=== PATIENT | male | born 1935 | race Caucasian/White ===

== ENCOUNTER 2017-06-25 13:26 | Inpatient (IN) | payer MEDICARE ==
[2017-06-25] MEDS ORDERED: SODIUM CHLORIDE 0.9% 1,000 ML IV STA (13:51)
--- NOTE | 2017-06-25 13:56 | ED ---
General Adult HPI - General Chief complaint: Fever Stated complaint: SOB/Blood sugar/589 Time Seen by Provider: 06/25/17 13:30 Source: patient, family, RN notes reviewed Mode of arrival: wheelchair Limitations: no limitations - History of Present Illness Initial comments: This is an 82-year-old male who presents to the emergency department stating he thinks he has diabetes. Patient states he measured his sugar was someone else' s machine and it measured 585. Patient states he's noticed lately that is been urinating quite a bit in his mouth is been extremely dry. Sensation states she' s never had diabetes before. Patient denies any palpitations. Patient denies any recent fever chills or cough. Patient states she does have full shortness of breath but he always is somewhat short of breath doesn't as COPD. Patient denies any chest pain. Patient denies abdominal pain patient denies any nausea vomiting or diarrhea recently. Patient denies any headache patient denies numbness weakness. Patient denies any back pain. Patient denies any recent injury or trauma - Related Data Home Medications Medication Instructions Recorded Confirmed No Known Home Medications [No 06/25/17 06/25/17 Known Home Medications] Allergies Allergy/AdvReac Type Severity Reaction Status Date / Time heparin AdvReac Itching Verified 06/25/17 14:52 Review of Systems ROS Statement: Those systems with pertinent positive or pertinent negative responses have been documented in the HPI. ROS Other: All systems not noted in ROS Statement are negative. Past Medical History Past Medical History: Diabetes Mellitus History of Any Multi-Drug Resistant Organisms: None Reported Past Surgical History: No Surgical Hx Reported Additional Past Surgical History / Comment(s): tooth extraction Past Psychological History: No Psychological Hx Reported Smoking Status: Former smoker Past Alcohol Use History: None Reported Past Drug Use History: None Reported General Exam - General Exam Comments Initial Comments: GENERAL: Patient is well-developed and well-nourished. Patient is nontoxic and well- hydrated and is in mild distress. ENT: Neck is soft and supple. No significant lymphadenopathy is noted. Oropharynx is clear. Dry mucous membranes. Neck has full range of motion without eliciting any pain. EYES: The sclera were anicteric and conjunctiva were pink and moist. Extraocular movements were intact and pupils were equal round and reactive to light. Eyelids were unremarkable. PULMONARY: Unlabored respirations. Good breath sounds bilaterally. No audible rales rhonchi or wheezing was noted. CARDIOVASCULAR: There is a regular rate and rhythm without any murmurs gallops or rubs. ABDOMEN: Soft and nontender with normal bowel sounds. No palpable organomegaly was noted. There is no palpable pulsatile mass. SKIN: Skin is clear with no lesions or rashes and otherwise unremarkable. NEUROLOGIC: Patient is alert and oriented x3. Cranial nerves II through XII are grossly intact. Motor and sensory are also intact. Normal speech, volume and content. Symmetrical smile. MUSCULOSKELETAL: Normal extremities with adequate strength and full range of motion. LYMPHATICS: No significant lymphadenopathy is noted PSYCHIATRIC: Normal psychiatric evaluation. Limitations: no limitations Course Vital Signs 06/25/17 13:32 Temperature 99.6 F Pulse Rate 104 H Respiratory 22 Rate Blood Pressure 138/91 O2 Sat by Pulse 95 Oximetry Medical Decision Making - Medical Decision Making EKG shows normal sinus rhythm at 91 bpm AR interval is on a 52 QRS is 92 QT interval 370 QTC is 455. Patient's EKG shows no ST segment elevation or depression or T wave abnormalities are noted. Patient's sugar was over 700 started the patient on insulin drip and I gave the patient 2 L of fluid. Patient's acetone was positive patient appeared to be in DKA swelling be admitting the patient. I spoke with Dr. Jimenez. The patient I wrote admitting orders I continue the insulin drip and the DKA protocol floor. - Lab Data Result diagrams: 06/25/17 14:06 06/25/17 14:06 Lab Results 06/25/17 06/25/17 06/25/17 Range/Units 14:04 14:06 14:06 WBC 12.1 H (3.8-10.6) k/uL RBC 5.60 (4.30-5.90) m/uL Hgb 18.4 H (13.0-17.5) gm/dL Hct 55.3 H (39.0-53.0) % MCV 98.8 (80.0-100.0) fL MCH 32.8 (25.0-35.0) pg MCHC 33.2 (31.0-37.0) g/dL RDW 15.7 H (11.5-15.5) % Plt Count 214 (150-450) k/uL Neutrophils % 87 % Lymphocytes % 7 % Monocytes % 4 % Eosinophils % 1 % Basophils % 0 % Neutrophils # 10.6 H (1.3-7.7) k/uL Lymphocytes # 0.8 L (1.0-4.8) k/uL Monocytes # 0.5 (0-1.0) k/uL Eosinophils # 0.1 (0-0.7) k/uL Basophils # 0.0 (0-0.2) k/uL Macrocytosis Slight Sodium (137-145) mmol/L Potassium (3.5-5.1) mmol/L Chloride (98-107) mmol/L Carbon Dioxide (22-30) mmol/L Anion Gap mmol/L BUN (9-20) mg/dL Creatinine (0.66-1.25) mg/dL Est GFR (MDRD) Af Amer (>60 ml/min/1.73 sqM) Est GFR (MDRD) Non-Af (>60 ml/min/1.73 sqM) Glucose (74-99) mg/dL POC Glucose (mg/dL) >600 H (75-99) mg/dL POC Glu Wallpaper [employer] VICTOR M Neal Dan Calcium (8.4-10.2) mg/dL Magnesium (1.6-2.3) mg/dL Total Bilirubin (0.2-1.3) mg/dL AST (17-59) U/L ALT (21-72) U/L Alkaline Phosphatase (38-126) U/L Total Creatine Kinase 41 L (55-170) U/L CK-MB (CK-2) 0.5 (0.0-2.4) ng/mL CK-MB (CK-2) Rel Index 1.2 Troponin I <0.012 (0.000-0.034) ng/mL Total Protein (6.3-8.2) g/dL Albumin (3.5-5.0) g/dL Acetone, Qual (Negative) 06/25/17 06/25/17 06/25/17 Range/Units 14:06 14:06 15:44 WBC (3.8-10.6) k/uL RBC (4.30-5.90) m/uL Hgb (13.0-17.5) gm/dL Hct (39.0-53.0) % MCV (80.0-100.0) fL MCH (25.0-35.0) pg MCHC (31.0-37.0) g/dL RDW (11.5-15.5) % Plt Count (150-450) k/uL Neutrophils % % Lymphocytes % % Monocytes % % Eosinophils % % Basophils % % Neutrophils # (1.3-7.7) k/uL Lymphocytes # (1.0-4.8) k/uL Monocytes # (0-1.0) k/uL Eosinophils # (0-0.7) k/uL Basophils # (0-0.2) k/uL Macrocytosis Sodium 129 L (137-145) mmol/L Potassium 4.9 (3.5-5.1) mmol/L Chloride 93 L (98-107) mmol/L Carbon Dioxide 18 L (22-30) mmol/L Anion Gap 18 mmol/L BUN 11 (9-20) mg/dL Creatinine 0.80 (0.66-1.25) mg/dL Est GFR (MDRD) Af Amer >60 (>60 ml/min/1.73 sqM) Est GFR (MDRD) Non-Af >60 (>60 ml/min/1.73 sqM) Glucose 784 H* (74-99) mg/dL POC Glucose (mg/dL) 522 H (75-99) mg/dL POC Glu Wallpaper [employer] ID Demetrius Zhong Calcium 9.4 (8.4-10.2) mg/dL Magnesium 1.9 (1.6-2.3) mg/dL Total Bilirubin 1.6 H (0.2-1.3) mg/dL AST 17 (17-59) U/L ALT 29 (21-72) U/L Alkaline Phosphatase 125 (38-126) U/L Total Creatine Kinase (55-170) U/L CK-MB (CK-2) (0.0-2.4) ng/mL CK-MB (CK-2) Rel Index Troponin I (0.000-0.034) ng/mL Total Protein 6.8 (6.3-8.2) g/dL Albumin 4.0 (3.5-5.0) g/dL Acetone, Qual Positive (Negative) Critical Care Time Critical Care Time: Yes Total Critical Care Time: 35 Disposition Clinical Impression: Diabetic ketoacidosis Disposition: ADMITTED IP TO THIS HOSP Referrals: Ray Perkins DO [Primary Care Provider] - 1-2 days Time of Disposition: 15:58
[2017-06-25 14:14] LABS: Glucose,Whole Blood >600 mg/dL (75-99)
[2017-06-25] MEDS ORDERED: INSULIN REGULAR 100 UNIT/ML VIAL IV ONE (14:17)
[2017-06-25 14:20] LABS: Basophils % (A) 0 %; CH 32.2; CHCM 32.8; Eosinophils # (A) 0.1 k/uL (0-0.7); Eosinophils % (A) 1 %; HCT 55.3 % (39.0-53.0); HDW 3.32; HGB 18.4 gm/dL (13.0-17.5); Luc # (Auto) 0.13; Luc % (Auto) 1; Lymphocytes # (A) 0.8 k/uL (1.0-4.8); Lymphocytes % (A) 7 %; MCH 32.8 pg (25.0-35.0); MCHC 33.2 g/dL (31.0-37.0); MCV 98.8 fL (80.0-100.0); Macrocytosis Slight; Mean Platelet Volume 9.3; Monocytes # (A) 0.5 k/uL (0-1.0); Monocytes % (A) 4 %; Neutrophils # (A) 10.6 k/uL (1.3-7.7); Neutrophils % (A) 87 %; RDW 15.7 % (11.5-15.5); WBC 12.1 k/uL (3.8-10.6); WBC (Perox) 12.39
[2017-06-25 14:34] LABS: ALT 29 U/L (21-72); AST 17 U/L (17-59); Alkaline Phosphatase 125 U/L (38-126); Anion Gap 18 mmol/L; Blood Urea Nitrogen 11 mg/dL (9-20); Calcium 9.4 mg/dL (8.4-10.2); Carbon Dioxide 18 mmol/L (22-30); Chloride 93 mmol/L (98-107); Magnesium 1.9 mg/dL (1.6-2.3); Non-African American GFR(MDRD) >60 (>60 ml/min/1.73 sqM); Potassium 4.9 mmol/L (3.5-5.1); Sodium 129 mmol/L (137-145); Total Bilirubin 1.6 mg/dL (0.2-1.3); Total Protein 6.8 g/dL (6.3-8.2)
[2017-06-25 14:42] LABS: Glucose 784 mg/dL (74-99)
[2017-06-25 14:46] LABS: Creatine Kinase 41 U/L (55-170)
[2017-06-25 14:57] LABS: Creatine Kinase MB 0.5 ng/mL (0.0-2.4); Troponin I <0.012 ng/mL (0.000-0.034)
--- NOTE | 2017-06-25 15:18 | XR ---
EXAMINATION TYPE: XR chest 2V DATE OF EXAM: 06/25/2017 COMPARISON: NONE INDICATION: Weakness hyperglycemia TECHNIQUE: Frontal and lateral views of the chest are obtained. FINDINGS: The heart size is normal. The pulmonary vasculature is normal. The lungs are clear. IMPRESSION: 1. No acute pulmonary process.
[2017-06-25 15:46] LABS: Glucose,Whole Blood 522 mg/dL (75-99)
[2017-06-25] MEDS ORDERED: SODIUM CHLORIDE 0.9% 1,000 ML IV ONE ×2 (16:06→20:50)
[2017-06-25] MEDS ORDERED: INSULIN REGULAR 100 UNIT in SODIUM CHLORIDE 0.9% 100 ML IV SCH (16:15)
[2017-06-25] MEDS ORDERED: SODIUM CHLORIDE 0.9% 1,000 ML IV SCH (16:15)
[2017-06-25 16:40] LABS: Glucose,Whole Blood 490 mg/dL (75-99)
[2017-06-25 17:51] LABS: Glucose,Whole Blood 383 mg/dL (75-99)
[2017-06-25 18:06] LABS: Glucose,Whole Blood 340 mg/dL (75-99)
[2017-06-25 19:14] LABS: Glucose,Whole Blood 269 mg/dL (75-99)
[2017-06-25 19:24] LABS: Anion Gap 15 mmol/L; Blood Urea Nitrogen 10 mg/dL (9-20); Carbon Dioxide 20 mmol/L (22-30); Chloride 100 mmol/L (98-107); Glucose 363 mg/dL (74-99); Non-African American GFR(MDRD) >60 (>60 ml/min/1.73 sqM); Phosphorous 2.4 mg/dL (2.5-4.5); Potassium 3.8 mmol/L (3.5-5.1); Sodium 135 mmol/L (137-145)
[2017-06-25] MEDS ORDERED: KCL IV SCH ×2 (19:30)
[2017-06-25] MEDS ORDERED: NACL IV SCH ×2 (19:30)
[2017-06-25] MEDS ORDERED: DEXTROSE IV SCH ×2 (19:30)
[2017-06-25 19:38] LABS: Appearance,Urine Clear (Clear); Bilirubin,Urine Negative (Negative); Glucose,Urine (UA) 4+ (Negative); Leukocyte Esterase,Urine Negative (Negative); Nitrite,Urine Negative (Negative); Protein,Urine Negative (Negative); Specific Gravity,Urine 1.029 (1.001-1.035); UA Billing (MACRO vs. MICRO) CHEM; Urobilinogen,Urine <2.0 mg/dL (<2.0)
[2017-06-25] MEDS ORDERED: D5-0.45% NACL WITH KCL 20MEQ/L 1,000 ML IV SCH (19:45)
[2017-06-25 19:59] LABS: Glucose,Whole Blood 225 mg/dL (75-99)
[2017-06-25 20:07] LABS: Ketones,Urine 2+ (Negative)
[2017-06-25 20:37] LABS: Glucose,Whole Blood 228 mg/dL (75-99)
[2017-06-25] MEDS ORDERED: POTASSIUM CHLORIDE ER 20 MEQ TAB.ER PO STA (20:58)
[2017-06-25] MEDS ORDERED: POTASSIUM PHOSPHATE 10 MMOL in SODIUM CHLORIDE 0.9% 250 ML IV ONE (20:59)
[2017-06-25] MEDS: INSULIN DETEMIR 100 UNIT/ML 10 ML VIAL SQ SCH (21:46)
[2017-06-25] MEDS: MELATONIN 3 MG TABLET PO SCH (21:47)
[2017-06-25] MEDS: INSULIN LISPRO (humaLOG) 300 UNIT/3 ML VIAL SQ SCH (21:54)
[2017-06-25] MEDS: SODIUM CHLORIDE 0.9% 1,000 ML IV SCH (21:58)
[2017-06-25 22:04] LABS: Glucose,Whole Blood 206 mg/dL (75-99)
[2017-06-26 00:13] LABS: Glucose,Whole Blood 148 mg/dL (75-99)
[2017-06-26 05:44] LABS: Glucose,Whole Blood 191 mg/dL (75-99)
[2017-06-26] MEDS: INSULIN LISPRO (humaLOG) 300 UNIT/3 ML VIAL SQ SCH ×7 (07:08→20:26)
[2017-06-26 07:50] LABS: Hemoglobin A1C 13.1 % (4.2-6.1)
[2017-06-26 11:40] LABS: Glucose,Whole Blood 213 mg/dL (75-99)
[2017-06-26] MEDS: SODIUM CHLORIDE 0.9% 1,000 ML IV SCH (12:13)
--- NOTE | 2017-06-26 13:58 | HP ---
HISTORY AND PHYSICAL CHIEF COMPLAINTS: Weakness, dryness of mouth and polydipsia. HISTORY OF PRESENT ILLNESS: This 82-year-old gentleman with a past medical history of orthopedic surgery and dental extraction about two weeks ago, in the right lower molar area; femoral-femoral bypass, being followed by Dr. Perkins in the outpatient setting, was not feeling well over the past several days. The patient had increasing weakness and polyuria and polydipsia. The patient was came to [facility] and was found to have blood sugar more than 674 with evidence of early diabetic ketoacidosis. Patient was started on insulin drip and DKA protocol. Admit for further evaluation and treatment. There is no history of fever, rigors or chills. No headache, loss of consciousness or seizures. PAST MEDICAL HISTORY: History of recent tooth extraction, femoral-femoral bypass. MEDICATIONS: None. ALLERGIES: HEPARIN. FAMILY HISTORY: History of diabetes in a sister. Hypertension. SOCIAL HISTORY: Previous smoker. No history of alcohol intake. REVIEW OF SYSTEMS: ENT: As mentioned earlier. CARDIOVASCULAR: No angina or palpitations. RESPIRATORY: No cough or hemoptysis. GI: No nausea or vomiting. : No dysuria. NERVOUS SYSTEM: No numbness or weakness. ALLERGY/IMMUNOLOGY: No asthma or hayfever. MUSCULOSKELETAL: As mentioned earlier. HEMATOLOGY/ONCOLOGY: No anemia. ENDOCRINE: Diabetes mellitus. CONSTITUTIONAL: As mentioned earlier. DERMATOLOGY: Negative. RHEUMATOLOGY: Negative. PSYCHIATRIC: Negative. PHYSICAL EXAMINATION: Alert and oriented x3. Pulse 78, blood pressure 163/70, respirations 18, temperature 96.0, pulse ox 90% on room air. HEENT: Conjunctivae normal. Oral mucosa moist. NECK: No jugular venous distention. No carotid bruit. No lymph node enlargement. CARDIOVASCULAR: S1, S2. No S3 or S4. RESPIRATORY: Diminished breath sounds especially in the bases. No rhonchi, no crackles. ABDOMEN: Soft, nontender. No mass palpable. LEG: No edema. No swelling. NERVOUS SYSTEM: High function as mentioned. Cranial nerves 2-12 grossly intact. Moves all four limbs. No focal motor or sensory deficits. LYMPHATICS: No lymph node palpable in the neck or axilla. SKIN: No rashes. LABS: WBC ntd, hemoglobin 18.4, sodium 139. Glucose noted. ASSESSMENT: 1. Acute diabetic ketoacidosis with uncontrolled diabetes mellitus type 2. 2. Pseudohyponatremia. 3. Increased WBC. 4. History of recent tooth extraction. 5. History of femoropopliteal bypass. 6. History of nicotine dependence. 7. NO CODE, NO CPR, NO VENT. RECOMMENDATIONS AND DISCUSSION: This 82-year-old gentleman who presented with multiple complex medical issues, we will monitor the patient closely, continue the current medication, continue symptomatic treatment. Otherwise, we will transition him to a combination of Levemir and Humalog and continue to monitor. Repeat labs in the morning. The prognosis is guarded because of multiple complex medical issues. Further recommendations to follow. The patient might be able to be transitioned to p.o. medications later. The molar area where the tooth extraction was appears to be noninfected at this time. No lymphadenopathy present. MMODL / IJN: [id number] / MTDD
[2017-06-26 14:39] VITALS: BMI 34.9
[2017-06-26 17:12] LABS: Glucose,Whole Blood 211 mg/dL (75-99)
[2017-06-26] MEDS: metFORMIN 500 MG TAB PO SCH (18:02)
[2017-06-26] MEDS: ALPRAZolam 0.25 MG TAB PO PRN (18:02)
[2017-06-26 20:23] LABS: Glucose,Whole Blood 186 mg/dL (75-99)
[2017-06-26] MEDS: INSULIN DETEMIR 100 UNIT/ML 10 ML VIAL SQ SCH (20:25)
[2017-06-26] MEDS: MELATONIN 3 MG TABLET PO SCH (20:25)
[2017-06-26 22:24] VITALS: RESP 18
[2017-06-27] MEDS: ALPRAZolam 0.25 MG TAB PO PRN (02:29)
[2017-06-27 06:55] LABS: Glucose,Whole Blood 205 mg/dL (75-99)
[2017-06-27] MEDS: metFORMIN 500 MG TAB PO SCH (07:25)
[2017-06-27] MEDS: INSULIN LISPRO (humaLOG) 300 UNIT/3 ML VIAL SQ SCH ×4 (07:26→12:20)
[2017-06-27 07:56] LABS: Basophils % (A) 1 %; CH 32.2; CHCM 33.4; Eosinophils # (A) 0.2 k/uL (0-0.7); Eosinophils % (A) 2 %; HCT 45.6 % (39.0-53.0); HDW 3.31; Luc # (Auto) 0.14; Luc % (Auto) 2; Lymphocytes # (A) 0.9 k/uL (1.0-4.8); Lymphocytes % (A) 14 %; MCH 32.9 pg (25.0-35.0); MCHC 33.9 g/dL (31.0-37.0); MCV 97.1 fL (80.0-100.0); Mean Platelet Volume 8.7; Monocytes # (A) 0.4 k/uL (0-1.0); Monocytes % (A) 6 %; Neutrophils # (A) 4.8 k/uL (1.3-7.7); Neutrophils % (A) 75 %; RBC 4.69 m/uL (4.30-5.90); RDW 15.5 % (11.5-15.5); WBC 6.4 k/uL (3.8-10.6); WBC (Perox) 6.54
[2017-06-27 08:08] LABS: HGB 15.4 gm/dL (13.0-17.5)
[2017-06-27 08:20] LABS: Anion Gap 7 mmol/L; Blood Urea Nitrogen 8 mg/dL (9-20); Calcium 7.9 mg/dL (8.4-10.2); Carbon Dioxide 24 mmol/L (22-30); Chloride 106 mmol/L (98-107); Glucose 214 mg/dL (74-99); Non-African American GFR(MDRD) >60 (>60 ml/min/1.73 sqM); Potassium 3.9 mmol/L (3.5-5.1); Sodium 137 mmol/L (137-145)
--- NOTE | 2017-06-27 09:32 | PN ---
PROGRESS NOTE DATE OF SERVICE: 06/26/2007 This 82-year-old gentleman who was admitted with acute diabetic ketoacidosis also had hemoglobin A1c of 13.1. Patient started on insulin, Levemir 3 dose regimen. No chest pain, no palpitations, no fever. EXAM: Alert, oriented x3. Pulse 82, blood pressure 135/66, respirations 16, temperature 97.4, pulse ox 92% on room air. HEENT: Conjunctivae normal. NECK: No jugular venous distention. CARDIOVASCULAR: S1, S2 muffled. RESPIRATORY: Breath sounds at the bases. A few scattered rhonchi. ABDOMEN: Soft, nontender. LEGS: No edema. NERVOUS SYSTEM: No focal deficits. LABS: Accu-Cheks 239 and 211. WBC 12.1. UA is unremarkable. ASSESSMENT: 1. Acute diabetic ketoacidosis and uncontrolled diabetes mellitus type 2. 2. Severe hyponatremia. 3. Increased WBC. 4. History of recent tooth extraction. 5. History of femoropopliteal bypass. 6. History of nicotine dependence. 7. NO CODE, NO CPR, NO VENT. RECOMMENDATIONS AND DISCUSSION: I recommend to continue current medications, continue symptomatic treatment. Otherwise at this time I recommend continue the current dose of insulin. Add metformin to the current regimen. Repeat labs in the morning. Further recommendations to follow. MMODL / IJN: [id number] /
[2017-06-27 11:22] LABS: Glucose,Whole Blood 243 mg/dL (75-99)
--- NOTE | 2017-06-27 12:50 | P.DS ---
Providers Date of admission: 06/25/17 16:05 Attending physician: Vidal Groves MD Consults: 06/25/17 17:34 Consult Physician Routine Consulting Provider: Ray Perkins Consult Reason/Comments: knew the pt Do you want consulting provider notified?: Yes Hospital Course: This 82-year-old woman who had a past medical history of multiple medical problems was admitted with a new onset diabetes mellitus and acute diabetic ketoacidosis and uncontrolled diabetes was type II to [facility]. Patient has been followed by Dr. Perkins in the preceding. He had symptoms of polyuria polydipsia and weakness prior to admission. Patient was treated with DKA protocol initially. Improved significantly. Blood sugars were controlled with long-acting insulin and as well as metformin.. Her sugars are being monitored. Patient be discharged home in a stable pressure the guarded prognosis further plans to follow up with the primary physician in the outpatient setting. On exam vitals stable. Cardio S1 and S2 normal. Abdomen soft nontender. No system no focal deficit. Final diagnosis 1. Acute diabetic ketoacidosis and uncontrolled diabetes mellitus type 2 New Onset. 2. Severe hyponatremia is please pseudohyponatremia. 3. Increased WBC possibly reactive. 4. History of recent tooth extraction 5. History of femoropopliteal bypass. 6. History and nicotine dependence. 7. No code no CPR no event. Plan - Discharge Summary New Discharge Prescriptions: New metFORMIN HCL [Glucophage] 500 mg PO BID-W/MEALS #60 tab Insulin Detemir [Levemir Flextouch] 40 units SQ HS #1 vial Discharge Medication List Insulin Detemir [Levemir Flextouch] 40 units SQ HS #1 vial 06/27/17 [Rx] metFORMIN HCL [Glucophage] 500 mg PO BID-W/MEALS #60 tab 06/27/17 [Rx] Follow up Appointment(s)/Referral(s): Ray Perkins DO [Doctor of Osteopathic Medicine] - 3 Days [facility], [NON-STAFF] - 1 Week Ambulatory/Diagnostic Orders: Basic Metabolic Panel [LAB.AMB] Time Frame: 3 Days, Location: Determined By Patient Activity/Diet/Wound Care/Special Instructions: DIet : COnsist. Carb case management to arrange DM supplies, glucometer & OP DM ED classes Activity: limited TIll F/U
[2017-06-27 15:06] VITALS: BP 129/64; PULSE 84; TEMP 98.7
== END 2017-06-27 17:00 | disposition home health service (06) | DRG 638 ==
LOC: EC 13:26 → 6SEL 16:05 → 5MS5E 06-26 16:59
PROVIDERS: ADMIT Internal Medicine; ATTEND Internal Medicine
DX: E13.10 Other specified diabetes mellitus with ketoacidosis without coma (principal); E87.1 Hypo-osmolality and hyponatremia; Z82.49 Family history of ischemic heart disease and other diseases of the circulatory system; Z83.3 Family history of diabetes mellitus; Z87.891 Personal history of nicotine dependence
CPT/HCPCS: 36415; 71020; 80048; 80051; 80053; 81003; 82009; 82550; 82553; 82565; 82947; 83036; 83735; 84100; 84484; 84520; 84681; 85025; 93005; 94760; 96360; 96361; 99285

== ENCOUNTER 2018-06-25 11:36 | Inpatient (IN) | payer MEDICARE ==
[2018-06-25] MEDS ORDERED: MORPHINE SULFATE 4 MG/ML SYRINGE IV STA (11:52)
[2018-06-25] MEDS ORDERED: SODIUM CHLORIDE 0.9% 1,000 ML IV STA (11:52)
[2018-06-25] MEDS ORDERED: ONDANSETRON 4 MG/2 ML VIAL IVP STA (11:52)
[2018-06-25] MEDS ORDERED: FAMOTIDINE 20 MG/2 ML VIAL IV STA (11:53)
--- NOTE | 2018-06-25 11:57 | ED ---
General Adult HPI - General Chief complaint: Chest Pain Stated complaint: chest pain Time Seen by Provider: 06/25/18 11:46 Source: patient, EMS, RN notes reviewed Mode of arrival: EMS Limitations: no limitations - History of Present Illness Initial comments: Patient is a pleasant 83-year-old male presenting to the emergency Department with abdominal and chest discomfort. Onset of symptoms was around 5:30 or so this morning when he awoke. Discomfort started more in the abdomen over has now extended up to the chest. Discomfort has been somewhat steady. Discomfort did improve with 2 nitroglycerin and aspirin by EMS and is currently 6/10. Patient has had some nausea and did spit up a little bit. No change in his chronic dyspnea. No diaphoresis. Abdominal discomfort did feel like patient's diverticulitis at onset however now he is concerned there may be something different going on. - Related Data Previous Rx's Medication Instructions Recorded metFORMIN HCL [Glucophage] 500 mg PO BID-W/MEALS #60 tab 06/27/17 Allergies Allergy/AdvReac Type Severity Reaction Status Date / Time heparin AdvReac Itching Verified 06/25/18 14:11 Review of Systems ROS Statement: Those systems with pertinent positive or pertinent negative responses have been documented in the HPI. ROS Other: All systems not noted in ROS Statement are negative. Constitutional: Denies: fever Eyes: Denies: eye pain ENT: Denies: ear pain Respiratory: Denies: cough Cardiovascular: Reports: chest pain Endocrine: Denies: fatigue Gastrointestinal: Reports: abdominal pain, nausea Genitourinary: Denies: dysuria Musculoskeletal: Denies: back pain Skin: Denies: rash Neurological: Denies: weakness Past Medical History Past Medical History: COPD, Dementia Additional Past Medical History / Comment(s): diverticulitis History of Any Multi-Drug Resistant Organisms: None Reported Past Surgical History: Orthopedic Surgery Additional Past Surgical History / Comment(s): tooth extraction, fem pop bypass , juan inserted in left leg Past Anesthesia/Blood Transfusion Reactions: No Reported Reaction Past Psychological History: No Psychological Hx Reported Smoking Status: Former smoker Past Alcohol Use History: None Reported Past Drug Use History: None Reported - Past Family History Father Family Medical History: Hypertension Mother Family Medical History: Congestive Heart Failure (CHF) General Exam Limitations: no limitations General appearance: alert, in no apparent distress Head exam: Present: atraumatic Eye exam: Present: normal appearance, PERRL ENT exam: Present: normal oropharynx Neck exam: Present: normal inspection Respiratory exam: Present: normal lung sounds bilaterally. Absent: chest wall tenderness Cardiovascular Exam: Present: regular rate, normal rhythm Expanded Peripheral pulses: 2+: Radial (R), Radial (L), Posterior Tibialis (R), Posterior Tibialis (L), Dorsalis Pedis (R), Dorsalis Pedis (L) GI/Abdominal exam: Present: soft. Absent: tenderness Extremities exam: Present: normal inspection. Absent: pedal edema, calf tenderness Neurological exam: Present: alert Psychiatric exam: Present: normal affect, normal mood Skin exam: Present: normal color Course Vital Signs 06/25/18 06/25/18 06/25/18 11:41 13:29 15:00 Temperature 97.8 F Pulse Rate 55 L 68 86 Respiratory 20 18 18 Rate Blood Pressure 170/72 226/99 203/94 O2 Sat by Pulse 96 96 97 Oximetry - Reevaluation(s) Reevaluation #1: 06/25/18 15:14 Patient does not meet sepsis criteria EKG Findings - EKG Comments: EKG Findings:: Normal sinus rhythm 61. TX 158. QRS 96. QT 440. QTc 442. Left axis. Normal QRS. No acute ST change. Medical Decision Making - Medical Decision Making Patient reevaluated and resting comfortably in bed. Patient and family updated on results and plan. Case was discussed in detail with Dr. Brown, whose group has previously admitted this patient and will admit for Dr. Frey. - Lab Data Result diagrams: 06/25/18 11:59 06/25/18 11:59 Lab Results 06/25/18 06/25/18 06/25/18 Range/Units 11:59 11:59 11:59 WBC 9.3 (3.8-10.6) k/uL RBC 5.36 (4.30-5.90) m/uL Hgb 17.1 (13.0-17.5) gm/dL Hct 50.5 (39.0-53.0) % MCV 94.2 (80.0-100.0) fL MCH 31.9 (25.0-35.0) pg MCHC 33.9 (31.0-37.0) g/dL RDW 14.6 (11.5-15.5) % Plt Count 194 (150-450) k/uL Neutrophils % 87 % Lymphocytes % 7 % Monocytes % 3 % Eosinophils % 2 % Basophils % 0 % Neutrophils # 8.1 H (1.3-7.7) k/uL Lymphocytes # 0.6 L (1.0-4.8) k/uL Monocytes # 0.3 (0-1.0) k/uL Eosinophils # 0.2 (0-0.7) k/uL Basophils # 0.0 (0-0.2) k/uL PT (9.0-12.0) sec INR (<1.2) APTT (22.0-30.0) sec Sodium 138 (137-145) mmol/L Potassium 4.1 (3.5-5.1) mmol/L Chloride 105 (98-107) mmol/L Carbon Dioxide 21 L (22-30) mmol/L Anion Gap 12 mmol/L BUN 16 (9-20) mg/dL Creatinine 0.84 (0.66-1.25) mg/dL Est GFR (CKD-EPI)AfAm >90 (>60 ml/min/1.73 sqM) Est GFR (CKD-EPI)NonAf 82 (>60 ml/min/1.73 sqM) Glucose 175 H (74-99) mg/dL Calcium 9.2 (8.4-10.2) mg/dL Total Bilirubin 1.0 (0.2-1.3) mg/dL AST 17 (17-59) U/L ALT 25 (21-72) U/L Alkaline Phosphatase 73 (38-126) U/L Total Creatine Kinase 33 L (55-170) U/L CK-MB (CK-2) 0.6 (0.0-2.4) ng/mL CK-MB (CK-2) Rel Index 1.8 Troponin I <0.012 (0.000-0.034) ng/mL Total Protein 6.7 (6.3-8.2) g/dL Albumin 3.8 (3.5-5.0) g/dL Amylase 134 H (30-110) U/L Lipase 333 H (23-300) U/L 06/25/18 Range/Units 11:59 WBC (3.8-10.6) k/uL RBC (4.30-5.90) m/uL Hgb (13.0-17.5) gm/dL Hct (39.0-53.0) % MCV (80.0-100.0) fL MCH (25.0-35.0) pg MCHC (31.0-37.0) g/dL RDW (11.5-15.5) % Plt Count (150-450) k/uL Neutrophils % % Lymphocytes % % Monocytes % % Eosinophils % % Basophils % % Neutrophils # (1.3-7.7) k/uL Lymphocytes # (1.0-4.8) k/uL Monocytes # (0-1.0) k/uL Eosinophils # (0-0.7) k/uL Basophils # (0-0.2) k/uL PT 11.4 (9.0-12.0) sec INR 1.2 H (<1.2) APTT 25.2 (22.0-30.0) sec Sodium (137-145) mmol/L Potassium (3.5-5.1) mmol/L Chloride (98-107) mmol/L Carbon Dioxide (22-30) mmol/L Anion Gap mmol/L BUN (9-20) mg/dL Creatinine (0.66-1.25) mg/dL Est GFR (CKD-EPI)AfAm (>60 ml/min/1.73 sqM) Est GFR (CKD-EPI)NonAf (>60 ml/min/1.73 sqM) Glucose (74-99) mg/dL Calcium (8.4-10.2) mg/dL Total Bilirubin (0.2-1.3) mg/dL AST (17-59) U/L ALT (21-72) U/L Alkaline Phosphatase (38-126) U/L Total Creatine Kinase (55-170) U/L CK-MB (CK-2) (0.0-2.4) ng/mL CK-MB (CK-2) Rel Index Troponin I (0.000-0.034) ng/mL Total Protein (6.3-8.2) g/dL Albumin (3.5-5.0) g/dL Amylase (30-110) U/L Lipase (23-300) U/L - Radiology Data Radiology results: report reviewed (CT angios of the thorax, abdomen and pelvis shows infiltrate left lung base. No aneurysm or dissection.), image reviewed ( Chest x-ray shows left lower infiltrate or atelectasis. KUB shows nonacute abdomen.) Disposition Clinical Impression: Chest pain, Pneumonia Disposition: ADMITTED IP TO THIS HOSP Is patient prescribed a controlled substance at d/c from ED?: No Referrals: Ray Perkins DO [Primary Care Provider] - 1-2 days Decision Time: 15:14
[2018-06-25 12:12] LABS: Basophils % (A) 0 %; Eosinophils # (A) 0.2 k/uL (0-0.7); Eosinophils % (A) 2 %; HCT 50.5 % (39.0-53.0); HGB 17.1 gm/dL (13.0-17.5); Lymphocytes # (A) 0.6 k/uL (1.0-4.8); Lymphocytes % (A) 7 %; MCH 31.9 pg (25.0-35.0); MCHC 33.9 g/dL (31.0-37.0); MCV 94.2 fL (80.0-100.0); Mean Platelet Volume 7.7; Monocytes # (A) 0.3 k/uL (0-1.0); Monocytes % (A) 3 %; Neutrophils # (A) 8.1 k/uL (1.3-7.7); Neutrophils % (A) 87 %; Platelet Count 194 k/uL (150-450); RBC 5.36 m/uL (4.30-5.90); RDW 14.6 % (11.5-15.5); WBC 9.3 k/uL (3.8-10.6)
--- NOTE | 2018-06-25 12:25 | XR ---
EXAMINATION TYPE: XR KUB DATE OF EXAM: 06/25/2018 COMPARISON: NONE HISTORY: Abdominal pain TECHNIQUE: 2 views FINDINGS: There is no sign of intestinal obstruction or pneumoperitoneum. There is some infiltrate at the lateral left lung base. There are multiple surgical clips. There is left hip nailing. There is n o evidence of a mass. IMPRESSION: Nonacute abdomen. Left lower lobe pneumonia.
[2018-06-25 12:27] LABS: ALT 25 U/L (21-72); AST 17 U/L (17-59); Albumin 3.8 g/dL (3.5-5.0); Alkaline Phosphatase 73 U/L (38-126); Amylase 134 U/L (30-110); Anion Gap 12 mmol/L; Blood Urea Nitrogen 16 mg/dL (9-20); Calcium 9.2 mg/dL (8.4-10.2); Carbon Dioxide 21 mmol/L (22-30); Chloride 105 mmol/L (98-107); Glucose 175 mg/dL (74-99); Lipase 333 U/L (23-300); Potassium 4.1 mmol/L (3.5-5.1); Sodium 138 mmol/L (137-145); Total Protein 6.7 g/dL (6.3-8.2)
--- NOTE | 2018-06-25 12:27 | XR ---
EXAMINATION TYPE: XR chest 1V portable DATE OF EXAM: 06/25/2018 COMPARISON: 06/25/2017 HISTORY: Abdominal pain TECHNIQUE: Single frontal view of the chest is obtained. FINDINGS: There is coarsening of interstitial markings. There is a mild infiltrate and atelectasis a t the lateral left lung base. There is no gross heart failure. Thoracic aorta is atheromatous. There are chest leads. IMPRESSION: Mild left lower lobe infiltrate or atelectasis. This appears increased compared to old e xam.
[2018-06-25 12:30] LABS: INR 1.2 (<1.2); Partial Thromboplastin Time 25.2 sec (22.0-30.0); Prothrombin Time 11.4 sec (9.0-12.0)
[2018-06-25 12:37] LABS: Creatine Kinase 33 U/L (55-170)
[2018-06-25 12:50] LABS: Creatine Kinase MB 0.6 ng/mL (0.0-2.4); Troponin I <0.012 ng/mL (0.000-0.034)
[2018-06-25] MEDS ORDERED: HYDROmorphone 1 MG/ML 1 ML SYRINGE IVP STA (13:32)
[2018-06-25] MEDS ORDERED: NITROGLYCERIN OINT 1 INCH/GM PACKET TOPICAL STA (13:33)
[2018-06-25] MEDS ORDERED: ENALAPRILAT 1.25 MG/ML 1 ML VIAL IVP STA (13:33)
--- NOTE | 2018-06-25 14:52 | CT ---
EXAMINATION TYPE: CT angio thor/abd pel aorta DATE OF EXAM: 06/25/2018 COMPARISON: None HISTORY: Midline pain with nausea. History of femoral bypass CT DLP: 2305.9 mGycm. Automated Exposure Control for Dose Reduction was Utilized. CONTRAST: CT scan of the thorax, abdomen and pelvis is performed with IV Contrast, patient injected with 100 mL of Isovue 370. FINDINGS: There is some pulmonary emphysema. There is coarsening of pulmonary interstitial markings. Thoracic a caitlyn is atheromatous. There is no evidence of thoracic aortic aneurysm or dissection. I see no fillin g defects in the pulmonary arteries. Abdominal aorta is atheromatous. There is bilateral aortal iliac bypass graft. Graft appears patent. There are infiltrates at the posterior lung bases. Abdominal aorta shows atheromatous change. There is occlusion of the [place] common iliac arteries. There are numerous diverticula in the sigmoid colon. There is no evidence of diverticulitis. There is arterial flow in the proximal femoral arteries. There is prostatic calcification. There is arterial flow in the celiac artery and superior mesenteric artery. There is arterial flow in both renal arteri es. Liver and spleen appear normal. Bile ducts are not dilated. There is no pancreatic mass. There are mu ltiple gallstones. The bony structures are intact. There is ventral hernia that contains loops of small bowel. This is broad-based hernia without eviden ce of incarceration. There is no evidence of a bowel obstruction. IMPRESSION: Infiltrate and atelectasis at the lung bases. COPD. Atherosclerotic vascular disease. There is patency of the aortoiliac bypass graft. No aortic aneurysm or dissection. Sigmoid diverticulosis without diverticulitis. Gallstones.
[2018-06-25] MEDS ORDERED: ASPIRIN 81 MG PO STA (15:15)
[2018-06-25] MEDS ORDERED: AZITHROMYCIN 500 MG in SODIUM CHLORIDE 0.9% 250 ML IVPB STA (15:15)
[2018-06-25] MEDS ORDERED: PNEUMONIA PROTOCOL UTILIZED 1 EACH MISC PO PRN (15:15)
[2018-06-25] MEDS ORDERED: cefTRIAXone IN SWFI 1,000 MG/10 ML SYRINGE IVP STA (15:15)
[2018-06-25 16:31] LABS: Appearance,Urine Clear (Clear); Bilirubin,Urine Negative (Negative); Blood,Urine Negative (Negative); Color,Urine Yellow; Glucose,Urine (UA) Negative (Negative); Ketones,Urine 1+ (Negative); Leukocyte Esterase,Urine Negative (Negative); Mucus,Urine Rare /hpf; Nitrite,Urine Negative (Negative); PH, Urine 5.5 (5.0-8.0); Protein,Urine 1+ (Negative); Specific Gravity,Urine 1.044 (1.001-1.035); Urobilinogen,Urine <2.0 mg/dL (<2.0); WBC,Urine 1 /hpf (0-5)
[2018-06-25] MEDS: INSULIN ASPART 100 UNIT/ML 1 ML 10 ML VIAL SQ SCH ×2 (16:50→20:38)
[2018-06-25 17:06] LABS: Glucose,Whole Blood 129 mg/dL (75-99)
[2018-06-25 18:07] LABS: Creatine Kinase 47 U/L (55-170)
[2018-06-25] MEDS ORDERED: TEMAZEPAM 15 MG CAP PO PRN (18:14)
[2018-06-25 18:20] LABS: Creatine Kinase MB 0.7 ng/mL (0.0-2.4); Troponin I <0.012 ng/mL (0.000-0.034)
[2018-06-25] MEDS ORDERED: IPRATROPIUM-ALBUTEROL 3 ML NEB INHALATION PRN (18:41)
[2018-06-25] MEDS ORDERED: MORPHINE SULFATE 2 MG/ML SYRINGE IVP PRN (18:41)
[2018-06-25] MEDS: IPRATROPIUM-ALBUTEROL 3 ML NEB INHALATION SCH (19:37)
[2018-06-25] MEDS: PANTOPRAZOLE 40 MG/10 ML VIAL IVP SCH (20:33)
[2018-06-25 20:39] LABS: Glucose,Whole Blood 175 mg/dL (75-99)
[2018-06-25] MEDS: NITROGLYCERIN OINT 1 INCH/GM PACKET TOPICAL SCH (23:54)
[2018-06-26 00:50] LABS: Creatine Kinase 52 U/L (55-170)
[2018-06-26 01:04] LABS: Creatine Kinase MB 0.9 ng/mL (0.0-2.4); Troponin I <0.012 ng/mL (0.000-0.034)
[2018-06-26 06:22] LABS: Glucose,Whole Blood 177 mg/dL (75-99)
[2018-06-26] MEDS: NITROGLYCERIN OINT 1 INCH/GM PACKET TOPICAL SCH (06:30)
[2018-06-26] MEDS: INSULIN ASPART 100 UNIT/ML 1 ML 10 ML VIAL SQ SCH ×2 (06:30→11:42)
[2018-06-26 07:01] LABS: Basophils % (A) 0 %; Eosinophils # (A) 0.1 k/uL (0-0.7); Eosinophils % (A) 0 %; HCT 48.1 % (39.0-53.0); HGB 15.4 gm/dL (13.0-17.5); Lymphocytes # (A) 0.6 k/uL (1.0-4.8); Lymphocytes % (A) 3 %; MCH 30.9 pg (25.0-35.0); MCHC 32.1 g/dL (31.0-37.0); MCV 96.1 fL (80.0-100.0); Mean Platelet Volume 7.4; Monocytes # (A) 1.3 k/uL (0-1.0); Monocytes % (A) 6 %; Neutrophils # (A) 18.6 k/uL (1.3-7.7); Neutrophils % (A) 90 %; Platelet Count 202 k/uL (150-450); RDW 14.9 % (11.5-15.5); WBC 20.6 k/uL (3.8-10.6)
[2018-06-26 07:20] LABS: Albumin 3.3 g/dL (3.5-5.0); Potassium 4.2 mmol/L (3.5-5.1); Total Bilirubin 1.1 mg/dL (0.2-1.3); Total Protein 5.9 g/dL (6.3-8.2)
--- NOTE | 2018-06-26 07:50 | XR ---
EXAMINATION TYPE: XR chest 2V DATE OF EXAM: 06/26/2018 COMPARISON: Prior chest 06/25/2018 HISTORY: Pneumonia TECHNIQUE: Frontal and lateral views of the chest are obtained. FINDINGS: There is no pleural effusion or pneumothorax seen. Minimal patchy basilar density is note d. The cardiac silhouette size is stable. Prominent lung volume are indicative of emphysema. There are overlying cardiac leads and the patient is rotated. Interstitium is increased. Pulmonary artery i s enlarged. The osseous structures are intact. IMPRESSION: Suspect some minimal basilar atelectasis. Emphysema. Correlate for pulmonary artery hype rtension.
--- NOTE | 2018-06-26 07:53 | HP ---
HISTORY AND PHYSICAL 06/25/2018 CHIEF COMPLAINT: Abdominal and chest pain. HISTORY OF PRESENT ILLNESS: This 83-year-old gentleman with a past medical history of multiple medical problems including COPD, diabetes, diverticulitis, being followed by Dr. Perkins in the outpatient setting, was complaining of abdominal pain which is felt in the right side initially but subsequently went up to the left chest and patient also had some chest discomfort and the patient is concerned about cardiac issues and the EMS gave two nitroglycerine and aspirin and the pain is improved a little, but currently it is 2/10 in intensity and the patient came to [facility] and admitted for further evaluation and treatment. On evaluation, cardiac enzymes were within normal limits. However, the patient had slightly elevated amylase and lipase and also the patient also had a thoracic aortic CT scan. The CT scan revealed some atelectasis in the left lung base, COPD, patency of the aortic iliac bypass graft and sigmoid diverticulosis and also gallstones also. There is no history of fever, rigors or chills. No history of headache, loss of consciousness, seizures. PAST MEDICAL HISTORY: History of diabetes and COPD, diverticulitis. MEDICATIONS PRIOR TO ADMISSION: Include metformin 500 mg b.i.d. with meals. ALLERGIES: HEPARIN. FAMILY HISTORY: History of hypertension in the family. SOCIAL HISTORY: Previous history of smoking. No history of current smoking. No alcohol intake. REVIEW OF SYSTEMS: ENT: No diminished hearing or diminished vision. CARDIOVASCULAR: As mentioned earlier. RESPIRATORY: As mentioned earlier. GI: As mentioned earlier. no dysuria. NERVOUS SYSTEM: No numbness or weakness. ALLERGY/IMMUNOLOGY: No asthma or hayfever. MUSCULOSKELETAL as mentioned earlier. HEMATOLOGY/ONCOLOGY: No history of anemia. ENDOCRINE: No history of diabetes or hypothyroidism. CONSTITUTIONAL: As mentioned earlier. Dermatology: Negative. Rheumatology: Negative. Psychiatry: As mentioned earlier. PHYSICAL EXAM: GENERAL: Patient is alert, oriented x3. VITAL SIGNS: The pulse is 90, blood pressure is 175/97, respiration 18, temperature 96.9, pulse ox 94% on room air. HEENT: Conjunctivae normal. Oral mucosa moist. NECK is no jugular venous distention. No carotid bruit. No lymph node enlargement. CARDIOVASCULAR: S1, S2 muffled. RESPIRATORY: Breath sounds diminished in the bases. No rhonchi. No crackles. ABDOMEN: Soft, nontender. No mass palpable. No guarding. No rigidity. LEGS: No edema, no swelling. NERVOUS SYSTEM: Higher functions as mentioned. Moves all 4 limbs. No focal motor or sensory deficits. Lymphatics: No lymph nodes palpable in the neck, axillae or groin. Skin: No ulcer, rash or bleeding. LABS: WBC 9.2, hemoglobin 17.1, CO2 is 21. Amylase 134, lipase is 333. ASSESSMENT: 1. Abdominal pain and chest pain for evaluation. 2. Possible acute mild pancreatitis possibly gallstone pancreatitis. 3. Cholelithiasis. 4. Rule out coronary artery disease. 5. Chronic obstructive pulmonary disease. 6. Diabetes mellitus. 7. Diverticulitis. 8. Possible infiltrate atelectasis in the lung bases. Rule out pneumonia. RECOMMENDATIONS AND DISCUSSION: In this 83-year-old gentleman who presented with multiple complex medical issues, we will monitor the patient closely, continue the current medications, management and symptomatic treatment. Otherwise, at this time, I recommend symptomatic treatment and Cardiology and pulmonology evaluations. I would also recommend ultrasound of the abdomen to rule out the possibility of any cholelithiasis and cholecystitis. Other than that, repeat labs. Amylase and lipase will be repeated. Guarded prognosis because of multiple complex medical issues. Copy of dictation forwarded to Dr. Perkins who is the primary physician. MMCATEL / IJN: [id number] /
--- NOTE | 2018-06-26 08:19 | US ---
EXAMINATION TYPE: US gallbladder DATE OF EXAM: 06/26/2018 COMPARISON: CT 06/25/18 CLINICAL HISTORY: abdominal pain. EXAM MEASUREMENTS: Liver Length: 14.9 cm Gallbladder Wall: 0.2 cm CBD: 0.4 cm Right Kidney: 12.8 x 5.7 x 5.4 cm Pancreas: Obscured by bowel gas Liver: Partially Obscured by overlying bowel gas Gallbladder: with multiple, mobile stones and 4cm sludge ball. Evidence for sonographic Dan's sign: No CBD: wnl Right Kidney: wnl IMPRESSION: 1. Cholelithiasis 2. Mild fatty infiltration the liver.
[2018-06-26] MEDS: IPRATROPIUM-ALBUTEROL 3 ML NEB INHALATION SCH ×2 (08:55→13:03)
[2018-06-26] MEDS ORDERED: ASPIRIN 325 MG TAB PO SCH (09:00)
[2018-06-26 10:32] VITALS: RESP 16
[2018-06-26] MEDS ORDERED: LISINOPRIL 5 MG TAB PO SCH (10:45)
[2018-06-26] MEDS ORDERED: METOPROLOL TARTRATE 25 MG TAB PO SCH (10:45)
[2018-06-26 11:27] LABS: Glucose,Whole Blood 145 mg/dL (75-99)
[2018-06-26] MEDS: PANTOPRAZOLE 40 MG/10 ML VIAL IVP SCH (11:30)
--- NOTE | 2018-06-26 11:30 | CONS ---
CONSULTATION Attending: Dr. Perkins. Mr. Haynes is an 83-year-old male with known history of chronic obstructive lung disease, history of diabetes mellitus, as well as a history of diverticulosis in the past who presented with abdominal discomfort going on for the last couple days. Yesterday, radiated from the lower abdomen to the lower chest and because of that he came into the emergency room and subsequently admitted. He has symptoms of nausea, but no vomiting. He has chronic dyspnea on exertion related to his chronic obstructive lung disease, but no history of chest discomfort or cardiac disease. He denies any PND, orthopnea, or peripheral edema. No dizziness, palpitation, or syncope. He is feeling comfortable at this time. He has underwent a gallbladder ultrasound that revealed cholelithiasis. He has a prior history of peripheral vascular disease and prior revascularization of his lower extremities. His coronary risk factors are remarkable for remote history of smoking. He is diabetic. His lipid profile is not available. No document history of hypertension. MEDICATIONS: His medications at home include metformin 500 mg twice a day. He used to be on insulin in the past. REVIEW OF SYSTEMS: RESPIRATORY SYSTEM: He has dyspnea on exertion, but no recent wheezing or fever her. He has chronic obstructive lung disease and quite limited in his physical activity. GI SYSTEM: He has the nausea, the abdominal pain, but no diarrhea. No GI bleeding. SYSTEM: No dysuria or hematuria. NERVOUS SYSTEM: No history of stroke or seizure. PHYSICAL EXAMINATION: He is an 83-year-old male, alert, oriented, in no apparent distress. Blood pressure 174/79 with the heart rate in 90s. HEAD: Normocephalic. EYES: Sclerae anicteric. NECK: Good upstroke. No bruit. LUNGS: With mild decrease in breath sounds, no wheezes. HEART: Regular rate and rhythm. S1, S2. No S3 with systolic murmur at the base, early peaking, no diastolic murmur. ABDOMEN: Soft, nontender. Positive bowel sounds. No organomegaly. Obese. EXTREMITIES: No edema, +1 distal pulses. LAB DATA: Lab data revealed an amylase of 134, lipase 333. Troponin less than 0.012. AST of 17, ALT of 25. BUN and creatinine of 16 and 0.84. Hemoglobin of 17.1. EKG reveals a sinus mechanism, left axis deviation, minor nonspecific ST-T wave changes. CT angiogram of the chest revealed patent aortoiliac bypass with evidence of sigmoid diverticulosis, no diverticulitis and cholelithiasis. IMPRESSION: 1. Abdominal and chest discomfort, atypical for ischemic heart disease. Patient had findings consistent with pancreatitis from the lab data, although on exam now is unremarkable. He has cholelithiasis. His LFTs are normal at this time. 2. Hypertension, not documented in the past. 3. Diabetes mellitus. 4. Significant obstructive lung disease. 5. History of peripheral vascular disease, status post revascularization. RECOMMENDATION: From the cardiac standpoint, I will review the results of his echocardiogram. I do not believe that we are dealing with cardiac ischemia. I will add a low-dose beta obey and ANKUR inhibitor for his blood pressure and depending on his progress, further recommendation will be made. Thank you for this consult. We will follow with you. WAGNER / TOBIN: [id number] /
--- NOTE | 2018-06-26 11:39 | P.CNPUL ---
History of Present Illness Consult date: 06/26/18 Reason for consult: other Chief complaint: Abdominal pain History of present illness: Pulmonary consult dated 06/26/2018 83-year-old male who presented to the emergency department with abdominal and chest discomfort. The patient was more so in the abdomen but extended up into the chest area. The patient has been seen by cardiology who thinks the pain is not related to the heart. The pain was initially a steady. It apparently didn' t didn't improve with nitroglycerin and aspirin by EMS and when the patient arrived in the ER the pain was a 6 out of 10. The patient did have some nausea. The patient is chronically mildly dyspneic but that was not changed at all. There is no sweating. The patient thought initially his abdominal discomfort was related to his well-known diverticular disease. His past medical history is positive for COPD which is mild mild dementia and diverticular disease. He's also had some peripheral last occlusive disease requiring from femoral-popliteal bypass and a sense of surgery and is likely where the juan was inserted. The patient was a former smoker. I service his primary. He comes in the office about once every 6 months. Doesn't really like to take any medication. I think his only medication includes metformin 500 mg twice a day. Review of Systems A 14 point review of system is positive for abdominal pain which seemed to extend up into his lower chest area. He also has some mild nausea. No fever or chills. Not coughing up any phlegm. No shortness of breath more than usual. No difficulty breathing phlegm production hemoptysis or anything like that. No fever or chills. Past Medical History Past Medical History: COPD, Diabetes Mellitus Additional Past Medical History / Comment(s): diverticulitis History of Any Multi-Drug Resistant Organisms: None Reported Past Surgical History: Orthopedic Surgery Additional Past Surgical History / Comment(s): tooth extraction, double fem pop bypass, juan inserted in left leg, shattered humerus one year ago Past Anesthesia/Blood Transfusion Reactions: No Reported Reaction Past Psychological History: No Psychological Hx Reported Smoking Status: Former smoker Past Alcohol Use History: None Reported Past Drug Use History: None Reported - Past Family History Father Family Medical History: Hypertension Mother Family Medical History: Congestive Heart Failure (CHF) Medications and Allergies Home Medications Medication Instructions Recorded Confirmed Type metFORMIN HCL [Glucophage] 500 mg PO BID-W/MEALS #60 tab 06/27/17 06/25/18 Rx Allergies Allergy/AdvReac Type Severity Reaction Status Date / Time heparin AdvReac Itching Verified 06/25/18 14:11 Physical Exam Osteopathic Statement: *. No significant issues noted on an osteopathic structural exam other than those noted in the History and Physical/Consult. Vitals: Vital Signs Temp Pulse Pulse Resp BP BP BP 06/26/18 11:10 98.3 F 96 16 128/69 06/26/18 08:00 98.2 F 99 16 133/63 06/26/18 04:00 98.1 F 121 H 20 174/79 06/26/18 00:00 97.0 F L 75 16 173/81 06/25/18 20:00 96.9 F L 86 19 161/69 06/25/18 18:14 147/93 06/25/18 16:48 96.9 F L 90 18 175/97 06/25/18 16:28 98.0 F 77 20 186/82 06/25/18 15:58 78 16 194/89 06/25/18 15:00 86 18 203/94 06/25/18 13:29 68 18 226/99 06/25/18 11:41 97.8 F 55 L 20 170/72 Pulse Ox 06/26/18 11:10 92 L 06/26/18 08:00 90 L 06/26/18 04:00 90 L 06/26/18 00:00 92 L 06/25/18 20:00 94 L 06/25/18 18:14 06/25/18 16:48 94 L 06/25/18 16:28 97 06/25/18 15:58 95 06/25/18 15:00 97 06/25/18 13:29 96 06/25/18 11:41 96 Intake and Output 06/25/18 06/26/18 06/26/18 22:59 06:59 14:59 Intake Total 240 Output Total 100 Balance 240 -100 Intake: Oral 240 Output: Urine 100 Other: Voiding Method Toilet Toilet Toilet Urinal Urinal Urinal # Voids 1 Weight 112.1 kg 111.6 kg No acute distress, oriented 3. No oxygen requirement. HEENT examination is grossly unremarkable. Mucous membranes are moist. No oral lesions. Neck supple. Full range of motion. No adenopathy thyromegaly or neck vein distention. Cardiovascular examination reveals regular rhythm rate. S1-S2 normal. No S3 or S4. No discernible murmur noted. Lungs reveal clear breath sounds. Her sounds are equal bilaterally. No adventitious lung sounds including wheezes rhonchi or crackles. Abdomen soft bowel sounds are heard. No masses or tenderness. Extremities are intact. No cyanosis clubbing or edema. Skin is without rash or lesion. Neurologic examination is brief but nonfocal. Results - Laboratory Findings CBC and BMP: 06/26/18 06:14 06/26/18 06:14 PT/INR, D-dimer PT 11.4 sec (9.0-12.0) 06/25/18 11:59 INR 1.2 (<1.2) H 06/25/18 11:59 Abnormal lab findings: Abnormal Labs 06/25/18 06/25/18 06/25/18 11:59 11:59 11:59 WBC Neutrophils # 8.1 H Lymphocytes # 0.6 L Monocytes # INR Sodium Carbon Dioxide 21 L Glucose 175 H POC Glucose (mg/dL) AST Total Creatine Kinase 33 L Total Protein Albumin Amylase 134 H Lipase 333 H Ur Specific [place] Urine Protein Urine Ketones Urine Mucus 06/25/18 06/25/18 06/25/18 11:59 16:00 16:45 WBC Neutrophils # Lymphocytes # Monocytes # INR 1.2 H Sodium Carbon Dioxide Glucose POC Glucose (mg/dL) 129 H AST Total Creatine Kinase Total Protein Albumin Amylase Lipase Ur Specific [place] 1.044 H Urine Protein 1+ H Urine Ketones 1+ H Urine Mucus Rare H 06/25/18 06/25/18 06/25/18 17:42 20:37 23:56 WBC Neutrophils # Lymphocytes # Monocytes # INR Sodium Carbon Dioxide Glucose POC Glucose (mg/dL) 175 H AST Total Creatine Kinase 47 L 52 L Total Protein Albumin Amylase Lipase Ur Specific [place] Urine Protein Urine Ketones Urine Mucus 06/26/18 06/26/18 06/26/18 06:14 06:14 06:20 WBC 20.6 H Neutrophils # 18.6 H Lymphocytes # 0.6 L Monocytes # 1.3 H INR Sodium 136 L Carbon Dioxide Glucose 172 H POC Glucose (mg/dL) 177 H AST 15 L Total Creatine Kinase Total Protein 5.9 L Albumin 3.3 L Amylase Lipase Ur Specific [place] Urine Protein Urine Ketones Urine Mucus 06/26/18 11:20 WBC Neutrophils # Lymphocytes # Monocytes # INR Sodium Carbon Dioxide Glucose POC Glucose (mg/dL) 145 H AST Total Creatine Kinase Total Protein Albumin Amylase Lipase Ur Specific [place] Urine Protein Urine Ketones Urine Mucus - Diagnostic Findings Chest x-ray: report reviewed, image reviewed CT scan - chest: report reviewed, image reviewed (Labs x-rays and medications are all reviewed.) Assessment and Plan Assessment: Assessment Abdominal pain, resolved, of unclear etiology. Diagnostic possibilities include gallbladder disease since there is evidence of stones and possible gallstone pancreatitis. The pain is resolved. It appears not be cardiac in origin. Mild COPD, not requiring any therapy Peripheral vascular disease requiring a previous femoral-popliteal bypass History of dementia. Previous leg surgery with juan insertion Diabetes mellitus, type II, currently on Glucophage. Plan: Plan dated 06/26/2018 The patient appears not to have pneumonia. Chest x-ray just shows some basal atelectasis. Not impressed with computed tomography scan. Also, patient really has not had any lung complaints including coughing wheezing shortness of breath more than usual phlegm production fever chills, etc. Nothing to really suggest pneumonia. The patient may have some very mild gallbladder disease and a gallstone pancreatitis. That might explain his abdominal pain and elevations of amylase and lipase. The patient is completely pain-free currently. From our perspective the patient could be discharged home. The patient should've follow-up with me, his primary doctor, in the near future. The patient does not really like taking much medications were does not really like being in the hospital or agreeing to diagnostic testing. Time with Patient: Greater than 30
[2018-06-26 12:41] LABS: Hemoglobin A1C 5.5 % (4.0-6.0)
[2018-06-26 15:59] VITALS: BP 126/58; PULSE 83; TEMP 98.2
[2018-06-26] MEDS ORDERED: cefTRIAXone IN SWFI 1,000 MG/10 ML SYRINGE IVP SCH (16:00)
[2018-06-26] MEDS ORDERED: AZITHROMYCIN 500 MG TAB PO SCH (16:00)
[2018-06-27] MEDS ORDERED: ASPIRIN 81 MG PO SCH (09:00)
== END 2018-06-26 16:00 | disposition home or self-care (01) | DRG 391 ==
LOC: EC 11:36 → 6SEL 15:15
PROVIDERS: ADMIT Hospitalist; ATTEND Hospitalist
DX: R10.9 Unspecified abdominal pain (principal); K85.10 Biliary acute pancreatitis without necrosis or infection; J98.11 Atelectasis; K80.20 Calculus of gallbladder without cholecystitis without obstruction; J44.9 Chronic obstructive pulmonary disease, unspecified; F03.90 Unspecified dementia, unspecified severity, without behavioral disturbance, psychotic disturbance, mood disturbance, and anxiety; E11.51 Type 2 diabetes mellitus with diabetic peripheral angiopathy without gangrene; I10 Essential (primary) hypertension; K57.90 Diverticulosis of intestine, part unspecified, without perforation or abscess without bleeding; Z79.84 Long term (current) use of oral hypoglycemic drugs; Z82.49 Family history of ischemic heart disease and other diseases of the circulatory system; Z87.891 Personal history of nicotine dependence; Z95.828 Presence of other vascular implants and grafts
CPT/HCPCS: 36415; 71045; 71046; 71275; 74018; 74174; 76705; 80053; 80061; 81001; 82150; 82550; 82553; 83036; 83690; 84484; 85025; 85610; 85730; 87040; 93005; 96361; 96365; 96375; 99285

== ENCOUNTER 2018-06-27 18:43 | Inpatient (IN) | payer MEDICARE ==
[2018-06-27 19:32] LABS: Basophils % (A) 0 %; Eosinophils # (A) 0.2 k/uL (0-0.7); Eosinophils % (A) 1 %; HCT 49.9 % (39.0-53.0); HGB 16.1 gm/dL (13.0-17.5); Lymphocytes # (A) 0.8 k/uL (1.0-4.8); Lymphocytes % (A) 4 %; MCHC 32.3 g/dL (31.0-37.0); Mean Platelet Volume 7.7; Monocytes # (A) 0.9 k/uL (0-1.0); Monocytes % (A) 4 %; Neutrophils # (A) 19.9 k/uL (1.3-7.7); Neutrophils % (A) 90 %; Platelet Count 219 k/uL (150-450); RDW 14.8 % (11.5-15.5); WBC 22.1 k/uL (3.8-10.6)
[2018-06-27 19:35] LABS: INR 1.4 (<1.2); Partial Thromboplastin Time 27.3 sec (22.0-30.0)
[2018-06-27 19:48] LABS: Albumin 3.4 g/dL (3.5-5.0); Calcium 9.3 mg/dL (8.4-10.2); Magnesium 1.8 mg/dL (1.6-2.3); Potassium 4.3 mmol/L (3.5-5.1); Total Bilirubin 1.6 mg/dL (0.2-1.3); Total Protein 6.2 g/dL (6.3-8.2)
[2018-06-27] MEDS ORDERED: ONDANSETRON 4 MG/2 ML VIAL IVP STA (19:53)
[2018-06-27] MEDS ORDERED: FAMOTIDINE 20 MG/2 ML VIAL IV STA (19:53)
--- NOTE | 2018-06-27 19:59 | ED ---
General Adult HPI - General Chief complaint: Abdominal Pain Stated complaint: Abdominal pain Time Seen by Provider: 06/27/18 19:29 Source: patient, family, RN notes reviewed Mode of arrival: ambulatory Limitations: no limitations - History of Present Illness Initial comments: Patient is a pleasant 83-year-old male presenting to the emergency department with complaints of upper abdominal discomfort. Onset was this morning. Symptoms have been steady since that time. Patient was in the hospital recently with somewhat similar symptoms. There was concern of possible gallbladder disease and patient was advised to follow-up with a surgeon. Patient has had decreased appetite today. Patient did have only one piece of toast with peanut butter however did not make his symptoms either better or worse. Patient denies any vomiting. No constipation or diarrhea. Patient denies dyspnea however states it does hurt to take a deep breath - Related Data Previous Rx's Medication Instructions Recorded metFORMIN HCL [Glucophage] 500 mg PO BID-W/MEALS #60 tab 06/27/17 Aspirin 81 mg PO DAILY chew 06/26/18 Lisinopril [Zestril] 5 mg PO BID #60 tab 06/26/18 Metoprolol Tartrate [Lopressor] 25 mg PO BID #60 tab 06/26/18 Allergies Allergy/AdvReac Type Severity Reaction Status Date / Time heparin AdvReac Itching Verified 06/27/18 19:33 Review of Systems ROS Statement: Those systems with pertinent positive or pertinent negative responses have been documented in the HPI. ROS Other: All systems not noted in ROS Statement are negative. Constitutional: Denies: fever Eyes: Denies: eye pain ENT: Denies: ear pain Respiratory: Denies: cough, dyspnea Cardiovascular: Denies: chest pain Endocrine: Denies: fatigue Gastrointestinal: Reports: abdominal pain. Denies: vomiting Genitourinary: Denies: dysuria Musculoskeletal: Denies: back pain Skin: Denies: rash Neurological: Denies: headache Past Medical History Past Medical History: COPD, Diabetes Mellitus Additional Past Medical History / Comment(s): diverticulitis History of Any Multi-Drug Resistant Organisms: None Reported Past Surgical History: Orthopedic Surgery Additional Past Surgical History / Comment(s): tooth extraction, double fem pop bypass, juan inserted in left leg, shattered humerus one year ago Past Anesthesia/Blood Transfusion Reactions: No Reported Reaction Past Psychological History: No Psychological Hx Reported Smoking Status: Former smoker Past Alcohol Use History: None Reported Past Drug Use History: None Reported - Past Family History Father Family Medical History: Hypertension Mother Family Medical History: Congestive Heart Failure (CHF) General Exam Limitations: no limitations General appearance: alert, in no apparent distress Head exam: Present: atraumatic Eye exam: Present: normal appearance, PERRL ENT exam: Present: normal oropharynx Neck exam: Present: normal inspection Respiratory exam: Present: normal lung sounds bilaterally. Absent: chest wall tenderness Cardiovascular Exam: Present: regular rate, normal rhythm Expanded Peripheral pulses: 2+: Dorsalis Pedis (R), Dorsalis Pedis (L) GI/Abdominal exam: Present: soft, tenderness (Moderate tenderness upper abdomen) , normal bowel sounds. Absent: distended, guarding, rebound, rigid, pulsatile mass Extremities exam: Present: normal inspection. Absent: pedal edema, calf tenderness Neurological exam: Present: alert Psychiatric exam: Present: normal affect, normal mood Skin exam: Present: normal color Course Vital Signs 06/27/18 06/27/18 06/27/18 18:51 20:18 21:37 Temperature 97.4 F L 99.4 F 100.2 F H Pulse Rate 99 101 H 125 H Respiratory 18 18 18 Rate Blood Pressure 116/76 124/58 124/68 O2 Sat by Pulse 94 L 95 95 Oximetry 06/27/18 06/27/18 22:00 23:00 Temperature Pulse Rate Respiratory Rate Blood Pressure 125/68 104/80 O2 Sat by Pulse Oximetry - Reevaluation(s) Reevaluation #1: 06/28/18 01:13 Patient has been reevaluated twice. Patient is updated on results and plan at this point. Case was discussed in detail with Dr. Alegria, who will admit. Patient did have planned appointment with Dr. Lebron and he will be placed on consult. 06/28/18 01:14 Patient does meet sepsis criteria diagnosed at 0114. Blood culture and lactic acid and IV antibiotics have all been ordered. EKG Findings - EKG Comments: EKG Findings:: Sinus tachycardia 101. TX 164. QRS 92. QT 344. QTC 446. Left axis. Left anterior fascicular block. No acute ST change. Medical Decision Making - Lab Data Result diagrams: 06/27/18 19:10 06/27/18 19:10 Lab Results 06/27/18 06/27/18 06/27/18 Range/Units 19:10 19:10 19:10 WBC 22.1 H (3.8-10.6) k/uL RBC 5.20 (4.30-5.90) m/uL Hgb 16.1 (13.0-17.5) gm/dL Hct 49.9 (39.0-53.0) % MCV 96.0 (80.0-100.0) fL MCH 31.0 (25.0-35.0) pg MCHC 32.3 (31.0-37.0) g/dL RDW 14.8 (11.5-15.5) % Plt Count 219 (150-450) k/uL Neutrophils % 90 % Lymphocytes % 4 % Monocytes % 4 % Eosinophils % 1 % Basophils % 0 % Neutrophils # 19.9 H (1.3-7.7) k/uL Lymphocytes # 0.8 L (1.0-4.8) k/uL Monocytes # 0.9 (0-1.0) k/uL Eosinophils # 0.2 (0-0.7) k/uL Basophils # 0.0 (0-0.2) k/uL PT (9.0-12.0) sec INR (<1.2) APTT (22.0-30.0) sec Sodium 135 L (137-145) mmol/L Potassium 4.3 (3.5-5.1) mmol/L Chloride 105 (98-107) mmol/L Carbon Dioxide 17 L (22-30) mmol/L Anion Gap 13 mmol/L BUN 24 H (9-20) mg/dL Creatinine 1.12 (0.66-1.25) mg/dL Est GFR (CKD-EPI)AfAm 71 (>60 ml/min/1.73 sqM) Est GFR (CKD-EPI)NonAf 61 (>60 ml/min/1.73 sqM) Glucose 161 H (74-99) mg/dL Plasma Lactic Acid Tone (0.7-2.0) mmol/L Calcium 9.3 (8.4-10.2) mg/dL Magnesium 1.8 (1.6-2.3) mg/dL Total Bilirubin 1.6 H (0.2-1.3) mg/dL AST 15 L (17-59) U/L ALT 21 (21-72) U/L Alkaline Phosphatase 69 (38-126) U/L Total Creatine Kinase 28 L (55-170) U/L CK-MB (CK-2) 0.4 (0.0-2.4) ng/mL CK-MB (CK-2) Rel Index 1.4 Troponin I 0.082 H* (0.000-0.034) ng/mL Total Protein 6.2 L (6.3-8.2) g/dL Albumin 3.4 L (3.5-5.0) g/dL Amylase (30-110) U/L Lipase (23-300) U/L 06/27/18 06/27/18 06/27/18 Range/Units 19:10 19:10 20:00 WBC (3.8-10.6) k/uL RBC (4.30-5.90) m/uL Hgb (13.0-17.5) gm/dL Hct (39.0-53.0) % MCV (80.0-100.0) fL MCH (25.0-35.0) pg MCHC (31.0-37.0) g/dL RDW (11.5-15.5) % Plt Count (150-450) k/uL Neutrophils % % Lymphocytes % % Monocytes % % Eosinophils % % Basophils % % Neutrophils # (1.3-7.7) k/uL Lymphocytes # (1.0-4.8) k/uL Monocytes # (0-1.0) k/uL Eosinophils # (0-0.7) k/uL Basophils # (0-0.2) k/uL PT 13.0 H (9.0-12.0) sec INR 1.4 H (<1.2) APTT 27.3 (22.0-30.0) sec Sodium (137-145) mmol/L Potassium (3.5-5.1) mmol/L Chloride (98-107) mmol/L Carbon Dioxide (22-30) mmol/L Anion Gap mmol/L BUN (9-20) mg/dL Creatinine (0.66-1.25) mg/dL Est GFR (CKD-EPI)AfAm (>60 ml/min/1.73 sqM) Est GFR (CKD-EPI)NonAf (>60 ml/min/1.73 sqM) Glucose (74-99) mg/dL Plasma Lactic Acid Tone 2.1 H* (0.7-2.0) mmol/L Calcium (8.4-10.2) mg/dL Magnesium (1.6-2.3) mg/dL Total Bilirubin (0.2-1.3) mg/dL AST (17-59) U/L ALT (21-72) U/L Alkaline Phosphatase (38-126) U/L Total Creatine Kinase (55-170) U/L CK-MB (CK-2) (0.0-2.4) ng/mL CK-MB (CK-2) Rel Index Troponin I (0.000-0.034) ng/mL Total Protein (6.3-8.2) g/dL Albumin (3.5-5.0) g/dL Amylase 46 (30-110) U/L Lipase 42 (23-300) U/L - Radiology Data Radiology results: report reviewed (Ultrasound the gallbladder showed no gallstones or dilated ducts. Computed tomography scan of the abdomen pelvis with contrast shows gallstones and fast stranding around the gallbladder that could represent cholecystitis. There is also possible gallstone impacted in the neck.), image reviewed (Abdominal x-ray shows small bowel distention that could be partial obstruction or ileus. Two-view chest x-ray shows no change from previous.) Critical Care Time Critical Care Time: Yes Total Critical Care Time: 35 Disposition Clinical Impression: Cholecystitis, Sepsis Disposition: ADMITTED IP TO THIS HOSP Is patient prescribed a controlled substance at d/c from ED?: No Referrals: Ray Perkins DO [Primary Care Provider] - 1-2 days Decision Time: 01:14
[2018-06-27 20:00] LABS: Creatine Kinase MB 0.4 ng/mL (0.0-2.4)
[2018-06-27 20:04] LABS: Troponin I 0.082 ng/mL (0.000-0.034)
[2018-06-27 20:21] LABS: Amylase 46 U/L (30-110); Lipase 42 U/L (23-300)
--- NOTE | 2018-06-27 21:04 | XR ---
EXAMINATION TYPE: XR chest 2V DATE OF EXAM: 06/27/2018 COMPARISON: Yesterday HISTORY: Chest pain TECHNIQUE: Frontal and lateral views of the chest are obtained. FINDINGS: Heart is enlarged. There is no gross heart failure. There is coarsening of the lung markin gs at the lung bases. There is no evidence of pleural effusion. There are chest leads. IMPRESSION: Fibrotic changes and mild infiltrate at the lung bases. No change compared to yesterday. No heart failure. Mild cardiomegaly.
--- NOTE | 2018-06-27 21:07 | XR ---
EXAMINATION TYPE: XR abdomen 1V DATE OF EXAM: 06/27/2018 COMPARISON: 06/25/2018 HISTORY: Abdominal pain. Technique 2 views supine and upright Findings There are some distended air in gas-filled loops of bowel in the mid abdomen. This is small bowel in the left upper quadrant. There is left hip nailing. There is no sign of pneumoperitoneum. There is re tained fecal material in the right colon. There are numerous surgical clips. IMPRESSION: Small bowel distention compared to last exam the could relate to a partial mechanical obstruction or ileus. No free air.
[2018-06-27] MEDS ORDERED: SODIUM CHLORIDE 0.9% 1,000 ML IV ONE (21:32)
--- NOTE | 2018-06-27 21:34 | US ---
EXAMINATION TYPE: US gallbladder DATE OF EXAM: 06/27/2018 COMPARISON: NONE CLINICAL HISTORY: Pain. Pain EXAM MEASUREMENTS: Liver Length: Limited due to gas and body habitus 16.9 cm Gallbladder Wall: 0.3 cm CBD: 0.6 cm Right Kidney: 10.5 x 4.6 x 4.3 cm Pancreas: Obscured by bowel gas Liver: Increased attenuation limited. Gallbladder: No stones seen Evidence for sonographic Dan's sign: No CBD: wnl Right Kidney: Cortical thinning IMPRESSION: No gallstones or dilated ducts. Mild right renal cortical atrophy.
[2018-06-27] MEDS ORDERED: MORPHINE SULFATE 2 MG/ML SYRINGE IVP STA (22:18)
[2018-06-27] MEDS ORDERED: IOPAMIDOL-300 CONTRAST 30 ML VIAL (ORAL USE) PO PRN (22:27)
[2018-06-27] MEDS ORDERED: PIPERACILLIN-TAZOBACTAM 3.375 GM in DEXTROSE/WATER 1 50ML.BAG IVPB STA (22:27)
--- NOTE | 2018-06-28 01:02 | CT ---
EXAMINATION TYPE: CT abdomen pelvis w con DATE OF EXAM: 06/28/2018 COMPARISON: CT scan 06/25/2018 HISTORY: chest and upper abd pain for a few days CT DLP: 2846.30 mGycm Automated exposure control for dose reduction was used. TECHNIQUE: Helical acquisition of images was performed from the lung bases through the pelvis. CONTRAST: Performed with Oral Contrast and with IV Contrast, patient injected with 100 mL of Isovue 300. FINDINGS: There is some patchy interstitial infiltrate and atelectasis at the lung bases. There are small hiata l hernia. Heart size is normal. There are probably some small multiple gallstones. Bile ducts are not dilated. There is a small amoun t of fluid at the nat hepatis that measures 4 cm. There is no evidence of pancreatic mass. Spleen a ppears normal. There is no adrenal mass. Kidneys show satisfactory contrast opacification. There is no hydronephrosi s. There is a small amount of fluid in the anterior pararenal space on the right side. There is no re troperitoneal adenopathy. There is aortoiliac bypass graft that appears patent. There are surgical cl ips from hernia repair on the left side of the lower abdomen. There are multiple diverticula the sigm oid colon. There is no sign of diverticulitis. Common bile duct is not dilated. Intrahepatic bile xiang ts are not dilated. Lumbar spine is intact. Appendix appears normal. I see no bony destructive proces s. IMPRESSION: GALLSTONES. THERE IS SOME FAT STRANDING AROUND THE GALLBLADDER AND A SMALL AMOUNT OF FLUID AT THE POR TA HEPATIS WELL THE ANTERIOR PARARENAL SPACE THAT IS NEW COMPARED TO RECENT CT SCAN AND COULD R ELATE TO INFLAMMATORY PROCESS AND CHOLECYSTITIS. THIS IS A CHANGE COMPARED TO LAST EXAM. THERE IS POS SIBLE GALLSTONE IMPACTED IN THE GALLBLADDER NECK UNCHANGED COMPARED TO LAST EXAM. SIGMOID DIVERTICULOSIS WITHOUT DIVERTICULITIS. BROAD-BASED VENTRAL HERNIA UNCHANGED. THERE IS FIBROTI C CHANGE AND ATELECTASIS AT THE LUNG BASES SIMILAR TO LAST EXAM.
[2018-06-28] MEDS ORDERED: ONDANSETRON 4 MG/2 ML VIAL IVP PRN (01:16)
[2018-06-28] MEDS ORDERED: NALOXONE 0.4 MG/ML 1 ML VIAL IV PRN (01:16)
[2018-06-28] MEDS: HYDROmorphone 1 MG/ML 1 ML SYRINGE IVP PRN ×2 (02:22→04:25)
[2018-06-28] MEDS ORDERED: METOPROLOL TARTRATE 25 MG TAB PO STA (03:26)
[2018-06-28] MEDS ORDERED: SODIUM CHLORIDE 0.9% 1,000 ML IV ONE ×8 (03:48→23:41)
[2018-06-28 04:07] LABS: Calcium 8.6 mg/dL (8.4-10.2)
[2018-06-28 04:42] LABS: Creatine Kinase MB 0.7 ng/mL (0.0-2.4)
[2018-06-28 04:50] LABS: Troponin I 0.059 ng/mL (0.000-0.034)
[2018-06-28] MEDS: PANTOPRAZOLE 40 MG/10 ML VIAL IV SCH (09:39)
[2018-06-28] MEDS: PIPERACILLIN-TAZOBACTAM 3.375 GM in DEXTROSE/WATER 1 50ML.BAG IVPB SCH ×2 (09:40→16:28)
[2018-06-28] MEDS: METOPROLOL TARTRATE 25 MG TAB PO SCH (11:58)
[2018-06-28] MEDS: SODIUM CHLORIDE 0.9% 1,000 ML IV SCH ×3 (12:12→23:46)
[2018-06-28] MEDS ORDERED: PHYTONADIONE ORAL 5 MG/5 ML ORAL.SYRG PO STA (12:52)
--- NOTE | 2018-06-28 13:09 | P.GSHP ---
History of Present Illness H&P Date: 06/28/18 Chief Complaint: Abdominal pain Patient comes in the hospital initially with lower abdominal pain. He states his pain gradually became more focused in the upper abdomen. Was also having some chest pain. He underwent a CAT scan of the chest and abdomen area no definite abnormality to explain his pain was identified on that initial study. Patient states his pain initially improved slightly but over the last 24-48 hours his continued increased to the point that he has difficulty getting out of bed. Patient has been tachycardic. White blood cell count yesterday was 22. Bilirubin slightly elevated. Lactic acid is trending upwards. Repeat CAT scan abdomen and pelvis now shows significant inflammatory changes around the gallbladder with what appeared to represent a possible stone in the neck of the gallbladder. There is a small amount of fluid in the nat hepatis. Nothing in the lower abdomen is identified that would explain lower abdominal tenderness however. No free air is seen. Patient did identify a single episode of black colored stools 2 weeks ago. No history of known ulcer disease. - Review of Systems Comment: The patient denies any acute changes in vision or hearing, no dysphagia or odynophagia, no dysuria or hematuria, no headache, no runny nose, no rectal bleeding, no unexplained weight loss Past Medical History Past Medical History: COPD, Diabetes Mellitus Additional Past Medical History / Comment(s): diverticulitis History of Any Multi-Drug Resistant Organisms: None Reported Past Surgical History: Orthopedic Surgery Additional Past Surgical History / Comment(s): tooth extraction, double fem pop bypass, juan inserted in left leg, shattered humerus one year ago Past Anesthesia/Blood Transfusion Reactions: No Reported Reaction Past Psychological History: No Psychological Hx Reported Smoking Status: Former smoker Past Alcohol Use History: None Reported Past Drug Use History: None Reported - Past Family History Father Family Medical History: Hypertension Mother Family Medical History: Congestive Heart Failure (CHF) Medications and Allergies Home Medications Medication Instructions Recorded Confirmed Type metFORMIN HCL [Glucophage] 500 mg PO BID-W/MEALS #60 tab 06/27/17 06/27/18 Rx Aspirin 81 mg PO DAILY chew 06/26/18 06/27/18 Rx Lisinopril [Zestril] 5 mg PO BID #60 tab 06/26/18 06/27/18 Rx Metoprolol Tartrate [Lopressor] 25 mg PO BID #60 tab 06/26/18 06/27/18 Rx Allergies Allergy/AdvReac Type Severity Reaction Status Date / Time heparin AdvReac Itching Verified 06/27/18 19:33 Surgical - Exam Vital Signs Temp Pulse Resp BP Pulse Ox 97.4 F L 99 18 116/76 94 L 06/27/18 18:51 06/27/18 18:51 06/27/18 18:51 06/27/18 18:51 06/27/18 18:51 Physical exam: General: Well-developed, well-nourished HEENT: Normocephalic, sclerae nonicteric Abdomen: Midline incision with small periumbilical hernia, tenderness present in the epigastric and right upper quadrant and also in the left lower quadrant, no palpable masses, no rebound or guarding Extremities: No edema Neuro: Alert and oriented Results - Labs 06/27/18 19:10 06/28/18 03:32 Abnormal Lab Results - Last 24 Hours (Table) 06/27/18 06/27/18 06/27/18 Range/Units 19:10 19:10 19:10 WBC 22.1 H (3.8-10.6) k/uL Neutrophils # 19.9 H (1.3-7.7) k/uL Lymphocytes # 0.8 L (1.0-4.8) k/uL PT (9.0-12.0) sec INR (<1.2) Sodium 135 L (137-145) mmol/L Carbon Dioxide 17 L (22-30) mmol/L BUN 24 H (9-20) mg/dL Glucose 161 H (74-99) mg/dL Plasma Lactic Acid Tone (0.7-2.0) mmol/L Total Bilirubin 1.6 H (0.2-1.3) mg/dL AST 15 L (17-59) U/L Total Creatine Kinase 28 L (55-170) U/L Troponin I 0.082 H* (0.000-0.034) ng/mL Total Protein 6.2 L (6.3-8.2) g/dL Albumin 3.4 L (3.5-5.0) g/dL 06/27/18 06/27/18 06/28/18 Range/Units 19:10 20:00 02:16 WBC (3.8-10.6) k/uL Neutrophils # (1.3-7.7) k/uL Lymphocytes # (1.0-4.8) k/uL PT 13.0 H (9.0-12.0) sec INR 1.4 H (<1.2) Sodium (137-145) mmol/L Carbon Dioxide (22-30) mmol/L BUN (9-20) mg/dL Glucose (74-99) mg/dL Plasma Lactic Acid Tone 2.1 H* 3.0 H* (0.7-2.0) mmol/L Total Bilirubin (0.2-1.3) mg/dL AST (17-59) U/L Total Creatine Kinase (55-170) U/L Troponin I (0.000-0.034) ng/mL Total Protein (6.3-8.2) g/dL Albumin (3.5-5.0) g/dL 06/28/18 06/28/18 06/28/18 Range/Units 03:32 03:32 06:54 WBC (3.8-10.6) k/uL Neutrophils # (1.3-7.7) k/uL Lymphocytes # (1.0-4.8) k/uL PT (9.0-12.0) sec INR (<1.2) Sodium 133 L (137-145) mmol/L Carbon Dioxide 20 L (22-30) mmol/L BUN 26 H (9-20) mg/dL Glucose 155 H (74-99) mg/dL Plasma Lactic Acid Tone (0.7-2.0) mmol/L Total Bilirubin (0.2-1.3) mg/dL AST (17-59) U/L Total Creatine Kinase 37 L (55-170) U/L Troponin I 0.059 H* 0.061 H* (0.000-0.034) ng/mL Total Protein (6.3-8.2) g/dL Albumin (3.5-5.0) g/dL Diabetes panel 06/27/18 06/28/18 Range/Units 19:10 03:32 Sodium 135 L 133 L (137-145) mmol/L Potassium 4.3 4.0 (3.5-5.1) mmol/L Chloride 105 103 (98-107) mmol/L Carbon Dioxide 17 L 20 L (22-30) mmol/L BUN 24 H 26 H (9-20) mg/dL Creatinine 1.12 1.09 (0.66-1.25) mg/dL Glucose 161 H 155 H (74-99) mg/dL Calcium 9.3 8.6 (8.4-10.2) mg/dL AST 15 L (17-59) U/L ALT 21 (21-72) U/L Alkaline Phosphatase 69 (38-126) U/L Total Protein 6.2 L (6.3-8.2) g/dL Albumin 3.4 L (3.5-5.0) g/dL Calcium panel 06/27/18 06/28/18 Range/Units 19:10 03:32 Calcium 9.3 8.6 (8.4-10.2) mg/dL Albumin 3.4 L (3.5-5.0) g/dL Pituitary panel 06/27/18 06/28/18 Range/Units 19:10 03:32 Sodium 135 L 133 L (137-145) mmol/L Potassium 4.3 4.0 (3.5-5.1) mmol/L Chloride 105 103 (98-107) mmol/L Carbon Dioxide 17 L 20 L (22-30) mmol/L BUN 24 H 26 H (9-20) mg/dL Creatinine 1.12 1.09 (0.66-1.25) mg/dL Glucose 161 H 155 H (74-99) mg/dL Calcium 9.3 8.6 (8.4-10.2) mg/dL Adrenal panel 06/27/18 06/28/18 Range/Units 19:10 03:32 Sodium 135 L 133 L (137-145) mmol/L Potassium 4.3 4.0 (3.5-5.1) mmol/L Chloride 105 103 (98-107) mmol/L Carbon Dioxide 17 L 20 L (22-30) mmol/L BUN 24 H 26 H (9-20) mg/dL Creatinine 1.12 1.09 (0.66-1.25) mg/dL Glucose 161 H 155 H (74-99) mg/dL Calcium 9.3 8.6 (8.4-10.2) mg/dL Total Bilirubin 1.6 H (0.2-1.3) mg/dL AST 15 L (17-59) U/L ALT 21 (21-72) U/L Alkaline Phosphatase 69 (38-126) U/L Total Protein 6.2 L (6.3-8.2) g/dL Albumin 3.4 L (3.5-5.0) g/dL Assessment and Plan (1) Acute cholecystitis due to biliary calculus Narrative/Plan: Patient with evidence of acute cholecystitis by CAT scan. This does not fully explain his exam findings however. We'll proceed with laparoscopic examination with anticipated cholecystectomy. The patient has had a previous aortobifem bypass and subsequent hernia repair with mesh and he was informed that there may be challenges related to intra-abdominal adhesions. Evaluating the lower abdomen fully laparoscopically may be not possible given the degree of adhesions present. The potential need for conversion because of the adhesions were reviewed. Risks of bleeding, infection, bile leak, bile duct injury, retained common bile duct stone, trocar injury, conversion to an open procedure , potential findings of other etiologies for her pain requiring additional procedures, hernia, anesthesia related complications were reviewed. The patient understands and wishes to proceed. Current Visit: Yes Status: Acute Code(s): K80.00 - CALCULUS OF GALLBLADDER W ACUTE CHOLECYST W/O OBSTRUCTION SNOMED Code(s): 66110433500968
--- NOTE | 2018-06-28 13:47 | ECHOF ---
Referral Reason:pre-op MEASUREMENTS -------- HEIGHT: 182.9 cm WEIGHT: 116.1 kg BP: 119/79 RVIDd: 3.5 cm (< 3.3) IVSd: 1.3 cm (0.6 - 1.1) LVIDd: 4.6 cm (3.9 - 5.3) LVPWd: 1.3 cm (0.6 - 1.1) IVSs: 1.8 cm LVIDs: 3.1 cm LVPWs: 1.6 cm LA Diam: 3.3 cm (2.7 - 3.8) LAESV Index (A-L): 24.11 ml/m Ao Diam: 3.1 cm (2.0 - 3.7) AV Cusp: 2.1 cm (1.5 - 2.6) MV EXCURSION: 20.824 mm (> 18.000) MV EF SLOPE: 52 mm/s (70 - 150) EPSS: 0.3 cm MV E Luciano: 0.85 m/s MV DecT: 157 ms MV A Luciano: 0.88 m/s MV E/A Ratio: 0.96 RAP: 15.00 mmHg RVSP: 64.93 mmHg FINDINGS -------- Sinus rhythm. This was a technically adequate study. The left ventricular size is normal. There is mild concentric left ventricular hypertrophy. Overa ll left ventricular systolic function is normal with, an EF between 60 - 65 %. The right ventricle is mildly enlarged. Normal LA size by volume 22+/-6 ml/m2. The right atrium is normal in size. There is mild aortic valve sclerosis. Mild mitral annular calcification present. Mild tricuspid regurgitation present. There is severe pulmonary hypertension. Moderate pulmonic regurgitation. The aortic root size is normal. The IVC is dilated with normal collapse. CONCLUSIONS -------- 1. Sinus rhythm. 2. This was a technically adequate study. 3. The left ventricular size is normal. 4. There is mild concentric left ventricular hypertrophy. 5. Overall left ventricular systolic function is normal with, an EF between 60 - 65 %. 6. The right ventricle is mildly enlarged. 7. Normal LA size by volume 22+/-6 ml/m2. 8. The right atrium is normal in size. 9. There is mild aortic valve sclerosis. 10. Mild mitral annular calcification present. 11. Mild tricuspid regurgitation present. 12. There is severe pulmonary hypertension. 13. Moderate pulmonic regurgitation. 14. The aortic root size is normal. 15. The IVC is dilated with normal collapse. HIGHWAY PATROL COMMANDER: Leida Madden RDCS
--- NOTE | 2018-06-28 15:13 | P.CRDCN ---
History of Present Illness History of present illness: Mr. Haynes is a pleasant 83-year-old male past medical history significant for COPD and diabetes mellitus. He denies history of coronary artery disease and does not follow with a hand assembler for any reason. We have been asked to see him in consultation for pre-operative evaluation. He presented to the hospital with symptoms of abdominal pain, nausea and vomiting. He initially presented to the hospital 06/26 with similar symptoms and was found to have cholelithiasis and was sent home to follow up with surgery as an outpatient. He went home and couldn't tolerate the pain so he came back. CT abdomen/pelvis this admission revealed gallstones with fat stranding around gallbladder. Surgery has seen him and plans to for surgery this afternoon. At the time of my exam he is seen and examined laying in bed in significant abdominal pain. He states the pain is moving from one side to the other with no specific aggravating factors. He denies chest pain, shortness of breath, dizziness or palpitations. Last night on telemetry he had an episode of atrial flutter with rate in the 140s. Currently he his back in sinus mechanism with rate in the 90-[address] or T wave abnormalities noted. Chest x- ray on admission reveals mild cardiomegaly with no heart failure and no cardiopulmonary process noted. Laboratory data reviewed, WBC 22.1, hemoglobin 16.1, platelets 219, sodium 133, potassium 4.0, lactic acid 3.0, magnesium 1.8, creatinine 1.09, total bilirubin 1.6, troponin 0.082, 0.059, 0.061. Current cardiac medications include aspirin 81 mg daily, lisinopril 5 mg twice a day and Lopressor 25 mg twice a day. These medications were added on last admission. Echocardiogram obtained reveals preserved left ventricular systolic function with ejection fraction 60-65%, mildly enlarged right ventricle, mild aortic valve sclerosis with no stenosis, mild TR and severe pulmonary hypertension with an RVSP 64.93 mmHg. Review of Systems At the time of my exam: CONSTITUTIONAL: Denies fever. Denies chills. EYES: Denies blurred vision. Denies vision changes. Denies eye pain. EARS, NOSE, MOUTH & THROAT: Denies headache. Denies sore throat. Denies ear pain. CARDIOVASCULAR: Denies chest pain. Denies shortness of breath. Denies orthopnea. Denies PND. Denies palpitations. RESPIRATORY: Denies cough. GASTROINTESTINAL: Complains of abdominal pain. Denies diarrhea. Denies constipation. Denies nausea. Denies vomiting. MUSCULOSKELETAL: Denies myalgias. INTEGUMENTARY: Denies pruitis. Denies rash. NEUROLOGIC: Denies numbness. Denies tingling. Denies weakness. PSYCHIATRIC: Denies anxiety. Denies depression. ENDOCRINE: Denies fatigue. Denies weight change. Denies polydipsia. Denies polyurina. GENITOURINARY: Denies burning, hematuria or urgency with micturation. HEMATOLOGIC: Denies history of anemia. Denies bleeding. Past Medical History Past Medical History: COPD, Diabetes Mellitus Additional Past Medical History / Comment(s): diverticulitis History of Any Multi-Drug Resistant Organisms: None Reported Past Surgical History: Orthopedic Surgery Additional Past Surgical History / Comment(s): tooth extraction, double fem pop bypass, juan inserted in left leg, shattered humerus one year ago Past Anesthesia/Blood Transfusion Reactions: No Reported Reaction Past Psychological History: No Psychological Hx Reported Smoking Status: Former smoker Past Alcohol Use History: None Reported Past Drug Use History: None Reported - Past Family History Father Family Medical History: Hypertension Mother Family Medical History: Congestive Heart Failure (CHF) Medications and Allergies Home Medications Medication Instructions Recorded Confirmed Type metFORMIN HCL [Glucophage] 500 mg PO BID-W/MEALS #60 tab 06/27/17 06/27/18 Rx Aspirin 81 mg PO DAILY chew 06/26/18 06/27/18 Rx Lisinopril [Zestril] 5 mg PO BID #60 tab 06/26/18 06/27/18 Rx Metoprolol Tartrate [Lopressor] 25 mg PO BID #60 tab 06/26/18 06/27/18 Rx Allergies Allergy/AdvReac Type Severity Reaction Status Date / Time heparin AdvReac Itching Verified 06/27/18 19:33 Physical Exam Vitals: Vital Signs Temp Pulse Pulse Resp BP BP Pulse Ox 06/28/18 07:15 97.9 F 104 H 16 119/79 06/28/18 04:30 147 H 06/28/18 02:15 116 H 18 06/28/18 02:04 97.8 F 116 H 18 121/60 95 06/28/18 01:47 97.1 F L 06/28/18 01:00 99 18 125/75 95 06/27/18 23:00 104/80 06/27/18 22:00 125/68 06/27/18 21:37 100.2 F H 125 H 18 124/68 95 06/27/18 20:18 99.4 F 101 H 18 124/58 95 06/27/18 18:51 97.4 F L 99 18 116/76 94 L Intake and Output 06/27/18 06/28/18 06/28/18 22:59 06:59 14:59 Intake Total 1400 Balance 1400 Intake: Intake, IV Titration 1400 Amount Sodium Chloride 0.9% 1, 400 000 ml @ 130 mls/hr IV . Q7H42M [facility] Rx#:[id number] Sodium Chloride 0.9% 1, 1000 000 ml @ 999 mls/hr IV . Q1H1M [facility] Rx#:[id number] Other: Voiding Method Toilet Toilet # Voids 2 Weight 116.12 kg 116.12 kg Blood pressure 119/79 heart rate 104 afebrile maintaining oxygen saturation on nasal cannula GENERAL: This is a 83-year-old male in no apparent distress at the time of my examination. Obese. HEENT: Head is atraumatic, normocephalic. Pupils are equal, round. Sclerae anicteric. Conjunctivae are clear. Mucous membranes of the mouth are moist. Neck is supple. There is no jugular venous distention. No carotid bruit is heard. LUNGS: Clear to auscultation no wheezes, rales or rhonchi. No chest wall tenderness is noted on palpation or with deep breathing. HEART: Regular rate and rhythm with systolic murmur at the left sternal border, no rubs or gallops. S1 and S2 heard. ABDOMEN: Soft, diffusely tender tender. Bowel sounds are heard. No organomegaly noted. EXTREMITIES: No evidence of peripheral edema and no calf tenderness noted. VASCULAR: Radial and dorsalis pedis pulses palpated, no evidence of clubbing. NEUROLOGIC: Patient is awake, alert and oriented x3. Results 06/27/18 19:10 06/28/18 03:32 Cardiac Enzymes 06/27/18 06/27/18 06/28/18 Range/Units 19:10 19:10 03:32 AST 15 L (17-59) U/L CK-MB (CK-2) 0.4 0.7 (0.0-2.4) ng/mL Troponin I 0.082 H* 0.059 H* (0.000-0.034) ng/mL 06/28/18 Range/Units 06:54 AST (17-59) U/L CK-MB (CK-2) (0.0-2.4) ng/mL Troponin I 0.061 H* (0.000-0.034) ng/mL Coagulation 06/27/18 Range/Units 19:10 PT 13.0 H (9.0-12.0) sec APTT 27.3 (22.0-30.0) sec CBC 06/27/18 Range/Units 19:10 WBC 22.1 H (3.8-10.6) k/uL RBC 5.20 (4.30-5.90) m/uL Hgb 16.1 (13.0-17.5) gm/dL Hct 49.9 (39.0-53.0) % Plt Count 219 (150-450) k/uL Comprehensive Metabolic Panel 06/27/18 06/28/18 Range/Units 19:10 03:32 Sodium 135 L 133 L (137-145) mmol/L Potassium 4.3 4.0 (3.5-5.1) mmol/L Chloride 105 103 (98-107) mmol/L Carbon Dioxide 17 L 20 L (22-30) mmol/L BUN 24 H 26 H (9-20) mg/dL Creatinine 1.12 1.09 (0.66-1.25) mg/dL Glucose 161 H 155 H (74-99) mg/dL Calcium 9.3 8.6 (8.4-10.2) mg/dL AST 15 L (17-59) U/L ALT 21 (21-72) U/L Alkaline Phosphatase 69 (38-126) U/L Total Protein 6.2 L (6.3-8.2) g/dL Albumin 3.4 L (3.5-5.0) g/dL Current Medications Generic Name Dose Route Start Last Admin Trade Name Freq PRN Reason Stop Dose Admin Hydromorphone HCl 1 mg 06/28/18 01:16 06/28/18 04:25 Dilaudid IVP 1 mg Q3HR PRN Administration Severe Pain Hydromorphone HCl 0.5 mg 06/28/18 01:16 06/28/18 02:22 Dilaudid IVP 0.5 mg Q3HR PRN Administration Moderate Pain Piperacillin/Tazobactam/ 50 mls @ 12.5 mls/hr 06/28/18 08:00 06/28/18 09:40 Dextrose 3.375 gm/ IV Solution IVPB 12.5 mls/hr Q8HR [facility] Administration Sodium Chloride 1,000 mls @ 130 mls/hr 06/28/18 01:30 06/28/18 12:12 Saline 0.9% IV Not Given .Q7H42M [facility] Iopamidol 30 ml 06/27/18 22:27 Isovue-300 30 Ml (For Oral Use) PO 06/28/18 22:[address] Scan Metoprolol Tartrate 25 mg 06/28/18 11:00 06/28/18 11:58 Lopressor PO 25 mg BID [facility] Administration Naloxone HCl 0.2 mg 06/28/18 01:16 Narcan IV Q2M PRN Opioid Reversal Ondansetron HCl 4 mg 06/28/18 01:16 06/28/18 04:25 Zofran IVP 4 mg Q8HR PRN Administration Nausea And Vomiting Pantoprazole Sodium 40 mg 06/28/18 09:00 06/28/18 09:39 Protonix IV 40 mg DAILY [facility] Administration Intake and Output 06/27/18 06/28/18 06/28/18 22:59 06:59 14:59 Intake Total 1400 Balance 1400 Intake: Intake, IV Titration 1400 Amount Sodium Chloride 0.9% 1, 400 000 ml @ 130 mls/hr IV . Q7H42M [facility] Rx#:[id number] Sodium Chloride 0.9% 1, 1000 000 ml @ 999 mls/hr IV . Q1H1M [facility] Rx#:[id number] Other: Voiding Method Toilet Toilet # Voids 2 Weight 116.12 kg 116.12 kg 06/27/18 19:10 06/28/18 03:32 Assessment and Plan Assessment: ASSESSMENT Abdominal pain with evidence of cholelithiasis possibility of gallstones. Plan for surgery this afternoon with Dr. Oconnor. Leukocytosis Episode of atrial flutter, currently maintaining sinus mechanism Lactic acidosis Hyponatremia Mild troponin leak, not indicative of an acute coronary event. Hypertension Diabetes mellitus Pulmonary hypertension PLAN Increase lopressor to 50 mg BID. Mild troponin leak not indicative of an acute coronary event, most likely secondary to elevated lactic acid and septic like picture. Recommend continuing with beta blockers and ongoing telemetry monitoring. If any further arrhythmia he should go to [facility] post-operatively. Acceptable risk for surgical intervention. We will continue to follow closely. Thank you kindly for this consultation. Nurse Practitioner note has been reviewed, I agree with a documented findings and plan of care. Patient was seen and examined.
--- NOTE | 2018-06-28 17:45 | P.CONS ---
History of Present Illness - Reason for Consult Consult date: 06/28/18 Medical management of hypertension, COPD and medical clearance - Chief Complaint Abdominal pain - History of Present Illness Patient is a 83-year-old male with a known history of COPD, diabetes type 2 non- insulin-dependent, peripheral vascular disease with bilateral femoropopliteal bypass surgery, previous history of smoking came to ER with complaints of abdominal pain along with nausea and vomiting. Patient was recently admitted to hospital on 06/26/2018 with similar complaints when he had CT of abdomen pelvis showed gallstones and mild pancreatitis. Patient also found have fat stranding around gallbladder and was recommended surgery at the time. Patient wants to proceed with the surgery as outpatient and patient was discharged eventually. Patient came back to the hospital with similar complaints. Patient is complaining of abdominal pain mainly left lower quadrant and right flank area as well. Denied any complaints of chest pain or shortness of breath. No fever no chills. He states the pain is moving from one side to the other with no specific aggravating factors. EKG sinus rhythm with no acute ST-T wave changes Chest x-ray showed mild cardiomegaly with no heart failure and no cardiomegaly pulmonary process. WBC 22.1 Lactic acid 3.0 Magnesium 1.8 Troponin 0.082, 0.059 and 0.061 Patient is tachycardic with heart rate 116 now. 2-D echocardiogram was done. Echocardiogram obtained reveals preserved left ventricular systolic function with ejection fraction 60-65%, mildly enlarged right ventricle, mild aortic valve sclerosis with no stenosis, mild TR and severe pulmonary hypertension with an RVSP 64.93 mmHg. Abdominal x-ray showed small bowel distention compared to last exam could be due to partial mechanical obstruction or ileus. No free air. Ultrasound abdomen showed no gallstones or dilated ducts. Mild right renal outcome atrophy. CT abdomen and pelvis showed gallstones. There is some fat stranding around the gallbladder. And a small amount of fluid at the nat hepatis as well as the anterior pararenal space this is new compared to recent computed tomography scan and related inflammatory process and cholecystitis. Sigmoid diverticulosis Review of Systems Constitutional: Patient denies any fever or chills . No generalized weakness or weight loss. Abdomen: Patient does have abdominal pain with nausea and vomiting. No diarrhea. Cardiovascular: Patient denies any chest pain or short of breath no palpitations. Respiratory: patient denied any cough is from production. No shortness of breath Neurologic: Patient denied any numbness or tingling headache. Musculoskeletal: Patient denies any complaints of joint swelling or deformity. Skin: Negative Psychiatric: Negative Endocrine: No heat or cold intolerance. No recent weight gain. Genitourinary: No dysuria or hematuria. All other 14 point ROS negative except the above Past Medical History Past Medical History: COPD, Diabetes Mellitus Additional Past Medical History / Comment(s): diverticulitis History of Any Multi-Drug Resistant Organisms: None Reported Past Surgical History: Orthopedic Surgery Additional Past Surgical History / Comment(s): tooth extraction, double fem pop bypass, juan inserted in left leg, shattered humerus one year ago Past Anesthesia/Blood Transfusion Reactions: No Reported Reaction Past Psychological History: No Psychological Hx Reported Smoking Status: Former smoker Past Alcohol Use History: None Reported Past Drug Use History: None Reported - Past Family History Father Family Medical History: Hypertension Mother Family Medical History: Congestive Heart Failure (CHF) Medications and Allergies Home Medications Medication Instructions Recorded Confirmed Type metFORMIN HCL [Glucophage] 500 mg PO BID-W/MEALS #60 tab 06/27/17 06/27/18 Rx Aspirin 81 mg PO DAILY chew 06/26/18 06/27/18 Rx Lisinopril [Zestril] 5 mg PO BID #60 tab 06/26/18 06/27/18 Rx Metoprolol Tartrate [Lopressor] 25 mg PO BID #60 tab 06/26/18 06/27/18 Rx Allergies Allergy/AdvReac Type Severity Reaction Status Date / Time heparin AdvReac Itching Verified 06/27/18 19:33 Physical Exam Vitals: Vital Signs Temp Pulse Pulse Resp BP BP Pulse Ox 06/28/18 15:00 98 F 92 12 109/91 96 06/28/18 07:15 97.9 F 104 H 16 119/79 06/28/18 04:30 147 H 06/28/18 02:15 116 H 18 06/28/18 02:04 97.8 F 116 H 18 121/60 95 06/28/18 01:47 97.1 F L 06/28/18 01:00 99 18 125/75 95 06/27/18 23:00 104/80 06/27/18 22:00 125/68 09/05/18 21:37 100.2 F H 125 H 18 124/68 95 06/27/18 20:18 99.4 F 101 H 18 124/58 95 06/27/18 18:51 97.4 F L 99 18 116/76 94 L Intake and Output 06/28/18 06/28/18 06/28/18 06:59 14:59 22:59 Intake Total 1400 Balance 1400 Intake: Intake, IV Titration 1400 Amount Sodium Chloride 0.9% 1, 400 000 ml @ 130 mls/hr IV . Q7H42M [facility] Rx#:[id number] Sodium Chloride 0.9% 1, 1000 000 ml @ 999 mls/hr IV . Q1H1M ONE Rx#:[id number] Other: Voiding Method Toilet Toilet # Voids 2 2 2 Weight 116.12 kg 116.12 kg PHYSICAL EXAMINATION: Patient is lying in the bed comfortably, mild distress, awake alert and oriented.. HEENT: Normocephalic. Neck is supple. Pupils reactive. Nostrils clear. Oral cavity is moist. Ears reveal no drainage. Neck reveals no JVD, carotid bruits, or thyromegaly. CHEST EXAMINATION: Trachea is central. Symmetrical expansion. Bibasilar diminished air entry Lung lauren clear to auscultation and percussion. CARDIAC: Normal S1, S2 with no gallops. No murmurs ABDOMEN: Soft. Mild left lower quadrant tenderness. Bowel sounds normal. No organomegaly. No abdominal bruits. Extremities: reveal no edema. No clubbing or cyanosis Neurologically awake, alert, oriented x3 with well-coordinated movements. No focal deficits noted Skin: No rash or skin lesions. Psychiatric: Cooperative. Nonsuicidal Musculoskeletal: No joint swelling or deformity. Normal range of motion. Results CBC & Chem 7: 06/27/18 19:10 06/28/18 03:32 Labs: Abnormal Lab Results - Last 24 Hours (Table) 06/27/18 06/27/18 06/27/18 Range/Units 19:10 19:10 19:10 WBC 22.1 H (3.8-10.6) k/uL Neutrophils # 19.9 H (1.3-7.7) k/uL Lymphocytes # 0.8 L (1.0-4.8) k/uL PT (9.0-12.0) sec INR (<1.2) Sodium 135 L (137-145) mmol/L Carbon Dioxide 17 L (22-30) mmol/L BUN 24 H (9-20) mg/dL Glucose 161 H (74-99) mg/dL Plasma Lactic Acid Tone (0.7-2.0) mmol/L Total Bilirubin 1.6 H (0.2-1.3) mg/dL AST 15 L (17-59) U/L Total Creatine Kinase 28 L (55-170) U/L Troponin I 0.082 H* (0.000-0.034) ng/mL Total Protein 6.2 L (6.3-8.2) g/dL Albumin 3.4 L (3.5-5.0) g/dL 06/27/18 06/27/18 06/28/18 Range/Units 19:10 20:00 02:16 WBC (3.8-10.6) k/uL Neutrophils # (1.3-7.7) k/uL Lymphocytes # (1.0-4.8) k/uL PT 13.0 H (9.0-12.0) sec INR 1.4 H (<1.2) Sodium (137-145) mmol/L Carbon Dioxide (22-30) mmol/L BUN (9-20) mg/dL Glucose (74-99) mg/dL Plasma Lactic Acid Tone 2.1 H* 3.0 H* (0.7-2.0) mmol/L Total Bilirubin (0.2-1.3) mg/dL AST (17-59) U/L Total Creatine Kinase (55-170) U/L Troponin I (0.000-0.034) ng/mL Total Protein (6.3-8.2) g/dL Albumin (3.5-5.0) g/dL 06/28/18 06/28/18 06/28/18 Range/Units 03:32 03:32 06:54 WBC (3.8-10.6) k/uL Neutrophils # (1.3-7.7) k/uL Lymphocytes # (1.0-4.8) k/uL PT (9.0-12.0) sec INR (<1.2) Sodium 133 L (137-145) mmol/L Carbon Dioxide 20 L (22-30) mmol/L BUN 26 H (9-20) mg/dL Glucose 155 H (74-99) mg/dL Plasma Lactic Acid Tone (0.7-2.0) mmol/L Total Bilirubin (0.2-1.3) mg/dL AST (17-59) U/L Total Creatine Kinase 37 L (55-170) U/L Troponin I 0.059 H* 0.061 H* (0.000-0.034) ng/mL Total Protein (6.3-8.2) g/dL Albumin (3.5-5.0) g/dL Assessment and Plan Assessment: Abdominal pain likely due to acute gallstone related cholecystitis. Small bowel ileus/partial obstruction Sepsis secondary to acute cholecystitis Lactic acidosis Mild elevated troponin level could be related to infection. Possible demand mismatch. COPD stable Diabetes type 2 [id number]. Peripheral vascular disease with history of bilateral femoropopliteal bypass surgery Pulmonary hypertension as per 2-D echocardiogram DVT prophylaxis Plan: Patient will be continued on antibiotics and IV fluids and repeat lactic acid level. Patient will be continued on intraoperative beta blockers. Cardiology is following. 2-D echocardiogram showed normal ejection fraction and pulmonary hypertension. Continue with telemetry monitoring. Patient is moderately risk for moderate risk abdominal surgery. We will continue to follow closely. Further recommendations based on the clinical course. Discussed with his at bedside in detail. Prognosis is guarded. Time with Patient: Greater than 30
--- NOTE | 2018-06-28 17:51 | P.CNPUL ---
History of Present Illness Consult date: 06/28/18 Requesting physician: Dean Oconnor Reason for consult: other Chief complaint: Pulmonary clearance for exploratory laparotomy History of present illness: This is a 83-year-old white male patient with past medical history of COPD, underlying FEV1 of 63% of predicted, diabetes mellitus, BPH, CHF, hypertension, presented to the emergency department on 06/27/2018 for evaluation of acute abdominal pain. Patient symptoms started in the morning on 06/27/2018, with lower abdominal pain that progressively increased, and spread to the upper quadrants. Patient was recently in the hospital similar symptoms, and there was a concern for gallstones. Gallbladder ultrasound from 06/27/2018 showed no gallstones or dilated ducts, and mild right renal cortical atrophy. Abdominal/ pelvis CT from 06/28/2018 showed gallstones, possible gallstone impacted in the gallbladder neck, small amount of fluid at the nat hepatis as well as the anterior perirenal space related to inflammatory process and cholecystitis. Lab work showed leukocytosis WBC of 22.1, hemoglobin of 16.1, INR was elevated to 1.4, patient had mild lactic acidosis of 2.1 which subsequently increased to 3.0, non-anion gap metabolic acidosis, patient was slightly prerenal. Patient had a low-grade fever, he has been tachycardic with a rate of 116 BPM. In sinus mechanism. Troponins were elevated at 0.082, 0.059, and 0.061. Patient was given a total of 4 L of 0.9 normal saline, has not required any vasopressor support. He is having significant amount of discomfort across his upper quadrant under his rib cage, he states it hurts for him to take deep breaths and cough. Is also having discomfort in his left lower quadrant, and tenderness over right upper quadrant. He has bowel sounds 4, he is receiving pain medications, however his pain continues to increase. Gen. surgery has been consulted, and exposure laparotomy was recommended. General surgery consult was placed and patient was recommended laparoscopic examination with anticipated cholecystectomy. Patient does have a history of previous aortobifem bypass, and subsequent hernia repair with mesh. In addition patient admits to passing dark tarry stools about a week ago. Work consult in regards to pulmonary clearance for the surgical procedure and this afternoon. As far as patient's history of COPD patient is not on any oxygen, his only inhaler is his rescue inhaler. Physical exam does not reveal any significant signs of wheezing, or shortness of breath, other than that related to his abdominal pain. Was also seen by cardiology, echocardiogram was completed, and over left ventricle systolic function is within normal limits with an EF between 60-65% There was severe pulmonary hypertension, right ventricular systolic pressure not provided. Moderate pulmonic regurgitation, with mild tricuspid regurgitation. Patient has a previous history of diverticulitis. Review of Systems All systems: negative Constitutional: Denies chills, Denies fever Eyes: denies blurred vision, denies pain Ears, nose, mouth and throat: Denies headache, Denies sore throat Cardiovascular: Denies chest pain, Denies shortness of breath Respiratory: Denies cough Gastrointestinal: Denies abdominal pain, Denies diarrhea, Denies nausea, Denies vomiting Musculoskeletal: Denies myalgias Integumentary: Denies pruritus, Denies rash Neurological: Denies numbness, Denies weakness Psychiatric: Denies anxiety, Denies depression Endocrine: Denies fatigue, Denies weight change Past Medical History Past Medical History: COPD, Diabetes Mellitus Additional Past Medical History / Comment(s): diverticulitis History of Any Multi-Drug Resistant Organisms: None Reported Past Surgical History: Orthopedic Surgery Additional Past Surgical History / Comment(s): tooth extraction, double fem pop bypass, juan inserted in left leg, shattered humerus one year ago Past Anesthesia/Blood Transfusion Reactions: No Reported Reaction Past Psychological History: No Psychological Hx Reported Smoking Status: Former smoker Past Alcohol Use History: None Reported Past Drug Use History: None Reported - Past Family History Father Family Medical History: Hypertension Mother Family Medical History: Congestive Heart Failure (CHF) Medications and Allergies Home Medications Medication Instructions Recorded Confirmed Type metFORMIN HCL [Glucophage] 500 mg PO BID-W/MEALS #60 tab 06/27/17 06/27/18 Rx Aspirin 81 mg PO DAILY chew 06/26/18 06/27/18 Rx Lisinopril [Zestril] 5 mg PO BID #60 tab 06/26/18 06/27/18 Rx Metoprolol Tartrate [Lopressor] 25 mg PO BID #60 tab 06/26/18 06/27/18 Rx Allergies Allergy/AdvReac Type Severity Reaction Status Date / Time heparin AdvReac Itching Verified 06/27/18 19:33 Physical Exam Vitals: Vital Signs Temp Pulse Pulse Resp BP BP Pulse Ox 06/28/18 15:00 98 F 92 12 109/91 96 06/28/18 07:15 97.9 F 104 H 16 119/79 06/28/18 04:30 147 H 06/28/18 02:15 116 H 18 06/28/18 02:04 97.8 F 116 H 18 121/60 95 06/28/18 01:47 97.1 F L 06/28/18 01:00 99 18 125/75 95 06/27/18 23:00 104/80 06/27/18 22:00 125/68 06/27/18 21:37 100.2 F H 125 H 18 124/68 95 06/27/18 20:18 99.4 F 101 H 18 124/58 95 06/27/18 18:51 97.4 F L 99 18 116/76 94 L Intake and Output 06/28/18 06/28/18 06/28/18 06:59 14:59 22:59 Intake Total 1400 Balance 1400 Intake: Intake, IV Titration 1400 Amount Sodium Chloride 0.9% 1, 400 000 ml @ 130 mls/hr IV . Q7H42M [facility] Rx#:[id number] Sodium Chloride 0.9% 1, 1000 000 ml @ 999 mls/hr IV . Q1H1M ONE Rx#:[id number] Other: Voiding Method Toilet Toilet # Voids 2 2 2 Weight 116.12 kg 116.12 kg GENERAL EXAM: Alert, comfortable in no apparent distress. HEAD: Normocephalic/atraumatic. EYES: Normal reaction of pupils, equal size. Conjunctiva pink, sclera white. NOSE: Clear with pink turbinates. THROAT: No erythema or exudates. NECK: No masses, no JVD, no thyroid enlargement, no adenopathy. CHEST: No chest wall deformity. Symmetrical expansion. LUNGS: Equal air entry with no crackles, wheeze, rhonchi or dullness. CVS: Regular rate and rhythm, normal S1 and S2, no gallops, no murmurs, no rubs ABDOMEN: Large, obese, tender to palpation, bowel sounds 4. Midline incision with small. Umbilical hernia, tenderness present in the epigastric and right upper quadrant, and also the left lower quadrant EXTREMITIES: No clubbing, no edema, no cyanosis, 2+ pulses and upper and lower extremities. MUSCULOSKELETAL: Muscle strength and tone normal. SPINE: No scoliosis or deformity SKIN: No rashes CENTRAL NERVOUS SYSTEM: Alert and oriented -3. No focal deficits, tone is normal in all 4 extremities. PSYCHIATRIC: Alert and oriented -3. Appropriate affect. Intact judgment and insight. Results - Laboratory Findings CBC and BMP: 06/27/18 19:10 06/28/18 03:32 PT/INR, D-dimer PT 13.0 sec (9.0-12.0) H 06/27/18 19:10 INR 1.4 (<1.2) H 06/27/18 19:10 Abnormal lab findings: Abnormal Labs 06/27/18 06/27/18 06/27/18 19:10 19:10 19:10 WBC 22.1 H Neutrophils # 19.9 H Lymphocytes # 0.8 L PT INR Sodium 135 L Carbon Dioxide 17 L BUN 24 H Glucose 161 H Plasma Lactic Acid Tone Total Bilirubin 1.6 H AST 15 L Total Creatine Kinase 28 L Troponin I 0.082 H* Total Protein 6.2 L Albumin 3.4 L 06/27/18 06/27/18 06/28/18 19:10 20:00 02:16 WBC Neutrophils # Lymphocytes # PT 13.0 H INR 1.4 H Sodium Carbon Dioxide BUN Glucose Plasma Lactic Acid Tone 2.1 H* 3.0 H* Total Bilirubin AST Total Creatine Kinase Troponin I Total Protein Albumin 06/28/18 06/28/18 06/28/18 03:32 03:32 06:54 WBC Neutrophils # Lymphocytes # PT INR Sodium 133 L Carbon Dioxide 20 L BUN 26 H Glucose 155 H Plasma Lactic Acid Tone Total Bilirubin AST Total Creatine Kinase 37 L Troponin I 0.059 H* 0.061 H* Total Protein Albumin - Diagnostic Findings Chest x-ray: report reviewed, image reviewed Additional studies: Abdomen/pelvis CT, gallbladder ultrasound, EKG, echocardiogram has been reviewed Assessment and Plan Plan: Assessment: #1. Acute abdominal pain related to acute cholecystitis due to biliary calculus #2. Sepsis related to the above #3. Mild lactic acidosis, leukocytosis, positive troponins related to the above #4. Diabetes melitus #5. Chronic congestive heart failure #6. History of diverticulitis #7. COPD, with the underlying FEV1 of 63%, not oxygen dependent, highly stable #8. History of nicotine dependence, currently in remission #9. History of aorto bifemoral bypass #10. History of hernia repair with mesh placement #11. Hypertension #12. Pulmonary hypertension likely related to patient history of COPD Plan: Patient is cleared from pulmonary standpoint for laparoscopic examination with possibility of cholecystectomy. Currently COPD seems to be stable, without any acute exacerbation, patient in the postoperative period, continue nebulized bronchodilators. Possibility of prolonged post-op ventilator support was discussed with the patient, but there is no absolute contraindication for surgery. I performed a history & physical examination of the patient and discussed their management with my nurse practitioner, Valerie Vaughn. I reviewed the nurse practitioner's note and agree with the documented findings and plan of care. Lung sounds are positive for diminished breath sounds, with bibasilar crackles. The findings and the impression was discussed with the patient. I attest to the documentation by the nurse practitioner. Time with Patient: Greater than 30
[2018-06-28 19:22] LABS: Glucose,Whole Blood 107 mg/dL (75-99)
[2018-06-28] MEDS ORDERED: ROCURONIUM BROMIDE 10 MG/ML 10 ML VIAL IV ONE (20:04)
[2018-06-28] MEDS ORDERED: fentaNYL (PF) 50 MCG/ML 2 ML AMP ONE (20:04)
[2018-06-28] MEDS ORDERED: LIDOCAINE 1% INJ 10MG/ML (20 ML MDV) ONE (20:04)
[2018-06-28] MEDS ORDERED: NEOSTIGMINE 1 MG/ML 10 ML VIAL ONE (20:04)
[2018-06-28] MEDS ORDERED: SUCCINYLCHOLINE CHLORIDE 100 MG/5 ML SYR IV ONE (20:04)
[2018-06-28] MEDS ORDERED: PHENYLEPHRINE-0.9% NACL SYG 1 MG/10 ML SYRINGE ONE (20:04)
[2018-06-28] MEDS ORDERED: IV FLUID CONTINUATION 1,000 ML IV ONE (20:04)
[2018-06-28] MEDS ORDERED: GLYCOPYRROLATE 0.2 MG/ML 2 ML VIAL ONE (20:04)
[2018-06-28] MEDS ORDERED: HYDROmorphone (PF) 1 MG/ML ONE (20:04)
[2018-06-28] MEDS ORDERED: PROPOFOL 10 MG/ML 20 ML VIAL IV ONE (20:04)
[2018-06-28] MEDS ORDERED: BUPIVACAIN-EPI 0.25%-1:200,000 30 ML VIAL SQ ONE ×2 (20:25)
[2018-06-28] MEDS ORDERED: LACTATED RINGERS 1,000 ML IV ONE (20:32)
[2018-06-28] MEDS ORDERED: METOPROLOL TARTRATE 25 MG TAB PO SCH (21:00)
--- NOTE | 2018-06-28 23:01 | P.OP ---
Date of Procedure: 06/28/18 Procedure(s) Performed: PREOPERATIVE DIAGNOSIS: Acute cholecystitis POSTOPERATIVE DIAGNOSIS: Perforated gangrenous cholecystitis with intra- abdominal adhesions PROCEDURE: Diagnostic laparoscopy, laparoscopic lysis of adhesions, open cholecystectomy SURGEON: Elvin EBL: Minimal see anesthesia record ANESTHESIA: Gen. COMPLICATIONS: None OPERATIVE PROCEDURE: The patient was brought and placed on the operating room table in the supine position. The patient was placed under general anesthesia at that time. The abdomen was prepped and draped in the usual sterile fashion. Given the patient's previous midline incision a 5 mm trocar incision was made in the right upper quadrant. The optical trocar was used to enter the peritoneal cavity. Full insufflation took place. The patient had dense adhesions along the entire midline even extending into the right upper quadrant. An additional 5 mm trocar was placed in the lateral right upper quadrant under direct dilatation as well as a 5 mm trocar in the epigastrium under direct visualization. Lysis of adhesions took place using both blunt dissection and sharp dissection. I was able to place a periumbilical 5 mm trocar at that time. The right upper quadrant was inspected. The patient had dense adhesions between the dome of the liver and the omentum. These were chronic in nature. We were able to see bile-stained purulent fluid throughout the abdominal cavity consistent with either a probable perforated ulcer or gallbladder. Given the challenges with the adherent omentum and the inability to even visualize the gallbladder conversion to an open procedure to place. A subcostal incision was created using the scalpel. Dissection through the subcutaneous fat and fascia took place using electrocautery. The adhesions between the capsule of the dome the liver and the omentum were lysed using both electrocautery and the LigaSure device. Small areas of bleeding on the liver capsule were controlled using electrocautery. I was able to finally visualize a perforation that was present in the region of the duodenal sweep/gallbladder infundibulum. Further blunt dissection revealed the perforation to be present at the infundibulum of the gallbladder. At that time the gallbladder was removed from the liver bed using electrocautery and blunt dissection from the top down. Small vessels were divided using the clip safety teacher. What initially appeared to be a small blood vessel and clipped using the 12 mm clipper was later identified as being the cystic duct. This was very short in right on the common bile duct. I did not have any additional room to place an additional clip or a stitch at this time. The 12 mm clip placed appeared quite secure however and with palpation of the nat hepatis there was no evidence of bile leak. The gallbladder was completely removed at that point. This was passed off the field. The right upper quadrant was irrigated with saline. Surgicel's snow was used along the gallbladder fossa with good control of bleeding. No bilious drainage was seen. The abdomen was copiously rigorous saline. No further purulence or bilious fluid was identified. A drain was placed in the gallbladder fossa exiting from the lateral right upper quadrant. The drain was sutured in place using a 3-0 silk stitch. The fascia was then reapproximated in 2 layers using a total of 3 separate double-stranded #1 PDS sutures. The skin was loosely reapproximated with sukhwinder. A sterile dressing was applied. At the end of this procedure the sponge and needle counts were correct. DISPOSITION: Guarded to the recovery room
[2018-06-28 23:32] LABS: Glucose,Whole Blood 135 mg/dL (75-99)
[2018-06-28 23:56] LABS: ABG Base Excess -11.2 mmol/L; ABG HCO3 16 mmol/L (21-25); ABG Oxygen Saturation 99.7 % (94-97); ABG PCO2 38 mmHg (35-45); ABG PH 7.24 (7.35-7.45); ABG PO2 215 mmHg (83-108); ABG TCO2 17 mmol/L (19-24)
[2018-06-29] MEDS ORDERED: NOREPINEPHRINE 4 MG in SODIUM CHLORIDE 0.9% 250 ML IV SCH ×2
--- NOTE | 2018-06-29 00:23 | XR ---
EXAMINATION TYPE: XR chest 1V portable DATE OF EXAM: 06/29/2018 COMPARISON: 06/27/2018 HISTORY: Check tube placement TECHNIQUE: Single frontal view of the chest is obtained. FINDINGS: There is endotracheal tube in fairly good position 3 cm from the arslan. There is pulmonar y vascular mild congestion. There is slight blunting of the costophrenic angles. There is nasogastric tube with the tip probably in the gastric fundus. There are chest leads. IMPRESSION: Mild congestive heart failure. Small pleural effusions. Heart failure appears new compar ed to old exam.
[2018-06-29] MEDS: METOPROLOL TARTRATE 25 MG TAB PO SCH ×3 (00:55→20:45)
[2018-06-29] MEDS: PIPERACILLIN-TAZOBACTAM 3.375 GM in DEXTROSE/WATER 1 50ML.BAG IVPB SCH ×3 (01:05→15:27)
[2018-06-29 04:21] LABS: INR 1.4 (<1.2); Partial Thromboplastin Time 29.6 sec (22.0-30.0); Prothrombin Time 12.8 sec (9.0-12.0)
[2018-06-29 04:31] LABS: Calcium 7.5 mg/dL (8.4-10.2); Magnesium 1.8 mg/dL (1.6-2.3); Phosphorus 3.4 mg/dL (2.5-4.5); Potassium 4.6 mmol/L (3.5-5.1)
[2018-06-29] MEDS ORDERED: Magnesium Replacement Protocol 1 EACH MISC MISCELLANE PRN (04:55)
[2018-06-29 05:02] LABS: ABG Base Excess -11.9 mmol/L; ABG HCO3 15 mmol/L (21-25); ABG Oxygen Saturation 99.3 % (94-97); ABG PCO2 31 mmHg (35-45); ABG PH 7.29 (7.35-7.45); ABG PO2 127 mmHg (83-108); ABG TCO2 16 mmol/L (19-24)
[2018-06-29 05:23] LABS: HCT 42.3 % (39.0-53.0); Hypochromasia Moderate; MCH 31.1 pg (25.0-35.0); MCHC 30.7 g/dL (31.0-37.0); Macrocytosis Slight; Mean Platelet Volume 8.9; Platelet Count 250 k/uL (150-450); RBC 4.18 m/uL (4.30-5.90); RDW 15.1 % (11.5-15.5); WBC 27.2 k/uL (3.8-10.6)
[2018-06-29] MEDS: MAGNESIUM SULFATE-D5W PMX 1 GM in DEXTROSE/WATER 1 100ML.BAG IVPB SCH ×2 (05:44→06:54)
[2018-06-29] MEDS: PROPOFOL 1,000 MG in EMPTY BAG 1 BAG IV SCH ×4 (05:46→18:02)
[2018-06-29 05:51] LABS: MCV 101.2 fL (80.0-100.0)
--- NOTE | 2018-06-29 06:30 | P.PN ---
Progress Note - Text Progress Note Date: 06/28/18 *Chet underwent a attempted laparoscopic cholecystectomy which was converted to an open cholecystectomy. Second secondary to multiple adhesions patient required open cholecystectomy. at the end of the case the patient had spontaneous respirations with following commands and was extubated in the operating room. In the recovery room patient was continues to take shallow respirations. His atrial fibrillation which she wasn't prior to the surgery continued to escalate in his heart rate was between 160-180. His blood pressure wasn't 1 2130s over 60s 70s in the postop recovery room. Given the patient's physical status and his preoperative pulmonary status, patient has pulmonary hypertension with right ventricular systolic pressure is 65. An attempt to avoid hypoxia and hypercarbia decision was made to reintubate the patient in the recovery room and take to the ICU where he readily had a bed. Patient was not given any long acting muscle relaxant in attempt to improve his lung mechanics. I assisted with the transfer to the ICU, we gave a complete sign out to the nurse who spoke to the validation manager while we are at the bedside. Prior to leaving the bedside patient's blood pressure was slightly low validation manager that ordered fluid bolus and IV pressor medication as needed. Plan is for the patient to be extubated this morning
[2018-06-29 06:42] LABS: Band Neutrophils % 15 %; Lymphocytes # (M) 1.09 k/uL (1.0-4.8); Monocytes # (M) 0.82 k/uL (0-1.0); Neutrophils % (M) 79 %; Nucleated Red Blood Cells 0 /100 WBC (0-0); Total Cells Counted 200
[2018-06-29 06:43] LABS: Polychromasia Present
[2018-06-29 06:44] LABS: Anisocytosis (M) Present
[2018-06-29 06:48] LABS: Poikilocytosis (M) Present
[2018-06-29 06:49] LABS: Large Platelets Present
[2018-06-29 07:32] LABS: Appearance,Urine Cloudy (Clear); Bilirubin,Urine Negative (Negative); Blood,Urine Trace (Negative); Color,Urine Yellow; Glucose,Urine (UA) Negative (Negative); Ketones,Urine 1+ (Negative); Leukocyte Esterase,Urine Negative (Negative); Nitrite,Urine Negative (Negative); PH, Urine 5.5 (5.0-8.0); Protein,Urine 1+ (Negative); RBC,Urine 2 /hpf (0-5); Specific Gravity,Urine 1.026 (1.001-1.035); Squamous Epithelial Cell,Urine 1 /hpf (0-4); Urobilinogen,Urine <2.0 mg/dL (<2.0); WBC,Urine 10 /hpf (0-5)
[2018-06-29] MEDS ORDERED: METOPROLOL TARTRATE 5 MG/5 ML VIAL IVP PRN (08:35)
[2018-06-29] MEDS: PANTOPRAZOLE 40 MG/10 ML VIAL IV SCH (08:49)
[2018-06-29] MEDS: CHLORHEXIDINE GLUCONATE 15 ML CUP MUCOUS MEM SCH ×2 (08:49→20:44)
[2018-06-29] MEDS: SODIUM CHLORIDE 0.9% 1,000 ML IV SCH ×2 (08:50→18:03)
[2018-06-29 08:58] LABS: Glucose,Whole Blood 157 mg/dL (75-99)
[2018-06-29] MEDS ORDERED: SODIUM BICARB 8.4% 50 ML SYR (1 MEQ/ML) IV ONE (09:30)
[2018-06-29] MEDS ORDERED: SODIUM BICARB 8.4% 50 ML SYR (1 MEQ/ML) ONE (09:31)
--- NOTE | 2018-06-29 09:45 | XR ---
EXAMINATION TYPE: XR chest 1V portable DATE OF EXAM: 06/29/2018 COMPARISON: Prior chest 06/29/2018 and earlier time HISTORY: Intubated TECHNIQUE: Single frontal view of the chest is obtained. FINDINGS: Patient is rotated. Endotracheal tube, NG tube are overlying appropriate positions. No osmany dent pneumothorax. Patchy basilar density persists, there is retrocardiac density. Heart size is like ly stable. There may be some improvement in the interstitium, perihilar vascular indistinctness. IMPRESSION: Improvement in aeration and possibly volume status. Basilar atelectasis, correlate to ex clude pneumonia, possible small effusion. Additional follow-up recommended.
[2018-06-29] MEDS ORDERED: DEXTROSE 5% IN WATER 1,000 ML with SODIUM BICARB (1 MEQ/ML) 150 ML IV ONE (10:00)
[2018-06-29] MEDS: INSULIN ASPART 100 UNIT/ML 1 ML 10 ML VIAL SQ SCH ×3 (10:13→20:45)
[2018-06-29] MEDS: HYDROmorphone 1 MG/ML 1 ML SYRINGE IVP PRN (10:14)
[2018-06-29] MEDS: ENOXAPARIN 40 MG/0.4 ML SYRINGE SQ SCH (10:14)
[2018-06-29] MEDS: IPRATROPIUM-ALBUTEROL 3 ML NEB INHALATION SCH ×4 (11:28→23:23)
[2018-06-29 12:03] LABS: ABG Base Excess -5.6 mmol/L; ABG HCO3 20 mmol/L (21-25); ABG Oxygen Saturation 98.2 % (94-97); ABG PCO2 36 mmHg (35-45); ABG PH 7.35 (7.35-7.45); ABG PO2 97 mmHg (83-108); ABG TCO2 21 mmol/L (19-24)
[2018-06-29 13:33] LABS: Hemoglobin A1C 5.6 % (4.0-6.0)
--- NOTE | 2018-06-29 15:07 | PN ---
PROGRESS NOTE Mr. Haynes underwent open cholecystectomy yesterday. Postoperatively he is doing well. He is in a sinus rhythm, but yesterday he demonstrated episodes of paroxysmal atrial fibrillation and underwent gallbladder surgery. He also has pulmonary hypertension. He is hemodynamically stable. He seems to be doing better today. I am recommending to use intravenous Lopressor on a p.r.n. basis if the heart rate is more than 120. Otherwise we will continue current medications and hold any anticoagulation for at least another 24 hours. He is clinically doing better. He is on multiple antibiotics. There is a question of some heparin allergy, but I do not think this is a significant issue. We can safely give him some Lovenox. The patient's tachycardia has also resolved. He is in sinus rhythm. Early this morning he had a run of atrial fibrillation. I am recommending that we give him metoprolol tartrate 25 mg p.o. b.i.d. and also use intravenous if necessary, but the patient seems to be doing better clinically. His physical exam revealed a blood pressure of about 96/80. His Levophed has been discontinued. Heart rate is about 70, sinus. S1-S2 heard normally but distantly short systolic murmur noted. Lungs reveal diminished air entry. Abdomen exam was deferred. Rest of physical examination is unchanged. From a cardiac standpoint, I would recommend that we continue current medications and when he can take orally, we will give him metoprolol orally when possible but until then use intravenous Lopressor if necessary. I discussed my thoughts in detail with the patient. Thank you very much for the consult. MMODL / IJN: [id number] /
[2018-06-29 15:25] LABS: Glucose,Whole Blood 175 mg/dL (75-99)
--- NOTE | 2018-06-29 16:20 | P.PN ---
Subjective Progress Note Date: 06/29/18 This is a 83-year-old white male patient with past medical history of COPD, underlying FEV1 of 63% of predicted, diabetes mellitus, BPH, CHF, hypertension, presented to the emergency department on 06/27/2018 for evaluation of acute abdominal pain. Patient symptoms started in the morning on 06/27/2018, with lower abdominal pain that progressively increased, and spread to the upper quadrants. Patient was recently in the hospital similar symptoms, and there was a concern for gallstones. Gallbladder ultrasound from 06/27/2018 showed no gallstones or dilated ducts, and mild right renal cortical atrophy. Abdominal/ pelvis CT from 06/28/2018 showed gallstones, possible gallstone impacted in the gallbladder neck, small amount of fluid at the nat hepatis as well as the anterior perirenal space related to inflammatory process and cholecystitis. Lab work showed leukocytosis WBC of 22.1, hemoglobin of 16.1, INR was elevated to 1.4, patient had mild lactic acidosis of 2.1 which subsequently increased to 3.0, non-anion gap metabolic acidosis, patient was slightly prerenal. Patient had a low-grade fever, he has been tachycardic with a rate of 116 BPM. In sinus mechanism. Troponins were elevated at 0.082, 0.059, and 0.061. Patient was given a total of 4 L of 0.9 normal saline, has not required any vasopressor support. He is having significant amount of discomfort across his upper quadrant under his rib cage, he states it hurts for him to take deep breaths and cough. Is also having discomfort in his left lower quadrant, and tenderness over right upper quadrant. He has bowel sounds 4, he is receiving pain medications, however his pain continues to increase. Gen. surgery has been consulted, and exposure laparotomy was recommended. General surgery consult was placed and patient was recommended laparoscopic examination with anticipated cholecystectomy. Patient does have a history of previous aortobifem bypass, and subsequent hernia repair with mesh. In addition patient admits to passing dark tarry stools about a week ago. Work consult in regards to pulmonary clearance for the surgical procedure and this afternoon. As far as patient's history of COPD patient is not on any oxygen, his only inhaler is his rescue inhaler. Physical exam does not reveal any significant signs of wheezing, or shortness of breath, other than that related to his abdominal pain. Was also seen by cardiology, echocardiogram was completed, and over left ventricle systolic function is within normal limits with an EF between 60-65% There was severe pulmonary hypertension, right ventricular systolic pressure not provided. Moderate pulmonic regurgitation, with mild tricuspid regurgitation. Patient has a previous history of diverticulitis. On 06/29/2018, patient is being seen in the intensive care unit. The patient underwent his surgery yesterday. The patient was found to have acute perforated gangrenous cholecystitis. Initially the procedure was started laparoscopic and ultimately the patient underwent a laparotomy and open cholecystectomy with lysis of adhesions. Postop the patient was extubated in the operating room and in recovery the patient was doing poorly and he was becoming progressively more short of breath and tachypneic and tachycardic and hypotensive. At that point it was decided to reintubate the patient. The patient was intubated and was moved to the intensive care unit. Upon arrival his systolic blood pressure was in the low 50s. He was in nature fibrillation with rapid ventricular response with a heart rate in the 120 to 130 range. He was intubated on a mechanical ventilator and and a chest x-ray showed mild CHF with small bilateral pleural effusions. ET tube was in a good location was around 3 cm from the arslan. The patient is an assist-control mode of ventilation. The initial blood gas showed a pH of 7.21 with a pCO2 of 36 and pO2 of 1 and 15. As such the FiO2 was gradually weaned off. The patient was also given immediately 3 L of IV fluids in the form of normal saline. The patient was started on pressors and he was brought up to 5 mics of norepinephrine infusion overnight and currently this morning he is off pressors. Most recent blood gases from this morning showed a pH of 7.29 with a pCO2 of 31 and pO2 127. This current vent settings for now is a Tidal volume is at 550 with an FiO2 of 40% and PEEP of 5. Based on all this, I give the patient to have some bicarb was started on bicarb infusion this morning. He was quite acidotic with a bicarb level of 15 and a anion gap of 11. Currently the patient is also on a bicarb drip at the rate of 100 mL an hour. Repeat blood gases this afternoon showed a pH of 7.35 with a pCO2 of 36 and pO2 of 97. The patient was given a sedation holiday this morning. He became immediately tachypneic and uncomfortable with any sweating with parameters without poor and based on that the trial was aborted. His creatinine today is 1.3. Urine output is low in the order of 10-20 mL an hour and is improving. He is on empiric antibiotic coverage with IV Zosyn. Most recent lactic acid level venous sample was at 3.0. He is nothing by mouth for now. The surgical wound site over the anterior abdominal wall is dry clean and intact. As mentioned, she is currently off pressors. Objective - Vital Signs Vital signs: Vital Signs Temp 97.7 F 06/29/18 12:00 Pulse 76 06/29/18 15:44 Resp 19 06/29/18 15:00 BP 100/49 06/29/18 15:00 Pulse Ox 99 06/29/18 15:00 Intake & Output 06/28/18 06/29/18 06/29/18 18:59 06:59 18:59 Intake Total 5995.220 1532.500 Output Total 1080 663 Balance 4915.220 869.500 Weight 116.12 kg 113.2 kg Intake: IV 5812.5 1432.5 Dextrose 5% in Water 1, 500 000 ml @ 100 mls/hr IV . [id number] ONE with Sodium Bicarb (1 Meq/ml) 150 ml Rx#:[id number] Magnesium Sulfate-D5w Pmx 100 100 1 gm In Dextrose/Water 1 100ml.bag @ 100 mls/hr IVPB Q1H [facility] Rx#: [id number] Piperacillin-Tazobactam 3 62.5 62.5 .375 gm In Dextrose/Water 1 50ml.bag @ 12.5 mls/hr IVPB Q8HR [facility] Rx#: [id number] Sodium Chloride 0.9% 1, 650 770 000 ml @ 130 mls/hr IV . Q7H42M [facility] Rx#:[id number] Sodium Chloride 0.9% 1, 1000 000 ml @ 999 mls/hr IV . Q1H1M [facility] Rx#:[id number] Sodium Chloride 0.9% 1, 2000 000 ml @ 999 mls/hr IV . Q1H1M [facility] Rx#:[id number] Intake, IV Titration 182.720 100.000 Amount Norepinephrine 4 mg In 101.812 Sodium Chloride 0.9% 250 ml @ Titrate IV .Q0M [facility] Rx#:[id number] Propofol 1,000 mg In 80.908 100.000 Empty Bag 1 bag @ Titrate IV .Q0M [facility] Rx#: [id number] Output: Drainage 135 295 Right Lower Abdomen 135 295 Urine 245 368 Estimated Blood Loss 700 Other: Voiding Method Toilet Indwelling Catheter Indwelling Catheter # Voids 2 - Exam Patient is sedated, comfortable on a mechanical ventilator. Orogastric and orotracheal tube are both in place. The patient is was sedated for now. Head exam was generally normal. There was no scleral icterus or corneal arcus. Mucous membranes were moist. Neck was supple and without jugular venous distension, thyromegaly, or carotid bruits. Carotids were easily palpable bilaterally. There was no adenopathy. Lungs sounds are diminished bilaterally along with some few scattered expiratory wheeze otherwise clear. Cardiac exam revealed the PMI to be normally situated and sized. The rhythm was regular and no extrasystoles were noted during several minutes of auscultation. The first and second heart sounds were normal and physiologic splitting of the second heart sound was noted. There were no murmurs, rubs, clicks, or gallops. Abdomen is soft and there is a mid abdominal incision which is dry clean and intact. There is no direct tenderness rebound tensile guarding. Extremities show trace edema and there is no cyanosis or clubbing at this point. Neurologically the patient is sedated, comfortable arouses easily once off sedation and moves all extremities without any limitation. - Labs CBC & Chem 7: 06/29/18 03:33 06/29/18 03:33 Labs: Abnormal Lab Results - Last 24 Hours (Table) 06/28/18 06/28/18 06/28/18 Range/Units 19:19 23:31 23:54 WBC (3.8-10.6) k/uL RBC (4.30-5.90) m/uL MCV (80.0-100.0) fL MCHC (31.0-37.0) g/dL Neutrophils # (Manual) (1.3-7.7) k/uL PT (9.0-12.0) sec INR (<1.2) ABG pH 7.24 L (7.35-7.45) ABG pCO2 (35-45) mmHg ABG pO2 215 H (83-108) mmHg ABG HCO3 16 L (21-25) mmol/L ABG Total CO2 17 L (19-24) mmol/L ABG O2 Saturation 99.7 H (94-97) % Chloride (98-107) mmol/L Carbon Dioxide (22-30) mmol/L BUN (9-20) mg/dL Creatinine (0.66-1.25) mg/dL Glucose (74-99) mg/dL POC Glucose (mg/dL) 107 H 135 H (75-99) mg/dL Calcium (8.4-10.2) mg/dL Urine Protein (Negative) Urine Ketones (Negative) Urine Blood (Negative) Urine WBC (0-5) /hpf Urine WBC Clumps (None) /hpf 06/29/18 06/29/18 06/29/18 Range/Units 03:33 03:33 03:33 WBC 27.2 H (3.8-10.6) k/uL RBC 4.18 L (4.30-5.90) m/uL MCV 101.2 H D (80.0-100.0) fL MCHC 30.7 L (31.0-37.0) g/dL Neutrophils # (Manual) 25.50 H (1.3-7.7) k/uL PT 12.8 H (9.0-12.0) sec INR 1.4 H (<1.2) ABG pH (7.35-7.45) ABG pCO2 (35-45) mmHg ABG pO2 (83-108) mmHg ABG HCO3 (21-25) mmol/L ABG Total CO2 (19-24) mmol/L ABG O2 Saturation (94-97) % Chloride 111 H (98-107) mmol/L Carbon Dioxide 15 L (22-30) mmol/L BUN 30 H (9-20) mg/dL Creatinine 1.31 H (0.66-1.25) mg/dL Glucose 144 H (74-99) mg/dL POC Glucose (mg/dL) (75-99) mg/dL Calcium 7.5 L (8.4-10.2) mg/dL Urine Protein (Negative) Urine Ketones (Negative) Urine Blood (Negative) Urine WBC (0-5) /hpf Urine WBC Clumps (None) /hpf 06/29/18 06/29/18 06/29/18 Range/Units 04:59 07:00 08:57 WBC (3.8-10.6) k/uL RBC (4.30-5.90) m/uL MCV (80.0-100.0) fL MCHC (31.0-37.0) g/dL Neutrophils # (Manual) (1.3-7.7) k/uL PT (9.0-12.0) sec INR (<1.2) ABG pH 7.29 L (7.35-7.45) ABG pCO2 31 L (35-45) mmHg ABG pO2 127 H (83-108) mmHg ABG HCO3 15 L (21-25) mmol/L ABG Total CO2 16 L (19-24) mmol/L ABG O2 Saturation 99.3 H (94-97) % Chloride (98-107) mmol/L Carbon Dioxide (22-30) mmol/L BUN (9-20) mg/dL Creatinine (0.66-1.25) mg/dL Glucose (74-99) mg/dL POC Glucose (mg/dL) 157 H (75-99) mg/dL Calcium (8.4-10.2) mg/dL Urine Protein 1+ H (Negative) Urine Ketones 1+ H (Negative) Urine Blood Trace H (Negative) Urine WBC 10 H (0-5) /hpf Urine WBC Clumps Occasional H (None) /hpf 06/29/18 06/29/18 Range/Units 11:51 15:17 WBC (3.8-10.6) k/uL RBC (4.30-5.90) m/uL MCV (80.0-100.0) fL MCHC (31.0-37.0) g/dL Neutrophils # (Manual) (1.3-7.7) k/uL PT (9.0-12.0) sec INR (<1.2) ABG pH (7.35-7.45) ABG pCO2 (35-45) mmHg ABG pO2 (83-108) mmHg ABG HCO3 20 L (21-25) mmol/L ABG Total CO2 (19-24) mmol/L ABG O2 Saturation 98.2 H (94-97) % Chloride (98-107) mmol/L Carbon Dioxide (22-30) mmol/L BUN (9-20) mg/dL Creatinine (0.66-1.25) mg/dL Glucose (74-99) mg/dL POC Glucose (mg/dL) 175 H (75-99) mg/dL Calcium (8.4-10.2) mg/dL Urine Protein (Negative) Urine Ketones (Negative) Urine Blood (Negative) Urine WBC (0-5) /hpf Urine WBC Clumps (None) /hpf Microbiology - Last 24 Hours (Table) 06/29/18 07:00 Urine Culture - Preliminary Urine,Catheterized 06/27/18 20:00 Blood Culture - Preliminary Blood No Growth after 24 hours Assessment and Plan Plan: Assessment 1 acute perforated cholecystitis with secondary sepsis. Patient is postcholecystectomy/extra laparotomy and open cholecystectomy and lysis of adhesions. The patient is postop day #1 2 septic shock secondary to above. The patient was resuscitated aggressively with IV fluids and currently off pressors 3 leukocytosis secondary to above 4 acute hypoxic failure post cholecystectomy. The patient was being intubated in the PACU and he failed to demonstrate adequate weaning parameters on today's evaluation is morning. This is probably related to underlying sepsis, COPD, and significant metabolic acidosis as noted in the patient's blood work and acid base status on the blood gas. Chest x-ray shows some mild cardiomegaly and mild vascular congestion. 5 mild lactic acidosis 6 congestion heart failure, essentially diastolic in nature 7 COPD with an FEV1 of 60% of predicted 8 peripheral vascular disease with a previous aortobifemoral bypass surgery 9 history of hypertension 10 history of secondary pulmonary hypertension 11 history of diverticulosis and previous history of diverticulitis 12 previous history of diabetes mellitus. 13 acute kidney injury, secondary to sepsis and postop hypotension. Patient is oliguric at this point in time. 14 troponin leak secondary to sepsis Plan Continue the bicarb drip as the patient's acid base status continued to improve. We'll reevaluate this patient in a.m. We'll given a sedation holiday and recheck his weaning parameters. For now, we'll continue monitoring his hemodynamics. We'll continue monitoring his renal function. Continue with IV fluids. Vent management. IV Zosyn. Lovenox for DVT prophylaxis. Put the patient on DuoNeb nebulized treatments around the clock. We'll continue to follow make further recommendations based on his overall progress. Critically care evaluation, done more than 30 minutes. Time with Patient: Greater than 30
--- NOTE | 2018-06-29 16:45 | P.PN ---
Subjective Progress Note Date: 06/29/18 Progress note being dictated for Dr. Serrano. Interval history:Patient is a 83-year-old male with a known history of COPD, diabetes type 2 [id number], peripheral vascular disease with bilateral femoropopliteal bypass surgery, previous history of smoking came to ER with complaints of abdominal pain along with nausea and vomiting. Patient was recently admitted to hospital on 06/26/2018 with similar complaints when he had CT of abdomen pelvis showed gallstones and mild pancreatitis. Patient also found have fat stranding around gallbladder and was recommended surgery at the time. Patient wants to proceed with the surgery as outpatient and patient was discharged eventually. Patient came back to the hospital with similar complaints. Patient is complaining of abdominal pain mainly left lower quadrant and right flank area as well. Denied any complaints of chest pain or shortness of breath. No fever no chills. He states the pain is moving from one side to the other with no specific aggravating factors. EKG sinus rhythm with no acute ST-T wave changes Chest x-ray showed mild cardiomegaly with no heart failure and no cardiomegaly pulmonary process. WBC 22.1 Lactic acid 3.0 Magnesium 1.8 Troponin 0.082, 0.059 and 0.061 Patient is tachycardic with heart rate 116 now. 2-D echocardiogram was done. Echocardiogram obtained reveals preserved left ventricular systolic function with ejection fraction 60-65%, mildly enlarged right ventricle, mild aortic valve sclerosis with no stenosis, mild TR and severe pulmonary hypertension with an RVSP 64.93 mmHg. Abdominal x-ray showed small bowel distention compared to last exam could be due to partial mechanical obstruction or ileus. No free air. Ultrasound abdomen showed no gallstones or dilated ducts. Mild right renal outcome atrophy. CT abdomen and pelvis showed gallstones. There is some fat stranding around the gallbladder. And a small amount of fluid at the nat hepatis as well as the anterior pararenal space this is new compared to recent computed tomography scan and related inflammatory process and cholecystitis. Sigmoid diverticulosis Review of Systems Constitutional: Patient denies any fever or chills . No generalized weakness or weight loss. Abdomen: Patient does have abdominal pain with nausea and vomiting. No diarrhea. Cardiovascular: Patient denies any chest pain or short of breath no palpitations. Respiratory: patient denied any cough is from production. No shortness of breath Neurologic: Patient denied any numbness or tingling headache. Musculoskeletal: Patient denies any complaints of joint swelling or deformity. Skin: Negative Psychiatric: Negative Endocrine: No heat or cold intolerance. No recent weight gain. Genitourinary: No dysuria or hematuria. All other 14 point ROS negative except the above 06/29/18 required reintubation yesterday in the recovery room , hypotensive, A. fib with RVR.chest x-ray reported mild CHF, small pleural effusions .received 3 L of IV fluids, pressors initiated.Converted to sinus rhythm. This morning , weaned off sedation, following commands appropriately, became tachypneic, failed weaning parameters. Acidotic ABGs, bicarb drip initiated. CO2 15. Maintained on mechanical ventilation, FiO2 of 40%/+5 of PEEP. Levophed weaned off early this morning. Creatinine 1.3, low urine output Anticoagulation remains on hold for another 24 hours as per cardiology. Maintained on IV antibiotics as per infectious disease. Objective - Vital Signs Vital signs: Vital Signs Temp 97.7 F 06/29/18 12:00 Pulse 76 06/29/18 15:44 Resp 19 06/29/18 15:00 BP 100/49 06/29/18 15:00 Pulse Ox 99 06/29/18 15:00 Intake & Output 06/28/18 06/29/18 06/29/18 18:59 06:59 18:59 Intake Total 5995.220 1532.500 Output Total 1080 663 Balance 4915.220 869.500 Weight 116.12 kg 113.2 kg Intake: IV 5812.5 1432.5 Dextrose 5% in Water 1, 500 000 ml @ 100 mls/hr IV . [id number] ONE with Sodium Bicarb (1 Meq/ml) 150 ml Rx#:[id number] Magnesium Sulfate-D5w Pmx 100 100 1 gm In Dextrose/Water 1 100ml.bag @ 100 mls/hr IVPB Q1H [facility] Rx#: [id number] Piperacillin-Tazobactam 3 62.5 62.5 .375 gm In Dextrose/Water 1 50ml.bag @ 12.5 mls/hr IVPB Q8HR [facility] Rx#: [id number] Sodium Chloride 0.9% 1, 650 770 000 ml @ 130 mls/hr IV . Q7H42M [facility] Rx#:[id number] Sodium Chloride 0.9% 1, 1000 000 ml @ 999 mls/hr IV . Q1H1M [facility] Rx#:[id number] Sodium Chloride 0.9% 1, 2000 000 ml @ 999 mls/hr IV . Q1H1M [facility] Rx#:[id number] Intake, IV Titration 182.720 100.000 Amount Norepinephrine 4 mg In 101.812 Sodium Chloride 0.9% 250 ml @ Titrate IV .Q0M [facility] Rx#:[id number] Propofol 1,000 mg In 80.908 100.000 Empty Bag 1 bag @ Titrate IV .Q0M [facility] Rx#: [id number] Output: Drainage 135 295 Right Lower Abdomen 135 295 Urine 245 368 Estimated Blood Loss 700 Other: Voiding Method Toilet Indwelling Catheter Indwelling Catheter # Voids 2 - Exam General:Patient is sitting up in bed, sedated and on mechanical ventilation HEENT: Normocephalic. Neck is supple. Pupils reactive. Orotracheal and orogastric tubes present. Neck reveals no JVD, carotid bruits, or thyromegaly. CHEST EXAMINATION: Bibasilar diminished air entry Lung lauren clear to auscultation . CARDIAC: Normal S1, S2 with no gallops. Positive systolic murmur ABDOMEN: Status post surgery, dressing clean dry and intact. Extremities: trace edema. No clubbing or cyanosis Neurologically unable to evaluate as patient sedated and on mechanical ventilation - Labs CBC & Chem 7: 06/29/18 03:33 06/29/18 03:33 Labs: Abnormal Lab Results - Last 24 Hours (Table) 06/28/18 06/28/18 06/28/18 Range/Units 19:19 23:31 23:54 WBC (3.8-10.6) k/uL RBC (4.30-5.90) m/uL MCV (80.0-100.0) fL MCHC (31.0-37.0) g/dL Neutrophils # (Manual) (1.3-7.7) k/uL PT (9.0-12.0) sec INR (<1.2) ABG pH 7.24 L (7.35-7.45) ABG pCO2 (35-45) mmHg ABG pO2 215 H (83-108) mmHg ABG HCO3 16 L (21-25) mmol/L ABG Total CO2 17 L (19-24) mmol/L ABG O2 Saturation 99.7 H (94-97) % Chloride (98-107) mmol/L Carbon Dioxide (22-30) mmol/L BUN (9-20) mg/dL Creatinine (0.66-1.25) mg/dL Glucose (74-99) mg/dL POC Glucose (mg/dL) 107 H 135 H (75-99) mg/dL Calcium (8.4-10.2) mg/dL Urine Protein (Negative) Urine Ketones (Negative) Urine Blood (Negative) Urine WBC (0-5) /hpf Urine WBC Clumps (None) /hpf 06/29/18 06/29/18 06/29/18 Range/Units 03:33 03:33 03:33 WBC 27.2 H (3.8-10.6) k/uL RBC 4.18 L (4.30-5.90) m/uL MCV 101.2 H D (80.0-100.0) fL MCHC 30.7 L (31.0-37.0) g/dL Neutrophils # (Manual) 25.50 H (1.3-7.7) k/uL PT 12.8 H (9.0-12.0) sec INR 1.4 H (<1.2) ABG pH (7.35-7.45) ABG pCO2 (35-45) mmHg ABG pO2 (83-108) mmHg ABG HCO3 (21-25) mmol/L ABG Total CO2 (19-24) mmol/L ABG O2 Saturation (94-97) % Chloride 111 H (98-107) mmol/L Carbon Dioxide 15 L (22-30) mmol/L BUN 30 H (9-20) mg/dL Creatinine 1.31 H (0.66-1.25) mg/dL Glucose 144 H (74-99) mg/dL POC Glucose (mg/dL) (75-99) mg/dL Calcium 7.5 L (8.4-10.2) mg/dL Urine Protein (Negative) Urine Ketones (Negative) Urine Blood (Negative) Urine WBC (0-5) /hpf Urine WBC Clumps (None) /hpf 06/29/18 06/29/18 06/29/18 Range/Units 04:59 07:00 08:57 WBC (3.8-10.6) k/uL RBC (4.30-5.90) m/uL MCV (80.0-100.0) fL MCHC (31.0-37.0) g/dL Neutrophils # (Manual) (1.3-7.7) k/uL PT (9.0-12.0) sec INR (<1.2) ABG pH 7.29 L (7.35-7.45) ABG pCO2 31 L (35-45) mmHg ABG pO2 127 H (83-108) mmHg ABG HCO3 15 L (21-25) mmol/L ABG Total CO2 16 L (19-24) mmol/L ABG O2 Saturation 99.3 H (94-97) % Chloride (98-107) mmol/L Carbon Dioxide (22-30) mmol/L BUN (9-20) mg/dL Creatinine (0.66-1.25) mg/dL Glucose (74-99) mg/dL POC Glucose (mg/dL) 157 H (75-99) mg/dL Calcium (8.4-10.2) mg/dL Urine Protein 1+ H (Negative) Urine Ketones 1+ H (Negative) Urine Blood Trace H (Negative) Urine WBC 10 H (0-5) /hpf Urine WBC Clumps Occasional H (None) /hpf 06/29/18 06/29/18 Range/Units 11:51 15:17 WBC (3.8-10.6) k/uL RBC (4.30-5.90) m/uL MCV (80.0-100.0) fL MCHC (31.0-37.0) g/dL Neutrophils # (Manual) (1.3-7.7) k/uL PT (9.0-12.0) sec INR (<1.2) ABG pH (7.35-7.45) ABG pCO2 (35-45) mmHg ABG pO2 (83-108) mmHg ABG HCO3 20 L (21-25) mmol/L ABG Total CO2 (19-24) mmol/L ABG O2 Saturation 98.2 H (94-97) % Chloride (98-107) mmol/L Carbon Dioxide (22-30) mmol/L BUN (9-20) mg/dL Creatinine (0.66-1.25) mg/dL Glucose (74-99) mg/dL POC Glucose (mg/dL) 175 H (75-99) mg/dL Calcium (8.4-10.2) mg/dL Urine Protein (Negative) Urine Ketones (Negative) Urine Blood (Negative) Urine WBC (0-5) /hpf Urine WBC Clumps (None) /hpf Microbiology - Last 24 Hours (Table) 06/29/18 07:00 Urine Culture - Preliminary Urine,Catheterized 06/27/18 20:00 Blood Culture - Preliminary Blood No Growth after 24 hours Assessment and Plan Assessment: Acute Perforated gangrenous cholecystitis with intra-abdominal adhesions status post open cholecystectomy, laparoscopic lysis of adhesions Septic shock secondary to acute cholecystitis Leukocytosis secondary to the above Metabolic acidosis, on bicarb drip Lactic acidosis Acute hypoxic respiratory failure post procedure, required reintubation in PACU , mechanical ventilator-dependent Mild elevated troponin level could be related to infection. Possible demand mismatch. COPD stable Diabetes type 2 [id number]. Peripheral vascular disease with history of bilateral femoropopliteal bypass surgery Pulmonary hypertension as per 2-D echocardiogram DVT prophylaxis History of diverticulosis and diverticulitis Acute renal failure secondary to hypotension, sepsis Plan: Continue current medication regime ,monitoring and symptomatic treatment. Maintain IV fluids, nebulized bronchodilators. IV antibiotics as per infectious disease. Follow cultures closely. GI and DVT prophylaxis in place. Prognosis guarded given multiple complex medical issues. The impression and plan of care has been dictated as directed. : I performed a history and examination of this patient, discussed the same with the dictator. I agree with the dictator's note ,documented as a scribe. Any additional findings or plans will be noted.
--- NOTE | 2018-06-29 17:51 | P.PN ---
Subjective Progress Note Date: 06/29/18 Principal diagnosis: Perforated cholecystitis Patient reintubated postoperatively. Did have some hypotensive episodes requiring pressor support. Currently doing better at this time. Improved urinary output. MARY drain is serosanguineous. No weaning trials thus far although they're considering weaning later today. Objective - Vital Signs Vital signs: Vital Signs Temp 97.7 F 06/29/18 16:00 Pulse 75 06/29/18 17:00 Resp 18 06/29/18 17:00 BP 108/56 06/29/18 17:00 Pulse Ox 98 06/29/18 17:00 Intake & Output 06/28/18 06/29/18 06/29/18 18:59 06:59 18:59 Intake Total 5995.220 1832.500 Output Total 1080 728 Balance 4915.220 1104.500 Weight 116.12 kg 113.2 kg Intake: IV 5812.5 1732.5 Dextrose 5% in Water 1, 700 000 ml @ 100 mls/hr IV . [id number] ONE with Sodium Bicarb (1 Meq/ml) 150 ml Rx#:[id number] Magnesium Sulfate-D5w Pmx 100 100 1 gm In Dextrose/Water 1 100ml.bag @ 100 mls/hr IVPB Q1H [facility] Rx#: [id number] Piperacillin-Tazobactam 3 62.5 62.5 .375 gm In Dextrose/Water 1 50ml.bag @ 12.5 mls/hr IVPB Q8HR [facility] Rx#: [id number] Sodium Chloride 0.9% 1, 650 870 000 ml @ 130 mls/hr IV . Q7H42M [facility] Rx#:[id number] Sodium Chloride 0.9% 1, 1000 000 ml @ 999 mls/hr IV . Q1H1M [facility] Rx#:[id number] Sodium Chloride 0.9% 1, 2000 000 ml @ 999 mls/hr IV . Q1H1M [facility] Rx#:[id number] Intake, IV Titration 182.720 100.000 Amount Norepinephrine 4 mg In 101.812 Sodium Chloride 0.9% 250 ml @ Titrate IV .Q0M [facility] Rx#:[id number] Propofol 1,000 mg In 80.908 100.000 Empty Bag 1 bag @ Titrate IV .Q0M [facility] Rx#: [id number] Output: Drainage 135 295 Right Lower Abdomen 135 295 Urine 245 433 Estimated Blood Loss 700 Other: Voiding Method Toilet Indwelling Catheter Indwelling Catheter # Voids 2 - Exam Abdomen: Soft, distended, dressing clean and dry, mild tenderness - Labs CBC & Chem 7: 06/29/18 03:33 06/29/18 03:33 Labs: Abnormal Lab Results - Last 24 Hours (Table) 06/28/18 06/28/18 06/28/18 Range/Units 19:19 23:31 23:54 WBC (3.8-10.6) k/uL RBC (4.30-5.90) m/uL MCV (80.0-100.0) fL MCHC (31.0-37.0) g/dL Neutrophils # (Manual) (1.3-7.7) k/uL PT (9.0-12.0) sec INR (<1.2) ABG pH 7.24 L (7.35-7.45) ABG pCO2 (35-45) mmHg ABG pO2 215 H (83-108) mmHg ABG HCO3 16 L (21-25) mmol/L ABG Total CO2 17 L (19-24) mmol/L ABG O2 Saturation 99.7 H (94-97) % Chloride (98-107) mmol/L Carbon Dioxide (22-30) mmol/L BUN (9-20) mg/dL Creatinine (0.66-1.25) mg/dL Glucose (74-99) mg/dL POC Glucose (mg/dL) 107 H 135 H (75-99) mg/dL Calcium (8.4-10.2) mg/dL Urine Protein (Negative) Urine Ketones (Negative) Urine Blood (Negative) Urine WBC (0-5) /hpf Urine WBC Clumps (None) /hpf 06/29/18 06/29/18 06/29/18 Range/Units 03:33 03:33 03:33 WBC 27.2 H (3.8-10.6) k/uL RBC 4.18 L (4.30-5.90) m/uL MCV 101.2 H D (80.0-100.0) fL MCHC 30.7 L (31.0-37.0) g/dL Neutrophils # (Manual) 25.50 H (1.3-7.7) k/uL PT 12.8 H (9.0-12.0) sec INR 1.4 H (<1.2) ABG pH (7.35-7.45) ABG pCO2 (35-45) mmHg ABG pO2 (83-108) mmHg ABG HCO3 (21-25) mmol/L ABG Total CO2 (19-24) mmol/L ABG O2 Saturation (94-97) % Chloride 111 H (98-107) mmol/L Carbon Dioxide 15 L (22-30) mmol/L BUN 30 H (9-20) mg/dL Creatinine 1.31 H (0.66-1.25) mg/dL Glucose 144 H (74-99) mg/dL POC Glucose (mg/dL) (75-99) mg/dL Calcium 7.5 L (8.4-10.2) mg/dL Urine Protein (Negative) Urine Ketones (Negative) Urine Blood (Negative) Urine WBC (0-5) /hpf Urine WBC Clumps (None) /hpf 06/29/18 06/29/18 06/29/18 Range/Units 04:59 07:00 08:57 WBC (3.8-10.6) k/uL RBC (4.30-5.90) m/uL MCV (80.0-100.0) fL MCHC (31.0-37.0) g/dL Neutrophils # (Manual) (1.3-7.7) k/uL PT (9.0-12.0) sec INR (<1.2) ABG pH 7.29 L (7.35-7.45) ABG pCO2 31 L (35-45) mmHg ABG pO2 127 H (83-108) mmHg ABG HCO3 15 L (21-25) mmol/L ABG Total CO2 16 L (19-24) mmol/L ABG O2 Saturation 99.3 H (94-97) % Chloride (98-107) mmol/L Carbon Dioxide (22-30) mmol/L BUN (9-20) mg/dL Creatinine (0.66-1.25) mg/dL Glucose (74-99) mg/dL POC Glucose (mg/dL) 157 H (75-99) mg/dL Calcium (8.4-10.2) mg/dL Urine Protein 1+ H (Negative) Urine Ketones 1+ H (Negative) Urine Blood Trace H (Negative) Urine WBC 10 H (0-5) /hpf Urine WBC Clumps Occasional H (None) /hpf 06/29/18 06/29/18 Range/Units 11:51 15:17 WBC (3.8-10.6) k/uL RBC (4.30-5.90) m/uL MCV (80.0-100.0) fL MCHC (31.0-37.0) g/dL Neutrophils # (Manual) (1.3-7.7) k/uL PT (9.0-12.0) sec INR (<1.2) ABG pH (7.35-7.45) ABG pCO2 (35-45) mmHg ABG pO2 (83-108) mmHg ABG HCO3 20 L (21-25) mmol/L ABG Total CO2 (19-24) mmol/L ABG O2 Saturation 98.2 H (94-97) % Chloride (98-107) mmol/L Carbon Dioxide (22-30) mmol/L BUN (9-20) mg/dL Creatinine (0.66-1.25) mg/dL Glucose (74-99) mg/dL POC Glucose (mg/dL) 175 H (75-99) mg/dL Calcium (8.4-10.2) mg/dL Urine Protein (Negative) Urine Ketones (Negative) Urine Blood (Negative) Urine WBC (0-5) /hpf Urine WBC Clumps (None) /hpf Microbiology - Last 24 Hours (Table) 06/29/18 07:00 Urine Culture - Preliminary Urine,Catheterized 06/27/18 20:00 Blood Culture - Preliminary Blood No Growth after 24 hours Assessment and Plan (1) Acute cholecystitis due to biliary calculus Narrative/Plan: Continue IV antibiotics. Wean from ventilator as able. Keep nothing by mouth for now. We'll follow. Current Visit: Yes Status: Acute Code(s): K80.00 - CALCULUS OF GALLBLADDER W ACUTE CHOLECYST W/O OBSTRUCTION SNOMED Code(s): 24817340260559
[2018-06-29 20:41] LABS: Glucose,Whole Blood 157 mg/dL (75-99)
--- NOTE | 2018-06-29 23:07 | P.CONS ---
History of Present Illness - Reason for Consult Consult date: 06/29/18 - Chief Complaint Abdominal pain - History of Present Illness 83-year-old male is currently in the intensive care unit intubated sedated and mechanically ventilated information does come from the chart. He does related that before this admission the patient had been seen in the emergency center and did have a short hospitalization. An ultrasound on June 26 reveal evidence of some gallstones but not grossly obstructed. The patient had further imaging studies without evidence of significant stones or obstruction within a short time after the prior ultrasound. The patient then became considerably more symptomatic with severe increasing abdominal pain and constantly presented back to the emergency center. Computed tomography scan was performed showing evidence of cholecystitis with a stone impacted into the neck of the gallbladder and fluid outside of the gallbladder with concerns to the acute infectious process. With this the patient was taken the operating room and there is evidence of bilious staining of the peritoneal fluid and an open cholecystectomy was performed due to his prior abdominal surgeries. The patient was still having some acidosis today and to require some vasopressor therapy overnight and remains mechanically ventilated at this time. He is no longer in vasopressor therapy has responded well to fluids and has adequate urine output throughout the day. There is evidence of significant leukocytosis and with at the infectious diseases consultation was requested. Review of Systems ROS unobtainable: due to endotracheal tube Past Medical History Past Medical History: COPD, Diabetes Mellitus Additional Past Medical History / Comment(s): diverticulitis History of Any Multi-Drug Resistant Organisms: None Reported Past Surgical History: Orthopedic Surgery Additional Past Surgical History / Comment(s): tooth extraction, double fem pop bypass, juan inserted in left leg, shattered humerus one year ago Past Anesthesia/Blood Transfusion Reactions: No Reported Reaction Past Psychological History: No Psychological Hx Reported Smoking Status: Former smoker Past Alcohol Use History: None Reported Past Drug Use History: None Reported - Past Family History Father Family Medical History: Hypertension Mother Family Medical History: Congestive Heart Failure (CHF) Medications and Allergies Home Medications and Allergies Comment(s): Current Medications Albuterol/Ipratropium (Duoneb 0.5 Mg-3 Mg/3 Ml Soln) 3 ml INHALATION RT-Q2H PRN PRN Reason: Shortness Of Breath Or Wheezing Albuterol/Ipratropium (Duoneb 0.5 Mg-3 Mg/3 Ml Soln) 3 ml INHALATION RT-Q4H RUDOLPH Last Admin: 06/29/18 19:38 Dose: 3 ml Chlorhexidine Gluconate (Peridex) 15 ml MUCOUS MEM BID [facility] Last Admin: 06/29/18 20:44 Dose: 15 ml Enoxaparin Sodium (Lovenox) 40 mg SQ DAILY [facility] Last Admin: 06/29/18 10:14 Dose: 40 mg Hydromorphone HCl (Dilaudid) 1 mg IVP Q3HR PRN PRN Reason: Severe Pain Last Admin: 06/29/18 10:14 Dose: 1 mg Hydromorphone HCl (Dilaudid) 0.5 mg IVP Q3HR PRN PRN Reason: Moderate Pain Last Admin: 06/28/18 02:22 Dose: 0.5 mg Piperacillin/Tazobactam/ (Dextrose 3.375 gm/ IV Solution) 50 mls @ 12.5 mls/hr IVPB Q8HR [facility] Last Admin: 06/29/18 15:27 Dose: 12.5 mls/hr Sodium Chloride (Saline 0.9%) 1,000 mls @ 130 mls/hr IV .Q7H42M [facility] Last Admin: 06/29/18 18:03 Dose: 130 mls/hr Norepinephrine Bitartrate 4 mg (/ Sodium Chloride) 250 mls @ 0 mls/hr IV .Q0M [facility]; Protocol Last Titration: 06/29/18 06:39 Dose: 0 mcg/min, 0 mls/hr Propofol 1,000 mg/ IV Solution 100 mls @ 0 mls/hr IV .Q0M [facility]; Protocol Last Admin: 06/29/18 18:02 Dose: 25 mcg/kg/min, 16.98 mls/hr Insulin Aspart (Novolog) 0 unit SQ Q6H [facility]; Protocol Last Admin: 06/29/18 20:45 Dose: 2 unit Metoprolol Tartrate (Lopressor) 25 mg PO BID [facility] Last Admin: 06/29/18 20:45 Dose: 25 mg Metoprolol Tartrate (Lopressor) 2.5 mg IVP Q6HR PRN PRN Reason: Heart Rate - HIGH Miscellaneous Information (Magnesium Per Protocol) 1 each MISCELLANE DAILY PRN ; Protocol PRN Reason: Per Protocol Naloxone HCl (Narcan) 0.2 mg IV Q2M PRN PRN Reason: Opioid Reversal Ondansetron HCl (Zofran) 4 mg IVP Q8HR PRN PRN Reason: Nausea And Vomiting Last Admin: 06/28/18 04:25 Dose: 4 mg Pantoprazole Sodium (Protonix) 40 mg IV DAILY [facility] Last Admin: 06/29/18 08:49 Dose: 40 mg Home Medications Medication Instructions Recorded Confirmed Type metFORMIN HCL [Glucophage] 500 mg PO BID-W/MEALS #60 tab 06/27/17 06/27/18 Rx Aspirin 81 mg PO DAILY chew 06/26/18 06/27/18 Rx Lisinopril [Zestril] 5 mg PO BID #60 tab 06/26/18 06/27/18 Rx Metoprolol Tartrate [Lopressor] 25 mg PO BID #60 tab 06/26/18 06/27/18 Rx Allergies Allergy/AdvReac Type Severity Reaction Status Date / Time heparin AdvReac Itching Verified 06/27/18 19:33 Physical Exam Vitals: Vital Signs Temp Pulse Resp BP Pulse Ox 06/29/18 22:00 72 20 107/55 99 06/29/18 21:00 75 18 113/53 98 06/29/18 20:00 97.8 F 75 17 106/55 99 06/29/18 19:48 70 06/29/18 19:39 75 06/29/18 19:00 75 20 113/53 99 06/29/18 18:00 71 19 110/55 99 06/29/18 17:00 75 18 108/56 98 06/29/18 16:00 97.7 F 80 18 108/52 98 06/29/18 15:44 76 06/29/18 15:35 71 06/29/18 15:00 73 19 100/49 99 06/29/18 14:00 73 18 109/49 99 06/29/18 13:00 72 18 101/48 98 06/29/18 12:00 97.7 F 73 18 94/48 98 06/29/18 11:38 79 06/29/18 11:28 78 06/29/18 11:00 85 21 92/54 97 06/29/18 10:00 87 21 114/51 98 06/29/18 09:30 86 18 127/63 98 06/29/18 09:00 69 30 H 108/59 98 09/07/18 08:30 77 19 102/58 99 09/07/18 08:15 80 20 101/57 98 09/07/18 08:00 97.9 F 79 22 107/54 98 09/07/18 07:45 80 19 106/60 98 09/07/18 07:30 79 22 98/53 98 09/07/18 07:15 79 21 99/59 97 09/07/18 07:00 80 22 100/57 98 09/07/18 06:45 79 19 106/54 98 09/07/18 06:30 81 24 116/65 99 09/07/18 06:15 79 22 102/57 98 09/07/18 06:00 80 24 101/56 98 09/07/18 05:45 80 21 103/58 98 09/07/18 05:30 79 20 105/59 98 09/07/18 05:15 82 25 H 110/56 98 09/07/18 05:00 80 22 113/58 98 09/07/18 04:45 80 25 H 116/54 98 09/07/18 04:30 82 22 109/59 98 09/07/18 04:15 81 23 99/58 98 09/07/18 04:00 97.6 F 82 23 107/50 98 09/07/18 03:45 85 23 116/64 95 09/07/18 03:30 82 23 111/60 98 09/07/18 03:15 81 21 116/60 98 09/07/18 03:00 81 20 112/54 98 09/07/18 02:45 79 22 111/61 98 09/07/18 02:30 78 20 115/59 98 09/07/18 02:15 82 21 105/59 98 09/07/18 02:00 83 21 109/54 98 09/07/18 01:45 83 23 112/62 98 09/07/18 01:40 82 19 111/64 98 09/07/18 01:30 81 22 111/64 99 09/07/18 01:20 84 22 108/58 99 09/07/18 01:10 83 21 101/57 98 09/07/18 01:00 86 22 110/59 98 09/07/18 00:50 87 20 116/58 99 09/07/18 00:40 90 19 109/51 98 09/07/18 00:30 94 23 127/76 98 06/29/18 00:20 87 18 118/61 98 06/29/18 00:10 90 19 104/68 99 06/29/18 00:00 98.2 F 133 H 18 87/63 98 06/28/18 23:50 154 H 18 109/68 99 06/28/18 23:40 98.2 F 140 H 18 63/48 96 06/28/18 23:31 96 Intake and Output 06/29/18 06/29/18 06/29/18 06:59 14:59 22:59 Intake Total 3995.220 4711.267 4281.241 Output Total 380 608 352 Balance 3615.220 774.500 962.241 Intake: IV 3812.5 1282.5 1250.0 Dextrose 5% in Water 1, 400 800 000 ml @ 100 mls/hr IV . [id number] ONE with Sodium Bicarb (1 Meq/ml) 150 ml Rx#:[id number] Magnesium Sulfate-D5w Pmx 100 100 1 gm In Dextrose/Water 1 100ml.bag @ 100 mls/hr IVPB Q1H [facility] Rx#: [id number] Piperacillin-Tazobactam 3 62.5 62.5 50.0 .375 gm In Dextrose/Water 1 50ml.bag @ 12.5 mls/hr IVPB Q8HR [facility] Rx#: [id number] Sodium Chloride 0.9% 1, 650 720 400 000 ml @ 130 mls/hr IV . Q7H42M [facility] Rx#:[id number] Sodium Chloride 0.9% 1, 1000 000 ml @ 999 mls/hr IV . Q1H1M ONE Rx#:[id number] Sodium Chloride 0.9% 1, 2000 000 ml @ 999 mls/hr IV . Q1H1M ONE Rx#:[id number] Intake, IV Titration 182.720 100.000 64.241 Amount Norepinephrine 4 mg In 101.812 Sodium Chloride 0.9% 250 ml @ Titrate IV .Q0M [facility] Rx#:[id number] Propofol 1,000 mg In 80.908 100.000 64.241 Empty Bag 1 bag @ Titrate IV .Q0M [facility] Rx#: [id number] Output: Drainage 135 270 95 Right Lower Abdomen 135 270 95 Urine 245 338 257 Other: Voiding Method Indwelling Catheter Indwelling Catheter Indwelling Catheter Weight 113.2 kg 83-year-old male who is intubated sedated and mechanically ventilated HEENT: Anicteric conjunctiva are pink and moist nasal mucosa grossly intact without significant lesions, there is no thrush around the endotracheal tube Neck: The neck is supple without significant lymphadenopathy or thyromegaly. Lungs: Symmetrical air entry is noted. Few expiratory wheezes no bronchial sounds Heart: Regular rate and rhythm with an audible S1-S2, no S3 no S4. There is no significant murmur click or rub, PMI was nondisplaced. Abdomen: Obese, hypoactive all sounds, surgical incision intact without significant drainage, MARY drain with serosanguineous drainage Extremities: The upper extremities have excellent pulses they are symmetric, no significant petechiae or telangiectasia. No splinter hemorrhages were noted. The lower extremities have chronic venous stasis and edema no open ulcers Neuro: Intubated sedated and mechanically ventilated Results CBC & Chem 7: 06/29/18 03:33 06/29/18 03:33 Labs: Abnormal Lab Results - Last 24 Hours (Table) 06/28/18 06/28/18 06/29/18 Range/Units 23:31 23:54 03:33 WBC (3.8-10.6) k/uL RBC (4.30-5.90) m/uL MCV (80.0-100.0) fL MCHC (31.0-37.0) g/dL Neutrophils # (Manual) (1.3-7.7) k/uL PT 12.8 H (9.0-12.0) sec INR 1.4 H (<1.2) ABG pH 7.24 L (7.35-7.45) ABG pCO2 (35-45) mmHg ABG pO2 215 H (83-108) mmHg ABG HCO3 16 L (21-25) mmol/L ABG Total CO2 17 L (19-24) mmol/L ABG O2 Saturation 99.7 H (94-97) % Chloride (98-107) mmol/L Carbon Dioxide (22-30) mmol/L BUN (9-20) mg/dL Creatinine (0.66-1.25) mg/dL Glucose (74-99) mg/dL POC Glucose (mg/dL) 135 H (75-99) mg/dL Calcium (8.4-10.2) mg/dL Urine Protein (Negative) Urine Ketones (Negative) Urine Blood (Negative) Urine WBC (0-5) /hpf Urine WBC Clumps (None) /hpf 06/29/18 06/29/18 06/29/18 Range/Units 03:33 03:33 04:59 WBC 27.2 H (3.8-10.6) k/uL RBC 4.18 L (4.30-5.90) m/uL MCV 101.2 H D (80.0-100.0) fL MCHC 30.7 L (31.0-37.0) g/dL Neutrophils # (Manual) 25.50 H (1.3-7.7) k/uL PT (9.0-12.0) sec INR (<1.2) ABG pH 7.29 L (7.35-7.45) ABG pCO2 31 L (35-45) mmHg ABG pO2 127 H (83-108) mmHg ABG HCO3 15 L (21-25) mmol/L ABG Total CO2 16 L (19-24) mmol/L ABG O2 Saturation 99.3 H (94-97) % Chloride 111 H (98-107) mmol/L Carbon Dioxide 15 L (22-30) mmol/L BUN 30 H (9-20) mg/dL Creatinine 1.31 H (0.66-1.25) mg/dL Glucose 144 H (74-99) mg/dL POC Glucose (mg/dL) (75-99) mg/dL Calcium 7.5 L (8.4-10.2) mg/dL Urine Protein (Negative) Urine Ketones (Negative) Urine Blood (Negative) Urine WBC (0-5) /hpf Urine WBC Clumps (None) /hpf 06/29/18 06/29/18 06/29/18 Range/Units 07:00 08:57 11:51 WBC (3.8-10.6) k/uL RBC (4.30-5.90) m/uL MCV (80.0-100.0) fL MCHC (31.0-37.0) g/dL Neutrophils # (Manual) (1.3-7.7) k/uL PT (9.0-12.0) sec INR (<1.2) ABG pH (7.35-7.45) ABG pCO2 (35-45) mmHg ABG pO2 (83-108) mmHg ABG HCO3 20 L (21-25) mmol/L ABG Total CO2 (19-24) mmol/L ABG O2 Saturation 98.2 H (94-97) % Chloride (98-107) mmol/L Carbon Dioxide (22-30) mmol/L BUN (9-20) mg/dL Creatinine (0.66-1.25) mg/dL Glucose (74-99) mg/dL POC Glucose (mg/dL) 157 H (75-99) mg/dL Calcium (8.4-10.2) mg/dL Urine Protein 1+ H (Negative) Urine Ketones 1+ H (Negative) Urine Blood Trace H (Negative) Urine WBC 10 H (0-5) /hpf Urine WBC Clumps Occasional H (None) /hpf 06/29/18 06/29/18 Range/Units 15:17 20:39 WBC (3.8-10.6) k/uL RBC (4.30-5.90) m/uL MCV (80.0-100.0) fL MCHC (31.0-37.0) g/dL Neutrophils # (Manual) (1.3-7.7) k/uL PT (9.0-12.0) sec INR (<1.2) ABG pH (7.35-7.45) ABG pCO2 (35-45) mmHg ABG pO2 (83-108) mmHg ABG HCO3 (21-25) mmol/L ABG Total CO2 (19-24) mmol/L ABG O2 Saturation (94-97) % Chloride (98-107) mmol/L Carbon Dioxide (22-30) mmol/L BUN (9-20) mg/dL Creatinine (0.66-1.25) mg/dL Glucose (74-99) mg/dL POC Glucose (mg/dL) 175 H 157 H (75-99) mg/dL Calcium (8.4-10.2) mg/dL Urine Protein (Negative) Urine Ketones (Negative) Urine Blood (Negative) Urine WBC (0-5) /hpf Urine WBC Clumps (None) /hpf Microbiology - Last 24 Hours (Table) 06/29/18 07:00 Urine Culture - Preliminary Urine,Catheterized 06/27/18 20:00 Blood Culture - Preliminary Blood No Growth after 24 hours Laboratory Results WBC 27.2 k/uL (3.8-10.6) H 06/29/18 03:33 RBC 4.18 m/uL (4.30-5.90) L 06/29/18 03:33 Hgb 13.0 gm/dL (13.0-17.5) D 06/29/18 03:33 Hct 42.3 % (39.0-53.0) 06/29/18 03:33 MCV 101.2 fL (80.0-100.0) H D 06/29/18 03:33 MCH 31.1 pg (25.0-35.0) 06/29/18 03:33 MCHC 30.7 g/dL (31.0-37.0) L 06/29/18 03:33 RDW 15.1 % (11.5-15.5) 06/29/18 03:33 Plt Count 250 k/uL (150-450) 06/29/18 03:33 Neutrophils % 90 % 06/27/18 19:10 Neutrophils % (Manual) 79 % 06/29/18 03:33 Band Neutrophils % 15 % 06/29/18 03:33 Lymphocytes % 4 % 06/27/18 19:10 Lymphocytes % (Manual) 4 % 06/29/18 03:33 Monocytes % 4 % 06/27/18 19:10 Monocytes % (Manual) 3 % 06/29/18 03:33 Eosinophils % 1 % 06/27/18 19:10 Basophils % 0 % 06/27/18 19:10 Neutrophils # 19.9 k/uL (1.3-7.7) H 06/27/18 19:10 Neutrophils # (Manual) 25.50 k/uL (1.3-7.7) H 06/29/18 03:33 Lymphocytes # 0.8 k/uL (1.0-4.8) L 06/27/18 19:10 Lymphocytes # (Manual) 1.09 k/uL (1.0-4.8) 06/29/18 03:33 Monocytes # 0.9 k/uL (0-1.0) 06/27/18 19:10 Monocytes # (Manual) 0.82 k/uL (0-1.0) 06/29/18 03:33 Eosinophils # 0.2 k/uL (0-0.7) 06/27/18 19:10 Basophils # 0.0 k/uL (0-0.2) 06/27/18 19:10 Nucleated RBCs 0 /100 WBC (0-0) 06/29/18 03:33 Manual Slide Review Performed 06/29/18 03:33 Large Platelets Present 06/29/18 03:33 Polychromasia Present 06/29/18 03:33 Hypochromasia Moderate 06/29/18 03:33 Poikilocytosis (manual Present 06/29/18 03:33 Anisocytosis (manual) Present 06/29/18 03:33 Macrocytosis Slight 06/29/18 03:33 PT 12.8 sec (9.0-12.0) H 06/29/18 03:33 INR 1.4 (<1.2) H 06/29/18 03:33 APTT 29.6 sec (22.0-30.0) 06/29/18 03:33 Sample Site rrad 06/29/18 11:51 ABG pH 7.35 (7.35-7.45) 06/29/18 11:51 ABG pCO2 36 mmHg (35-45) 06/29/18 11:51 ABG pO2 97 mmHg (83-108) 06/29/18 11:51 ABG HCO3 20 mmol/L (21-25) L 06/29/18 11:51 ABG Total CO2 21 mmol/L (19-24) 06/29/18 11:51 ABG O2 Saturation 98.2 % (94-97) H 06/29/18 11:51 ABG Base Excess -5.6 mmol/L 06/29/18 11:51 Pawan Test Yes 06/29/18 11:51 FiO2 40 % 06/29/18 11:51 Sodium 137 mmol/L (137-145) 06/29/18 03:33 Potassium 4.6 mmol/L (3.5-5.1) 06/29/18 03:33 Chloride 111 mmol/L (98-107) H 06/29/18 03:33 Carbon Dioxide 15 mmol/L (22-30) L 06/29/18 03:33 Anion Gap 11 mmol/L 06/29/18 03:33 BUN 30 mg/dL (9-20) H 06/29/18 03:33 Creatinine 1.31 mg/dL (0.66-1.25) H 06/29/18 03:33 Est GFR (CKD-EPI)AfAm 58 (>60 ml/min/1.73 sqM) 06/29/18 03:33 Est GFR (CKD-EPI)NonAf 51 (>60 ml/min/1.73 sqM) 06/29/18 03:33 Glucose 144 mg/dL (74-99) H 06/29/18 03:33 POC Glucose (mg/dL) 157 mg/dL (75-99) H 06/29/18 20:39 POC Glu [employer] ID Sonam Vaughn 06/29/18 20:[address] Glu mg/dL 114 06/29/18 03:33 Hemoglobin A1c 5.6 % (4.0-6.0) 06/29/18 03:33 Lactic Ac Sepsis Rflx Y 06/27/18 23:00 Plasma Lactic Acid Tone 3.0 mmol/L (0.7-2.0) H* 06/28/18 02:16 Calcium 7.5 mg/dL (8.4-10.2) L 06/29/18 03:33 Phosphorus 3.4 mg/dL (2.5-4.5) 06/29/18 03:33 Magnesium 1.8 mg/dL (1.6-2.3) 06/29/18 03:33 Total Bilirubin 1.6 mg/dL (0.2-1.3) H 06/27/18 19:10 AST 15 U/L (17-59) L 06/27/18 19:10 ALT 21 U/L (21-72) 06/27/18 19:10 Alkaline Phosphatase 69 U/L (38-126) 06/27/18 19:10 Total Creatine Kinase 37 U/L (55-170) L 06/28/18 03:32 CK-MB (CK-2) 0.7 ng/mL (0.0-2.4) 06/28/18 03:32 CK-MB (CK-2) Rel Index 1.9 06/28/18 03:32 Troponin I 0.061 ng/mL (0.000-0.034) H* 06/28/18 06:54 Total Protein 6.2 g/dL (6.3-8.2) L 06/27/18 19:10 Albumin 3.4 g/dL (3.5-5.0) L 06/27/18 19:10 Amylase 46 U/L (30-110) 06/27/18 19:10 Lipase 42 U/L (23-300) 06/27/18 19:10 Urine Color Yellow 06/29/18 07:00 Urine Appearance Cloudy (Clear) 06/29/18 07:00 Urine pH 5.5 (5.0-8.0) 06/29/18 07:00 Ur Specific [place] 1.026 (1.001-1.035) 06/29/18 07:00 Urine Protein 1+ (Negative) H 06/29/18 07:00 Urine Glucose (UA) Negative (Negative) 06/29/18 07:00 Urine Ketones 1+ (Negative) H 06/29/18 07:00 Urine Blood Trace (Negative) H 06/29/18 07:00 Urine Nitrite Negative (Negative) 06/29/18 07:00 Urine Bilirubin Negative (Negative) 06/29/18 07:00 Urine Urobilinogen <2.0 mg/dL (<2.0) 06/29/18 07:00 Ur Leukocyte Esterase Negative (Negative) 06/29/18 07:00 Urine RBC 2 /hpf (0-5) 06/29/18 07:00 Urine WBC 10 /hpf (0-5) H 06/29/18 07:00 Urine WBC Clumps Occasional /hpf (None) H 06/29/18 07:00 Ur Squamous Epith Cells 1 /hpf (0-4) 06/29/18 07:00 Microbiology 06/29/18 07:00 Urine,Catheterized Urine Culture - Preliminary 06/27/18 20:00 Blood Blood Culture - Preliminary No Growth after 24 hours Chest x-ray: report reviewed (Without acute pneumonic infiltration) Assessment and Plan (1) Acute cholecystitis due to biliary calculus Narrative/Plan: 83-year-old male presents to hospital with significant abdominal pain. He has noted had been hospitalized with abdominal pain and evaluations failed to reveal evidence of acute obstruction of the biliary tract. However repeat presentation the patient had markedly increased abdominal pain, computed tomography scan showed evidence of cholecystitis, stone obstructing the neck of the gallbladder and evidence of fluid outside of the gallbladder. Patient Was Taken to the Operating Room with Evidence of Leakage of Bile into the Peritoneal Cavity and Open Cholecystectomy Was Performed. The patient is hemodynamically stable no longer requiring vasopressor therapy. Cultures are in process. Antimicrobial therapy with Zosyn is adequate at this point in time given the current clinical situation. Cultures will further help direct therapy. If the patient is not extubated will need to have nutritional assessments in supplementation. The patient's leukocytosis is directly related to the cholecystitis and bile peritonitis. With the surgical intervention, lavage and antibiotic therapy. Expect this to rapidly improve. The patient's lactic acidosis and recent acidosis or due to his sepsis and is this is being corrected expect this to rapidly improved. His fever has resolved. The patient does have underlying diabetes which is routinely well controlled but with sepsis has had some elevated blood glucose that is being closely monitored and treated. Current Visit: Yes Status: Acute Code(s): K80.00 - CALCULUS OF GALLBLADDER W ACUTE CHOLECYST W/O OBSTRUCTION SNOMED Code(s): 98679597763680 (2) Bile peritonitis Current Visit: Yes Status: Acute Code(s): K65.3 - CHOLEPERITONITIS SNOMED Code(s): 32700061 (3) Leukocytosis Current Visit: Yes Status: Acute Code(s): D72.829 - ELEVATED WHITE BLOOD CELL COUNT, UNSPECIFIED SNOMED Code(s): 197923382 (4) Lactic acidosis Current Visit: Yes Status: Acute Code(s): E87.2 - ACIDOSIS SNOMED Code(s) : 24458207
[2018-06-30] MEDS ORDERED: DEXTROSE 5% IN WATER 1,000 ML IV SCH (00:30)
[2018-06-30] MEDS: PIPERACILLIN-TAZOBACTAM 3.375 GM in DEXTROSE/WATER 1 50ML.BAG IVPB SCH ×3 (02:26→16:03)
[2018-06-30] MEDS: SODIUM CHLORIDE 0.9% 1,000 ML IV SCH ×3 (02:26→15:13)
[2018-06-30 03:00] LABS: Glucose,Whole Blood 169 mg/dL (75-99)
[2018-06-30] MEDS: IPRATROPIUM-ALBUTEROL 3 ML NEB INHALATION SCH ×6 (03:18→23:12)
[2018-06-30] MEDS: INSULIN ASPART 100 UNIT/ML 1 ML 10 ML VIAL SQ SCH ×4 (03:29→18:16)
[2018-06-30 04:57] LABS: ABG Base Excess 1.6 mmol/L; ABG HCO3 26 mmol/L (21-25); ABG Oxygen Saturation 96.1 % (94-97); ABG PCO2 36 mmHg (35-45); ABG PH 7.46 (7.35-7.45); ABG PO2 79 mmHg (83-108); ABG TCO2 27 mmol/L (19-24)
[2018-06-30 05:26] LABS: Basophils % (A) 0 %; Eosinophils % (A) 0 %; HCT 37.3 % (39.0-53.0); HGB 11.8 gm/dL (13.0-17.5); Hypochromasia Slight; Lymphocytes # (A) 0.5 k/uL (1.0-4.8); Lymphocytes % (A) 5 %; MCH 31.4 pg (25.0-35.0); MCHC 31.5 g/dL (31.0-37.0); MCV 99.8 fL (80.0-100.0); Macrocytosis Slight; Mean Platelet Volume 8.2; Monocytes # (A) 0.6 k/uL (0-1.0); Monocytes % (A) 5 %; Neutrophils # (A) 10.6 k/uL (1.3-7.7); Neutrophils % (A) 89 %; Platelet Count 190 k/uL (150-450); RBC 3.74 m/uL (4.30-5.90); WBC 11.8 k/uL (3.8-10.6)
[2018-06-30 05:37] LABS: Albumin 2.1 g/dL (3.5-5.0); Calcium 7.4 mg/dL (8.4-10.2); Magnesium 2.5 mg/dL (1.6-2.3); Phosphorus 2.6 mg/dL (2.5-4.5); Potassium 3.5 mmol/L (3.5-5.1); Total Bilirubin 0.8 mg/dL (0.2-1.3); Total Protein 4.3 g/dL (6.3-8.2)
[2018-06-30] MEDS ORDERED: Potassium Replacement Protocol 1 EACH MISC MISCELLANE PRN (05:50)
[2018-06-30] MEDS: POTASSIUM BICARBONATE/CIT AC 20 MEQ TABLET.EFF NG-TUBE SCH ×2 (06:14→06:53)
[2018-06-30] MEDS: PROPOFOL 1,000 MG in EMPTY BAG 1 BAG IV SCH (06:16)
--- NOTE | 2018-06-30 06:53 | XR ---
EXAMINATION TYPE: XR chest 1V portable DATE OF EXAM: 06/30/2018 HISTORY: Tube placement. REFERENCE: Previous study dated 06/29/2018. FINDINGS: The patient is ET tube and NG tube remain in place, unchanged in appearance. There is left basilar airspace disease. There are small, bilateral effusions. Heart size is upper escobar its of normal. IMPRESSION: 1. LEFT BASILAR AIRSPACE DISEASE. 2. SMALL, BILATERAL EFFUSIONS. 3. BORDERLINE CARDIOMEGALY.
[2018-06-30] MEDS: CHLORHEXIDINE GLUCONATE 15 ML CUP MUCOUS MEM SCH (07:54)
[2018-06-30 08:02] LABS: Glucose,Whole Blood 139 mg/dL (75-99)
[2018-06-30] MEDS: METOPROLOL TARTRATE 25 MG TAB PO SCH ×2 (08:04→20:29)
[2018-06-30] MEDS: PANTOPRAZOLE 40 MG/10 ML VIAL IV SCH (08:04)
--- NOTE | 2018-06-30 08:36 | P.PN ---
Subjective Progress Note Date: 06/30/18 This is a 83-year-old white male patient with past medical history of COPD, underlying FEV1 of 63% of predicted, diabetes mellitus, BPH, CHF, hypertension, presented to the emergency department on 06/27/2018 for evaluation of acute abdominal pain. Patient symptoms started in the morning on 06/27/2018, with lower abdominal pain that progressively increased, and spread to the upper quadrants. Patient was recently in the hospital similar symptoms, and there was a concern for gallstones. Gallbladder ultrasound from 06/27/2018 showed no gallstones or dilated ducts, and mild right renal cortical atrophy. Abdominal/ pelvis CT from 06/28/2018 showed gallstones, possible gallstone impacted in the gallbladder neck, small amount of fluid at the nat hepatis as well as the anterior perirenal space related to inflammatory process and cholecystitis. Lab work showed leukocytosis WBC of 22.1, hemoglobin of 16.1, INR was elevated to 1.4, patient had mild lactic acidosis of 2.1 which subsequently increased to 3.0, non-anion gap metabolic acidosis, patient was slightly prerenal. Patient had a low-grade fever, he has been tachycardic with a rate of 116 BPM. In sinus mechanism. Troponins were elevated at 0.082, 0.059, and 0.061. Patient was given a total of 4 L of 0.9 normal saline, has not required any vasopressor support. He is having significant amount of discomfort across his upper quadrant under his rib cage, he states it hurts for him to take deep breaths and cough. Is also having discomfort in his left lower quadrant, and tenderness over right upper quadrant. He has bowel sounds 4, he is receiving pain medications, however his pain continues to increase. Gen. surgery has been consulted, and exposure laparotomy was recommended. General surgery consult was placed and patient was recommended laparoscopic examination with anticipated cholecystectomy. Patient does have a history of previous aortobifem bypass, and subsequent hernia repair with mesh. In addition patient admits to passing dark tarry stools about a week ago. Work consult in regards to pulmonary clearance for the surgical procedure and this afternoon. As far as patient's history of COPD patient is not on any oxygen, his only inhaler is his rescue inhaler. Physical exam does not reveal any significant signs of wheezing, or shortness of breath, other than that related to his abdominal pain. Was also seen by cardiology, echocardiogram was completed, and over left ventricle systolic function is within normal limits with an EF between 60-65% There was severe pulmonary hypertension, right ventricular systolic pressure not provided. Moderate pulmonic regurgitation, with mild tricuspid regurgitation. Patient has a previous history of diverticulitis. On 06/29/2018, patient is being seen in the intensive care unit. The patient underwent his surgery yesterday. The patient was found to have acute perforated gangrenous cholecystitis. Initially the procedure was started laparoscopic and ultimately the patient underwent a laparotomy and open cholecystectomy with lysis of adhesions. Postop the patient was extubated in the operating room and in recovery the patient was doing poorly and he was becoming progressively more short of breath and tachypneic and tachycardic and hypotensive. At that point it was decided to reintubate the patient. The patient was intubated and was moved to the intensive care unit. Upon arrival his systolic blood pressure was in the low 50s. He was in nature fibrillation with rapid ventricular response with a heart rate in the 120 to 130 range. He was intubated on a mechanical ventilator and and a chest x-ray showed mild CHF with small bilateral pleural effusions. ET tube was in a good location was around 3 cm from the arslan. The patient is an assist-control mode of ventilation. The initial blood gas showed a pH of 7.21 with a pCO2 of 36 and pO2 of 1 and 15. As such the FiO2 was gradually weaned off. The patient was also given immediately 3 L of IV fluids in the form of normal saline. The patient was started on pressors and he was brought up to 5 mics of norepinephrine infusion overnight and currently this morning he is off pressors. Most recent blood gases from this morning showed a pH of 7.29 with a pCO2 of 31 and pO2 127. This current vent settings for now is a Tidal volume is at 550 with an FiO2 of 40% and PEEP of 5. Based on all this, I give the patient to have some bicarb was started on bicarb infusion this morning. He was quite acidotic with a bicarb level of 15 and a anion gap of 11. Currently the patient is also on a bicarb drip at the rate of 100 mL an hour. Repeat blood gases this afternoon showed a pH of 7.35 with a pCO2 of 36 and pO2 of 97. The patient was given a sedation holiday this morning. He became immediately tachypneic and uncomfortable with any sweating with parameters without poor and based on that the trial was aborted. His creatinine today is 1.3. Urine output is low in the order of 10-20 mL an hour and is improving. He is on empiric antibiotic coverage with IV Zosyn. Most recent lactic acid level venous sample was at 3.0. He is nothing by mouth for now. The surgical wound site over the anterior abdominal wall is dry clean and intact. As mentioned, she is currently off pressors. On 06/30/2018 I'm seeing this patient for a follow-up. This morning the patient is off sedation, comfortable awake and following commands and answering questions appropriately. The patient had adequate weaning parameters and the patient is in the process of getting a spontaneous breathing trial a pressure support of 5 and a PEEP of 5 and a blood gases to follow. Chest x-ray showed adequate expansion of both lungs with small bilateral pleural effusions. ET tube is in a good location. The patient is hemodynamically stable. This morning, the blood gases show a pH of 7.46 with a pCO2 of 36 and pO2 of 79 and this was on FiO2 of 40% with a PEEP of 5 and a tidal volume of 550. White cell count is down to 11.8. The patient is afebrile. Urine output is order of 30 mL an hour. Serum bicarb is up to 26 while the patient receiving a bicarb drip infusion. Abdomen is soft. MARY drain output is minimal at this point. The patient remains on IV Zosyn. Objective - Vital Signs Vital signs: Vital Signs Temp 97.8 F 06/30/18 08:00 Pulse 70 06/30/18 08:00 Resp 18 06/30/18 08:00 BP 120/56 06/30/18 08:00 Pulse Ox 98 06/30/18 08:00 Intake & Output 06/29/18 06/30/18 06/30/18 18:59 06:59 18:59 Intake Total 2084.241 1992.5 411.547 Output Total 836 369 530 Balance 2203.768 0314.5 -118.453 Weight 120 kg Intake: IV 1920.0 1862.5 350 Dextrose 5% in Water 1, 800 1200 200 000 ml @ 100 mls/hr IV . [id number] ONE with Sodium Bicarb (1 Meq/ml) 150 ml Rx#:[id number] Magnesium Sulfate-D5w Pmx 100 1 gm In Dextrose/Water 1 100ml.bag @ 100 mls/hr IVPB Q1H [facility] Rx#: [id number] Piperacillin-Tazobactam 3 100.0 62.5 50 .375 gm In Dextrose/Water 1 50ml.bag @ 12.5 mls/hr IVPB Q8HR [facility] Rx#: [id number] Sodium Chloride 0.9% 1, 920 600 100 000 ml @ 130 mls/hr IV . [id number] [facility] Rx#:[id number] Intake, IV Titration 164.241 100 31.547 Amount Propofol 1,000 mg In 164.241 100 31.547 Empty Bag 1 bag @ Titrate IV .Q0M [facility] Rx#: [id number] Oral 30 30 Output: Gastric Drainage 450 Drainage 365 30 Right Lower Abdomen 365 30 Urine 471 339 80 Other: Voiding Method Indwelling Catheter Indwelling Catheter - Exam Patient is sedated, comfortable on a mechanical ventilator. Orogastric and orotracheal tube are both in place. The patient is awake and following simple commands. He is moving all 4 extremities upon command. Head exam was generally normal. There was no scleral icterus or corneal arcus. Mucous membranes were moist. Neck was supple and without jugular venous distension, thyromegaly, or carotid bruits. Carotids were easily palpable bilaterally. There was no adenopathy. Lungs sounds are diminished bilaterally along with some few scattered expiratory wheeze otherwise clear. Cardiac exam revealed the PMI to be normally situated and sized. The rhythm was regular and no extrasystoles were noted during several minutes of auscultation. The first and second heart sounds were normal and physiologic splitting of the second heart sound was noted. There were no murmurs, rubs, clicks, or gallops. Abdomen is soft and there is a mid abdominal incision which is dry clean and intact. There is no direct tenderness rebound tensile guarding. The patient has a right upper quadrant MARY drain outputs of which is minimal at this point Extremities show trace edema and there is no cyanosis or clubbing at this point. Neurologically the patient is off sedation. Awake. Pupils equal and reactive to light. No facial asymmetry. Good cough reflex. Moving all 4 extremities without any limitation. - Labs CBC & Chem 7: 0908/18 04:35 06/30/18 04:35 Labs: Abnormal Lab Results - Last 24 Hours (Table) 06/29/18 06/29/18 06/29/18 Range/Units 08:57 11:51 15:17 WBC (3.8-10.6) k/uL RBC (4.30-5.90) m/uL Hgb (13.0-17.5) gm/dL Hct (39.0-53.0) % Neutrophils # (1.3-7.7) k/uL Lymphocytes # (1.0-4.8) k/uL ABG pH (7.35-7.45) ABG pO2 (83-108) mmHg ABG HCO3 20 L (21-25) mmol/L ABG Total CO2 (19-24) mmol/L ABG O2 Saturation 98.2 H (94-97) % BUN (9-20) mg/dL Creatinine (0.66-1.25) mg/dL Glucose (74-99) mg/dL POC Glucose (mg/dL) 157 H 175 H (75-99) mg/dL Calcium (8.4-10.2) mg/dL Magnesium (1.6-2.3) mg/dL Total Protein (6.3-8.2) g/dL Albumin (3.5-5.0) g/dL 06/29/18 06/30/18 06/30/18 Range/Units 20:39 02:58 04:35 WBC 11.8 H (3.8-10.6) k/uL RBC 3.74 L (4.30-5.90) m/uL Hgb 11.8 L (13.0-17.5) gm/dL Hct 37.3 L (39.0-53.0) % Neutrophils # 10.6 H (1.3-7.7) k/uL Lymphocytes # 0.5 L (1.0-4.8) k/uL ABG pH (7.35-7.45) ABG pO2 (83-108) mmHg ABG HCO3 (21-25) mmol/L ABG Total CO2 (19-24) mmol/L ABG O2 Saturation (94-97) % BUN (9-20) mg/dL Creatinine (0.66-1.25) mg/dL Glucose (74-99) mg/dL POC Glucose (mg/dL) 157 H 169 H (75-99) mg/dL Calcium (8.4-10.2) mg/dL Magnesium (1.6-2.3) mg/dL Total Protein (6.3-8.2) g/dL Albumin (3.5-5.0) g/dL 06/30/18 06/30/18 06/30/18 Range/Units 04:35 04:55 08:00 WBC (3.8-10.6) k/uL RBC (4.30-5.90) m/uL Hgb (13.0-17.5) gm/dL Hct (39.0-53.0) % Neutrophils # (1.3-7.7) k/uL Lymphocytes # (1.0-4.8) k/uL ABG pH 7.46 H (7.35-7.45) ABG pO2 79 L (83-108) mmHg ABG HCO3 26 H (21-25) mmol/L ABG Total CO2 27 H (19-24) mmol/L ABG O2 Saturation (94-97) % BUN 34 H (9-20) mg/dL Creatinine 1.29 H (0.66-1.25) mg/dL Glucose 154 H (74-99) mg/dL POC Glucose (mg/dL) 139 H (75-99) mg/dL Calcium 7.4 L (8.4-10.2) mg/dL Magnesium 2.5 H (1.6-2.3) mg/dL Total Protein 4.3 L (6.3-8.2) g/dL Albumin 2.1 L (3.5-5.0) g/dL Microbiology - Last 24 Hours (Table) 06/29/18 19:45 Gram Stain - Preliminary Sputum Sputum Culture - Preliminary 06/27/18 20:00 Blood Culture - Preliminary Blood No Growth after 48 hours 06/29/18 07:00 Urine Culture - Preliminary Urine,Catheterized Assessment and Plan Plan: Assessment 1 acute perforated cholecystitis with secondary sepsis. Patient is postcholecystectomy/extra laparotomy and open cholecystectomy and lysis of adhesions. The patient is postop day #2. The patient remains intubated on a mechanical ventilator. He was not ready for extubation yesterday as the patient was quite acidotic and he failed weaning trial. On today's evaluation, patient is stable, off pressors, acid base status is improved and the patient is in the process of obtaining a spontaneous breathing trial in consultation for extubation. 2 septic shock secondary to above. The patient was resuscitated aggressively with IV fluids and currently off pressors, and the patient remains on IV Zosyn. ID is on the case 3 leukocytosis secondary to above, improving 4 acute hypoxic failure post cholecystectomy. Please see discussion above 5 mild lactic acidosis, improving 6 congestion heart failure, essentially diastolic in nature 7 COPD with an FEV1 of 60% of predicted 8 peripheral vascular disease with a previous aortobifemoral bypass surgery 9 history of hypertension 10 history of secondary pulmonary hypertension 11 history of diverticulosis and previous history of diverticulitis 12 previous history of diabetes mellitus. 13 acute kidney injury, secondary to sepsis and postop hypotension. The urine output has improved and the patient's creatinine is at 1.29. 14 troponin leak secondary to sepsis Plan Stop the bicarb infusion and switch this patient to a normal saline today to 75 mL an hour. Hold sedation. Continue with this point is breathing trial in anticipation for extubation today. Weaning parameters are very good. I'll obtain a blood gas in 20-30 minutes and if appropriate we'll proceed with extubation. Current vital Is 1.6 L, the rapid shallow breathing index is 31. As such anticipate a successful extubation. Continue monitoring the wound. Surgeries on the case. We'll continue to follow. Critically care evaluation, more than 30 minutes. Time with Patient: Greater than 30
[2018-06-30 08:54] LABS: ABG Base Excess 3.1 mmol/L; ABG HCO3 26 mmol/L (21-25); ABG Oxygen Saturation 96.7 % (94-97); ABG PCO2 34 mmHg (35-45); ABG PO2 88 mmHg (83-108); ABG TCO2 27 mmol/L (19-24)
[2018-06-30] MEDS: ENOXAPARIN 40 MG/0.4 ML SYRINGE SQ SCH (09:40)
[2018-06-30] MEDS: POTASSIUM CHLORIDE 20 MEQ in WATER FOR INJECTION 1 100ML.BAG IVPB SCH ×2 (09:58→12:26)
--- NOTE | 2018-06-30 09:59 | P.PN ---
Progress Note - Text Progress Note Date: 06/30/18 The patient is resting comfortably in his bed. He has some mild incisional pain. On exam his vital signs are stable. His abdomen is soft. His incision is clean dry intact. There is some serosanguineous drainage in the MARY drain. Status post open cholecystectomy for gangrenous cholecystitis. Patient will remain in the ICU today. He'll most likely go the surgical floor tomorrow.
--- NOTE | 2018-06-30 10:22 | PN ---
PROGRESS NOTE Mr. Haynes is status post cholecystectomy, which was an open cholecystectomy. He has history of paroxysmal atrial fibrillation and pulmonary hypertension. He is hemodynamically stable, doing much better. Decent urine output. He is in sinus rhythm. We will check with Dr. Oconnor to see if we can give him Eliquis at 2.5 mg b.i.d. and continue Lovenox for the time being. He is already on a beta obey, maintaining sinus rhythm. Vital signs are stable. S1, S2 heard normally. Lungs reveal fairly decent air entry. Abdomen exam deferred. Lower extremities reveal normal pulses. No edema. Plan is to initiate Eliquis if okay with Dr. Oconnor and continue beta obey. Patient can be moved out of the unit whenever it is okay with Dr. Oconnor. MMKYLIE / YOLYN: [id number] /
[2018-06-30 12:21] LABS: Glucose,Whole Blood 106 mg/dL (75-99)
[2018-06-30] MEDS ORDERED: POTASSIUM CHLORIDE ER 20 MEQ TAB.ER PO STA (12:22)
[2018-06-30] MEDS ORDERED: POTASSIUM CHLORIDE ER 10 MEQ TAB.ER.PRT PO STA (12:38)
[2018-06-30] MEDS: POTASSIUM BICARBONATE/CIT AC 20 MEQ TABLET.EFF PO ONE ×2 (13:02→13:34)
[2018-06-30] MEDS: HYDROmorphone 1 MG/ML 1 ML SYRINGE IVP PRN ×2 (15:07→20:28)
--- NOTE | 2018-06-30 18:04 | P.PN ---
Subjective Progress Note Date: 06/30/18 83-year-old male is currently in the intensive care unit intubated sedated and mechanically ventilated information does come from the chart. He does related that before this admission the patient had been seen in the emergency center and did have a short hospitalization. An ultrasound on June 26 reveal evidence of some gallstones but not grossly obstructed. The patient had further imaging studies without evidence of significant stones or obstruction within a short time after the prior ultrasound. The patient then became considerably more symptomatic with severe increasing abdominal pain and constantly presented back to the emergency center. Computed tomography scan was performed showing evidence of cholecystitis with a stone impacted into the neck of the gallbladder and fluid outside of the gallbladder with concerns to the acute infectious process. With this the patient was taken the operating room and there is evidence of bilious staining of the peritoneal fluid and an open cholecystectomy was performed due to his prior abdominal surgeries. The patient was still having some acidosis today and to require some vasopressor therapy overnight and remains mechanically ventilated at this time. He is no longer in vasopressor therapy has responded well to fluids and has adequate urine output throughout the day. There is evidence of significant leukocytosis 06/30/2018 finds the patient to be extubated sitting upright doing relatively well having only abdominal pain as complaints. Relates that his breathing well and is not having the beginning shortness of breath or coughing. Denies fevers or chills. Patient looks forward to be able to eat something. Objective - Vital Signs Vital signs: Vital Signs Temp 98 F 06/30/18 16:00 Pulse 82 06/30/18 16:35 Resp 21 06/30/18 16:00 BP 125/57 06/30/18 16:00 Pulse Ox 96 06/30/18 16:00 Intake & Output 06/29/18 06/30/18 06/30/18 18:59 06:59 18:59 Intake Total 2084.241 1992.5 1211.727 Output Total 836 369 935 Balance 8236.806 1968.5 276.727 Weight 120 kg Intake: IV 1920.0 1862.5 1150 Dextrose 5% in Water 1, 800 1200 200 000 ml @ 100 mls/hr IV . [id number] ONE with Sodium Bicarb (1 Meq/ml) 150 ml Rx#:[id number] Magnesium Sulfate-D5w Pmx 100 1 gm In Dextrose/Water 1 100ml.bag @ 100 mls/hr IVPB Q1H [facility] Rx#: [id number] Piperacillin-Tazobactam 3 100.0 62.5 100 .375 gm In Dextrose/Water 1 50ml.bag @ 12.5 mls/hr IVPB Q8HR [facility] Rx#: [id number] Potassium Chloride 20 meq 75 In Water For Injection 1 100ml.bag @ 50 mls/hr IVPB Q2HR [facility] Rx#: [id number] Sodium Chloride 0.9% 1, 920 600 775 000 ml @ 50 mls/hr IV . Q20H [facility] Rx#:[id number] Intake, IV Titration 164.241 100 31.727 Amount Propofol 1,000 mg In 164.241 100 31.727 Empty Bag 1 bag @ Titrate IV .Q0M R[facility]OLPH Rx#: [id number] Oral 30 30 Output: Gastric Drainage 450 Drainage 365 30 Right Lower Abdomen 365 30 Urine 471 339 485 Other: Voiding Method Indwelling Catheter Indwelling Catheter Indwelling Catheter - Exam 83-year-old male who is now extubated sitting upright interacting HEENT: Anicteric conjunctiva are pink and moist nasal mucosa grossly intact without significant lesions, there is no thrush around the endotracheal tube Neck: The neck is supple without significant lymphadenopathy or thyromegaly. Lungs: Symmetrical air entry is noted. Few expiratory wheezes no bronchial sounds Heart: Regular rate and rhythm with an audible S1-S2, no S3 no S4. There is no significant murmur click or rub, PMI was nondisplaced. Abdomen: Obese, hypoactive all sounds, surgical incision intact without significant drainage, MARY drain with serosanguineous drainage Extremities: The upper extremities have excellent pulses they are symmetric, no significant petechiae or telangiectasia. No splinter hemorrhages were noted. The lower extremities have chronic venous stasis and edema no open ulcers Neuro: Patient is awake and alert oriented to person place and time exhibits no acute gross focal sensory motor deficits - Labs CBC & Chem 7: 06/30/18 04:35 06/30/18 08:55 Labs: Abnormal Lab Results - Last 24 Hours (Table) 06/29/18 06/30/18 06/30/18 Range/Units 20:39 02:58 04:35 WBC 11.8 H (3.8-10.6) k/uL RBC 3.74 L (4.30-5.90) m/uL Hgb 11.8 L (13.0-17.5) gm/dL Hct 37.3 L (39.0-53.0) % Neutrophils # 10.6 H (1.3-7.7) k/uL Lymphocytes # 0.5 L (1.0-4.8) k/uL ABG pH (7.35-7.45) ABG pCO2 (35-45) mmHg ABG pO2 (83-108) mmHg ABG HCO3 (21-25) mmol/L ABG Total CO2 (19-24) mmol/L Potassium (3.5-5.1) mmol/L BUN (9-20) mg/dL Creatinine (0.66-1.25) mg/dL Glucose (74-99) mg/dL POC Glucose (mg/dL) 157 H 169 H (75-99) mg/dL Calcium (8.4-10.2) mg/dL Magnesium (1.6-2.3) mg/dL Total Protein (6.3-8.2) g/dL Albumin (3.5-5.0) g/dL 06/30/18 06/30/18 06/30/18 Range/Units 04:35 04:55 08:00 WBC (3.8-10.6) k/uL RBC (4.30-5.90) m/uL Hgb (13.0-17.5) gm/dL Hct (39.0-53.0) % Neutrophils # (1.3-7.7) k/uL Lymphocytes # (1.0-4.8) k/uL ABG pH 7.46 H (7.35-7.45) ABG pCO2 (35-45) mmHg ABG pO2 79 L (83-108) mmHg ABG HCO3 26 H (21-25) mmol/L ABG Total CO2 27 H (19-24) mmol/L Potassium (3.5-5.1) mmol/L BUN 34 H (9-20) mg/dL Creatinine 1.29 H (0.66-1.25) mg/dL Glucose 154 H (74-99) mg/dL POC Glucose (mg/dL) 139 H (75-99) mg/dL Calcium 7.4 L (8.4-10.2) mg/dL Magnesium 2.5 H (1.6-2.3) mg/dL Total Protein 4.3 L (6.3-8.2) g/dL Albumin 2.1 L (3.5-5.0) g/dL 06/30/18 06/30/18 06/30/18 Range/Units 08:52 08:55 12:20 WBC (3.8-10.6) k/uL RBC (4.30-5.90) m/uL Hgb (13.0-17.5) gm/dL Hct (39.0-53.0) % Neutrophils # (1.3-7.7) k/uL Lymphocytes # (1.0-4.8) k/uL ABG pH 7.50 H (7.35-7.45) ABG pCO2 34 L (35-45) mmHg ABG pO2 (83-108) mmHg ABG HCO3 26 H (21-25) mmol/L ABG Total CO2 27 H (19-24) mmol/L Potassium 3.4 L (3.5-5.1) mmol/L BUN (9-20) mg/dL Creatinine (0.66-1.25) mg/dL Glucose (74-99) mg/dL POC Glucose (mg/dL) 106 H (75-99) mg/dL Calcium (8.4-10.2) mg/dL Magnesium (1.6-2.3) mg/dL Total Protein (6.3-8.2) g/dL Albumin (3.5-5.0) g/dL Microbiology - Last 24 Hours (Table) 06/29/18 07:00 Urine Culture - Final Urine,Catheterized 06/29/18 19:45 Gram Stain - Preliminary Sputum Sputum Culture - Preliminary 06/27/18 20:00 Blood Culture - Preliminary Blood No Growth after 48 hours Laboratory Results WBC 11.8 k/uL (3.8-10.6) H 06/30/18 04:35 RBC 3.74 m/uL (4.30-5.90) L 06/30/18 04:35 Hgb 11.8 gm/dL (13.0-17.5) L 06/30/18 04:35 Hct 37.3 % (39.0-53.0) L 06/30/18 04:35 MCV 99.8 fL (80.0-100.0) 06/30/18 04:35 MCH 31.4 pg (25.0-35.0) 06/30/18 04:35 MCHC 31.5 g/dL (31.0-37.0) 06/30/18 04:35 RDW 15.0 % (11.5-15.5) 06/30/18 04:35 Plt Count 190 k/uL (150-450) 06/30/18 04:35 Neutrophils % 89 % 06/30/18 04:35 Neutrophils % (Manual) 79 % 06/29/18 03:33 Band Neutrophils % 15 % 06/29/18 03:33 Lymphocytes % 5 % 06/30/18 04:35 Lymphocytes % (Manual) 4 % 06/29/18 03:33 Monocytes % 5 % 06/30/18 04:35 Monocytes % (Manual) 3 % 06/29/18 03:33 Eosinophils % 0 % 06/30/18 04:35 Basophils % 0 % 06/30/18 04:35 Neutrophils # 10.6 k/uL (1.3-7.7) H 06/30/18 04:35 Neutrophils # (Manual) 25.50 k/uL (1.3-7.7) H 06/29/18 03:33 Lymphocytes # 0.5 k/uL (1.0-4.8) L 06/30/18 04:35 Lymphocytes # (Manual) 1.09 k/uL (1.0-4.8) 06/29/18 03:33 Monocytes # 0.6 k/uL (0-1.0) 06/30/18 04:35 Monocytes # (Manual) 0.82 k/uL (0-1.0) 06/29/18 03:33 Eosinophils # 0.0 k/uL (0-0.7) 06/30/18 04:35 Basophils # 0.0 k/uL (0-0.2) 06/30/18 04:35 Nucleated RBCs 0 /100 WBC (0-0) 06/29/18 03:33 Manual Slide Review Performed 06/29/18 03:33 Large Platelets Present 06/29/18 03:33 Polychromasia Present 06/29/18 03:33 Hypochromasia Slight 06/30/18 04:35 Poikilocytosis (manual Present 06/29/18 03:33 Anisocytosis (manual) Present 06/29/18 03:33 Macrocytosis Slight 06/30/18 04:35 PT 12.8 sec (9.0-12.0) H 06/29/18 03:33 INR 1.4 (<1.2) H 06/29/18 03:33 APTT 29.6 sec (22.0-30.0) 06/29/18 03:33 Sample Site RRAD 06/30/18 08:52 ABG pH 7.50 (7.35-7.45) H 06/30/18 08:52 ABG pCO2 34 mmHg (35-45) L 06/30/18 08:52 ABG pO2 88 mmHg (83-108) 06/30/18 08:52 ABG HCO3 26 mmol/L (21-25) H 06/30/18 08:52 ABG Total CO2 27 mmol/L (19-24) H 06/30/18 08:52 ABG O2 Saturation 96.7 % (94-97) 06/30/18 08:52 ABG Base Excess 3.1 mmol/L 06/30/18 08:52 Pawan Test Yes 06/30/18 08:52 FiO2 40 % 06/30/18 08:52 Sodium 138 mmol/L (137-145) 06/30/18 04:35 Potassium 3.4 mmol/L (3.5-5.1) L 06/30/18 08:55 Chloride 106 mmol/L (98-107) 06/30/18 04:35 Carbon Dioxide 26 mmol/L (22-30) 06/30/18 04:35 Anion Gap 6 mmol/L 06/30/18 04:35 BUN 34 mg/dL (9-20) H 06/30/18 04:35 Creatinine 1.29 mg/dL (0.66-1.25) H 06/30/18 04:35 Est GFR (CKD-EPI)AfAm 59 (>60 ml/min/1.73 sqM) 06/30/18 04:35 Est GFR (CKD-EPI)NonAf 51 (>60 ml/min/1.73 sqM) 06/30/18 04:35 Glucose 154 mg/dL (74-99) H 06/30/18 04:35 POC Glucose (mg/dL) 106 mg/dL (75-99) H 06/30/18 12:20 POC Glu Payroll Administrative Assistant ID Toya Zhong 06/30/18 12:[address] Glu mg/dL 114 06/29/18 03:33 Hemoglobin A1c 5.6 % (4.0-6.0) 06/29/18 03:33 Lactic Ac Sepsis Rflx Y 06/27/18 23:00 Plasma Lactic Acid Tone 3.0 mmol/L (0.7-2.0) H* 06/28/18 02:16 Calcium 7.4 mg/dL (8.4-10.2) L 06/30/18 04:35 Phosphorus 2.6 mg/dL (2.5-4.5) 06/30/18 04:35 Magnesium 2.5 mg/dL (1.6-2.3) H 06/30/18 04:35 Total Bilirubin 0.8 mg/dL (0.2-1.3) 06/30/18 04:35 AST 26 U/L (17-59) 06/30/18 04:35 ALT 32 U/L (21-72) 06/30/18 04:35 Alkaline Phosphatase 50 U/L (38-126) 06/30/18 04:35 Total Creatine Kinase 37 U/L (55-170) L 06/28/18 03:32 CK-MB (CK-2) 0.7 ng/mL (0.0-2.4) 06/28/18 03:32 CK-MB (CK-2) Rel Index 1.9 06/28/18 03:32 Troponin I 0.061 ng/mL (0.000-0.034) H* 06/28/18 06:54 Total Protein 4.3 g/dL (6.3-8.2) L 06/30/18 04:35 Albumin 2.1 g/dL (3.5-5.0) L 06/30/18 04:35 Amylase 46 U/L (30-110) 06/27/18 19:10 Lipase 42 U/L (23-300) 06/27/18 19:10 Urine Color Yellow 06/29/18 07:00 Urine Appearance Cloudy (Clear) 06/29/18 07:00 Urine pH 5.5 (5.0-8.0) 06/29/18 07:00 Ur Specific [place] 1.026 (1.001-1.035) 06/29/18 07:00 Urine Protein 1+ (Negative) H 06/29/18 07:00 Urine Glucose (UA) Negative (Negative) 06/29/18 07:00 Urine Ketones 1+ (Negative) H 06/29/18 07:00 Urine Blood Trace (Negative) H 06/29/18 07:00 Urine Nitrite Negative (Negative) 06/29/18 07:00 Urine Bilirubin Negative (Negative) 06/29/18 07:00 Urine Urobilinogen <2.0 mg/dL (<2.0) 06/29/18 07:00 Ur Leukocyte Esterase Negative (Negative) 06/29/18 07:00 Urine RBC 2 /hpf (0-5) 06/29/18 07:00 Urine WBC 10 /hpf (0-5) H 06/29/18 07:00 Urine WBC Clumps Occasional /hpf (None) H 06/29/18 07:00 Ur Squamous Epith Cells 1 /hpf (0-4) 06/29/18 07:00 Microbiology 06/29/18 07:00 Urine,Catheterized Urine Culture - Final 06/29/18 19:45 Sputum Gram Stain - Preliminary 06/29/18 19:45 Sputum Sputum Culture - Preliminary 06/27/18 20:00 Blood Blood Culture - Preliminary No Growth after 48 hours Assessment and Plan (1) Acute cholecystitis due to biliary calculus Narrative/Plan: 83-year-old male presents to hospital with significant abdominal pain. He has noted had been hospitalized with abdominal pain and evaluations failed to reveal evidence of acute obstruction of the biliary tract. However repeat presentation the patient had markedly increased abdominal pain, computed tomography scan showed evidence of cholecystitis, stone obstructing the neck of the gallbladder and evidence of fluid outside of the gallbladder. Patient Was Taken to the Operating Room with Evidence of Leakage of Bile into the Peritoneal Cavity and Open Cholecystectomy Was Performed. The patient is hemodynamically stable no longer requiring vasopressor therapy. Cultures are in process. Antimicrobial therapy with Zosyn is adequate at this point in time given the current clinical situation. Cultures will further help direct therapy. If the patient is not extubated will need to have nutritional assessments in supplementation. The patient's leukocytosis is directly related to the cholecystitis and bile peritonitis. With the surgical intervention, lavage and antibiotic therapy. Expect this to rapidly improve. The patient's lactic acidosis and recent acidosis or due to his sepsis and is this is being corrected expect this to rapidly improved. His fever has resolved. The patient does have underlying diabetes which is routinely well controlled but with sepsis has had some elevated blood glucose that is being closely monitored and treated. 06/30/2018 finds a patient the considerably improved today. He has been extubated and is comfortable. Denies any respiratory distress. Only complaint is of some abdominal pain which he relates is doing better today than when he presented to Hospital. Is denying nausea or emesis. As noted he does have leukocytosis. Cultures are in process we'll continue current antibiotics and monitor. We'll have plans for antibiotic therapy Current Visit: Yes Status: Acute Code(s): K80.00 - CALCULUS OF GALLBLADDER W ACUTE CHOLECYST W/O OBSTRUCTION SNOMED Code(s): 64164355206716 (2) Bile peritonitis Current Visit: Yes Status: Acute Code(s): K65.3 - CHOLEPERITONITIS SNOMED Code(s): 03885272 (3) Leukocytosis Current Visit: Yes Status: Acute Code(s): D72.829 - ELEVATED WHITE BLOOD CELL COUNT, UNSPECIFIED SNOMED Code(s): 493666570 (4) Lactic acidosis Current Visit: Yes Status: Acute Code(s): E87.2 - ACIDOSIS SNOMED Code(s) : 41367540
[2018-06-30 18:17] LABS: Glucose,Whole Blood 103 mg/dL (75-99)
[2018-06-30] MEDS: APIXABAN 2.5 MG TABLET PO SCH (20:29)
--- NOTE | 2018-06-30 20:53 | PN ---
PROGRESS NOTE DATE OF SERVICE: 06/30/2018 This 83-year-old gentleman who was admitted after acute perforated gangrenous cholecystitis, had open cholecystectomy, laparoscopic lysis of adhesions. Patient also septic shock secondary to acute cholecystitis. The patient being closely monitored in ICU at this time. following the patient also on broad-spectrum IV antibiotics. Most recent chest x-ray done showed left bibasilar atelectasis. The patient is being closely monitored. As mentioned earlier, patient on broad spectrum IV antibiotics. The cultures are negative so far. REVIEW OF SYSTEMS: CARDIOVASCULAR: No angina or palpitations. GI: As mentioned earlier. : No dysuria. NERVOUS SYSTEM: No numbness or weakness. CURRENT MEDICATIONS: 1. DuoNeb q.i.d. and p.r.n. 2. Eliquis 2.5 mg b.i.d. 3. Peridex 15 mL daily. 4. Dilaudid 1 mg q.3h p.r.n. 5. NovoLog scale. 6. Lopressor 25 mg p.o. b.i.d. 8. Magnesium potassium protocol. 9. Narcan p.r.n. 10.Levophed drip. 11.Protonix. 12.Zosyn 3.37 IV q.8h. 13.Propofol. 14.P.r.n. medications. PHYSICAL EXAM: Patient is alert, oriented x3. Pulse 82, blood pressure ntd, respirations 18, temperature normal, pulse ox 96% on 3 L HEENT: Conjunctivae normal. Oral mucosa moist. NECK: No jugular venous distention. No lymph nodes CARDIOVASCULAR: S1, S2 muffled. RESPIRATORY: Breath sounds diminished at the bases. A few scattered rhonchi and crackles. ABDOMEN: Soft, status post surgery. LEGS: No edema no swelling. NERVOUS SYSTEM: Higher functions as mentioned earlier. Moves all four limbs. No focal deficits. LYMPHATICS: No lymph nodes in the neck or axilla. SKIN: No rash. LABS: WBC 11.2, hemoglobin 11.8, and ABGs noted. Creatinine is 1.29, albumin is 2.1. ASSESSMENT: 1. Acute perforated gangrenous cholecystitis with intraabdominal adhesions, status post open cholecystectomy, laparoscopic lysis of adhesions. 2. Severe sepsis, septic shock secondary to acute cholecystitis. 3. Bibasilar atelectasis. 4. Leukocytosis secondary to above. 5. Metabolic acidosis, acute secondary to sepsis. 6. Lactic acidosis. 7. Acute hypoxic respiratory failure status post procedure. 8. Ventilator dependent. 9. Mild elevated troponin, could be related to infection, indeterminate. 10.Chronic obstructive pulmonary disease. 11.Diabetes mellitus type 2. 12.Peripheral vascular disease with bilateral femoropopliteal bypass surgery. 13.Pulmonary hypertension. 14.DVT prophylaxis. 15.History of diverticulosis, diverticulitis. 16.Acute renal failure secondary to hypotension and sepsis. RECOMMENDATIONS: Continue current medication, continue symptomatic treatment. Otherwise, at this time I would recommend a please also. #3 bibasilar atelectasis, possibly. I would recommend to continue the antibiotics and bronchodilators, incentive spirometry and DVT prophylaxis. Otherwise the patient is on Eliquis and will monitor fluid balance closely. Prognosis guarded because of multiple complex medical issues. Further recommendations to follow. We will cut down the IV fluids to 50 cc/hour and continue to monitor. Prognosis guarded. Further recommendations to follow. MMODL / IJN: [id number] / MTDD
[2018-06-30 20:56] LABS: Glucose,Whole Blood 125 mg/dL (75-99)
[2018-06-30] MEDS: POTASSIUM CHLORIDE ER 20 MEQ TAB.ER PO SCH ×2 (21:32→21:36)
[2018-06-30] MEDS ORDERED: POTASSIUM BICARBONATE/CIT AC 20 MEQ TABLET.EFF NG-TUBE SCH (22:00)
[2018-07-01] MEDS: PIPERACILLIN-TAZOBACTAM 3.375 GM in DEXTROSE/WATER 1 50ML.BAG IVPB SCH ×3 (00:31→20:36)
[2018-07-01 00:35] LABS: Glucose,Whole Blood 154 mg/dL (75-99)
[2018-07-01] MEDS: INSULIN ASPART 100 UNIT/ML 1 ML 10 ML VIAL SQ SCH ×5 (00:37→21:04)
[2018-07-01] MEDS: IPRATROPIUM-ALBUTEROL 3 ML NEB INHALATION SCH ×6 (03:04→22:38)
[2018-07-01] MEDS: HYDROmorphone 1 MG/ML 1 ML SYRINGE IVP PRN ×4 (03:52→18:55)
[2018-07-01 04:44] LABS: Basophils % (A) 0 %; Eosinophils % (A) 1 %; HCT 36.2 % (39.0-53.0); HGB 11.2 gm/dL (13.0-17.5); Hypochromasia Moderate; Lymphocytes # (A) 0.5 k/uL (1.0-4.8); Lymphocytes % (A) 6 %; MCH 30.9 pg (25.0-35.0); MCHC 31.1 g/dL (31.0-37.0); MCV 99.5 fL (80.0-100.0); Macrocytosis Slight; Mean Platelet Volume 8.4; Monocytes # (A) 0.4 k/uL (0-1.0); Monocytes % (A) 5 %; Neutrophils % (A) 85 %; Platelet Count 208 k/uL (150-450); RBC 3.63 m/uL (4.30-5.90); RDW 14.7 % (11.5-15.5); WBC 8.2 k/uL (3.8-10.6)
[2018-07-01 05:04] LABS: Albumin 2.1 g/dL (3.5-5.0); Calcium 7.8 mg/dL (8.4-10.2); Magnesium 2.5 mg/dL (1.6-2.3); Potassium 4.3 mmol/L (3.5-5.1); Total Bilirubin 1.1 mg/dL (0.2-1.3); Total Protein 4.4 g/dL (6.3-8.2)
[2018-07-01 06:39] LABS: Glucose,Whole Blood 134 mg/dL (75-99)
--- NOTE | 2018-07-01 06:49 | XR ---
EXAMINATION TYPE: XR chest 1V portable DATE OF EXAM: 07/01/2018 HISTORY: Tube placement. REFERENCE: Previous study dated 06/30/2018. FINDINGS: The patient has been extubated. The patient is NG tube has been removed. The heart is mildly enlarged. There may be slight improvement in aeration at the left lung base. Ther e are small, bilateral effusions. IMPRESSION: SLIGHT IMPROVEMENT IN THE LEFT BASILAR AERATION.
[2018-07-01] MEDS: PANTOPRAZOLE 40 MG/10 ML VIAL IV SCH (08:44)
[2018-07-01] MEDS: APIXABAN 2.5 MG TABLET PO SCH (08:44)
[2018-07-01] MEDS: METOPROLOL TARTRATE 25 MG TAB PO SCH ×2 (08:45→21:14)
[2018-07-01] MEDS: DILTIAZEM 50 MG in SODIUM CHLORIDE 0.9% 40 ML IV SCH ×2 (08:45→15:36)
--- NOTE | 2018-07-01 11:01 | P.PN ---
Subjective Progress Note Date: 07/01/18 This is a 83-year-old white male patient with past medical history of COPD, underlying FEV1 of 63% of predicted, diabetes mellitus, BPH, CHF, hypertension, presented to the emergency department on 06/27/2018 for evaluation of acute abdominal pain. Patient symptoms started in the morning on 06/27/2018, with lower abdominal pain that progressively increased, and spread to the upper quadrants. Patient was recently in the hospital similar symptoms, and there was a concern for gallstones. Gallbladder ultrasound from 06/27/2018 showed no gallstones or dilated ducts, and mild right renal cortical atrophy. Abdominal/ pelvis CT from 06/28/2018 showed gallstones, possible gallstone impacted in the gallbladder neck, small amount of fluid at the nat hepatis as well as the anterior perirenal space related to inflammatory process and cholecystitis. Lab work showed leukocytosis WBC of 22.1, hemoglobin of 16.1, INR was elevated to 1.4, patient had mild lactic acidosis of 2.1 which subsequently increased to 3.0, non-anion gap metabolic acidosis, patient was slightly prerenal. Patient had a low-grade fever, he has been tachycardic with a rate of 116 BPM. In sinus mechanism. Troponins were elevated at 0.082, 0.059, and 0.061. Patient was given a total of 4 L of 0.9 normal saline, has not required any vasopressor support. He is having significant amount of discomfort across his upper quadrant under his rib cage, he states it hurts for him to take deep breaths and cough. Is also having discomfort in his left lower quadrant, and tenderness over right upper quadrant. He has bowel sounds 4, he is receiving pain medications, however his pain continues to increase. Gen. surgery has been consulted, and exposure laparotomy was recommended. General surgery consult was placed and patient was recommended laparoscopic examination with anticipated cholecystectomy. Patient does have a history of previous aortobifem bypass, and subsequent hernia repair with mesh. In addition patient admits to passing dark tarry stools about a week ago. Work consult in regards to pulmonary clearance for the surgical procedure and this afternoon. As far as patient's history of COPD patient is not on any oxygen, his only inhaler is his rescue inhaler. Physical exam does not reveal any significant signs of wheezing, or shortness of breath, other than that related to his abdominal pain. Was also seen by cardiology, echocardiogram was completed, and over left ventricle systolic function is within normal limits with an EF between 60-65% There was severe pulmonary hypertension, right ventricular systolic pressure not provided. Moderate pulmonic regurgitation, with mild tricuspid regurgitation. Patient has a previous history of diverticulitis. On 06/29/2018, patient is being seen in the intensive care unit. The patient underwent his surgery yesterday. The patient was found to have acute perforated gangrenous cholecystitis. Initially the procedure was started laparoscopic and ultimately the patient underwent a laparotomy and open cholecystectomy with lysis of adhesions. Postop the patient was extubated in the operating room and in recovery the patient was doing poorly and he was becoming progressively more short of breath and tachypneic and tachycardic and hypotensive. At that point it was decided to reintubate the patient. The patient was intubated and was moved to the intensive care unit. Upon arrival his systolic blood pressure was in the low 50s. He was in nature fibrillation with rapid ventricular response with a heart rate in the 120 to 130 range. He was intubated on a mechanical ventilator and and a chest x-ray showed mild CHF with small bilateral pleural effusions. ET tube was in a good location was around 3 cm from the arslan. The patient is an assist-control mode of ventilation. The initial blood gas showed a pH of 7.21 with a pCO2 of 36 and pO2 of 1 and 15. As such the FiO2 was gradually weaned off. The patient was also given immediately 3 L of IV fluids in the form of normal saline. The patient was started on pressors and he was brought up to 5 mics of norepinephrine infusion overnight and currently this morning he is off pressors. Most recent blood gases from this morning showed a pH of 7.29 with a pCO2 of 31 and pO2 127. This current vent settings for now is a Tidal volume is at 550 with an FiO2 of 40% and PEEP of 5. Based on all this, I give the patient to have some bicarb was started on bicarb infusion this morning. He was quite acidotic with a bicarb level of 15 and a anion gap of 11. Currently the patient is also on a bicarb drip at the rate of 100 mL an hour. Repeat blood gases this afternoon showed a pH of 7.35 with a pCO2 of 36 and pO2 of 97. The patient was given a sedation holiday this morning. He became immediately tachypneic and uncomfortable with any sweating with parameters without poor and based on that the trial was aborted. His creatinine today is 1.3. Urine output is low in the order of 10-20 mL an hour and is improving. He is on empiric antibiotic coverage with IV Zosyn. Most recent lactic acid level venous sample was at 3.0. He is nothing by mouth for now. The surgical wound site over the anterior abdominal wall is dry clean and intact. As mentioned, she is currently off pressors. On 06/30/2018 I'm seeing this patient for a follow-up. This morning the patient is off sedation, comfortable awake and following commands and answering questions appropriately. The patient had adequate weaning parameters and the patient is in the process of getting a spontaneous breathing trial a pressure support of 5 and a PEEP of 5 and a blood gases to follow. Chest x-ray showed adequate expansion of both lungs with small bilateral pleural effusions. ET tube is in a good location. The patient is hemodynamically stable. This morning, the blood gases show a pH of 7.46 with a pCO2 of 36 and pO2 of 79 and this was on FiO2 of 40% with a PEEP of 5 and a tidal volume of 550. White cell count is down to 11.8. The patient is afebrile. Urine output is order of 30 mL an hour. Serum bicarb is up to 26 while the patient receiving a bicarb drip infusion. Abdomen is soft. MARY drain output is minimal at this point. The patient remains on IV Zosyn. 07/01/2008 Seeing this patient for a follow-up. The patient is calm and comfortable. Earlier this morning at around 7:00 he went into atrial fibrillation with rapid ventricular response. Heart rate was in the 130s. He was started on Cardizem drip. Currently is on 7.5 mg of Cardizem and his heart rate slowed done and ultimately converted to sinus rhythm at around 11:00 this morning. The patient remained hemodynamically stable. The patient is still not having any flatus or bowel movement although has decent amount of bowel sounds. Surgical wound site is clean. MARY drain has drained approximately 60 mL over the past 24 hours. No chest pain. No shortness of breath. White cell count is at 8.2. The rest of the blood work is all within normal limits. Producing approximately 30-50 mL of urine output on an hourly basis. Objective - Vital Signs Vital signs: Vital Signs Temp 98.3 F 07/01/18 08:30 Pulse 121 H 07/01/18 09:00 Resp 20 07/01/18 09:00 BP 114/69 07/01/18 09:00 Pulse Ox 95 07/01/18 09:00 Intake & Output 06/30/18 07/01/18 07/01/18 18:59 06:59 18:59 Intake Total 3954.058 2974 225 Output Total 985 535 115 Balance 301.727 655 110 Weight 124 kg Intake: IV 1225 950 225 Dextrose 5% in Water 1, 200 000 ml @ 100 mls/hr IV . [id number] ONE with Sodium Bicarb (1 Meq/ml) 150 ml Rx#:[id number] Piperacillin-Tazobactam 3 100 50 .375 gm In Dextrose/Water 1 50ml.bag @ 12.5 mls/hr IVPB Q8HR [facility] Rx#: [id number] Potassium Chloride 20 meq 75 In Water For Injection 1 100ml.bag @ 50 mls/hr IVPB Q2HR [facility] Rx#: [id number] Sodium Chloride 0.9% 1, 850 900 225 000 ml @ 50 mls/hr IV . Q20H [facility] Rx#:[id number] Intake, IV Titration 31.727 Amount Propofol 1,000 mg In 31.727 Empty Bag 1 bag @ Titrate IV .Q0M [facility] Rx#: [id number] Oral 30 240 Output: Gastric Drainage 450 Drainage 20 Right Lower Abdomen 20 Urine 535 515 115 Other: Voiding Method Indwelling Catheter Indwelling Catheter - Exam Patient is sedated, comfortable on a mechanical ventilator. Orogastric and orotracheal tube are both in place. The patient is awake and following simple commands. He is moving all 4 extremities upon command. Head exam was generally normal. There was no scleral icterus or corneal arcus. Mucous membranes were moist. Neck was supple and without jugular venous distension, thyromegaly, or carotid bruits. Carotids were easily palpable bilaterally. There was no adenopathy. Lungs sounds are diminished bilaterally along with some few scattered expiratory wheeze otherwise clear. Cardiac exam revealed the PMI to be normally situated and sized. The rhythm was regular and no extrasystoles were noted during several minutes of auscultation. The first and second heart sounds were normal and physiologic splitting of the second heart sound was noted. There were no murmurs, rubs, clicks, or gallops. Abdomen is soft and there is a mid abdominal incision which is dry clean and intact. There is no direct tenderness rebound tensile guarding. The patient has a right upper quadrant MARY drain outputs of which is minimal at this point Extremities show trace edema and there is no cyanosis or clubbing at this point. Neurologically the patient is off sedation. Awake. Pupils equal and reactive to light. No facial asymmetry. Good cough reflex. Moving all 4 extremities without any limitation. - Labs CBC & Chem 7: 07/01/18 03:43 07/01/18 03:43 Labs: Abnormal Lab Results - Last 24 Hours (Table) 06/30/18 06/30/18 06/30/18 Range/Units 12:20 18:15 20:55 RBC (4.30-5.90) m/uL Hgb (13.0-17.5) gm/dL Hct (39.0-53.0) % Lymphocytes # (1.0-4.8) k/uL BUN (9-20) mg/dL Glucose (74-99) mg/dL POC Glucose (mg/dL) 106 H 103 H 125 H (75-99) mg/dL Calcium (8.4-10.2) mg/dL Phosphorus (2.5-4.5) mg/dL Magnesium (1.6-2.3) mg/dL Total Protein (6.3-8.2) g/dL Albumin (3.5-5.0) g/dL 07/01/18 07/01/18 07/01/18 Range/Units 00:34 03:43 03:43 RBC 3.63 L (4.30-5.90) m/uL Hgb 11.2 L (13.0-17.5) gm/dL Hct 36.2 L (39.0-53.0) % Lymphocytes # 0.5 L (1.0-4.8) k/uL BUN 24 H (9-20) mg/dL Glucose 106 H (74-99) mg/dL POC Glucose (mg/dL) 154 H (75-99) mg/dL Calcium 7.8 L (8.4-10.2) mg/dL Phosphorus 2.0 L (2.5-4.5) mg/dL Magnesium 2.5 H (1.6-2.3) mg/dL Total Protein 4.4 L (6.3-8.2) g/dL Albumin 2.1 L (3.5-5.0) g/dL 07/01/18 Range/Units 06:38 RBC (4.30-5.90) m/uL Hgb (13.0-17.5) gm/dL Hct (39.0-53.0) % Lymphocytes # (1.0-4.8) k/uL BUN (9-20) mg/dL Glucose (74-99) mg/dL POC Glucose (mg/dL) 134 H (75-99) mg/dL Calcium (8.4-10.2) mg/dL Phosphorus (2.5-4.5) mg/dL Magnesium (1.6-2.3) mg/dL Total Protein (6.3-8.2) g/dL Albumin (3.5-5.0) g/dL Microbiology - Last 24 Hours (Table) 06/27/18 20:00 Blood Culture - Preliminary Blood No Growth after 72 hours 06/29/18 07:00 Urine Culture - Final Urine,Catheterized 06/29/18 19:45 Gram Stain - Preliminary Sputum Sputum Culture - Preliminary Assessment and Plan Plan: Assessment 1 acute perforated cholecystitis with secondary sepsis. Patient is postcholecystectomy/extra laparotomy and open cholecystectomy and lysis of adhesions. The patient is postop day #3. 2 septic shock secondary to above. The patient was resuscitated aggressively with IV fluids and currently off pressors, and the patient remains on IV Zosyn. ID is on the case patient is hemodynamically stable 3 leukocytosis secondary to above improved and recovered and normalized 4 acute hypoxic failure post cholecystectomy. Please see discussion above 5 new-onset atrial fibrillation with rapid ventricular response, currently on a Cardizem drip and the patient converted back to normal sinus rhythm spontaneously. We will advance his Eliquis to regular dose. 6 congestion heart failure, essentially diastolic in nature 7 COPD with an FEV1 of 60% of predicted 8 peripheral vascular disease with a previous aortobifemoral bypass surgery 9 history of hypertension 10 history of secondary pulmonary hypertension 11 history of diverticulosis and previous history of diverticulitis 12 previous history of diabetes mellitus. 13 acute kidney injury, recovered 14 troponin leak secondary to sepsis Plan Advance diet as tolerated. Advance Eliquis 25 mg by mouth twice a day. Cut down the Cardizem dose of 5 mg an hour and discontinue the heart rate remains sinus and normal. Monitor the output from the MARY drain. Dilaudid for pain control. IV Zosyn. ID is on the case. Surgeries on the case. We'll continue to follow and keep the patient ICU for 24 hours.
--- NOTE | 2018-07-01 11:28 | PN ---
PROGRESS NOTE Mr. Haynes is status post cholecystectomy. This morning he went into atrial fib with moderate rate. I started him on Cardizem drip. His rate is better. Vital signs are stable. S1, S2 heard normally. Irregular rhythm noted. Short systolic murmur noted. Lungs reveal improved air entry. Abdomen exam deferred. Lower extremity revealed palpable pulses. I am going to request Dr. Oconnor if he can increase the Eliquis to 5 mg b.i.d., continue Cardizem for rate control including oral Cardizem and see how he does. MMODL / IJN: [id number] /
[2018-07-01 12:05] LABS: Glucose,Whole Blood 123 mg/dL (75-99)
--- NOTE | 2018-07-01 12:31 | P.PN ---
Progress Note - Text Progress Note Date: 07/01/18 The patient is resting comfortably in his bed. He appears to be stable. He has minimal complaints of pain. On exam his vital signs are stable. Abdomen soft. Incision is clean dry and intact. MARY drain has some serosanguineous drainage. Status post open cholecystectomy for gangrenous cholecystitis. Patient is doing well. He'll be transferred to the surgical floor per the shoe clerk.
--- NOTE | 2018-07-01 15:19 | PN ---
PROGRESS NOTE DATE OF SERVICE: 07/01/2018. INTERVAL HISTORY: This 83-year-old gentleman who was admitted with acute perforated gangrenous cholecystitis had surgery. The patient also had severe sepsis present on admission, on broad-spectrum IV and patient closely monitored in ICU at this time. The patient this morning had atrial fibrillation with rapid ventricular rate and left basilar atelectasis also noted. The patient was started on Cardizem with improvement in the rate and Cardiology following the patient closely. PAST MEDICAL HISTORY: Reviewed. REVIEW OF SYSTEMS: CARDIOVASCULAR SYSTEM: As mentioned earlier. RESPIRATORY: As mentioned earlier. GI: As mentioned earlier. : No dysuria. NERVOUS SYSTEM: Mild diffuse weakness. CURRENT MEDICATIONS: Reviewed and include: 1. DuoNeb q.i.d. and p.r.n. 2. Eliquis 5 mg p.o. b.i.d. 3. Cardizem drip. 4. Dilaudid 1 mg q.3h p.r.n. 5. NovoLog scale. 6. Lopressor 25 mg p.o. b.i.d. 7. Magnesium potassium protocol. 8. Zofran 40 daily. 9. Zosyn 3.375 IV q.8h. 10.IV fluids. PHYSICAL EXAMINATION: Alert and oriented x2. Pulse is 121, irregular. Blood pressure 140/69, respiration 20, temp 98.2, pulse ox 94% on 3 L. HEENT: Conjunctivae normal. Oral mucosa moist. NECK: No jugular venous distention. No carotid bruit. No lymph node enlargement. CARDIOVASCULAR: S1, S2. RESPIRATORY: Breath sounds diminished in the bases. A few scattered rhonchi and crackles. ABDOMEN: Soft, nontender, obese. LEGS: No edema. NERVOUS SYSTEM: No focal deficits. LABS: Hemoglobin 11.2, other labs are noted. Glucose 106 and magnesium is 2.4, phosphorus 2, calcium is 7.8, and albumin is 2.1. ASSESSMENT: 1. Acute perforated gangrenous cholecystitis with intraabdominal adhesions status post open cholecystectomy, laparoscopic lysis of adhesions. 2. Severe sepsis and shock secondary to acute cholecystitis. 3. Bibasilar atelectasis. 4. Leukocytosis secondary. 5. Metabolic acidosis, acute secondary to sepsis. 6. Lactic acidosis. 7. Acute hypoxic respiratory failure status post ventilatory dependent respiratory failure. 8. Mildly elevated troponin could be related to infection. 9. Chronic obstructive pulmonary disease. 10.Diabetes mellitus type 2. 11.Peripheral vascular disease with bilateral femoropopliteal bypass surgery. 12.Pulmonary hypertension. 13.History of DVT prophylaxis. 14.History of diverticulosis and diverticulitis. 15.Acute renal failure secondary to hypotension, sepsis. RECOMMENDATIONS AND DISCUSSION: I recommend to continue current management, continue monitoring, symptomatic treatment. Continue with IV fluids. Continue with antibiotics. Continue the Cardizem. Cardiology evaluation, 2D echo has been noted. Prognosis guarded because of multiple complex medical issues. Further recommendations to follow. MMODL / IJN: [id number] /
[2018-07-01] MEDS: SODIUM CHLORIDE 0.9% 1,000 ML IV SCH (15:26)
--- NOTE | 2018-07-01 16:42 | P.PN ---
Subjective Progress Note Date: 07/01/18 83-year-old male is currently in the intensive care unit intubated sedated and mechanically ventilated information does come from the chart. He does related that before this admission the patient had been seen in the emergency center and did have a short hospitalization. An ultrasound on June 26 reveal evidence of some gallstones but not grossly obstructed. The patient had further imaging studies without evidence of significant stones or obstruction within a short time after the prior ultrasound. The patient then became considerably more symptomatic with severe increasing abdominal pain and constantly presented back to the emergency center. Computed tomography scan was performed showing evidence of cholecystitis with a stone impacted into the neck of the gallbladder and fluid outside of the gallbladder with concerns to the acute infectious process. With this the patient was taken the operating room and there is evidence of bilious staining of the peritoneal fluid and an open cholecystectomy was performed due to his prior abdominal surgeries. The patient was still having some acidosis today and to require some vasopressor therapy overnight and remains mechanically ventilated at this time. He is no longer in vasopressor therapy has responded well to fluids and has adequate urine output throughout the day. There is evidence of significant leukocytosis 06/30/2018 finds the patient to be extubated sitting upright doing relatively well having only abdominal pain as complaints. Relates that his breathing well and is not having the beginning shortness of breath or coughing. Denies fevers or chills. Patient looks forward to be able to eat something. 07/01/2018 patient is sitting up having his lunch having no specific complaints. He is less short of breath and is not having much pain. Objective - Vital Signs Vital signs: Vital Signs Temp 97.8 F 07/01/18 15:30 Pulse 74 07/01/18 15:52 Resp 20 07/01/18 15:30 BP 128/57 07/01/18 15:30 Pulse Ox 94 L 07/01/18 15:30 Intake & Output 06/30/18 07/01/18 07/01/18 18:59 06:59 18:59 Intake Total 6364.206 7629 275 Output Total 985 535 115 Balance 301.727 655 160 Weight 124 kg Intake: IV 1225 950 225 Dextrose 5% in Water 1, 200 000 ml @ 100 mls/hr IV . [id number] ONE with Sodium Bicarb (1 Meq/ml) 150 ml Rx#:[id number] Piperacillin-Tazobactam 3 100 50 .375 gm In Dextrose/Water 1 50ml.bag @ 12.5 mls/hr IVPB Q8HR [facility] Rx#: [id number] Potassium Chloride 20 meq 75 In Water For Injection 1 100ml.bag @ 50 mls/hr IVPB Q2HR [facility] Rx#: [id number] Sodium Chloride 0.9% 1, 850 900 225 000 ml @ 50 mls/hr IV . Q20H [facility] Rx#:[id number] Intake, IV Titration 31.727 50 Amount Diltiazem 50 mg In Sodium 50 Chloride 0.9% 40 ml @ 5 MG/HR 5 mls/hr IV .Q10H [facility] Rx#:[id number] Propofol 1,000 mg In 31.727 Empty Bag 1 bag @ Titrate IV .Q0M [facility] Rx#: [id number] Oral 30 240 Output: Gastric Drainage 450 Drainage 20 Right Lower Abdomen 20 Urine 535 515 115 Other: Voiding Method Indwelling Catheter Indwelling Catheter - Exam 83-year-old male who is now extubated sitting upright interacting HEENT: Anicteric conjunctiva are pink and moist nasal mucosa grossly intact without significant lesions, there is no thrush around the endotracheal tube Neck: The neck is supple without significant lymphadenopathy or thyromegaly. Lungs: Symmetrical air entry is noted. Few expiratory wheezes no bronchial sounds Heart: Regular rate and rhythm with an audible S1-S2, no S3 no S4. There is no significant murmur click or rub, PMI was nondisplaced. Abdomen: Obese, hypoactive all sounds, surgical incision intact without significant drainage, MARY drain with serosanguineous drainage Extremities: The upper extremities have excellent pulses they are symmetric, no significant petechiae or telangiectasia. No splinter hemorrhages were noted. The lower extremities have chronic venous stasis and edema no open ulcers Neuro: Patient is awake and alert oriented to person place and time exhibits no acute gross focal sensory motor deficits - Labs CBC & Chem 7: 07/01/18 03:43 07/01/18 03:43 Labs: Abnormal Lab Results - Last 24 Hours (Table) 06/30/18 06/30/18 07/01/18 Range/Units 18:15 20:55 00:34 RBC (4.30-5.90) m/uL Hgb (13.0-17.5) gm/dL Hct (39.0-53.0) % Lymphocytes # (1.0-4.8) k/uL BUN (9-20) mg/dL Glucose (74-99) mg/dL POC Glucose (mg/dL) 103 H 125 H 154 H (75-99) mg/dL Calcium (8.4-10.2) mg/dL Phosphorus (2.5-4.5) mg/dL Magnesium (1.6-2.3) mg/dL Total Protein (6.3-8.2) g/dL Albumin (3.5-5.0) g/dL 07/01/18 07/01/18 07/01/18 Range/Units 03:43 03:43 06:38 RBC 3.63 L (4.30-5.90) m/uL Hgb 11.2 L (13.0-17.5) gm/dL Hct 36.2 L (39.0-53.0) % Lymphocytes # 0.5 L (1.0-4.8) k/uL BUN 24 H (9-20) mg/dL Glucose 106 H (74-99) mg/dL POC Glucose (mg/dL) 134 H (75-99) mg/dL Calcium 7.8 L (8.4-10.2) mg/dL Phosphorus 2.0 L (2.5-4.5) mg/dL Magnesium 2.5 H (1.6-2.3) mg/dL Total Protein 4.4 L (6.3-8.2) g/dL Albumin 2.1 L (3.5-5.0) g/dL 07/01/18 Range/Units 12:03 RBC (4.30-5.90) m/uL Hgb (13.0-17.5) gm/dL Hct (39.0-53.0) % Lymphocytes # (1.0-4.8) k/uL BUN (9-20) mg/dL Glucose (74-99) mg/dL POC Glucose (mg/dL) 123 H (75-99) mg/dL Calcium (8.4-10.2) mg/dL Phosphorus (2.5-4.5) mg/dL Magnesium (1.6-2.3) mg/dL Total Protein (6.3-8.2) g/dL Albumin (3.5-5.0) g/dL Microbiology - Last 24 Hours (Table) 06/27/18 20:00 Blood Culture - Preliminary Blood No Growth after 72 hours 06/29/18 07:00 Urine Culture - Final Urine,Catheterized Laboratory Results WBC 8.2 k/uL (3.8-10.6) 07/01/18 03:43 RBC 3.63 m/uL (4.30-5.90) L 07/01/18 03:43 Hgb 11.2 gm/dL (13.0-17.5) L 07/01/18 03:43 Hct 36.2 % (39.0-53.0) L 07/01/18 03:43 MCV 99.5 fL (80.0-100.0) 07/01/18 03:43 MCH 30.9 pg (25.0-35.0) 07/01/18 03:43 MCHC 31.1 g/dL (31.0-37.0) 07/01/18 03:43 RDW 14.7 % (11.5-15.5) 07/01/18 03:43 Plt Count 208 k/uL (150-450) 07/01/18 03:43 Neutrophils % 85 % 07/01/18 03:43 Neutrophils % (Manual) 79 % 06/29/18 03:33 Band Neutrophils % 15 % 06/29/18 03:33 Lymphocytes % 6 % 07/01/18 03:43 Lymphocytes % (Manual) 4 % 06/29/18 03:33 Monocytes % 5 % 07/01/18 03:43 Monocytes % (Manual) 3 % 06/29/18 03:33 Eosinophils % 1 % 07/01/18 03:43 Basophils % 0 % 07/01/18 03:43 Neutrophils # 7.0 k/uL (1.3-7.7) 07/01/18 03:43 Neutrophils # (Manual) 25.50 k/uL (1.3-7.7) H 06/29/18 03:33 Lymphocytes # 0.5 k/uL (1.0-4.8) L 07/01/18 03:43 Lymphocytes # (Manual) 1.09 k/uL (1.0-4.8) 06/29/18 03:33 Monocytes # 0.4 k/uL (0-1.0) 07/01/18 03:43 Monocytes # (Manual) 0.82 k/uL (0-1.0) 06/29/18 03:33 Eosinophils # 0.0 k/uL (0-0.7) 07/01/18 03:43 Basophils # 0.0 k/uL (0-0.2) 07/01/18 03:43 Nucleated RBCs 0 /100 WBC (0-0) 06/29/18 03:33 Manual Slide Review Performed 06/29/18 03:33 Large Platelets Present 06/29/18 03:33 Polychromasia Present 06/29/18 03:33 Hypochromasia Moderate 07/01/18 03:43 Poikilocytosis (manual Present 06/29/18 03:33 Anisocytosis (manual) Present 06/29/18 03:33 Macrocytosis Slight 07/01/18 03:43 PT 12.8 sec (9.0-12.0) H 06/29/18 03:33 INR 1.4 (<1.2) H 06/29/18 03:33 APTT 28.4 sec (22.0-30.0) 07/01/18 03:43 Sample Site RRAD 06/30/18 08:52 ABG pH 7.50 (7.35-7.45) H 06/30/18 08:52 ABG pCO2 34 mmHg (35-45) L 06/30/18 08:52 ABG pO2 88 mmHg (83-108) 06/30/18 08:52 ABG HCO3 26 mmol/L (21-25) H 06/30/18 08:52 ABG Total CO2 27 mmol/L (19-24) H 06/30/18 08:52 ABG O2 Saturation 96.7 % (94-97) 06/30/18 08:52 ABG Base Excess 3.1 mmol/L 06/30/18 08:52 Pawan Test Yes 06/30/18 08:52 FiO2 40 % 06/30/18 08:52 Sodium 139 mmol/L (137-145) 07/01/18 03:43 Potassium 4.3 mmol/L (3.5-5.1) 07/01/18 03:43 Chloride 106 mmol/L (98-107) 07/01/18 03:43 Carbon Dioxide 29 mmol/L (22-30) 07/01/18 03:43 Anion Gap 4 mmol/L 07/01/18 03:43 BUN 24 mg/dL (9-20) H 07/01/18 03:43 Creatinine 1.01 mg/dL (0.66-1.25) 07/01/18 03:43 Est GFR (CKD-EPI)AfAm 80 (>60 ml/min/1.73 sqM) 07/01/18 03:43 Est GFR (CKD-EPI)NonAf 69 (>60 ml/min/1.73 sqM) 07/01/18 03:43 Glucose 106 mg/dL (74-99) H 07/01/18 03:43 POC Glucose (mg/dL) 123 mg/dL (75-99) H 07/01/18 12:03 POC Glu Slitting Machine Feeder ID Margaret William 07/01/18 12:[address] Glu mg/dL 114 06/29/18 03:33 Hemoglobin A1c 5.6 % (4.0-6.0) 06/29/18 03:33 Lactic Ac Sepsis Rflx Y 06/27/18 23:00 Plasma Lactic Acid Tone 3.0 mmol/L (0.7-2.0) H* 06/28/18 02:16 Calcium 7.8 mg/dL (8.4-10.2) L 07/01/18 03:43 Phosphorus 2.0 mg/dL (2.5-4.5) L 07/01/18 03:43 Magnesium 2.5 mg/dL (1.6-2.3) H 07/01/18 03:43 Total Bilirubin 1.1 mg/dL (0.2-1.3) 07/01/18 03:43 AST 23 U/L (17-59) 07/01/18 03:43 ALT 31 U/L (21-72) 07/01/18 03:43 Alkaline Phosphatase 45 U/L (38-126) 07/01/18 03:43 Total Creatine Kinase 37 U/L (55-170) L 06/28/18 03:32 CK-MB (CK-2) 0.7 ng/mL (0.0-2.4) 06/28/18 03:32 CK-MB (CK-2) Rel Index 1.9 06/28/18 03:32 Troponin I 0.061 ng/mL (0.000-0.034) H* 06/28/18 06:54 Total Protein 4.4 g/dL (6.3-8.2) L 07/01/18 03:43 Albumin 2.1 g/dL (3.5-5.0) L 07/01/18 03:43 Amylase 46 U/L (30-110) 06/27/18 19:10 Lipase 42 U/L (23-300) 06/27/18 19:10 Urine Color Yellow 06/29/18 07:00 Urine Appearance Cloudy (Clear) 06/29/18 07:00 Urine pH 5.5 (5.0-8.0) 06/29/18 07:00 Ur Specific B[place]am 1.026 (1.001-1.035) 06/29/18 07:00 Urine Protein 1+ (Negative) H 06/29/18 07:00 Urine Glucose (UA) Negative (Negative) 06/29/18 07:00 Urine Ketones 1+ (Negative) H 06/29/18 07:00 Urine Blood Trace (Negative) H 06/29/18 07:00 Urine Nitrite Negative (Negative) 06/29/18 07:00 Urine Bilirubin Negative (Negative) 06/29/18 07:00 Urine Urobilinogen <2.0 mg/dL (<2.0) 06/29/18 07:00 Ur Leukocyte Esterase Negative (Negative) 06/29/18 07:00 Urine RBC 2 /hpf (0-5) 06/29/18 07:00 Urine WBC 10 /hpf (0-5) H 06/29/18 07:00 Urine WBC Clumps Occasional /hpf (None) H 06/29/18 07:00 Ur Squamous Epith Cells 1 /hpf (0-4) 06/29/18 07:00 Microbiology 06/27/18 20:00 Blood Blood Culture - Preliminary No Growth after 72 hours 06/29/18 07:00 Urine,Catheterized Urine Culture - Final 06/29/18 19:45 Sputum Gram Stain - Preliminary 06/29/18 19:45 Sputum Sputum Culture - Preliminary Assessment and Plan (1) Acute cholecystitis due to biliary calculus Narrative/Plan: 83-year-old male presents to hospital with significant abdominal pain. He has noted had been hospitalized with abdominal pain and evaluations failed to reveal evidence of acute obstruction of the biliary tract. However repeat presentation the patient had markedly increased abdominal pain, computed tomography scan showed evidence of cholecystitis, stone obstructing the neck of the gallbladder and evidence of fluid outside of the gallbladder. Patient Was Taken to the Operating Room with Evidence of Leakage of Bile into the Peritoneal Cavity and Open Cholecystectomy Was Performed. The patient is hemodynamically stable no longer requiring vasopressor therapy. Cultures are in process. Antimicrobial therapy with Zosyn is adequate at this point in time given the current clinical situation. Cultures will further help direct therapy. If the patient is not extubated will need to have nutritional assessments in supplementation. The patient's leukocytosis is directly related to the cholecystitis and bile peritonitis. With the surgical intervention, lavage and antibiotic therapy. Expect this to rapidly improve. The patient's lactic acidosis and recent acidosis or due to his sepsis and is this is being corrected expect this to rapidly improved. His fever has resolved. The patient does have underlying diabetes which is routinely well controlled but with sepsis has had some elevated blood glucose that is being closely monitored and treated. 06/30/2018 finds a patient the considerably improved today. He has been extubated and is comfortable. Denies any respiratory distress. Only complaint is of some abdominal pain which he relates is doing better today than when he presented to Hospital. Is denying nausea or emesis. As noted he does have leukocytosis. Cultures are in process we'll continue current antibiotics and monitor. We'll have plans for antibiotic therapy 07/01/2018 83-year-old male who is improving status post his surgery has remained extubated and is having no acute pulmonary symptoms today. Abdominal pain is improving and he is able to take some clear liquids at this time. He is still waiting for flatus and a bowel movement. Deny other acute difficulties at this time we'll continue intravenous antibiotic therapy with Zosyn for coverage of the intra-abdominal infection related to the cholecystitis. The significant leukocytosis from his intra-abdominal sepsis is improved and is being further monitored. Current Visit: Yes Status: Acute Code(s): K80.00 - CALCULUS OF GALLBLADDER W ACUTE CHOLECYST W/O OBSTRUCTION SNOMED Code(s): 03557998128791 (2) Bile peritonitis Current Visit: Yes Status: Acute Code(s): K65.3 - CHOLEPERITONITIS SNOMED Code(s): 92049882 (3) Leukocytosis Current Visit: Yes Status: Acute Code(s): D72.829 - ELEVATED WHITE BLOOD CELL COUNT, UNSPECIFIED SNOMED Code(s): 784477435 (4) Lactic acidosis Current Visit: Yes Status: Acute Code(s): E87.2 - ACIDOSIS SNOMED Code(s) : 82927230
[2018-07-01 19:27] LABS: Glucose,Whole Blood 157 mg/dL (75-99)
[2018-07-01 21:04] LABS: Glucose,Whole Blood 127 mg/dL (75-99)
[2018-07-01] MEDS: APIXABAN 5 MG TAB PO SCH (21:13)
[2018-07-02] MEDS: PIPERACILLIN-TAZOBACTAM 3.375 GM in DEXTROSE/WATER 1 50ML.BAG IVPB SCH ×3 (00:35→15:37)
[2018-07-02] MEDS: DILTIAZEM 50 MG in SODIUM CHLORIDE 0.9% 40 ML IV SCH (00:37)
[2018-07-02 05:14] LABS: Basophils % (A) 0 %; Eosinophils # (A) 0.2 k/uL (0-0.7); Eosinophils % (A) 2 %; HCT 37.5 % (39.0-53.0); HGB 11.4 gm/dL (13.0-17.5); Hypochromasia Slight; Lymphocytes # (A) 0.6 k/uL (1.0-4.8); Lymphocytes % (A) 6 %; MCH 29.8 pg (25.0-35.0); MCHC 30.4 g/dL (31.0-37.0); Mean Platelet Volume 8.4; Monocytes # (A) 0.4 k/uL (0-1.0); Monocytes % (A) 4 %; Neutrophils % (A) 85 %; Platelet Count 260 k/uL (150-450); RBC 3.83 m/uL (4.30-5.90); RDW 14.6 % (11.5-15.5); WBC 9.4 k/uL (3.8-10.6)
[2018-07-02 05:25] LABS: Anion Gap 4 mmol/L; Blood Urea Nitrogen 17 mg/dL (9-20); Calcium 7.9 mg/dL (8.4-10.2); Carbon Dioxide 27 mmol/L (22-30); Chloride 108 mmol/L (98-107); Glucose 122 mg/dL (74-99); Magnesium 2.1 mg/dL (1.6-2.3); Phosphorus 2.1 mg/dL (2.5-4.5); Potassium 3.9 mmol/L (3.5-5.1); Sodium 139 mmol/L (137-145)
[2018-07-02 06:23] LABS: Glucose,Whole Blood 118 mg/dL (75-99)
[2018-07-02] MEDS: INSULIN ASPART 100 UNIT/ML 1 ML 10 ML VIAL SQ SCH ×4 (06:37→21:00)
[2018-07-02] MEDS ORDERED: POTASSIUM BICARBONATE/CIT AC 20 MEQ TABLET.EFF NG-TUBE SCH (07:00)
[2018-07-02] MEDS: SODIUM CHLORIDE 0.9% 1,000 ML IV SCH (07:32)
[2018-07-02] MEDS: HYDROmorphone 1 MG/ML 1 ML SYRINGE IVP PRN ×3 (07:33→22:21)
[2018-07-02] MEDS: IPRATROPIUM-ALBUTEROL 3 ML NEB INHALATION SCH ×4 (07:46→20:43)
[2018-07-02] MEDS: APIXABAN 5 MG TAB PO SCH ×2 (08:59→20:54)
[2018-07-02] MEDS: METOPROLOL TARTRATE 25 MG TAB PO SCH ×2 (09:00→20:55)
[2018-07-02] MEDS: PANTOPRAZOLE 40 MG/10 ML VIAL IV SCH (09:00)
[2018-07-02] MEDS: DILTIAZEM ORAL 60 MG TAB PO SCH ×3 (09:02→21:31)
--- NOTE | 2018-07-02 09:17 | PN ---
PROGRESS NOTE Mr. Haynes is a gentleman with paroxysmal A. fib, underwent gallbladder surgery. He is doing better this morning. He is in sinus rhythm. I am going to switch him to oral Cardizem and discontinue IV Cardizem. He is in a sinus rhythm at a rate of about 70 beats per minute. I will also reduce the dose of metoprolol. S1, S2 heard normally, regular. Lungs reveal improved air entry. Abdomen exam was deferred. Lower extremities reveal palpable pulses. No edema. Central nervous system is normal. He is back on Eliquis 5 mg b.i.d., which we will continue. MMODL / IJN: [id number] /
[2018-07-02 11:48] LABS: Glucose,Whole Blood 181 mg/dL (75-99)
--- NOTE | 2018-07-02 13:17 | P.PN ---
Subjective Progress Note Date: 07/02/18 This is a 83-year-old white male patient with past medical history of COPD, underlying FEV1 of 63% of predicted, diabetes mellitus, BPH, CHF, hypertension, presented to the emergency department on 06/27/2018 for evaluation of acute abdominal pain. Patient symptoms started in the morning on 06/27/2018, with lower abdominal pain that progressively increased, and spread to the upper quadrants. Patient was recently in the hospital similar symptoms, and there was a concern for gallstones. Gallbladder ultrasound from 06/27/2018 showed no gallstones or dilated ducts, and mild right renal cortical atrophy. Abdominal/ pelvis CT from 06/28/2018 showed gallstones, possible gallstone impacted in the gallbladder neck, small amount of fluid at the nat hepatis as well as the anterior perirenal space related to inflammatory process and cholecystitis. Lab work showed leukocytosis WBC of 22.1, hemoglobin of 16.1, INR was elevated to 1.4, patient had mild lactic acidosis of 2.1 which subsequently increased to 3.0, non-anion gap metabolic acidosis, patient was slightly prerenal. Patient had a low-grade fever, he has been tachycardic with a rate of 116 BPM. In sinus mechanism. Troponins were elevated at 0.082, 0.059, and 0.061. Patient was given a total of 4 L of 0.9 normal saline, has not required any vasopressor support. He is having significant amount of discomfort across his upper quadrant under his rib cage, he states it hurts for him to take deep breaths and cough. Is also having discomfort in his left lower quadrant, and tenderness over right upper quadrant. He has bowel sounds 4, he is receiving pain medications, however his pain continues to increase. Gen. surgery has been consulted, and exposure laparotomy was recommended. General surgery consult was placed and patient was recommended laparoscopic examination with anticipated cholecystectomy. Patient does have a history of previous aortobifem bypass, and subsequent hernia repair with mesh. In addition patient admits to passing dark tarry stools about a week ago. Work consult in regards to pulmonary clearance for the surgical procedure and this afternoon. As far as patient's history of COPD patient is not on any oxygen, his only inhaler is his rescue inhaler. Physical exam does not reveal any significant signs of wheezing, or shortness of breath, other than that related to his abdominal pain. Was also seen by cardiology, echocardiogram was completed, and over left ventricle systolic function is within normal limits with an EF between 60-65% There was severe pulmonary hypertension, right ventricular systolic pressure not provided. Moderate pulmonic regurgitation, with mild tricuspid regurgitation. Patient has a previous history of diverticulitis. On 06/29/2018, patient is being seen in the intensive care unit. The patient underwent his surgery yesterday. The patient was found to have acute perforated gangrenous cholecystitis. Initially the procedure was started laparoscopic and ultimately the patient underwent a laparotomy and open cholecystectomy with lysis of adhesions. Postop the patient was extubated in the operating room and in recovery the patient was doing poorly and he was becoming progressively more short of breath and tachypneic and tachycardic and hypotensive. At that point it was decided to reintubate the patient. The patient was intubated and was moved to the intensive care unit. Upon arrival his systolic blood pressure was in the low 50s. He was in nature fibrillation with rapid ventricular response with a heart rate in the 120 to 130 range. He was intubated on a mechanical ventilator and and a chest x-ray showed mild CHF with small bilateral pleural effusions. ET tube was in a good location was around 3 cm from the arslan. The patient is an assist-control mode of ventilation. The initial blood gas showed a pH of 7.21 with a pCO2 of 36 and pO2 of 1 and 15. As such the FiO2 was gradually weaned off. The patient was also given immediately 3 L of IV fluids in the form of normal saline. The patient was started on pressors and he was brought up to 5 mics of norepinephrine infusion overnight and currently this morning he is off pressors. Most recent blood gases from this morning showed a pH of 7.29 with a pCO2 of 31 and pO2 127. This current vent settings for now is a Tidal volume is at 550 with an FiO2 of 40% and PEEP of 5. Based on all this, I give the patient to have some bicarb was started on bicarb infusion this morning. He was quite acidotic with a bicarb level of 15 and a anion gap of 11. Currently the patient is also on a bicarb drip at the rate of 100 mL an hour. Repeat blood gases this afternoon showed a pH of 7.35 with a pCO2 of 36 and pO2 of 97. The patient was given a sedation holiday this morning. He became immediately tachypneic and uncomfortable with any sweating with parameters without poor and based on that the trial was aborted. His creatinine today is 1.3. Urine output is low in the order of 10-20 mL an hour and is improving. He is on empiric antibiotic coverage with IV Zosyn. Most recent lactic acid level venous sample was at 3.0. He is nothing by mouth for now. The surgical wound site over the anterior abdominal wall is dry clean and intact. As mentioned, she is currently off pressors. On 06/30/2018 I'm seeing this patient for a follow-up. This morning the patient is off sedation, comfortable awake and following commands and answering questions appropriately. The patient had adequate weaning parameters and the patient is in the process of getting a spontaneous breathing trial a pressure support of 5 and a PEEP of 5 and a blood gases to follow. Chest x-ray showed adequate expansion of both lungs with small bilateral pleural effusions. ET tube is in a good location. The patient is hemodynamically stable. This morning, the blood gases show a pH of 7.46 with a pCO2 of 36 and pO2 of 79 and this was on FiO2 of 40% with a PEEP of 5 and a tidal volume of 550. White cell count is down to 11.8. The patient is afebrile. Urine output is order of 30 mL an hour. Serum bicarb is up to 26 while the patient receiving a bicarb drip infusion. Abdomen is soft. MARY drain output is minimal at this point. The patient remains on IV Zosyn. 07/01/2008 Seeing this patient for a follow-up. The patient is calm and comfortable. Earlier this morning at around 7:00 he went into atrial fibrillation with rapid ventricular response. Heart rate was in the 130s. He was started on Cardizem drip. Currently is on 7.5 mg of Cardizem and his heart rate slowed done and ultimately converted to sinus rhythm at around 11:00 this morning. The patient remained hemodynamically stable. The patient is still not having any flatus or bowel movement although has decent amount of bowel sounds. Surgical wound site is clean. MARY drain has drained approximately 60 mL over the past 24 hours. No chest pain. No shortness of breath. White cell count is at 8.2. The rest of the blood work is all within normal limits. Producing approximately 30-50 mL of urine output on an hourly basis. 07/02/2018, the patient is awake and alert and following commands and answering questions. His rhythm is back to normal sinus. He is off the Cardizem drip. He has not required any further cardiac interventions knowing that his cardiac rhythm remained sinus throughout the day for yesterday and throughout the night. He is producing adequate amount of urine output. MARY drain is in place. Abdomen is nondistended. The patient had some flatness. Tolerating liquid diet. No shortness of breath. No cough or sputum production. He is a bit weak and he is laying in bed most of the time. Would like to get him out on a bedside chair. No fever. No chills. No sweats. White cell count is stable at 9.4. Objective - Vital Signs Vital signs: Vital Signs Temp 98.1 F 07/02/18 08:00 Pulse 72 07/02/18 10:30 Resp 22 07/02/18 10:30 BP 159/76 07/02/18 10:30 Pulse Ox 97 07/02/18 10:30 Intake & Output 07/01/18 07/02/18 07/02/18 18:59 06:59 18:59 Intake Total 950 950 375 Output Total 500 645 295 Balance 450 305 80 Weight 124 kg 125 kg Intake: IV 900 900 375 Sodium Chloride 0.9% 1, 900 900 375 000 ml @ 50 mls/hr IV . Q20H RUDOLPH Rx#:[id number] Intake, IV Titration 50 50 Amount Diltiazem 50 mg In Sodium 50 50 Chloride 0.9% 40 ml @ 5 MG/HR 5 mls/hr IV .Q10H RUDOLPH Rx#:[id number] Output: Drainage 90 Right Lower Abdomen 90 Urine 500 555 295 Other: Voiding Method Indwelling Catheter Indwelling Catheter Indwelling Catheter - Exam Awake and alert and not in acute distress. Head exam was generally normal. There was no scleral icterus or corneal arcus. Mucous membranes were moist. Neck was supple and without jugular venous distension, thyromegaly, or carotid bruits. Carotids were easily palpable bilaterally. There was no adenopathy. Lungs sounds are diminished bilaterally along with some few scattered expiratory wheeze otherwise clear. Cardiac exam revealed the PMI to be normally situated and sized. The rhythm was regular and no extrasystoles were noted during several minutes of auscultation. The first and second heart sounds were normal and physiologic splitting of the second heart sound was noted. There were no murmurs, rubs, clicks, or gallops. Abdomen is soft and there is a mid abdominal incision which is dry clean and intact. There is no direct tenderness rebound tensile guarding. The patient has a right upper quadrant MARY drain outputs of which is minimal at this point Extremities show trace edema and there is no cyanosis or clubbing at this point. Neurologically the patient is off sedation. Awake. Pupils equal and reactive to light. No facial asymmetry. Good cough reflex. Moving all 4 extremities without any limitation. - Labs CBC & Chem 7: 07/02/18 04:44 07/02/18 04:44 Labs: Abnormal Lab Results - Last 24 Hours (Table) 07/01/18 07/01/18 07/02/18 Range/Units 19:08 21:01 04:44 RBC 3.83 L (4.30-5.90) m/uL Hgb 11.4 L (13.0-17.5) gm/dL Hct 37.5 L (39.0-53.0) % MCHC 30.4 L (31.0-37.0) g/dL Neutrophils # 8.0 H (1.3-7.7) k/uL Lymphocytes # 0.6 L (1.0-4.8) k/uL Chloride (98-107) mmol/L Glucose (74-99) mg/dL POC Glucose (mg/dL) 157 H 127 H (75-99) mg/dL Calcium (8.4-10.2) mg/dL Phosphorus (2.5-4.5) mg/dL 07/02/18 07/02/18 07/02/18 Range/Units 04:44 06:22 11:47 RBC (4.30-5.90) m/uL Hgb (13.0-17.5) gm/dL Hct (39.0-53.0) % MCHC (31.0-37.0) g/dL Neutrophils # (1.3-7.7) k/uL Lymphocytes # (1.0-4.8) k/uL Chloride 108 H (98-107) mmol/L Glucose 122 H (74-99) mg/dL POC Glucose (mg/dL) 118 H 181 H (75-99) mg/dL Calcium 7.9 L (8.4-10.2) mg/dL Phosphorus 2.1 L (2.5-4.5) mg/dL Microbiology - Last 24 Hours (Table) 06/29/18 19:45 Gram Stain - Final Sputum Sputum Culture - Final 06/27/18 20:00 Blood Culture - Preliminary Blood No Growth after 96 hours Assessment and Plan Plan: Assessment 1 acute perforated cholecystitis with secondary sepsis. Patient is postcholecystectomy/extra laparotomy and open cholecystectomy and lysis of adhesions. The patient is postop day #4 2 septic shock secondary to above. The patient is recovered. Hemodynamic is stable. Currently on IV Zosyn. 3 leukocytosis secondary to above improved and recovered and normalized 4 acute hypoxic failure post cholecystectomy. Please see discussion above 5 single episode of atrial fibrillation in patient's rhythm is back to sinus. He is on long-term and to coagulation with Eliquis, therapeutic dose. 6 congestion heart failure, essentially diastolic in nature 7 COPD with an FEV1 of 60% of predicted 8 peripheral vascular disease with a previous aortobifemoral bypass surgery 9 history of hypertension 10 history of secondary pulmonary hypertension 11 history of diverticulosis and previous history of diverticulitis 12 previous history of diabetes mellitus. 13 acute kidney injury, recovered 14 troponin leak secondary to sepsis Plan Advance diet as tolerated. Incentive spirometer. Physical therapy. Sit him up on a chair. Cardiac rhythm is sinus. Monitor bowel activity. Monitor MARY drain. Monitor wounds. Can go to a surgical floor. Will need remote telemetry.
--- NOTE | 2018-07-02 14:11 | P.PN ---
Subjective Progress Note Date: 07/02/18 Principal diagnosis: Perforated cholecystitis Patient extubated in the ICU. Mild incisional pain he states. Tolerating full liquids. He is having flatus and bowel movements. MARY drain serosanguineous. He is afebrile. Last bilirubin normal. Objective - Vital Signs Vital signs: Vital Signs Temp 98.4 F 07/02/18 12:00 Pulse 64 07/02/18 13:00 Resp 19 07/02/18 13:00 BP 127/57 07/02/18 13:00 Pulse Ox 97 07/02/18 13:00 Intake & Output 07/01/18 07/02/18 07/02/18 18:59 06:59 18:59 Intake Total 950 950 375 Output Total 500 645 295 Balance 450 305 80 Weight 124 kg 125 kg Intake: IV 900 900 375 Sodium Chloride 0.9% 1, 900 900 375 000 ml @ 50 mls/hr IV . Q20H [facility] Rx#:[id number] Intake, IV Titration 50 50 Amount Diltiazem 50 mg In Sodium 50 50 Chloride 0.9% 40 ml @ 5 MG/HR 5 mls/hr IV .Q10H [facility] Rx#:[id number] Output: Drainage 90 Right Lower Abdomen 90 Urine 500 555 295 Other: Voiding Method Indwelling Catheter Indwelling Catheter Indwelling Catheter - Exam Abdomen: Soft, mild right upper quadrant tenderness, incision clean without erythema, MARY serosanguineous - Labs CBC & Chem 7: 07/02/18 04:44 07/02/18 04:44 Labs: Abnormal Lab Results - Last 24 Hours (Table) 07/01/18 07/01/18 07/02/18 Range/Units 19:08 21:01 04:44 RBC 3.83 L (4.30-5.90) m/uL Hgb 11.4 L (13.0-17.5) gm/dL Hct 37.5 L (39.0-53.0) % MCHC 30.4 L (31.0-37.0) g/dL Neutrophils # 8.0 H (1.3-7.7) k/uL Lymphocytes # 0.6 L (1.0-4.8) k/uL Chloride (98-107) mmol/L Glucose (74-99) mg/dL POC Glucose (mg/dL) 157 H 127 H (75-99) mg/dL Calcium (8.4-10.2) mg/dL Phosphorus (2.5-4.5) mg/dL 07/02/18 07/02/18 07/02/18 Range/Units 04:44 06:22 11:47 RBC (4.30-5.90) m/uL Hgb (13.0-17.5) gm/dL Hct (39.0-53.0) % MCHC (31.0-37.0) g/dL Neutrophils # (1.3-7.7) k/uL Lymphocytes # (1.0-4.8) k/uL Chloride 108 H (98-107) mmol/L Glucose 122 H (74-99) mg/dL POC Glucose (mg/dL) 118 H 181 H (75-99) mg/dL Calcium 7.9 L (8.4-10.2) mg/dL Phosphorus 2.1 L (2.5-4.5) mg/dL Microbiology - Last 24 Hours (Table) 06/29/18 19:45 Gram Stain - Final Sputum Sputum Culture - Final 06/27/18 20:00 Blood Culture - Preliminary Blood No Growth after 96 hours Assessment and Plan (1) Acute cholecystitis due to biliary calculus Narrative/Plan: Will increase diet. Continue antibiotics. Keep drain for now. Minor incision site. PTOT Current Visit: Yes Status: Acute Code(s): K80.00 - CALCULUS OF GALLBLADDER W ACUTE CHOLECYST W/O OBSTRUCTION SNOMED Code(s): 99978660284691
--- NOTE | 2018-07-02 16:18 | P.PN ---
Addendum entered and electronically signed by Danita Sainz NP-C 07/02/18 16: 18: Review of systems: CONSTITUTIONAL: fatigue, generalized weakness CARDIOVASCULAR: No chest pain,no palpitations, no syncope. PULMONARY: No shortness of breath, no cough, no hemoptysis. GASTROINTESTINAL: No diarrhea, no nausea, no vomiting, improving abdominal/ surgical pain. NEUROLOGICAL: No headaches, no weakness, no numbness. HEMATOLOGICAL: Denies any bleeding or petechiae. GENITOURINARY: Denies any burning micturition, frequency, or urgency. MUSCULOSKELETAL/RHEUMATOLOGICAL: Denies any joint pain, swelling, or any muscle pain. ENDOCRINE: Denies any polyuria or polydipsia. PSYCHIATRIC: No anxiety, no depression The rest of the 14 point review of systems is negative Active Medications Albuterol/Ipratropium (Duoneb 0.5 Mg-3 Mg/3 Ml Soln) 3 ml INHALATION RT-Q2H PRN PRN Reason: Shortness Of Breath Or Wheezing Albuterol/Ipratropium (Duoneb 0.5 Mg-3 Mg/3 Ml Soln) 3 ml INHALATION RT-QID [facility] Last Admin: 07/02/18 15:21 Dose: Not Given Apixaban (Eliquis) 5 mg PO BID [facility] Last Admin: 07/02/18 08:59 Dose: 5 mg Diltiazem HCl (Cardizem Oral) 60 mg PO TID [facility] Last Admin: 07/02/18 15:37 Dose: 60 mg Hydromorphone HCl (Dilaudid) 1 mg IVP Q3HR PRN PRN Reason: Severe Pain Last Admin: 07/02/18 13:56 Dose: 1 mg Hydromorphone HCl (Dilaudid) 0.5 mg IVP Q3HR PRN PRN Reason: Moderate Pain Last Admin: 06/30/18 20:28 Dose: 0.5 mg Piperacillin/Tazobactam/ (Dextrose 3.375 gm/ IV Solution) 50 mls @ 12.5 mls/hr IVPB Q8HR [facility] Last Admin: 07/02/18 15:37 Dose: 12.5 mls/hr Sodium Chloride (Saline 0.9%) 1,000 mls @ 50 mls/hr IV .Q20H [facility] Last Admin: 09/10/18 07:32 Dose: 50 mls/hr Insulin Aspart (Novolog) 0 unit SQ ACHS [facility]; Protocol Last Admin: 07/02/18 11:55 Dose: 3 unit Metoprolol Tartrate (Lopressor) 25 mg PO BID [facility] Last Admin: 07/02/18 09:00 Dose: 25 mg Metoprolol Tartrate (Lopressor) 2.5 mg IVP Q6HR PRN PRN Reason: Heart Rate - HIGH Last Admin: 07/01/18 07:43 Dose: 2.5 mg Naloxone HCl (Narcan) 0.2 mg IV Q2M PRN PRN Reason: Opioid Reversal Ondansetron HCl (Zofran) 4 mg IVP Q8HR PRN PRN Reason: Nausea And Vomiting Last Admin: 06/28/18 04:25 Dose: 4 mg Pantoprazole Sodium (Protonix) 40 mg IV DAILY [facility] Last Admin: 07/02/18 09:00 Dose: 40 mg Original Note: <Danita Sainz - Last Filed: 07/02/18 16:07> Subjective Progress Note Date: 07/02/18 Progress note being dictated for Dr. Serrano. Interval history:Patient is a 83-year-old male with a known history of COPD, diabetes type 2 [id number], peripheral vascular disease with bilateral femoropopliteal bypass surgery, previous history of smoking came to ER with complaints of abdominal pain along with nausea and vomiting. Patient was recently admitted to hospital on 06/26/2018 with similar complaints when he had CT of abdomen pelvis showed gallstones and mild pancreatitis. Patient also found have fat stranding around gallbladder and was recommended surgery at the time. Patient wants to proceed with the surgery as outpatient and patient was discharged eventually. Patient came back to the hospital with similar complaints. Patient is complaining of abdominal pain mainly left lower quadrant and right flank area as well. Denied any complaints of chest pain or shortness of breath. No fever no chills. He states the pain is moving from one side to the other with no specific aggravating factors. EKG sinus rhythm with no acute ST-T wave changes Chest x-ray showed mild cardiomegaly with no heart failure and no cardiomegaly pulmonary process. WBC 22.1 Lactic acid 3.0 Magnesium 1.8 Troponin 0.082, 0.059 and 0.061 Patient is tachycardic with heart rate 116 now. 2-D echocardiogram was done. Echocardiogram obtained reveals preserved left ventricular systolic function with ejection fraction 60-65%, mildly enlarged right ventricle, mild aortic valve sclerosis with no stenosis, mild TR and severe pulmonary hypertension with an RVSP 64.93 mmHg. Abdominal x-ray showed small bowel distention compared to last exam could be due to partial mechanical obstruction or ileus. No free air. Ultrasound abdomen showed no gallstones or dilated ducts. Mild right renal outcome atrophy. CT abdomen and pelvis showed gallstones. There is some fat stranding around the gallbladder. And a small amount of fluid at the nat hepatis as well as the anterior pararenal space this is new compared to recent computed tomography scan and related inflammatory process and cholecystitis. Sigmoid diverticulosis Review of Systems Constitutional: Patient denies any fever or chills . No generalized weakness or weight loss. Abdomen: Patient does have abdominal pain with nausea and vomiting. No diarrhea. Cardiovascular: Patient denies any chest pain or short of breath no palpitations. Respiratory: patient denied any cough is from production. No shortness of breath Neurologic: Patient denied any numbness or tingling headache. Musculoskeletal: Patient denies any complaints of joint swelling or deformity. Skin: Negative Psychiatric: Negative Endocrine: No heat or cold intolerance. No recent weight gain. Genitourinary: No dysuria or hematuria. All other 14 point ROS negative except the above 06/29/18 required reintubation yesterday in the recovery room , hypotensive, A. fib with RVR.chest x-ray reported mild CHF, small pleural effusions .received 3 L of IV fluids, pressors initiated.Converted to sinus rhythm. This morning , weaned off sedation, following commands appropriately, became tachypneic, failed weaning parameters. Acidotic ABGs, bicarb drip initiated. CO2 15. Maintained on mechanical ventilation, FiO2 of 40%/+5 of PEEP. Levophed weaned off early this morning. Creatinine 1.3, low urine output Anticoagulation remains on hold for another 24 hours as per cardiology. Maintained on IV antibiotics as per infectious disease. 07/02/18 extubated over the weekend, maintaining O2 sats in high 90s on 4 L nasal cannula O2. Pain better controlled. Tolerating full liquids, passing flatus and bowel movement. Converted back to sinus rhythm, Cardizem drip discontinued, converted to oral. Objective - Vital Signs Vital signs: Vital Signs Temp 98.4 F 07/02/18 12:00 Pulse 64 07/02/18 13:00 Resp 19 07/02/18 13:00 BP 127/57 07/02/18 13:00 Pulse Ox 97 07/02/18 13:00 Intake & Output 07/01/18 07/02/18 07/02/18 18:59 06:59 18:59 Intake Total 950 950 375 Output Total 500 645 295 Balance 450 305 80 Weight 124 kg 125 kg Intake: IV 900 900 375 Sodium Chloride 0.9% 1, 900 900 375 000 ml @ 50 mls/hr IV . Q20H [facility] Rx#:[id number] Intake, IV Titration 50 50 Amount Diltiazem 50 mg In Sodium 50 50 Chloride 0.9% 40 ml @ 5 MG/HR 5 mls/hr IV .Q10H [facility] Rx#:[id number] Output: Drainage 90 Right Lower Abdomen 90 Urine 500 555 295 Other: Voiding Method Indwelling Catheter Indwelling Catheter Indwelling Catheter - Exam General:Patient is sitting up in bed, no acute distress HEENT: Normocephalic. Neck is supple. Pupils reactive. Oral mucosa moist Neck reveals no JVD, carotid bruits, or thyromegaly. CHEST EXAMINATION: Bibasilar diminished air entry Lung lauren clear to auscultation . Occasional fine expiratory wheeze. CARDIAC: Normal S1, S2 with no gallops. Regular, Positive systolic murmur ABDOMEN: Soft, nondistended, Status post surgery, MARY with serosanguineous drainage. Extremities: trace edema. No clubbing or cyanosis Neurologically no focal deficits - Labs CBC & Chem 7: 07/02/18 04:44 07/02/18 04:44 Labs: Abnormal Lab Results - Last 24 Hours (Table) 07/01/18 07/01/18 07/02/18 Range/Units 19:08 21:01 04:44 RBC 3.83 L (4.30-5.90) m/uL Hgb 11.4 L (13.0-17.5) gm/dL Hct 37.5 L (39.0-53.0) % MCHC 30.4 L (31.0-37.0) g/dL Neutrophils # 8.0 H (1.3-7.7) k/uL Lymphocytes # 0.6 L (1.0-4.8) k/uL Chloride (98-107) mmol/L Glucose (74-99) mg/dL POC Glucose (mg/dL) 157 H 127 H (75-99) mg/dL Calcium (8.4-10.2) mg/dL Phosphorus (2.5-4.5) mg/dL 07/02/18 07/02/18 07/02/18 Range/Units 04:44 06:22 11:47 RBC (4.30-5.90) m/uL Hgb (13.0-17.5) gm/dL Hct (39.0-53.0) % MCHC (31.0-37.0) g/dL Neutrophils # (1.3-7.7) k/uL Lymphocytes # (1.0-4.8) k/uL Chloride 108 H (98-107) mmol/L Glucose 122 H (74-99) mg/dL POC Glucose (mg/dL) 118 H 181 H (75-99) mg/dL Calcium 7.9 L (8.4-10.2) mg/dL Phosphorus 2.1 L (2.5-4.5) mg/dL Microbiology - Last 24 Hours (Table) 06/29/18 19:45 Gram Stain - Final Sputum Sputum Culture - Final 06/27/18 20:00 Blood Culture - Preliminary Blood No Growth after 96 hours Assessment and Plan Assessment: Acute Perforated gangrenous cholecystitis with intra-abdominal adhesions status post open cholecystectomy, laparoscopic lysis of adhesions Septic shock secondary to acute cholecystitis Leukocytosis secondary to the above, normalized Metabolic acidosis, status post bicarb drip, resolved Lactic acidosis Acute hypoxic respiratory failure post procedure, required reintubation in PACU , mechanical ventilator-dependent Mild elevated troponin level could be related to infection. Possible demand mismatch. COPD stable Diabetes type 2 [id number]. Peripheral vascular disease with history of bilateral femoropopliteal bypass surgery Pulmonary hypertension as per 2-D echocardiogram DVT prophylaxis History of diverticulosis and diverticulitis Acute renal failure secondary to hypotension, sepsis Plan: Continue current medication regime ,monitoring and symptomatic treatment. Diet advancement/pain management as per surgery. Maintain IV fluids, nebulized bronchodilators. PT/OT. Aggressive pulmonary toileting with inspirometer enforced. IV antibiotics as per infectious disease. The impression and plan of care has been dictated as directed. : I performed a history and examination of this patient, discussed the same with the dictator. I agree with the dictator's note ,documented as a scribe. Any additional findings or plans will be noted. <Nicolas Brown - Last Filed: 07/02/18 17:00> Objective - Vital Signs Vital signs: Dictated for Dr Brown] Vital Signs Temp 97.9 F 07/02/18 16:00 Pulse 84 07/02/18 16:30 Resp 22 07/02/18 16:30 BP 132/54 07/02/18 16:30 Pulse Ox 96 07/02/18 16:30 Intake & Output 07/01/18 07/02/18 07/02/18 18:59 06:59 18:59 Intake Total 950 950 875 Output Total 500 645 820 Balance 450 305 55 Weight 124 kg 125 kg Intake: IV 900 900 875 Piperacillin-Tazobactam 3 50 .375 gm In Dextrose/Water 1 50ml.bag @ 12.5 mls/hr IVPB Q8HR [facility] Rx#: [id number] Sodium Chloride 0.9% 1, 900 900 825 000 ml @ 50 mls/hr IV . Q20H [facility] Rx#:[id number] Intake, IV Titration 50 50 Amount Diltiazem 50 mg In Sodium 50 50 Chloride 0.9% 40 ml @ 5 MG/HR 5 mls/hr IV .Q10H [facility] Rx#:[id number] Output: Drainage 90 160 Right Lower Abdomen 90 160 Urine 500 555 660 Other: Voiding Method Indwelling Catheter Indwelling Catheter Indwelling Catheter - Labs CBC & Chem 7: 07/02/18 04:44 07/02/18 04:44 Labs: Abnormal Lab Results - Last 24 Hours (Table) 07/01/18 07/01/18 07/02/18 Range/Units 19:08 21:01 04:44 RBC 3.83 L (4.30-5.90) m/uL Hgb 11.4 L (13.0-17.5) gm/dL Hct 37.5 L (39.0-53.0) % MCHC 30.4 L (31.0-37.0) g/dL Neutrophils # 8.0 H (1.3-7.7) k/uL Lymphocytes # 0.6 L (1.0-4.8) k/uL Chloride (98-107) mmol/L Glucose (74-99) mg/dL POC Glucose (mg/dL) 157 H 127 H (75-99) mg/dL Calcium (8.4-10.2) mg/dL Phosphorus (2.5-4.5) mg/dL 07/02/18 07/02/18 07/02/18 Range/Units 04:44 06:22 11:47 RBC (4.30-5.90) m/uL Hgb (13.0-17.5) gm/dL Hct (39.0-53.0) % MCHC (31.0-37.0) g/dL Neutrophils # (1.3-7.7) k/uL Lymphocytes # (1.0-4.8) k/uL Chloride 108 H (98-107) mmol/L Glucose 122 H (74-99) mg/dL POC Glucose (mg/dL) 118 H 181 H (75-99) mg/dL Calcium 7.9 L (8.4-10.2) mg/dL Phosphorus 2.1 L (2.5-4.5) mg/dL Microbiology - Last 24 Hours (Table) 06/29/18 19:45 Gram Stain - Final Sputum Sputum Culture - Final 06/27/18 20:00 Blood Culture - Preliminary Blood No Growth after 96 hours
[2018-07-02 17:24] LABS: Glucose,Whole Blood 142 mg/dL (75-99)
[2018-07-02 20:55] LABS: Glucose,Whole Blood 118 mg/dL (75-99)
[2018-07-02] MEDS: IPRATROPIUM-ALBUTEROL 3 ML NEB INHALATION PRN (23:03)
--- NOTE | 2018-07-02 23:22 | P.PN ---
Subjective Progress Note Date: 07/02/18 83-year-old male is currently in the intensive care unit intubated sedated and mechanically ventilated information does come from the chart. He does related that before this admission the patient had been seen in the emergency center and did have a short hospitalization. An ultrasound on June 26 reveal evidence of some gallstones but not grossly obstructed. The patient had further imaging studies without evidence of significant stones or obstruction within a short time after the prior ultrasound. The patient then became considerably more symptomatic with severe increasing abdominal pain and constantly presented back to the emergency center. Computed tomography scan was performed showing evidence of cholecystitis with a stone impacted into the neck of the gallbladder and fluid outside of the gallbladder with concerns to the acute infectious process. With this the patient was taken the operating room and there is evidence of bilious staining of the peritoneal fluid and an open cholecystectomy was performed due to his prior abdominal surgeries. The patient was still having some acidosis today and to require some vasopressor therapy overnight and remains mechanically ventilated at this time. He is no longer in vasopressor therapy has responded well to fluids and has adequate urine output throughout the day. There is evidence of significant leukocytosis 06/30/2018 finds the patient to be extubated sitting upright doing relatively well having only abdominal pain as complaints. Relates that his breathing well and is not having the beginning shortness of breath or coughing. Denies fevers or chills. Patient looks forward to be able to eat something. 07/01/2018 patient is sitting up having his lunch having no specific complaints. He is less short of breath and is not having much pain. 07/02/2018 the patient is feeling better. Will be moving out of the ICU today. Shortness of breath and pain improved. He is eating without difficulties. His had a bowel movement. Objective - Vital Signs Vital signs: Vital Signs Temp 98.6 F 07/02/18 22:45 Pulse 68 07/02/18 23:13 Resp 22 07/02/18 22:45 BP 148/74 07/02/18 22:45 Pulse Ox 96 07/02/18 22:45 Intake & Output 07/02/18 07/02/18 07/03/18 06:59 18:59 06:59 Intake Total 950 1025 475 Output Total 645 945 160 Balance 305 80 315 Weight 125 kg Intake: IV 900 1025 475 Piperacillin-Tazobactam 3 50 .375 gm In Dextrose/Water 1 50ml.bag @ 12.5 mls/hr IVPB Q8HR [facility] Rx#: [id number] Sodium Chloride 0.9% 1, 900 975 475 000 ml @ 50 mls/hr IV . Q20H [facility] Rx#:[id number] Intake, IV Titration 50 Amount Diltiazem 50 mg In Sodium 50 Chloride 0.9% 40 ml @ 5 MG/HR 5 mls/hr IV .Q10H [facility] Rx#:[id number] Output: Drainage 90 180 50 Right Lower Abdomen 90 180 50 Urine 555 765 110 Other: Voiding Method Indwelling Catheter Indwelling Catheter Bedpan # Bowel Movements 2 - Exam 83-year-old male who is now extubated sitting upright interacting HEENT: Anicteric conjunctiva are pink and moist nasal mucosa grossly intact without significant lesions, there is no thrush around the endotracheal tube Neck: The neck is supple without significant lymphadenopathy or thyromegaly. Lungs: Symmetrical air entry is noted. Few expiratory wheezes no bronchial sounds Heart: Regular rate and rhythm with an audible S1-S2, no S3 no S4. There is no significant murmur click or rub, PMI was nondisplaced. Abdomen: Obese, hypoactive all sounds, surgical incision intact without significant drainage, MARY drain with serosanguineous drainage Extremities: The upper extremities have excellent pulses they are symmetric, no significant petechiae or telangiectasia. No splinter hemorrhages were noted. The lower extremities have chronic venous stasis and edema no open ulcers Neuro: Patient is awake and alert oriented to person place and time exhibits no acute gross focal sensory motor deficits - Labs CBC & Chem 7: 07/02/18 04:44 07/02/18 04:44 Labs: Abnormal Lab Results - Last 24 Hours (Table) 07/02/18 07/02/18 07/02/18 Range/Units 04:44 04:44 06:22 RBC 3.83 L (4.30-5.90) m/uL Hgb 11.4 L (13.0-17.5) gm/dL Hct 37.5 L (39.0-53.0) % MCHC 30.4 L (31.0-37.0) g/dL Neutrophils # 8.0 H (1.3-7.7) k/uL Lymphocytes # 0.6 L (1.0-4.8) k/uL Chloride 108 H (98-107) mmol/L Glucose 122 H (74-99) mg/dL POC Glucose (mg/dL) 118 H (75-99) mg/dL Calcium 7.9 L (8.4-10.2) mg/dL Phosphorus 2.1 L (2.5-4.5) mg/dL 07/02/18 07/02/18 07/02/18 Range/Units 11:47 17:22 20:53 RBC (4.30-5.90) m/uL Hgb (13.0-17.5) gm/dL Hct (39.0-53.0) % MCHC (31.0-37.0) g/dL Neutrophils # (1.3-7.7) k/uL Lymphocytes # (1.0-4.8) k/uL Chloride (98-107) mmol/L Glucose (74-99) mg/dL POC Glucose (mg/dL) 181 H 142 H 118 H (75-99) mg/dL Calcium (8.4-10.2) mg/dL Phosphorus (2.5-4.5) mg/dL Microbiology - Last 24 Hours (Table) 06/29/18 19:45 Gram Stain - Final Sputum Sputum Culture - Final 06/27/18 20:00 Blood Culture - Preliminary Blood No Growth after 96 hours Laboratory Results WBC 9.4 k/uL (3.8-10.6) 07/02/18 04:44 RBC 3.83 m/uL (4.30-5.90) L 07/02/18 04:44 Hgb 11.4 gm/dL (13.0-17.5) L 07/02/18 04:44 Hct 37.5 % (39.0-53.0) L 07/02/18 04:44 MCV 98.0 fL (80.0-100.0) 07/02/18 04:44 MCH 29.8 pg (25.0-35.0) 07/02/18 04:44 MCHC 30.4 g/dL (31.0-37.0) L 07/02/18 04:44 RDW 14.6 % (11.5-15.5) 07/02/18 04:44 Plt Count 260 k/uL (150-450) 07/02/18 04:44 Neutrophils % 85 % 07/02/18 04:44 Neutrophils % (Manual) 79 % 06/29/18 03:33 Band Neutrophils % 15 % 06/29/18 03:33 Lymphocytes % 6 % 07/02/18 04:44 Lymphocytes % (Manual) 4 % 06/29/18 03:33 Monocytes % 4 % 07/02/18 04:44 Monocytes % (Manual) 3 % 06/29/18 03:33 Eosinophils % 2 % 07/02/18 04:44 Basophils % 0 % 07/02/18 04:44 Neutrophils # 8.0 k/uL (1.3-7.7) H 07/02/18 04:44 Neutrophils # (Manual) 25.50 k/uL (1.3-7.7) H 06/29/18 03:33 Lymphocytes # 0.6 k/uL (1.0-4.8) L 07/02/18 04:44 Lymphocytes # (Manual) 1.09 k/uL (1.0-4.8) 06/29/18 03:33 Monocytes # 0.4 k/uL (0-1.0) 07/02/18 04:44 Monocytes # (Manual) 0.82 k/uL (0-1.0) 06/29/18 03:33 Eosinophils # 0.2 k/uL (0-0.7) 07/02/18 04:44 Basophils # 0.0 k/uL (0-0.2) 07/02/18 04:44 Nucleated RBCs 0 /100 WBC (0-0) 06/29/18 03:33 Manual Slide Review Performed 06/29/18 03:33 Large Platelets Present 06/29/18 03:33 Polychromasia Present 06/29/18 03:33 Hypochromasia Slight 07/02/18 04:44 Poikilocytosis (manual Present 06/29/18 03:33 Anisocytosis (manual) Present 06/29/18 03:33 Macrocytosis Slight 07/01/18 03:43 PT 12.8 sec (9.0-12.0) H 06/29/18 03:33 INR 1.4 (<1.2) H 06/29/18 03:33 APTT 27.2 sec (22.0-30.0) 07/02/18 04:44 Sample Site RRAD 06/30/18 08:52 ABG pH 7.50 (7.35-7.45) H 06/30/18 08:52 ABG pCO2 34 mmHg (35-45) L 06/30/18 08:52 ABG pO2 88 mmHg (83-108) 06/30/18 08:52 ABG HCO3 26 mmol/L (21-25) H 06/30/18 08:52 ABG Total CO2 27 mmol/L (19-24) H 06/30/18 08:52 ABG O2 Saturation 96.7 % (94-97) 06/30/18 08:52 ABG Base Excess 3.1 mmol/L 06/30/18 08:52 Pawan Test Yes 06/30/18 08:52 FiO2 40 % 06/30/18 08:52 Sodium 139 mmol/L (137-145) 07/02/18 04:44 Potassium 3.9 mmol/L (3.5-5.1) 07/02/18 04:44 Chloride 108 mmol/L (98-107) H 07/02/18 04:44 Carbon Dioxide 27 mmol/L (22-30) 07/02/18 04:44 Anion Gap 4 mmol/L 07/02/18 04:44 BUN 17 mg/dL (9-20) 07/02/18 04:44 Creatinine 0.91 mg/dL (0.66-1.25) 07/02/18 04:44 Est GFR (CKD-EPI)AfAm >90 (>60 ml/min/1.73 sqM) 07/02/18 04:44 Est GFR (CKD-EPI)NonAf 78 (>60 ml/min/1.73 sqM) 07/02/18 04:44 Glucose 122 mg/dL (74-99) H 07/02/18 04:44 POC Glucose (mg/dL) 118 mg/dL (75-99) H 07/02/18 20:53 POC Glu [employer] ID Yao Xiong 07/02/18 20:[address] Glu mg/dL 114 06/29/18 03:33 Hemoglobin A1c 5.6 % (4.0-6.0) 06/29/18 03:33 Lactic Ac Sepsis Rflx Y 06/27/18 23:00 Plasma Lactic Acid Tone 3.0 mmol/L (0.7-2.0) H* 06/28/18 02:16 Calcium 7.9 mg/dL (8.4-10.2) L 07/02/18 04:44 Phosphorus 2.1 mg/dL (2.5-4.5) L 07/02/18 04:44 Magnesium 2.1 mg/dL (1.6-2.3) 07/02/18 04:44 Total Bilirubin 1.1 mg/dL (0.2-1.3) 07/01/18 03:43 AST 23 U/L (17-59) 07/01/18 03:43 ALT 31 U/L (21-72) 07/01/18 03:43 Alkaline Phosphatase 45 U/L (38-126) 07/01/18 03:43 Total Creatine Kinase 37 U/L (55-170) L 06/28/18 03:32 CK-MB (CK-2) 0.7 ng/mL (0.0-2.4) 06/28/18 03:32 CK-MB (CK-2) Rel Index 1.9 06/28/18 03:32 Troponin I 0.061 ng/mL (0.000-0.034) H* 06/28/18 06:54 NT-Pro-B Natriuret Pep 3570 pg/mL 07/02/18 04:44 Total Protein 4.4 g/dL (6.3-8.2) L 07/01/18 03:43 Albumin 2.1 g/dL (3.5-5.0) L 07/01/18 03:43 Amylase 46 U/L (30-110) 06/27/18 19:10 Lipase 42 U/L (23-300) 06/27/18 19:10 Urine Color Yellow 06/29/18 07:00 Urine Appearance Cloudy (Clear) 06/29/18 07:00 Urine pH 5.5 (5.0-8.0) 06/29/18 07:00 Ur Specific [place] 1.026 (1.001-1.035) 06/29/18 07:00 Urine Protein 1+ (Negative) H 06/29/18 07:00 Urine Glucose (UA) Negative (Negative) 06/29/18 07:00 Urine Ketones 1+ (Negative) H 06/29/18 07:00 Urine Blood Trace (Negative) H 06/29/18 07:00 Urine Nitrite Negative (Negative) 06/29/18 07:00 Urine Bilirubin Negative (Negative) 06/29/18 07:00 Urine Urobilinogen <2.0 mg/dL (<2.0) 06/29/18 07:00 Ur Leukocyte Esterase Negative (Negative) 06/29/18 07:00 Urine RBC 2 /hpf (0-5) 06/29/18 07:00 Urine WBC 10 /hpf (0-5) H 06/29/18 07:00 Urine WBC Clumps Occasional /hpf (None) H 06/29/18 07:00 Ur Squamous Epith Cells 1 /hpf (0-4) 06/29/18 07:00 Microbiology 06/29/18 19:45 Sputum Gram Stain - Final 06/29/18 19:45 Sputum Sputum Culture - Final 06/27/18 20:00 Blood Blood Culture - Preliminary No Growth after 96 hours 06/29/18 07:00 Urine,Catheterized Urine Culture - Final Assessment and Plan (1) Acute cholecystitis due to biliary calculus Narrative/Plan: 83-year-old male presents to hospital with significant abdominal pain. He has noted had been hospitalized with abdominal pain and evaluations failed to reveal evidence of acute obstruction of the biliary tract. However repeat presentation the patient had markedly increased abdominal pain, computed tomography scan showed evidence of cholecystitis, stone obstructing the neck of the gallbladder and evidence of fluid outside of the gallbladder. Patient Was Taken to the Operating Room with Evidence of Leakage of Bile into the Peritoneal Cavity and Open Cholecystectomy Was Performed. The patient is hemodynamically stable no longer requiring vasopressor therapy. Cultures are in process. Antimicrobial therapy with Zosyn is adequate at this point in time given the current clinical situation. Cultures will further help direct therapy. If the patient is not extubated will need to have nutritional assessments in supplementation. The patient's leukocytosis is directly related to the cholecystitis and bile peritonitis. With the surgical intervention, lavage and antibiotic therapy. Expect this to rapidly improve. The patient's lactic acidosis and recent acidosis or due to his sepsis and is this is being corrected expect this to rapidly improved. His fever has resolved. The patient does have underlying diabetes which is routinely well controlled but with sepsis has had some elevated blood glucose that is being closely monitored and treated. 06/30/2018 finds a patient the considerably improved today. He has been extubated and is comfortable. Denies any respiratory distress. Only complaint is of some abdominal pain which he relates is doing better today than when he presented to Hospital. Is denying nausea or emesis. As noted he does have leukocytosis. Cultures are in process we'll continue current antibiotics and monitor. We'll have plans for antibiotic therapy 07/01/2018 83-year-old male who is improving status post his surgery has remained extubated and is having no acute pulmonary symptoms today. Abdominal pain is improving and he is able to take some clear liquids at this time. He is still waiting for flatus and a bowel movement. Deny other acute difficulties at this time we'll continue intravenous antibiotic therapy with Zosyn for coverage of the intra-abdominal infection related to the cholecystitis. The significant leukocytosis from his intra-abdominal sepsis is improved and is being further monitored. 07/02/2018 patient has had further improvement and will move out of the ICU today. Abdominal pain is improved he's had a bowel movement and is eating solids without great difficulties. No nausea or emesis. Await cultures to further direct antimicrobial therapy. Fortunately he's had a significant improvement till now his abdominal pain is definitely improved. Current Visit: Yes Status: Acute Code(s): K80.00 - CALCULUS OF GALLBLADDER W ACUTE CHOLECYST W/O OBSTRUCTION SNOMED Code(s): 66244395064356 (2) Bile peritonitis Current Visit: Yes Status: Acute Code(s): K65.3 - CHOLEPERITONITIS SNOMED Code(s): 04627584 (3) Leukocytosis Current Visit: Yes Status: Acute Code(s): D72.829 - ELEVATED WHITE BLOOD CELL COUNT, UNSPECIFIED SNOMED Code(s): 342260606 (4) Lactic acidosis Current Visit: Yes Status: Acute Code(s): E87.2 - ACIDOSIS SNOMED Code(s) : 11621453
[2018-07-03] MEDS: PIPERACILLIN-TAZOBACTAM 3.375 GM in DEXTROSE/WATER 1 50ML.BAG IVPB SCH ×4 (00:04→23:14)
[2018-07-03] MEDS: SODIUM CHLORIDE 0.9% 1,000 ML IV SCH ×2 (05:50→20:54)
[2018-07-03 07:15] LABS: Glucose,Whole Blood 103 mg/dL (75-99)
[2018-07-03] MEDS: INSULIN ASPART 100 UNIT/ML 1 ML 10 ML VIAL SQ SCH ×4 (07:46→20:54)
[2018-07-03] MEDS: APIXABAN 5 MG TAB PO SCH ×2 (07:51→20:54)
[2018-07-03] MEDS: METOPROLOL TARTRATE 25 MG TAB PO SCH ×2 (07:51→20:54)
[2018-07-03] MEDS: PANTOPRAZOLE 40 MG/10 ML VIAL IV SCH (07:51)
[2018-07-03 08:31] LABS: Basophils # (A) 0.1 k/uL (0-0.2); Basophils % (A) 1 %; Eosinophils # (A) 0.2 k/uL (0-0.7); Eosinophils % (A) 2 %; HCT 41.2 % (39.0-53.0); HGB 12.7 gm/dL (13.0-17.5); Hypochromasia Slight; Lymphocytes # (A) 0.7 k/uL (1.0-4.8); Lymphocytes % (A) 6 %; MCH 30.6 pg (25.0-35.0); MCHC 30.8 g/dL (31.0-37.0); MCV 99.5 fL (80.0-100.0); Mean Platelet Volume 7.9; Monocytes # (A) 0.5 k/uL (0-1.0); Monocytes % (A) 5 %; Neutrophils # (A) 8.8 k/uL (1.3-7.7); Neutrophils % (A) 84 %; Platelet Count 298 k/uL (150-450); RBC 4.14 m/uL (4.30-5.90); RDW 14.4 % (11.5-15.5); WBC 10.5 k/uL (3.8-10.6)
[2018-07-03] MEDS: IPRATROPIUM-ALBUTEROL 3 ML NEB INHALATION SCH ×4 (08:38→20:35)
[2018-07-03 08:39] LABS: Calcium 8.2 mg/dL (8.4-10.2); Phosphorus 2.3 mg/dL (2.5-4.5); Potassium 3.8 mmol/L (3.5-5.1)
[2018-07-03] MEDS: HYDROmorphone 1 MG/ML 1 ML SYRINGE IVP PRN ×2 (10:05→18:51)
[2018-07-03] MEDS: DILTIAZEM ORAL 60 MG TAB PO SCH ×2 (10:05→14:23)
[2018-07-03] MEDS ORDERED: FUROSEMIDE 10 MG/ML 4 ML VIAL IV STA (11:14)
--- NOTE | 2018-07-03 11:14 | P.PN ---
<Daisy Christianson - Last Filed: 07/03/18 11:05> Subjective Progress Note Date: 07/03/18 83-year-old male resting in bed. On a bedpan. States had a bowel movement. Passing gas was extubated over the weekend transferred out of the ICU yesterday. Patient's chief complaint of feeling tired. Reportedly tolerating a diet passing gas MARY drain serosanguineous drainage. Abdominal binder in place White count 10.5 status post open cholecystectomy, laparoscopic lysis of adhesions Objective - Vital Signs Vital signs: Vital Signs Temp 98.0 F 07/03/18 07:20 Pulse 76 07/03/18 07:20 Resp 20 07/03/18 07:21 BP 154/82 07/03/18 07:20 Pulse Ox 97 07/03/18 07:20 Intake & Output 07/02/18 07/03/18 07/03/18 18:59 06:59 18:59 Intake Total 1025 875 Output Total 945 160 Balance 80 715 Intake: IV 1025 875 Piperacillin-Tazobactam 3 50 .375 gm In Dextrose/Water 1 50ml.bag @ 12.5 mls/hr IVPB Q8HR [facility] Rx#: [id number] Sodium Chloride 0.9% 1, 975 875 000 ml @ 50 mls/hr IV . Q20H [facility] Rx#:[id number] Output: Drainage 180 50 Right Lower Abdomen 180 50 Urine 765 110 Other: Voiding Method Indwelling Catheter Bedpan Indwelling Catheter # Bowel Movements 2 - Exam Physical exam 83-year-old male sitting up in bed on a bedpan states passing gas small bowel movement Lungs nasal cannula 4 L decreased at the bases no shortness of breath Heart S1-S2 audible regular Abdomen abdominal binder in place with the MARY drain serosanguineous drainage surgical tenderness appropriate Q hypoactive bowel tones indwelling Mae catheter in place Extremities Venodyne's on bilateral lower extremities - Labs CBC & Chem 7: 07/03/18 08:12 07/03/18 08:12 Labs: Abnormal Lab Results - Last 24 Hours (Table) 07/02/18 07/02/18 07/02/18 Range/Units 11:47 17:22 20:53 RBC (4.30-5.90) m/uL Hgb (13.0-17.5) gm/dL MCHC (31.0-37.0) g/dL Neutrophils # (1.3-7.7) k/uL Lymphocytes # (1.0-4.8) k/uL Glucose (74-99) mg/dL POC Glucose (mg/dL) 181 H 142 H 118 H (75-99) mg/dL Calcium (8.4-10.2) mg/dL Phosphorus (2.5-4.5) mg/dL 07/03/18 07/03/18 07/03/18 Range/Units 07:14 08:12 08:12 RBC 4.14 L (4.30-5.90) m/uL Hgb 12.7 L (13.0-17.5) gm/dL MCHC 30.8 L (31.0-37.0) g/dL Neutrophils # 8.8 H (1.3-7.7) k/uL Lymphocytes # 0.7 L (1.0-4.8) k/uL Glucose 119 H (74-99) mg/dL POC Glucose (mg/dL) 103 H (75-99) mg/dL Calcium 8.2 L (8.4-10.2) mg/dL Phosphorus 2.3 L (2.5-4.5) mg/dL Microbiology - Last 24 Hours (Table) 06/27/18 20:00 Blood Culture - Preliminary Blood No Growth after 120 hours 06/29/18 19:45 Gram Stain - Final Sputum Sputum Culture - Final Assessment and Plan Assessment: Impression Acute Perforated gangrenous cholecystitis with intra-abdominal adhesions status post open cholecystectomy, laparoscopic lysis of adhesions Septic shock secondary to acute cholecystitis Acute cholecystitis due to biliary calculus Plan Continue postop surgical care Pain control PT OT Keep drain for now IV Zosyn as ordered DVT and GI prophylaxis The above impression and plan of care have been discussed and directed by signing physician. Daisy Christianson nurse practitioner acting as scribe for signing physician. <Dean Oconnor - Last Filed: 07/03/18 20:01> Objective - Vital Signs Vital signs: Vital Signs Temp 96.7 F L 07/03/18 17:00 Pulse 108 H 07/03/18 19:02 Resp 18 07/03/18 17:00 BP 120/69 07/03/18 17:00 Pulse Ox 93 L 07/03/18 17:00 Intake & Output 07/03/18 07/03/18 07/04/18 06:59 18:59 06:59 Intake Total 875 290 Output Total 160 3560 Balance 715 -3270 Intake: IV 875 50 Piperacillin-Tazobactam 3 50 .375 gm In Dextrose/Water 1 50ml.bag @ 12.5 mls/hr IVPB Q8HR [facility] Rx#: [id number] Sodium Chloride 0.9% 1, 875 000 ml @ 50 mls/hr IV . Q20H [facility] Rx#:[id number] Oral 240 Output: Drainage 50 360 Right Lower Abdomen 50 360 Urine 110 3200 Uretheral (Mae) 2500 Other: Voiding Method Bedpan Indwelling Catheter - Labs CBC & Chem 7: 07/03/18 08:12 07/03/18 08:12 Labs: Abnormal Lab Results - Last 24 Hours (Table) 07/02/18 07/03/18 07/03/18 Range/Units 20:53 07:14 08:12 RBC 4.14 L (4.30-5.90) m/uL Hgb 12.7 L (13.0-17.5) gm/dL MCHC 30.8 L (31.0-37.0) g/dL Neutrophils # 8.8 H (1.3-7.7) k/uL Lymphocytes # 0.7 L (1.0-4.8) k/uL Glucose (74-99) mg/dL POC Glucose (mg/dL) 118 H 103 H (75-99) mg/dL Calcium (8.4-10.2) mg/dL Phosphorus (2.5-4.5) mg/dL 07/03/18 07/03/18 07/03/18 Range/Units 08:12 11:37 16:54 RBC (4.30-5.90) m/uL Hgb (13.0-17.5) gm/dL MCHC (31.0-37.0) g/dL Neutrophils # (1.3-7.7) k/uL Lymphocytes # (1.0-4.8) k/uL Glucose 119 H (74-99) mg/dL POC Glucose (mg/dL) 185 H 152 H (75-99) mg/dL Calcium 8.2 L (8.4-10.2) mg/dL Phosphorus 2.3 L (2.5-4.5) mg/dL Microbiology - Last 24 Hours (Table) 06/27/18 20:00 Blood Culture - Preliminary Blood No Growth after 120 hours Assessment and Plan Assessment: As above. Patient doing well. Minimal pain. MARY drain serosanguineous. Incision is clean and dry. Tolerating regular diet. Having bowel movement. Continue antibiotics. Monitor A. fib. (1) Acute cholecystitis due to biliary calculus Current Visit: Yes Status: Acute Code(s): K80.00 - CALCULUS OF GALLBLADDER W ACUTE CHOLECYST W/O OBSTRUCTION SNOMED Code(s): 44108960485720
[2018-07-03 11:39] LABS: Glucose,Whole Blood 185 mg/dL (75-99)
--- NOTE | 2018-07-03 13:17 | P.PN ---
Subjective Progress Note Date: 07/03/18 This is a 83-year-old white male patient with past medical history of COPD, underlying FEV1 of 63% of predicted, diabetes mellitus, BPH, CHF, hypertension, presented to the emergency department on 06/27/2018 for evaluation of acute abdominal pain. Patient symptoms started in the morning on 06/27/2018, with lower abdominal pain that progressively increased, and spread to the upper quadrants. Patient was recently in the hospital similar symptoms, and there was a concern for gallstones. Gallbladder ultrasound from 06/27/2018 showed no gallstones or dilated ducts, and mild right renal cortical atrophy. Abdominal/ pelvis CT from 06/28/2018 showed gallstones, possible gallstone impacted in the gallbladder neck, small amount of fluid at the nat hepatis as well as the anterior perirenal space related to inflammatory process and cholecystitis. Lab work showed leukocytosis WBC of 22.1, hemoglobin of 16.1, INR was elevated to 1.4, patient had mild lactic acidosis of 2.1 which subsequently increased to 3.0, non-anion gap metabolic acidosis, patient was slightly prerenal. Patient had a low-grade fever, he has been tachycardic with a rate of 116 BPM. In sinus mechanism. Troponins were elevated at 0.082, 0.059, and 0.061. Patient was given a total of 4 L of 0.9 normal saline, has not required any vasopressor support. He is having significant amount of discomfort across his upper quadrant under his rib cage, he states it hurts for him to take deep breaths and cough. Is also having discomfort in his left lower quadrant, and tenderness over right upper quadrant. He has bowel sounds 4, he is receiving pain medications, however his pain continues to increase. Gen. surgery has been consulted, and exposure laparotomy was recommended. General surgery consult was placed and patient was recommended laparoscopic examination with anticipated cholecystectomy. Patient does have a history of previous aortobifem bypass, and subsequent hernia repair with mesh. In addition patient admits to passing dark tarry stools about a week ago. Work consult in regards to pulmonary clearance for the surgical procedure and this afternoon. As far as patient's history of COPD patient is not on any oxygen, his only inhaler is his rescue inhaler. Physical exam does not reveal any significant signs of wheezing, or shortness of breath, other than that related to his abdominal pain. Was also seen by cardiology, echocardiogram was completed, and over left ventricle systolic function is within normal limits with an EF between 60-65% There was severe pulmonary hypertension, right ventricular systolic pressure not provided. Moderate pulmonic regurgitation, with mild tricuspid regurgitation. Patient has a previous history of diverticulitis. On 06/29/2018, patient is being seen in the intensive care unit. The patient underwent his surgery yesterday. The patient was found to have acute perforated gangrenous cholecystitis. Initially the procedure was started laparoscopic and ultimately the patient underwent a laparotomy and open cholecystectomy with lysis of adhesions. Postop the patient was extubated in the operating room and in recovery the patient was doing poorly and he was becoming progressively more short of breath and tachypneic and tachycardic and hypotensive. At that point it was decided to reintubate the patient. The patient was intubated and was moved to the intensive care unit. Upon arrival his systolic blood pressure was in the low 50s. He was in nature fibrillation with rapid ventricular response with a heart rate in the 120 to 130 range. He was intubated on a mechanical ventilator and and a chest x-ray showed mild CHF with small bilateral pleural effusions. ET tube was in a good location was around 3 cm from the arslan. The patient is an assist-control mode of ventilation. The initial blood gas showed a pH of 7.21 with a pCO2 of 36 and pO2 of 1 and 15. As such the FiO2 was gradually weaned off. The patient was also given immediately 3 L of IV fluids in the form of normal saline. The patient was started on pressors and he was brought up to 5 mics of norepinephrine infusion overnight and currently this morning he is off pressors. Most recent blood gases from this morning showed a pH of 7.29 with a pCO2 of 31 and pO2 127. This current vent settings for now is a Tidal volume is at 550 with an FiO2 of 40% and PEEP of 5. Based on all this, I give the patient to have some bicarb was started on bicarb infusion this morning. He was quite acidotic with a bicarb level of 15 and a anion gap of 11. Currently the patient is also on a bicarb drip at the rate of 100 mL an hour. Repeat blood gases this afternoon showed a pH of 7.35 with a pCO2 of 36 and pO2 of 97. The patient was given a sedation holiday this morning. He became immediately tachypneic and uncomfortable with any sweating with parameters without poor and based on that the trial was aborted. His creatinine today is 1.3. Urine output is low in the order of 10-20 mL an hour and is improving. He is on empiric antibiotic coverage with IV Zosyn. Most recent lactic acid level venous sample was at 3.0. He is nothing by mouth for now. The surgical wound site over the anterior abdominal wall is dry clean and intact. As mentioned, she is currently off pressors. On 06/30/2018 I'm seeing this patient for a follow-up. This morning the patient is off sedation, comfortable awake and following commands and answering questions appropriately. The patient had adequate weaning parameters and the patient is in the process of getting a spontaneous breathing trial a pressure support of 5 and a PEEP of 5 and a blood gases to follow. Chest x-ray showed adequate expansion of both lungs with small bilateral pleural effusions. ET tube is in a good location. The patient is hemodynamically stable. This morning, the blood gases show a pH of 7.46 with a pCO2 of 36 and pO2 of 79 and this was on FiO2 of 40% with a PEEP of 5 and a tidal volume of 550. White cell count is down to 11.8. The patient is afebrile. Urine output is order of 30 mL an hour. Serum bicarb is up to 26 while the patient receiving a bicarb drip infusion. Abdomen is soft. MARY drain output is minimal at this point. The patient remains on IV Zosyn. 07/01/2008 Seeing this patient for a follow-up. The patient is calm and comfortable. Earlier this morning at around 7:00 he went into atrial fibrillation with rapid ventricular response. Heart rate was in the 130s. He was started on Cardizem drip. Currently is on 7.5 mg of Cardizem and his heart rate slowed done and ultimately converted to sinus rhythm at around 11:00 this morning. The patient remained hemodynamically stable. The patient is still not having any flatus or bowel movement although has decent amount of bowel sounds. Surgical wound site is clean. MARY drain has drained approximately 60 mL over the past 24 hours. No chest pain. No shortness of breath. White cell count is at 8.2. The rest of the blood work is all within normal limits. Producing approximately 30-50 mL of urine output on an hourly basis. 07/02/2018, the patient is awake and alert and following commands and answering questions. His rhythm is back to normal sinus. He is off the Cardizem drip. He has not required any further cardiac interventions knowing that his cardiac rhythm remained sinus throughout the day for yesterday and throughout the night. He is producing adequate amount of urine output. MARY drain is in place. Abdomen is nondistended. The patient had some flatness. Tolerating liquid diet. No shortness of breath. No cough or sputum production. He is a bit weak and he is laying in bed most of the time. Would like to get him out on a bedside chair. No fever. No chills. No sweats. White cell count is stable at 9.4. 07/03/2018 the patient got transferred to a medical surgical floor. He is recovering well. He is sinus rhythm. His MARY drain is in place. His abdomen is nondistended. His surgical wound site is clean. No nausea. No vomiting. No abdominal pain. No abdominal distention. He is passing flatus. He is noted to have some increased edema specially in the scrotum and the patient will be given a dose of Lasix. No respiratory distress. No altered mentation. He is on IV Zosyn still. Pain is under good control. He is using Eliquis 5 mg by mouth twice a day. He is on DuoNeb nebulized treatments around the clock. He got transferred out of the intensive care unit yesterday. He was able to stand up and sit up on a chair. He malignant is stable at 10.5. Rest of the electrodes are all within normal limits. Objective - Vital Signs Vital signs: Vital Signs Temp 98.0 F 07/03/18 07:20 Pulse 76 07/03/18 07:20 Resp 20 07/03/18 07:21 BP 154/82 07/03/18 07:20 Pulse Ox 97 07/03/18 07:20 Intake & Output 07/02/18 07/03/18 07/03/18 18:59 06:59 18:59 Intake Total 1025 875 50 Output Total 945 160 80 Balance 80 715 -30 Intake: IV 1025 875 50 Piperacillin-Tazobactam 3 50 50 .375 gm In Dextrose/Water 1 50ml.bag @ 12.5 mls/hr IVPB Q8HR [facility] Rx#: [id number] Sodium Chloride 0.9% 1, 975 875 000 ml @ 50 mls/hr IV . Q20H [facility] Rx#:[id number] Output: Drainage 180 50 80 Right Lower Abdomen 180 50 80 Urine 765 110 Other: Voiding Method Indwelling Catheter Bedpan Indwelling Catheter # Bowel Movements 2 - Exam Awake and alert and not in acute distress. Head exam was generally normal. There was no scleral icterus or corneal arcus. Mucous membranes were moist. Neck was supple and without jugular venous distension, thyromegaly, or carotid bruits. Carotids were easily palpable bilaterally. There was no adenopathy. Lungs sounds are diminished bilaterally along with some few scattered expiratory wheeze otherwise clear. Cardiac exam revealed the PMI to be normally situated and sized. The rhythm was regular and no extrasystoles were noted during several minutes of auscultation. The first and second heart sounds were normal and physiologic splitting of the second heart sound was noted. There were no murmurs, rubs, clicks, or gallops. Abdomen is soft and there is a mid abdominal incision which is dry clean and intact. There is no direct tenderness rebound tensile guarding. The patient has a right upper quadrant MARY drain outputs of which is minimal at this point Extremities show trace edema and there is no cyanosis or clubbing at this point. Neurologically the patient is awake and alert and there is no focal neurological deficit. - Labs CBC & Chem 7: 07/03/18 08:12 07/03/18 08:12 Labs: Abnormal Lab Results - Last 24 Hours (Table) 07/02/18 07/02/18 07/03/18 Range/Units 17:22 20:53 07:14 RBC (4.30-5.90) m/uL Hgb (13.0-17.5) gm/dL MCHC (31.0-37.0) g/dL Neutrophils # (1.3-7.7) k/uL Lymphocytes # (1.0-4.8) k/uL Glucose (74-99) mg/dL POC Glucose (mg/dL) 142 H 118 H 103 H (75-99) mg/dL Calcium (8.4-10.2) mg/dL Phosphorus (2.5-4.5) mg/dL 07/03/18 07/03/18 07/03/18 Range/Units 08:12 08:12 11:37 RBC 4.14 L (4.30-5.90) m/uL Hgb 12.7 L (13.0-17.5) gm/dL MCHC 30.8 L (31.0-37.0) g/dL Neutrophils # 8.8 H (1.3-7.7) k/uL Lymphocytes # 0.7 L (1.0-4.8) k/uL Glucose 119 H (74-99) mg/dL POC Glucose (mg/dL) 185 H (75-99) mg/dL Calcium 8.2 L (8.4-10.2) mg/dL Phosphorus 2.3 L (2.5-4.5) mg/dL Microbiology - Last 24 Hours (Table) 06/27/18 20:00 Blood Culture - Preliminary Blood No Growth after 120 hours 06/29/18 19:45 Gram Stain - Final Sputum Sputum Culture - Final Assessment and Plan Plan: Assessment 1 acute perforated cholecystitis with secondary sepsis. Patient is postcholecystectomy/extra laparotomy and open cholecystectomy and lysis of adhesions. The patient is postop day #5 2 septic shock secondary to above. The patient is recovered. Hemodynamic is stable. Currently on IV Zosyn. The patient is hemodynamic is stable and the sepsis has recovered and the he remains on IV Zosyn. 3 leukocytosis secondary to above improved and recovered and normalized 4 acute hypoxic failure post cholecystectomy. Please see discussion above 5 single episode of atrial fibrillation in patient's rhythm is back to sinus. He is on long-term and to coagulation with Eliquis, therapeutic dose. 6 congestion heart failure, essentially diastolic in nature 7 COPD with an FEV1 of 60% of predicted 8 peripheral vascular disease with a previous aortobifemoral bypass surgery 9 history of hypertension 10 history of secondary pulmonary hypertension 11 history of diverticulosis and previous history of diverticulitis 12 previous history of diabetes mellitus. 13 acute kidney injury, recovered 14 troponin leak secondary to sepsis Plan Lasix 40 mg IV push 1. Continue IV Zosyn. Continue Eliquis. Monitor MARY drain. Increased level of activity as tolerated. Increased mobility. Surgeries on the case. The patient is out of the intensive care unit on the surgical floor. We'll continue to see him on a on as needed basis. He is stable for now.
[2018-07-03] MEDS ORDERED: METOPROLOL TARTRATE 50 MG TAB PO STA (14:19)
--- NOTE | 2018-07-03 14:43 | P.PN ---
Subjective Mr. Haynes is seen and examined earlier today resting in bed. He is complaining of significant abdominal pain 05/01. He denies chest pain, shortness of breath, palpitations or dizziness. Blood pressure 154/82 heart rate 76 documented in the computer, called just now from nursing that he is in atrial fibrillation with rapid ventricular response heart rate in the 140's. Last dose of cardizem and lopressor was this morning. Laboratory data reviewed, hemoglobin 12.7, platelets 298, sodium 142, potassium 3.8, magnesium 2.0, creatinine 0.94. He was transferred from ICU today in sinus mechanism. Objective - Vital Signs Vital signs: Vital Signs Temp 98.0 F 07/03/18 07:20 Pulse 76 07/03/18 07:20 Resp 20 07/03/18 07:21 BP 154/82 07/03/18 07:20 Pulse Ox 97 07/03/18 07:20 Intake & Output 07/02/18 07/03/18 07/03/18 18:59 06:59 18:59 Intake Total 1025 875 50 Output Total 882 640 8904 Balance 80 715 -1660 Intake: IV 1025 875 50 Piperacillin-Tazobactam 3 50 50 .375 gm In Dextrose/Water 1 50ml.bag @ 12.5 mls/hr IVPB Q8HR [facility] Rx#: [id number] Sodium Chloride 0.9% 1, 975 875 000 ml @ 50 mls/hr IV . Q20H [facility] Rx#:[id number] Output: Drainage 180 50 210 Right Lower Abdomen 180 50 210 Urine 809 064 5664 Uretheral (Mae) 1500 Other: Voiding Method Indwelling Catheter Bedpan Indwelling Catheter # Bowel Movements 2 - Exam GENERAL: Well-appearing, well-nourished and in no acute distress. NECK: Supple without JVD or thyromegaly. LUNGS: Breath sounds clear to auscultation bilaterally. Respiration equal and unlabored. No wheezes, rales or rhonchi. HEART: Regular rate and rhythm with systolic ejection murmur, no rubs or gallops. S1 and S2 heard. EXTREMITIES: Normal range of motion, no edema. No clubbing or cyanosis. Peripheral pulses intact. - Labs CBC & Chem 7: 07/03/18 08:12 07/03/18 08:12 Labs: Abnormal Lab Results - Last 24 Hours (Table) 07/02/18 07/02/18 07/03/18 Range/Units 17:22 20:53 07:14 RBC (4.30-5.90) m/uL Hgb (13.0-17.5) gm/dL MCHC (31.0-37.0) g/dL Neutrophils # (1.3-7.7) k/uL Lymphocytes # (1.0-4.8) k/uL Glucose (74-99) mg/dL POC Glucose (mg/dL) 142 H 118 H 103 H (75-99) mg/dL Calcium (8.4-10.2) mg/dL Phosphorus (2.5-4.5) mg/dL 07/03/18 07/03/18 07/03/18 Range/Units 08:12 08:12 11:37 RBC 4.14 L (4.30-5.90) m/uL Hgb 12.7 L (13.0-17.5) gm/dL MCHC 30.8 L (31.0-37.0) g/dL Neutrophils # 8.8 H (1.3-7.7) k/uL Lymphocytes # 0.7 L (1.0-4.8) k/uL Glucose 119 H (74-99) mg/dL POC Glucose (mg/dL) 185 H (75-99) mg/dL Calcium 8.2 L (8.4-10.2) mg/dL Phosphorus 2.3 L (2.5-4.5) mg/dL Microbiology - Last 24 Hours (Table) 06/27/18 20:00 Blood Culture - Preliminary Blood No Growth after 120 hours Assessment and Plan Assessment: ASSESSMENT Abdominal pain s/p open cholecystectomy and lysis of adhesions with perforated gangrenous cholecystitis Paroxysmal atrial fibrillation with rapid ventricular response Leukocytosis Lactic acidosis Hyponatremia Mild troponin leak, not indicative of an acute coronary event. Hypertension Diabetes mellitus Pulmonary hypertension PLAN Give dose of lopressor 50 mg x1 now. Give scheduled dose of cardizem now. Ongoing telemetry monitoring. If heart rate does not come down in 1 hour may need cardizem infusion. We will continue to follow closely. Nurse Practitioner note has been reviewed, I agree with a documented findings and plan of care. Patient was seen and examined.
--- NOTE | 2018-07-03 15:29 | P.PN ---
Subjective Progress Note Date: 07/03/18 Progress note being dictated for Dr. Brown. Interval history:Patient is a 83-year-old male with a known history of COPD, diabetes type 2 [id number], peripheral vascular disease with bilateral femoropopliteal bypass surgery, previous history of smoking came to ER with complaints of abdominal pain along with nausea and vomiting. Patient was recently admitted to hospital on 06/26/2018 with similar complaints when he had CT of abdomen pelvis showed gallstones and mild pancreatitis. Patient also found have fat stranding around gallbladder and was recommended surgery at the time. Patient wants to proceed with the surgery as outpatient and patient was discharged eventually. Patient came back to the hospital with similar complaints. Patient is complaining of abdominal pain mainly left lower quadrant and right flank area as well. Denied any complaints of chest pain or shortness of breath. No fever no chills. He states the pain is moving from one side to the other with no specific aggravating factors. EKG sinus rhythm with no acute ST-T wave changes Chest x-ray showed mild cardiomegaly with no heart failure and no cardiomegaly pulmonary process. WBC 22.1 Lactic acid 3.0 Magnesium 1.8 Troponin 0.082, 0.059 and 0.061 Patient is tachycardic with heart rate 116 now. 2-D echocardiogram was done. Echocardiogram obtained reveals preserved left ventricular systolic function with ejection fraction 60-65%, mildly enlarged right ventricle, mild aortic valve sclerosis with no stenosis, mild TR and severe pulmonary hypertension with an RVSP 64.93 mmHg. Abdominal x-ray showed small bowel distention compared to last exam could be due to partial mechanical obstruction or ileus. No free air. Ultrasound abdomen showed no gallstones or dilated ducts. Mild right renal outcome atrophy. CT abdomen and pelvis showed gallstones. There is some fat stranding around the gallbladder. And a small amount of fluid at the nat hepatis as well as the anterior pararenal space this is new compared to recent computed tomography scan and related inflammatory process and cholecystitis. Sigmoid diverticulosis Review of Systems Constitutional: Patient denies any fever or chills . No generalized weakness or weight loss. Abdomen: Patient does have abdominal pain with nausea and vomiting. No diarrhea. Cardiovascular: Patient denies any chest pain or short of breath no palpitations. Respiratory: patient denied any cough is from production. No shortness of breath Neurologic: Patient denied any numbness or tingling headache. Musculoskeletal: Patient denies any complaints of joint swelling or deformity. Skin: Negative Psychiatric: Negative Endocrine: No heat or cold intolerance. No recent weight gain. Genitourinary: No dysuria or hematuria. All other 14 point ROS negative except the above 06/29/18 required reintubation yesterday in the recovery room , hypotensive, A. fib with RVR.chest x-ray reported mild CHF, small pleural effusions .received 3 L of IV fluids, pressors initiated.Converted to sinus rhythm. This morning , weaned off sedation, following commands appropriately, became tachypneic, failed weaning parameters. Acidotic ABGs, bicarb drip initiated. CO2 15. Maintained on mechanical ventilation, FiO2 of 40%/+5 of PEEP. Levophed weaned off early this morning. Creatinine 1.3, low urine output Anticoagulation remains on hold for another 24 hours as per cardiology. Maintained on IV antibiotics as per infectious disease. 07/02/18 extubated over the weekend, maintaining O2 sats in high 90s on 4 L nasal cannula O2. Pain better controlled. Tolerating full liquids, passing flatus and bowel movement. Converted back to sinus rhythm, Cardizem drip discontinued, converted to oral. 07/03/18 transferred out of ICU yesterday afternoon , currently on MedSurg unit. reports passing flatus, positive bowel movement. Tolerating diet with no nausea or vomiting. Yesterday stood at bedside with physical therapy. Pain control improved. Maintained on Zosyn, nebulized bronchodilators. Maintaining O2 sats of high 90s on 4 L nasal cannula. Received a dose of Lasix for increased scrotal edema. Afebrile, normal WBC. Developed atrial fibrillation with RVR this afternoon. Evaluated by cardiology received additional dose of beta obey, Cardizem administered early. Review of systems: CONSTITUTIONAL: Positive fatigue. HEENT: No recent visual problems or hearing problems. Denied any sore throat. CARDIOVASCULAR: No chest pain, positive palpitations. Reports no prior history of arrhythmias, A. fib. PULMONARY: No shortness of breath, no cough, no hemoptysis. GASTROINTESTINAL: Passing flatus, positive bowel movement. No nausea or vomiting. NEUROLOGICAL: No headaches, generalized weakness, no numbness. HEMATOLOGICAL: Denies any bleeding or petechiae. GENITOURINARY: Denies any burning micturition, frequency, or urgency. ENDOCRINE: Denies any polyuria or polydipsia. PSYCHIATRIC: No anxiety, no depression The rest of the 14 point review of systems is negative Active Medications Albuterol/Ipratropium (Duoneb 0.5 Mg-3 Mg/3 Ml Soln) 3 ml INHALATION RT-Q2H PRN PRN Reason: Shortness Of Breath Or Wheezing Last Admin: 07/02/18 23:03 Dose: 3 ml Albuterol/Ipratropium (Duoneb 0.5 Mg-3 Mg/3 Ml Soln) 3 ml INHALATION RT-QID [facility] Last Admin: 07/03/18 12:14 Dose: Not Given Apixaban (Eliquis) 5 mg PO BID [facility] Last Admin: 07/03/18 07:51 Dose: 5 mg Diltiazem HCl (Cardizem Oral) 60 mg PO TID [facility] Last Admin: 07/03/18 10:05 Dose: 60 mg Hydromorphone HCl (Dilaudid) 1 mg IVP Q3HR PRN PRN Reason: Severe Pain Last Admin: 07/03/18 10:05 Dose: 1 mg Hydromorphone HCl (Dilaudid) 0.5 mg IVP Q3HR PRN PRN Reason: Moderate Pain Last Admin: 06/30/18 20:28 Dose: 0.5 mg Piperacillin/Tazobactam/ (Dextrose 3.375 gm/ IV Solution) 50 mls @ 12.5 mls/hr IVPB Q8HR [facility] Last Admin: 07/03/18 08:00 Dose: 12.5 mls/hr Sodium Chloride (Saline 0.9%) 1,000 mls @ 50 mls/hr IV .Q20H [facility] Last Admin: 07/03/18 05:50 Dose: Not Given Insulin Aspart (Novolog) 0 unit SQ ACHS [facility]; Protocol Last Admin: 07/03/18 12:42 Dose: 3 unit Metoprolol Tartrate (Lopressor) 25 mg PO BID [facility] Last Admin: 07/03/18 07:51 Dose: 25 mg Metoprolol Tartrate (Lopressor) 2.5 mg IVP Q6HR PRN PRN Reason: Heart Rate - HIGH Last Admin: 07/01/18 07:43 Dose: 2.5 mg Metoprolol Tartrate (Lopressor) 50 mg PO ONCE STA Stop: 07/03/18 14:20 Naloxone HCl (Narcan) 0.2 mg IV Q2M PRN PRN Reason: Opioid Reversal Ondansetron HCl (Zofran) 4 mg IVP Q8HR PRN PRN Reason: Nausea And Vomiting Last Admin: 06/28/18 04:25 Dose: 4 mg Pantoprazole Sodium (Protonix) 40 mg IV DAILY [facility] Last Admin: 07/03/18 07:51 Dose: 40 mg Objective - Vital Signs Vital signs: Vital Signs Temp 98.0 F 07/03/18 07:20 Pulse 76 07/03/18 07:20 Resp 20 07/03/18 07:21 BP 154/82 07/03/18 07:20 Pulse Ox 97 07/03/18 07:20 Intake & Output 07/02/18 07/03/18 07/03/18 18:59 06:59 18:59 Intake Total 1025 875 50 Output Total 083 906 5960 Balance 80 715 -1660 Intake: IV 1025 875 50 Piperacillin-Tazobactam 3 50 50 .375 gm In Dextrose/Water 1 50ml.bag @ 12.5 mls/hr IVPB Q8HR [facility] Rx#: [id number] Sodium Chloride 0.9% 1, 975 875 000 ml @ 50 mls/hr IV . Q20H [facility] Rx#:[id number] Output: Drainage 180 50 210 Right Lower Abdomen 180 50 210 Urine 170 972 4093 Uretheral (Mae) 1500 Other: Voiding Method Indwelling Catheter Bedpan Indwelling Catheter # Bowel Movements 2 - Exam General:Patient is sitting up in bed, no acute distress HEENT: Normocephalic. Neck is supple. Pupils reactive. Oral mucosa moist Neck reveals no JVD, carotid bruits, or thyromegaly. CHEST EXAMINATION: Bilateral bases diminished, occasional scattered fine expiratory wheezes CARDIAC: Normal S1, S2 with no gallops. Regular, Positive systolic murmur ABDOMEN: Soft, nondistended, Status post surgery, MARY with serosanguineous drainage. Scrotal edema. Extremities: trace edema. No clubbing or cyanosis. Bilateral Venodyne's present Neurologically no focal deficits. - Labs CBC & Chem 7: 07/03/18 08:12 07/03/18 08:12 Labs: Abnormal Lab Results - Last 24 Hours (Table) 07/02/18 07/02/18 07/03/18 Range/Units 17:22 20:53 07:14 RBC (4.30-5.90) m/uL Hgb (13.0-17.5) gm/dL MCHC (31.0-37.0) g/dL Neutrophils # (1.3-7.7) k/uL Lymphocytes # (1.0-4.8) k/uL Glucose (74-99) mg/dL POC Glucose (mg/dL) 142 H 118 H 103 H (75-99) mg/dL Calcium (8.4-10.2) mg/dL Phosphorus (2.5-4.5) mg/dL 07/03/18 07/03/18 07/03/18 Range/Units 08:12 08:12 11:37 RBC 4.14 L (4.30-5.90) m/uL Hgb 12.7 L (13.0-17.5) gm/dL MCHC 30.8 L (31.0-37.0) g/dL Neutrophils # 8.8 H (1.3-7.7) k/uL Lymphocytes # 0.7 L (1.0-4.8) k/uL Glucose 119 H (74-99) mg/dL POC Glucose (mg/dL) 185 H (75-99) mg/dL Calcium 8.2 L (8.4-10.2) mg/dL Phosphorus 2.3 L (2.5-4.5) mg/dL Microbiology - Last 24 Hours (Table) 06/27/18 20:00 Blood Culture - Preliminary Blood No Growth after 120 hours Assessment and Plan Assessment: Acute Perforated gangrenous cholecystitis with intra-abdominal adhesions status post open cholecystectomy, laparoscopic lysis of adhesions Septic shock secondary to acute cholecystitis Leukocytosis secondary to the above, normalized Metabolic acidosis, status post bicarb drip, resolved Lactic acidosis Acute hypoxic respiratory failure post procedure, required reintubation in PACU , status post mechanical ventilator-dependent. Mild elevated troponin level could be related to infection. Possible demand ischemia without ME COPD stable Diabetes type 2 [id number]. Peripheral vascular disease with history of bilateral femoropopliteal bypass surgery Pulmonary hypertension as per 2-D echocardiogram DVT prophylaxis History of diverticulosis and diverticulitis Acute renal failure secondary to hypotension, sepsis New onset proximal atrial fibrillation with RVR. Patient reports no prior history of arrhythmias, A. fib. Chronic diastolic CHF. Plan: Continue current medication regime ,monitoring and symptomatic treatment. Antiarrhythmics as per cardiology; recently received additional beta obey dose, Cardizem administered early. Depending on patient's response, may need Cardizem drip. PT/OT. Aggressive pulmonary toileting with inspirometer enforced. IV antibiotics as per infectious disease. The impression and plan of care has been dictated as directed. : I performed a history and examination of this patient, discussed the same with the dictator. I agree with the dictator's note ,documented as a scribe. Any additional findings or plans will be noted.
[2018-07-03] MEDS ORDERED: DILTIAZEM DRIP BOLUS FROM BAG 1 MG SOLN IV ONE (16:41)
[2018-07-03 17:15] LABS: Glucose,Whole Blood 152 mg/dL (75-99)
[2018-07-03] MEDS: DILTIAZEM 50 MG in SODIUM CHLORIDE 0.9% 40 ML IV SCH ×2 (17:27→20:19)
[2018-07-03 20:50] LABS: Glucose,Whole Blood 147 mg/dL (75-99)
[2018-07-04] MEDS: HYDROmorphone 1 MG/ML 1 ML SYRINGE IVP PRN ×6 (02:19→21:33)
[2018-07-04 06:20] LABS: Glucose,Whole Blood 115 mg/dL (75-99)
[2018-07-04] MEDS: INSULIN ASPART 100 UNIT/ML 1 ML 10 ML VIAL SQ SCH ×4 (06:21→21:49)
[2018-07-04] MEDS: DILTIAZEM 50 MG in SODIUM CHLORIDE 0.9% 40 ML IV SCH ×2 (06:27→08:24)
[2018-07-04 07:01] LABS: Basophils # (A) 0.1 k/uL (0-0.2); Basophils % (A) 1 %; Eosinophils # (A) 0.3 k/uL (0-0.7); Eosinophils % (A) 3 %; HCT 36.8 % (39.0-53.0); HGB 11.6 gm/dL (13.0-17.5); Hypochromasia Slight; Lymphocytes # (A) 0.9 k/uL (1.0-4.8); Lymphocytes % (A) 9 %; MCH 31.4 pg (25.0-35.0); MCHC 31.6 g/dL (31.0-37.0); MCV 99.5 fL (80.0-100.0); Macrocytosis Slight; Mean Platelet Volume 8.1; Monocytes # (A) 0.5 k/uL (0-1.0); Monocytes % (A) 6 %; Neutrophils # (A) 7.4 k/uL (1.3-7.7); Neutrophils % (A) 80 %; Platelet Count 304 k/uL (150-450); RDW 14.7 % (11.5-15.5); WBC 9.3 k/uL (3.8-10.6)
[2018-07-04 07:08] LABS: Calcium 8.2 mg/dL (8.4-10.2); Magnesium 1.7 mg/dL (1.6-2.3); Phosphorus 2.9 mg/dL (2.5-4.5); Potassium 3.5 mmol/L (3.5-5.1)
[2018-07-04] MEDS: APIXABAN 5 MG TAB PO SCH ×2 (08:09→19:54)
[2018-07-04] MEDS: PANTOPRAZOLE 40 MG/10 ML VIAL IV SCH (08:09)
[2018-07-04] MEDS: PIPERACILLIN-TAZOBACTAM 3.375 GM in DEXTROSE/WATER 1 50ML.BAG IVPB SCH ×3 (08:20→23:00)
[2018-07-04] MEDS: METOPROLOL TARTRATE 25 MG TAB PO SCH ×3 (08:24→19:54)
[2018-07-04] MEDS: IPRATROPIUM-ALBUTEROL 3 ML NEB INHALATION SCH ×4 (09:11→19:09)
[2018-07-04] MEDS ORDERED: DEXTROSE 5% IN WATER 100 ML with AMIODARONE 150 MG IV ONE (09:20)
--- NOTE | 2018-07-04 09:40 | P.PN ---
Subjective Progress Note Date: 07/04/18 Principal diagnosis: Perforated cholecystitis Patient doing well today. Denies abdominal pain. Tolerating diet. Heart rate well controlled. MARY drain serosanguineous. Objective - Vital Signs Vital signs: Vital Signs Temp 97.5 F L 07/04/18 08:24 Pulse 74 07/04/18 09:25 Resp 20 07/04/18 08:25 BP 152/70 07/04/18 08:24 Pulse Ox 95 07/04/18 08:24 Intake & Output 07/03/18 07/04/18 07/04/18 18:59 06:59 18:59 Intake Total 290 338.667 60 Output Total 3560 575 Balance -3270 -236.333 60 Weight 128 kg Intake: IV 50 310 10 Invasive Line 5 10 10 Piperacillin-Tazobactam 3 50 50 .375 gm In Dextrose/Water 1 50ml.bag @ 12.5 mls/hr IVPB Q8HR [facility] Rx#: [id number] Sodium Chloride 0.9% 1, 250 000 ml @ 50 mls/hr IV . Q20H [facility] Rx#:[id number] Intake, IV Titration 28.667 50 Amount Diltiazem 50 mg In Sodium 28.667 50 Chloride 0.9% 40 ml @ 10 MG/HR 10 mls/hr IV .Q5H [facility] Rx#:[id number] Oral 240 Output: Drainage 360 75 Right Lower Abdomen 360 75 Urine 3200 500 Uretheral (Mae) 2500 500 Other: Voiding Method Indwelling Catheter Indwelling Catheter - Exam Abdomen: Soft, nondistended, incision clean and dry, MARY serosanguineous - Labs CBC & Chem 7: 07/04/18 06:30 07/04/18 06:30 Labs: Abnormal Lab Results - Last 24 Hours (Table) 07/03/18 07/03/18 07/03/18 Range/Units 11:37 16:54 20:48 RBC (4.30-5.90) m/uL Hgb (13.0-17.5) gm/dL Hct (39.0-53.0) % Lymphocytes # (1.0-4.8) k/uL Carbon Dioxide (22-30) mmol/L Glucose (74-99) mg/dL POC Glucose (mg/dL) 185 H 152 H 147 H (75-99) mg/dL Calcium (8.4-10.2) mg/dL 07/04/18 07/04/18 07/04/18 Range/Units 06:14 06:30 06:30 RBC 3.70 L (4.30-5.90) m/uL Hgb 11.6 L (13.0-17.5) gm/dL Hct 36.8 L (39.0-53.0) % Lymphocytes # 0.9 L (1.0-4.8) k/uL Carbon Dioxide 31 H (22-30) mmol/L Glucose 121 H (74-99) mg/dL POC Glucose (mg/dL) 115 H (75-99) mg/dL Calcium 8.2 L (8.4-10.2) mg/dL Microbiology - Last 24 Hours (Table) 06/27/18 20:00 Blood Culture - Final Blood No Growth after 144 hours Assessment and Plan (1) Acute cholecystitis due to biliary calculus Narrative/Plan: Continue diet as tolerated. Ambulate. Continue IV antibiotics. Current Visit: Yes Status: Acute Code(s): K80.00 - CALCULUS OF GALLBLADDER W ACUTE CHOLECYST W/O OBSTRUCTION SNOMED Code(s): 53699581542277
[2018-07-04] MEDS: AMIODARONE 450 MG in DEXTROSE 5% IN WATER 250 ML IV SCH ×4 (09:59→17:52)
[2018-07-04 10:45] VITALS: BMI 38.2
--- NOTE | 2018-07-04 10:51 | P.PN ---
Subjective Progress Note Date: 07/04/18 This is a 83-year-old white male patient with past medical history of COPD, underlying FEV1 of 63% of predicted, diabetes mellitus, BPH, CHF, hypertension, presented to the emergency department on 06/27/2018 for evaluation of acute abdominal pain. Patient symptoms started in the morning on 06/27/2018, with lower abdominal pain that progressively increased, and spread to the upper quadrants. Patient was recently in the hospital similar symptoms, and there was a concern for gallstones. Gallbladder ultrasound from 06/27/2018 showed no gallstones or dilated ducts, and mild right renal cortical atrophy. Abdominal/ pelvis CT from 06/28/2018 showed gallstones, possible gallstone impacted in the gallbladder neck, small amount of fluid at the nat hepatis as well as the anterior perirenal space related to inflammatory process and cholecystitis. Lab work showed leukocytosis WBC of 22.1, hemoglobin of 16.1, INR was elevated to 1.4, patient had mild lactic acidosis of 2.1 which subsequently increased to 3.0, non-anion gap metabolic acidosis, patient was slightly prerenal. Patient had a low-grade fever, he has been tachycardic with a rate of 116 BPM. In sinus mechanism. Troponins were elevated at 0.082, 0.059, and 0.061. Patient was given a total of 4 L of 0.9 normal saline, has not required any vasopressor support. He is having significant amount of discomfort across his upper quadrant under his rib cage, he states it hurts for him to take deep breaths and cough. Is also having discomfort in his left lower quadrant, and tenderness over right upper quadrant. He has bowel sounds 4, he is receiving pain medications, however his pain continues to increase. Gen. surgery has been consulted, and exposure laparotomy was recommended. General surgery consult was placed and patient was recommended laparoscopic examination with anticipated cholecystectomy. Patient does have a history of previous aortobifem bypass, and subsequent hernia repair with mesh. In addition patient admits to passing dark tarry stools about a week ago. Work consult in regards to pulmonary clearance for the surgical procedure and this afternoon. As far as patient's history of COPD patient is not on any oxygen, his only inhaler is his rescue inhaler. Physical exam does not reveal any significant signs of wheezing, or shortness of breath, other than that related to his abdominal pain. Was also seen by cardiology, echocardiogram was completed, and over left ventricle systolic function is within normal limits with an EF between 60-65% There was severe pulmonary hypertension, right ventricular systolic pressure not provided. Moderate pulmonic regurgitation, with mild tricuspid regurgitation. Patient has a previous history of diverticulitis. On 06/29/2018, patient is being seen in the intensive care unit. The patient underwent his surgery yesterday. The patient was found to have acute perforated gangrenous cholecystitis. Initially the procedure was started laparoscopic and ultimately the patient underwent a laparotomy and open cholecystectomy with lysis of adhesions. Postop the patient was extubated in the operating room and in recovery the patient was doing poorly and he was becoming progressively more short of breath and tachypneic and tachycardic and hypotensive. At that point it was decided to reintubate the patient. The patient was intubated and was moved to the intensive care unit. Upon arrival his systolic blood pressure was in the low 50s. He was in nature fibrillation with rapid ventricular response with a heart rate in the 120 to 130 range. He was intubated on a mechanical ventilator and and a chest x-ray showed mild CHF with small bilateral pleural effusions. ET tube was in a good location was around 3 cm from the arslan. The patient is an assist-control mode of ventilation. The initial blood gas showed a pH of 7.21 with a pCO2 of 36 and pO2 of 1 and 15. As such the FiO2 was gradually weaned off. The patient was also given immediately 3 L of IV fluids in the form of normal saline. The patient was started on pressors and he was brought up to 5 mics of norepinephrine infusion overnight and currently this morning he is off pressors. Most recent blood gases from this morning showed a pH of 7.29 with a pCO2 of 31 and pO2 127. This current vent settings for now is a Tidal volume is at 550 with an FiO2 of 40% and PEEP of 5. Based on all this, I give the patient to have some bicarb was started on bicarb infusion this morning. He was quite acidotic with a bicarb level of 15 and a anion gap of 11. Currently the patient is also on a bicarb drip at the rate of 100 mL an hour. Repeat blood gases this afternoon showed a pH of 7.35 with a pCO2 of 36 and pO2 of 97. The patient was given a sedation holiday this morning. He became immediately tachypneic and uncomfortable with any sweating with parameters without poor and based on that the trial was aborted. His creatinine today is 1.3. Urine output is low in the order of 10-20 mL an hour and is improving. He is on empiric antibiotic coverage with IV Zosyn. Most recent lactic acid level venous sample was at 3.0. He is nothing by mouth for now. The surgical wound site over the anterior abdominal wall is dry clean and intact. As mentioned, she is currently off pressors. On 06/30/2018 I'm seeing this patient for a follow-up. This morning the patient is off sedation, comfortable awake and following commands and answering questions appropriately. The patient had adequate weaning parameters and the patient is in the process of getting a spontaneous breathing trial a pressure support of 5 and a PEEP of 5 and a blood gases to follow. Chest x-ray showed adequate expansion of both lungs with small bilateral pleural effusions. ET tube is in a good location. The patient is hemodynamically stable. This morning, the blood gases show a pH of 7.46 with a pCO2 of 36 and pO2 of 79 and this was on FiO2 of 40% with a PEEP of 5 and a tidal volume of 550. White cell count is down to 11.8. The patient is afebrile. Urine output is order of 30 mL an hour. Serum bicarb is up to 26 while the patient receiving a bicarb drip infusion. Abdomen is soft. MARY drain output is minimal at this point. The patient remains on IV Zosyn. 07/01/2008 Seeing this patient for a follow-up. The patient is calm and comfortable. Earlier this morning at around 7:00 he went into atrial fibrillation with rapid ventricular response. Heart rate was in the 130s. He was started on Cardizem drip. Currently is on 7.5 mg of Cardizem and his heart rate slowed done and ultimately converted to sinus rhythm at around 11:00 this morning. The patient remained hemodynamically stable. The patient is still not having any flatus or bowel movement although has decent amount of bowel sounds. Surgical wound site is clean. MARY drain has drained approximately 60 mL over the past 24 hours. No chest pain. No shortness of breath. White cell count is at 8.2. The rest of the blood work is all within normal limits. Producing approximately 30-50 mL of urine output on an hourly basis. 07/02/2018, the patient is awake and alert and following commands and answering questions. His rhythm is back to normal sinus. He is off the Cardizem drip. He has not required any further cardiac interventions knowing that his cardiac rhythm remained sinus throughout the day for yesterday and throughout the night. He is producing adequate amount of urine output. MARY drain is in place. Abdomen is nondistended. The patient had some flatness. Tolerating liquid diet. No shortness of breath. No cough or sputum production. He is a bit weak and he is laying in bed most of the time. Would like to get him out on a bedside chair. No fever. No chills. No sweats. White cell count is stable at 9.4. 07/03/2018 the patient got transferred to a medical surgical floor. He is recovering well. He is sinus rhythm. His MARY drain is in place. His abdomen is nondistended. His surgical wound site is clean. No nausea. No vomiting. No abdominal pain. No abdominal distention. He is passing flatus. He is noted to have some increased edema specially in the scrotum and the patient will be given a dose of Lasix. No respiratory distress. No altered mentation. He is on IV Zosyn still. Pain is under good control. He is using Eliquis 5 mg by mouth twice a day. He is on DuoNeb nebulized treatments around the clock. He got transferred out of the intensive care unit yesterday. He was able to stand up and sit up on a chair. He malignant is stable at 10.5. Rest of the electrodes are all within normal limits. 07/04/2018, the patient got transferred out of the intensive care unit. He was seen yesterday on the surgical floor. He was doing well. Overnight the patient went into atrial fibrillation with rapid ventricular response. Based on that, he got transferred back to [facility] (formerly [facility] He is doing well. He was started on amiodarone protocol with mom milligram per minute infusion. His cardiac rhythm converted back to sinus. Is on long-term medical condition with Eliquis 5 mg by mouth twice a day. Abdomen is nondistended. Wound is clear. MARY drain is minimal. The patient on Dilaudid for pain control. He is also on IV Zosyn. No fever. No chills. No respiratory distress. Lower extremity edema is improved as the patient received a dose of Lasix yesterday.the white cell count of 9.3. S of the electrodes are within normal limits. Objective - Vital Signs Vital signs: Vital Signs Temp 97.8 F 07/04/18 10:05 Pulse 84 07/04/18 10:15 Resp 18 07/04/18 10:15 BP 128/62 07/04/18 10:15 Pulse Ox 95 07/04/18 10:15 Intake & Output 07/03/18 07/04/18 07/04/18 18:59 06:59 18:59 Intake Total 290 198.898 6852 Output Total 3560 575 25 Balance -3270 -597.651 4534 Weight 128 kg 128 kg Intake: IV 50 310 660 Invasive Line 5 10 10 Piperacillin-Tazobactam 3 50 50 50 .375 gm In Dextrose/Water 1 50ml.bag @ 12.5 mls/hr IVPB Q8HR [facility] Rx#: [id number] Sodium Chloride 0.9% 1, 250 600 000 ml @ 50 mls/hr IV . Q20H [facility] Rx#:[id number] Intake, IV Titration 28.667 400 Amount Amiodarone 450 mg In 250 Dextrose 5% in Water 250 ml @ 1 MG/MIN 34.53 mls/ hr IV .Q7H31M [facility] Rx#: [id number] Dextrose 5% in Water 100 100 ml @ 618 mls/hr IV .Q10M ONE with Amiodarone 150 mg Rx#:[id number] Diltiazem 50 mg In Sodium 28.667 50 Chloride 0.9% 40 ml @ 10 MG/HR 10 mls/hr IV .Q5H [facility] Rx#:[id number] Oral 240 240 Output: Drainage 360 75 25 Right Lower Abdomen 360 75 25 Urine 3200 500 Uretheral (Mae) 2500 500 Other: Voiding Method Indwelling Catheter Indwelling Catheter - Exam Awake and alert and not in acute distress. Head exam was generally normal. There was no scleral icterus or corneal arcus. Mucous membranes were moist. Neck was supple and without jugular venous distension, thyromegaly, or carotid bruits. Carotids were easily palpable bilaterally. There was no adenopathy. Lungs sounds are diminished bilaterally along with some few scattered expiratory wheeze otherwise clear. Cardiac exam revealed the PMI to be normally situated and sized. The rhythm was regular and no extrasystoles were noted during several minutes of auscultation. The first and second heart sounds were normal and physiologic splitting of the second heart sound was noted. There were no murmurs, rubs, clicks, or gallops. Abdomen is soft and there is a mid abdominal incision which is dry clean and intact. There is no direct tenderness rebound tensile guarding. The patient has a right upper quadrant MARY drain outputs of which is minimal at this point Extremities show trace edema and there is no cyanosis or clubbing at this point. Neurologically the patient is awake and alert and there is no focal neurological deficit. - Labs CBC & Chem 7: 07/04/18 06:30 07/04/18 06:30 Labs: Abnormal Lab Results - Last 24 Hours (Table) 07/03/18 07/03/18 07/03/18 Range/Units 11:37 16:54 20:48 RBC (4.30-5.90) m/uL Hgb (13.0-17.5) gm/dL Hct (39.0-53.0) % Lymphocytes # (1.0-4.8) k/uL Carbon Dioxide (22-30) mmol/L Glucose (74-99) mg/dL POC Glucose (mg/dL) 185 H 152 H 147 H (75-99) mg/dL Calcium (8.4-10.2) mg/dL 07/04/18 07/04/18 07/04/18 Range/Units 06:14 06:30 06:30 RBC 3.70 L (4.30-5.90) m/uL Hgb 11.6 L (13.0-17.5) gm/dL Hct 36.8 L (39.0-53.0) % Lymphocytes # 0.9 L (1.0-4.8) k/uL Carbon Dioxide 31 H (22-30) mmol/L Glucose 121 H (74-99) mg/dL POC Glucose (mg/dL) 115 H (75-99) mg/dL Calcium 8.2 L (8.4-10.2) mg/dL Microbiology - Last 24 Hours (Table) 06/27/18 20:00 Blood Culture - Final Blood No Growth after 144 hours Assessment and Plan Plan: Assessment 1 acute perforated cholecystitis with secondary sepsis. Patient is postcholecystectomy/exp laparotomy and open cholecystectomy and lysis of adhesions. The patient is postop day #6 2 septic shock secondary to above, recovered, still on IV Zosyn and hemodynamically stable. 3 leukocytosis secondary to above improved and recovered and normalized 4 acute hypoxic failure post cholecystectomy. Please see discussion above, recovered 5 Paroxysmal atrial fibrillation with rapid ventricular response, currently on amiodarone drip at 1 mg per minute and the patient is being loaded with amiodarone per protocol. Converted back to normal sinus rhythm. Rate is controlled and the patient is on long-term medical condition with Eliquis. 6 congestion heart failure, essentially diastolic in nature 7 COPD with an FEV1 of 60% of predicted 8 peripheral vascular disease with a previous aortobifemoral bypass surgery 9 history of hypertension 10 history of secondary pulmonary hypertension 11 history of diverticulosis and previous history of diverticulitis 12 previous history of diabetes mellitus. 13 acute kidney injury, recovered 14 troponin leak secondary to sepsis Plan [place] incentive spirometer. Overall pulmonary status is stable.. Continue IV Zosyn. Continue Eliquis. Monitor MARY drain. Increased level of activity as tolerated. Increased mobility. amiodarone loading and subsequent maintenance. Hemodynamically stable. keep an selective unit for further telemetry monitoring. We'll continue to follow.
[2018-07-04 11:33] LABS: Glucose,Whole Blood 213 mg/dL (75-99)
[2018-07-04] MEDS: POTASSIUM CHLORIDE ER 20 MEQ TAB.ER PO SCH ×3 (14:53→17:31)
[2018-07-04] MEDS ORDERED: POTASSIUM BICARBONATE/CIT AC 20 MEQ TABLET.EFF PO ONE (15:37)
[2018-07-04 17:32] LABS: Glucose,Whole Blood 156 mg/dL (75-99)
[2018-07-04] MEDS: SODIUM CHLORIDE 0.9% 1,000 ML IV SCH ×2 (18:39→19:55)
--- NOTE | 2018-07-04 19:49 | PN ---
PROGRESS NOTE Mr. Decker is in sinus rhythm today. He went into atrial fib, rapid rate was brought into the 6th floor from the medical surgical floor. He has been initiated on amiodarone drip. He seems to be doing better hemodynamically stable. His potassium is low. I am recommending that we supplement potassium and continue amiodarone and then switch him to oral amiodarone after IV is completed. Vital signs are stable. S1-S2 heard normally. Short systolic murmur noted. Lungs reveal improved air entry. Abdomen is soft. Lower extremities reveal diminished pulses. Central nervous system grossly no focal deficits. Patient has paroxysmal atrial fibrillation and pulmonary hypertension, underwent gallbladder surgery for acute cholecystitis. He is hemodynamically better, and is more stable now that he is in sinus rhythm. We will try amiodarone and hopefully this will prevent him from going back into atrial fibrillation. He is well anticoagulated. MMODL / IJN: [id number] /
[2018-07-04 20:49] LABS: Glucose,Whole Blood 132 mg/dL (75-99)
[2018-07-04] MEDS ORDERED: NITROGLYCERIN SL TABS 0.4 MG TAB SUBLINGUAL ONE (21:12)
[2018-07-05] MEDS: AMIODARONE 450 MG in DEXTROSE 5% IN WATER 250 ML IV SCH ×4 (01:46→08:30)
[2018-07-05] MEDS: IPRATROPIUM-ALBUTEROL 3 ML NEB INHALATION PRN (02:55)
[2018-07-05] MEDS: HYDROmorphone 1 MG/ML 1 ML SYRINGE IVP PRN ×3 (04:06→10:29)
[2018-07-05 06:30] LABS: Basophils # (A) 0.1 k/uL (0-0.2); Basophils % (A) 1 %; Eosinophils # (A) 0.3 k/uL (0-0.7); Eosinophils % (A) 3 %; HCT 37.7 % (39.0-53.0); HGB 11.6 gm/dL (13.0-17.5); Hypochromasia Slight; Lymphocytes # (A) 0.9 k/uL (1.0-4.8); Lymphocytes % (A) 9 %; MCH 30.6 pg (25.0-35.0); MCHC 30.9 g/dL (31.0-37.0); MCV 99.2 fL (80.0-100.0); Mean Platelet Volume 8.3; Monocytes # (A) 0.5 k/uL (0-1.0); Monocytes % (A) 5 %; Neutrophils # (A) 8.4 k/uL (1.3-7.7); Neutrophils % (A) 82 %; Platelet Count 314 k/uL (150-450); RDW 14.6 % (11.5-15.5); WBC 10.3 k/uL (3.8-10.6)
[2018-07-05 06:36] LABS: Glucose,Whole Blood 141 mg/dL (75-99)
[2018-07-05 06:39] LABS: Calcium 8.4 mg/dL (8.4-10.2); Potassium 3.8 mmol/L (3.5-5.1)
[2018-07-05] MEDS: INSULIN ASPART 100 UNIT/ML 1 ML 10 ML VIAL SQ SCH ×4 (06:45→20:49)
[2018-07-05] MEDS: PIPERACILLIN-TAZOBACTAM 3.375 GM in DEXTROSE/WATER 1 50ML.BAG IVPB SCH ×2 (08:03→16:48)
[2018-07-05] MEDS: APIXABAN 5 MG TAB PO SCH ×2 (08:11→20:48)
[2018-07-05] MEDS: METOPROLOL TARTRATE 25 MG TAB PO SCH ×3 (08:12→20:48)
[2018-07-05] MEDS: PANTOPRAZOLE 40 MG/10 ML VIAL IV SCH (08:12)
[2018-07-05] MEDS: IPRATROPIUM-ALBUTEROL 3 ML NEB INHALATION SCH ×4 (08:57→19:49)
[2018-07-05] MEDS ORDERED: POTASSIUM BICARBONATE/CIT AC 20 MEQ TABLET.EFF PO ONE (09:59)
[2018-07-05 11:54] LABS: Glucose,Whole Blood 128 mg/dL (75-99)
--- NOTE | 2018-07-05 13:06 | P.PN ---
Subjective Progress Note Date: 07/05/18 This is a 83-year-old white male patient with past medical history of COPD, underlying FEV1 of 63% of predicted, diabetes mellitus, BPH, CHF, hypertension, presented to the emergency department on 06/27/2018 for evaluation of acute abdominal pain. Patient symptoms started in the morning on 06/27/2018, with lower abdominal pain that progressively increased, and spread to the upper quadrants. Patient was recently in the hospital similar symptoms, and there was a concern for gallstones. Gallbladder ultrasound from 06/27/2018 showed no gallstones or dilated ducts, and mild right renal cortical atrophy. Abdominal/ pelvis CT from 06/28/2018 showed gallstones, possible gallstone impacted in the gallbladder neck, small amount of fluid at the nat hepatis as well as the anterior perirenal space related to inflammatory process and cholecystitis. Lab work showed leukocytosis WBC of 22.1, hemoglobin of 16.1, INR was elevated to 1.4, patient had mild lactic acidosis of 2.1 which subsequently increased to 3.0, non-anion gap metabolic acidosis, patient was slightly prerenal. Patient had a low-grade fever, he has been tachycardic with a rate of 116 BPM. In sinus mechanism. Troponins were elevated at 0.082, 0.059, and 0.061. Patient was given a total of 4 L of 0.9 normal saline, has not required any vasopressor support. He is having significant amount of discomfort across his upper quadrant under his rib cage, he states it hurts for him to take deep breaths and cough. Is also having discomfort in his left lower quadrant, and tenderness over right upper quadrant. He has bowel sounds 4, he is receiving pain medications, however his pain continues to increase. Gen. surgery has been consulted, and exposure laparotomy was recommended. General surgery consult was placed and patient was recommended laparoscopic examination with anticipated cholecystectomy. Patient does have a history of previous aortobifem bypass, and subsequent hernia repair with mesh. In addition patient admits to passing dark tarry stools about a week ago. Work consult in regards to pulmonary clearance for the surgical procedure and this afternoon. As far as patient's history of COPD patient is not on any oxygen, his only inhaler is his rescue inhaler. Physical exam does not reveal any significant signs of wheezing, or shortness of breath, other than that related to his abdominal pain. Was also seen by cardiology, echocardiogram was completed, and over left ventricle systolic function is within normal limits with an EF between 60-65% There was severe pulmonary hypertension, right ventricular systolic pressure not provided. Moderate pulmonic regurgitation, with mild tricuspid regurgitation. Patient has a previous history of diverticulitis. On 06/29/2018, patient is being seen in the intensive care unit. The patient underwent his surgery yesterday. The patient was found to have acute perforated gangrenous cholecystitis. Initially the procedure was started laparoscopic and ultimately the patient underwent a laparotomy and open cholecystectomy with lysis of adhesions. Postop the patient was extubated in the operating room and in recovery the patient was doing poorly and he was becoming progressively more short of breath and tachypneic and tachycardic and hypotensive. At that point it was decided to reintubate the patient. The patient was intubated and was moved to the intensive care unit. Upon arrival his systolic blood pressure was in the low 50s. He was in nature fibrillation with rapid ventricular response with a heart rate in the 120 to 130 range. He was intubated on a mechanical ventilator and and a chest x-ray showed mild CHF with small bilateral pleural effusions. ET tube was in a good location was around 3 cm from the arslan. The patient is an assist-control mode of ventilation. The initial blood gas showed a pH of 7.21 with a pCO2 of 36 and pO2 of 1 and 15. As such the FiO2 was gradually weaned off. The patient was also given immediately 3 L of IV fluids in the form of normal saline. The patient was started on pressors and he was brought up to 5 mics of norepinephrine infusion overnight and currently this morning he is off pressors. Most recent blood gases from this morning showed a pH of 7.29 with a pCO2 of 31 and pO2 127. This current vent settings for now is a Tidal volume is at 550 with an FiO2 of 40% and PEEP of 5. Based on all this, I give the patient to have some bicarb was started on bicarb infusion this morning. He was quite acidotic with a bicarb level of 15 and a anion gap of 11. Currently the patient is also on a bicarb drip at the rate of 100 mL an hour. Repeat blood gases this afternoon showed a pH of 7.35 with a pCO2 of 36 and pO2 of 97. The patient was given a sedation holiday this morning. He became immediately tachypneic and uncomfortable with any sweating with parameters without poor and based on that the trial was aborted. His creatinine today is 1.3. Urine output is low in the order of 10-20 mL an hour and is improving. He is on empiric antibiotic coverage with IV Zosyn. Most recent lactic acid level venous sample was at 3.0. He is nothing by mouth for now. The surgical wound site over the anterior abdominal wall is dry clean and intact. As mentioned, she is currently off pressors. On 06/30/2018 I'm seeing this patient for a follow-up. This morning the patient is off sedation, comfortable awake and following commands and answering questions appropriately. The patient had adequate weaning parameters and the patient is in the process of getting a spontaneous breathing trial a pressure support of 5 and a PEEP of 5 and a blood gases to follow. Chest x-ray showed adequate expansion of both lungs with small bilateral pleural effusions. ET tube is in a good location. The patient is hemodynamically stable. This morning, the blood gases show a pH of 7.46 with a pCO2 of 36 and pO2 of 79 and this was on FiO2 of 40% with a PEEP of 5 and a tidal volume of 550. White cell count is down to 11.8. The patient is afebrile. Urine output is order of 30 mL an hour. Serum bicarb is up to 26 while the patient receiving a bicarb drip infusion. Abdomen is soft. MARY drain output is minimal at this point. The patient remains on IV Zosyn. 07/01/2008 Seeing this patient for a follow-up. The patient is calm and comfortable. Earlier this morning at around 7:00 he went into atrial fibrillation with rapid ventricular response. Heart rate was in the 130s. He was started on Cardizem drip. Currently is on 7.5 mg of Cardizem and his heart rate slowed done and ultimately converted to sinus rhythm at around 11:00 this morning. The patient remained hemodynamically stable. The patient is still not having any flatus or bowel movement although has decent amount of bowel sounds. Surgical wound site is clean. MARY drain has drained approximately 60 mL over the past 24 hours. No chest pain. No shortness of breath. White cell count is at 8.2. The rest of the blood work is all within normal limits. Producing approximately 30-50 mL of urine output on an hourly basis. 07/02/2018, the patient is awake and alert and following commands and answering questions. His rhythm is back to normal sinus. He is off the Cardizem drip. He has not required any further cardiac interventions knowing that his cardiac rhythm remained sinus throughout the day for yesterday and throughout the night. He is producing adequate amount of urine output. MARY drain is in place. Abdomen is nondistended. The patient had some flatness. Tolerating liquid diet. No shortness of breath. No cough or sputum production. He is a bit weak and he is laying in bed most of the time. Would like to get him out on a bedside chair. No fever. No chills. No sweats. White cell count is stable at 9.4. 07/03/2018 the patient got transferred to a medical surgical floor. He is recovering well. He is sinus rhythm. His MARY drain is in place. His abdomen is nondistended. His surgical wound site is clean. No nausea. No vomiting. No abdominal pain. No abdominal distention. He is passing flatus. He is noted to have some increased edema specially in the scrotum and the patient will be given a dose of Lasix. No respiratory distress. No altered mentation. He is on IV Zosyn still. Pain is under good control. He is using Eliquis 5 mg by mouth twice a day. He is on DuoNeb nebulized treatments around the clock. He got transferred out of the intensive care unit yesterday. He was able to stand up and sit up on a chair. He malignant is stable at 10.5. Rest of the electrodes are all within normal limits. 07/04/2018, the patient got transferred out of the intensive care unit. He was seen yesterday on the surgical floor. He was doing well. Overnight the patient went into atrial fibrillation with rapid ventricular response. Based on that, he got transferred back to [facility]. He is doing well. He was started on amiodarone protocol with mom milligram per minute infusion. His cardiac rhythm converted back to sinus. Is on long-term medical condition with Eliquis 5 mg by mouth twice a day. Abdomen is nondistended. Wound is clear. MARY drain is minimal. The patient on Dilaudid for pain control. He is also on IV Zosyn. No fever. No chills. No respiratory distress. Lower extremity edema is improved as the patient received a dose of Lasix yesterday.the white cell count of 9.3. S of the electrodes are within normal limits. 07/05/2018 patient is stable without any complaints. He is resting comfortably in bed. Overnight he has some increased shortness of breath he was given a breathing treatment and subsequently improved. He remains in a sinus rhythm. No nausea. No vomiting. No abdominal pain. Abdominal wounds remains unchanged. The patient is still on oral amiodarone 400 mg by mouth twice a day. The patient on long-term articulation with ataxia been. Metoprolol is also being used for rate control and blood pressure control. He is on IV Zosyn. Using incentive spirometer. Limited activity. Still edema lower extremities present. White cell count is at 10.3. Renal function stable. Objective - Vital Signs Vital signs: Vital Signs Temp 98.0 F 07/05/18 11:26 Pulse 93 07/05/18 11:26 Resp 18 07/05/18 11:26 BP 158/70 07/05/18 11:26 Pulse Ox 95 07/05/18 08:44 Intake & Output 07/04/18 07/05/18 07/05/18 18:59 06:59 18:59 Intake Total 1768.579 3015 412.571 Output Total 2512 675 170 Balance -722.025 605 242.571 Weight 128 kg 126 kg Intake: IV 680 440 Invasive Line 5 30 Piperacillin-Tazobactam 3 50 .375 gm In Dextrose/Water 1 50ml.bag @ 12.5 mls/hr IVPB Q8HR [facility] Rx#: [id number] Sodium Chloride 0.9% 1, 600 440 000 ml @ 50 mls/hr IV . Q20H [facility] Rx#:[id number] Intake, IV Titration 639.975 50 252.571 Amount Amiodarone 450 mg In 489.975 252.571 Dextrose 5% in Water 250 ml @ 1 MG/MIN 34.53 mls/ hr IV .Q7H31M [facility] Rx#: [id number] Dextrose 5% in Water 100 100 ml @ 618 mls/hr IV .Q10M ONE with Amiodarone 150 mg Rx#:[id number] Diltiazem 50 mg In Sodium 50 Chloride 0.9% 40 ml @ 10 MG/HR 10 mls/hr IV .Q5H [facility] Rx#:[id number] Piperacillin-Tazobactam 3 50 .375 gm In Dextrose/Water 1 50ml.bag @ 12.5 mls/hr IVPB Q8HR [facility] Rx#: [id number] Oral 470 790 160 Output: Drainage 87 25 170 Right Lower Abdomen 87 25 170 Urine 2425 650 Other: Voiding Method Urinal Urinal Urinal # Voids 2 - Exam Awake and alert and not in acute distress. Head exam was generally normal. There was no scleral icterus or corneal arcus. Mucous membranes were moist. Neck was supple and without jugular venous distension, thyromegaly, or carotid bruits. Carotids were easily palpable bilaterally. There was no adenopathy. Lungs sounds are diminished bilaterally along with some few scattered expiratory wheeze otherwise clear. Cardiac exam revealed the PMI to be normally situated and sized. The rhythm was regular and no extrasystoles were noted during several minutes of auscultation. The first and second heart sounds were normal and physiologic splitting of the second heart sound was noted. There were no murmurs, rubs, clicks, or gallops. Abdomen is soft and there is a mid abdominal incision which is dry clean and intact. There is no direct tenderness rebound tensile guarding. The patient has a right upper quadrant MARY drain outputs of which is minimal at this point Extremities show trace edema and there is no cyanosis or clubbing at this point. Neurologically the patient is awake and alert and there is no focal neurological deficit. - Labs CBC & Chem 7: 07/05/18 05:44 07/05/18 05:44 Labs: Abnormal Lab Results - Last 24 Hours (Table) 07/04/18 07/04/18 07/05/18 Range/Units 17:21 20:48 05:44 RBC 3.80 L (4.30-5.90) m/uL Hgb 11.6 L (13.0-17.5) gm/dL Hct 37.7 L (39.0-53.0) % MCHC 30.9 L (31.0-37.0) g/dL Neutrophils # 8.4 H (1.3-7.7) k/uL Lymphocytes # 0.9 L (1.0-4.8) k/uL Glucose (74-99) mg/dL POC Glucose (mg/dL) 156 H 132 H (75-99) mg/dL 07/05/18 07/05/18 07/05/18 Range/Units 05:44 06:29 11:50 RBC (4.30-5.90) m/uL Hgb (13.0-17.5) gm/dL Hct (39.0-53.0) % MCHC (31.0-37.0) g/dL Neutrophils # (1.3-7.7) k/uL Lymphocytes # (1.0-4.8) k/uL Glucose 141 H (74-99) mg/dL POC Glucose (mg/dL) 141 H 128 H (75-99) mg/dL Assessment and Plan Plan: Assessment 1 acute perforated cholecystitis with secondary sepsis. Patient is postcholecystectomy/exp laparotomy and open cholecystectomy and lysis of adhesions. The patient is postop day #7 2 septic shock secondary to above, recovered, still on IV Zosyn and hemodynamically stable. 3 leukocytosis secondary to above improved and recovered and normalized 4 acute hypoxic failure post cholecystectomy. Please see discussion above, recovered. Overall pulmonary status is stable and the patient is currently using incentive spirometer. 5 Paroxysmal atrial fibrillation , back to normal sinus rhythm on a combination of oral amiodarone, metoprolol and Eliquis. 6 congestion heart failure, essentially diastolic in nature 7 COPD with an FEV1 of 60% of predicted 8 peripheral vascular disease with a previous aortobifemoral bypass surgery 9 history of hypertension 10 history of secondary pulmonary hypertension 11 history of diverticulosis and previous history of diverticulitis 12 previous history of diabetes mellitus. 13 acute kidney injury, recovered 14 troponin leak secondary to sepsis Plan Continue supportive care. Incentive spirometer. Cardiac medications is unchanged. IV Zosyn. Activity as tolerated. Advance diet as tolerated. Management of the MARY drain per surgery. Monitor the wounds. We'll follow.
[2018-07-05] MEDS ORDERED: ACETAMINOPHEN TAB 325 MG TAB PO PRN (13:13)
--- NOTE | 2018-07-05 13:17 | P.PN ---
<SammyRaeganDaisy M - Last Filed: 07/05/18 13:08> Subjective Progress Note Date: 07/05/18 83-year-old male sitting up in bed. Patient states feels tired out. Additionally patient reports anxious to be up and out of bed. Physical occupational therapy has been ordered. Currently patient is in sinus rhythm. Patient has had episodes of paroxysmal atrial fibrillation with RVR currently denying dizziness lightheadedness or chest pain. status post open cholecystectomy, laparoscopic lysis of adhesions done on June 28 Objective - Vital Signs Vital signs: Vital Signs Temp 98.0 F 07/05/18 11:26 Pulse 93 07/05/18 11:26 Resp 18 07/05/18 11:26 BP 158/70 07/05/18 11:26 Pulse Ox 95 07/05/18 08:44 Intake & Output 07/04/18 07/05/18 07/05/18 18:59 06:59 18:59 Intake Total 6598.281 1842 412.571 Output Total 2512 675 170 Balance -722.025 605 242.571 Weight 128 kg 126 kg Intake: IV 680 440 Invasive Line 5 30 Piperacillin-Tazobactam 3 50 .375 gm In Dextrose/Water 1 50ml.bag @ 12.5 mls/hr IVPB Q8HR [facility] Rx#: [id number] Sodium Chloride 0.9% 1, 600 440 000 ml @ 50 mls/hr IV . Q20H [facility] Rx#:[id number] Intake, IV Titration 639.975 50 252.571 Amount Amiodarone 450 mg In 489.975 252.571 Dextrose 5% in Water 250 ml @ 1 MG/MIN 34.53 mls/ hr IV .Q7H31M [facility] Rx#: [id number] Dextrose 5% in Water 100 100 ml @ 618 mls/hr IV .Q10M ONE with Amiodarone 150 mg Rx#:[id number] Diltiazem 50 mg In Sodium 50 Chloride 0.9% 40 ml @ 10 MG/HR 10 mls/hr IV .Q5H [facility] Rx#:[id number] Piperacillin-Tazobactam 3 50 .375 gm In Dextrose/Water 1 50ml.bag @ 12.5 mls/hr IVPB Q8HR [facility] Rx#: [id number] Oral 470 790 160 Output: Drainage 87 25 170 Right Lower Abdomen 87 25 170 Urine 2425 650 Other: Voiding Method Urinal Urinal Urinal # Voids 2 - Exam Physical exam 83-year-old male sitting up in bed denies dizziness lightheadedness or shortness of breath Lungs nasal cannula 2 L decreased at the bases no shortness of breath Heart S1-S2 audible regular monitor current sinus Abdomen abdominal binder in place with the MARY drain serosanguineous drainage surgical tenderness appropriate hypoactive bowel tones urinating no difficulty. States no bowel movement but is passing gas Extremities Venodyne's on bilateral lower extremities - Labs CBC & Chem 7: 07/05/18 05:44 07/05/18 05:44 Labs: Abnormal Lab Results - Last 24 Hours (Table) 07/04/18 07/04/18 07/05/18 Range/Units 17:21 20:48 05:44 RBC 3.80 L (4.30-5.90) m/uL Hgb 11.6 L (13.0-17.5) gm/dL Hct 37.7 L (39.0-53.0) % MCHC 30.9 L (31.0-37.0) g/dL Neutrophils # 8.4 H (1.3-7.7) k/uL Lymphocytes # 0.9 L (1.0-4.8) k/uL Glucose (74-99) mg/dL POC Glucose (mg/dL) 156 H 132 H (75-99) mg/dL 07/05/18 07/05/18 07/05/18 Range/Units 05:44 06:29 11:50 RBC (4.30-5.90) m/uL Hgb (13.0-17.5) gm/dL Hct (39.0-53.0) % MCHC (31.0-37.0) g/dL Neutrophils # (1.3-7.7) k/uL Lymphocytes # (1.0-4.8) k/uL Glucose 141 H (74-99) mg/dL POC Glucose (mg/dL) 141 H 128 H (75-99) mg/dL Assessment and Plan Assessment: Impression Acute Perforated gangrenous cholecystitis with intra-abdominal adhesions status post open cholecystectomy, laparoscopic lysis of adhesions Septic shock secondary to acute cholecystitis Acute cholecystitis due to biliary calculus Plan Discharge plan per the attending ECF placement appropriate Continue postop surgical care Pain control PT OT Keep drain for now IV Zosyn as ordered DVT and GI prophylaxis Increase activity The above impression and plan of care have been discussed and directed by signing physician. Daisy Christianson nurse practitioner acting as scribe for signing physician. <Dean Oconnor - Last Filed: 07/05/18 16:49> Objective - Vital Signs Vital signs: Vital Signs Temp 96.8 F L 07/05/18 15:53 Pulse 80 07/05/18 16:29 Resp 18 07/05/18 15:57 BP 165/75 07/05/18 15:53 Pulse Ox 93 L 07/05/18 15:53 Intake & Output 07/04/18 07/05/18 07/05/18 18:59 06:59 18:59 Intake Total 0901.599 3932 1062.571 Output Total 2512 675 395 Balance -722.025 605 667.571 Weight 128 kg 126 kg Intake: IV 680 440 650 Invasive Line 5 30 Piperacillin-Tazobactam 3 50 50 .375 gm In Dextrose/Water 1 50ml.bag @ 12.5 mls/hr IVPB Q8HR [facility] Rx#: [id number] Sodium Chloride 0.9% 1, 600 440 600 000 ml @ 50 mls/hr IV . Q20H [facility] Rx#:[id number] Intake, IV Titration 639.975 50 252.571 Amount Amiodarone 450 mg In 489.975 252.571 Dextrose 5% in Water 250 ml @ 1 MG/MIN 34.53 mls/ hr IV .Q7H31M [facility] Rx#: [id number] Dextrose 5% in Water 100 100 ml @ 618 mls/hr IV .Q10M ONE with Amiodarone 150 mg Rx#:[id number] Diltiazem 50 mg In Sodium 50 Chloride 0.9% 40 ml @ 10 MG/HR 10 mls/hr IV .Q5H [facility] Rx#:[id number] Piperacillin-Tazobactam 3 50 .375 gm In Dextrose/Water 1 50ml.bag @ 12.5 mls/hr IVPB Q8HR [facility] Rx#: [id number] Oral 470 790 160 Output: Drainage 87 25 170 Right Lower Abdomen 87 25 170 Urine 2425 650 225 Other: Voiding Method Urinal Urinal Urinal # Voids 2 1 # Bowel Movements 1 - Labs CBC & Chem 7: 07/05/18 05:44 07/05/18 05:44 Labs: Abnormal Lab Results - Last 24 Hours (Table) 07/04/18 07/04/18 07/05/18 Range/Units 17:21 20:48 05:44 RBC 3.80 L (4.30-5.90) m/uL Hgb 11.6 L (13.0-17.5) gm/dL Hct 37.7 L (39.0-53.0) % MCHC 30.9 L (31.0-37.0) g/dL Neutrophils # 8.4 H (1.3-7.7) k/uL Lymphocytes # 0.9 L (1.0-4.8) k/uL Glucose (74-99) mg/dL POC Glucose (mg/dL) 156 H 132 H (75-99) mg/dL 07/05/18 07/05/18 07/05/18 Range/Units 05:44 06:29 11:50 RBC (4.30-5.90) m/uL Hgb (13.0-17.5) gm/dL Hct (39.0-53.0) % MCHC (31.0-37.0) g/dL Neutrophils # (1.3-7.7) k/uL Lymphocytes # (1.0-4.8) k/uL Glucose 141 H (74-99) mg/dL POC Glucose (mg/dL) 141 H 128 H (75-99) mg/dL 07/05/18 Range/Units 16:39 RBC (4.30-5.90) m/uL Hgb (13.0-17.5) gm/dL Hct (39.0-53.0) % MCHC (31.0-37.0) g/dL Neutrophils # (1.3-7.7) k/uL Lymphocytes # (1.0-4.8) k/uL Glucose (74-99) mg/dL POC Glucose (mg/dL) 170 H (75-99) mg/dL Assessment and Plan Assessment: As above. Patient doing well. MARY drain remained serosanguineous. He is tolerating his diet. Energy level seems improved. Continue diet as tolerate. We'll plan removing the MARY drain prior to discharge. (1) Acute cholecystitis due to biliary calculus Current Visit: Yes Status: Acute Code(s): K80.00 - CALCULUS OF GALLBLADDER W ACUTE CHOLECYST W/O OBSTRUCTION SNOMED Code(s): 94892903385762
[2018-07-05] MEDS: HYDROcodone/APAP 5-325MG 1 EACH TAB PO PRN ×2 (13:42→20:48)
[2018-07-05] MEDS ORDERED: FUROSEMIDE 10 MG/ML 4 ML VIAL IV STA (13:58)
[2018-07-05 16:44] LABS: Glucose,Whole Blood 170 mg/dL (75-99)
[2018-07-05 20:37] LABS: Glucose,Whole Blood 126 mg/dL (75-99)
[2018-07-05] MEDS: AMIODARONE 200 MG TAB PO SCH (20:48)
[2018-07-06] MEDS: PIPERACILLIN-TAZOBACTAM 3.375 GM in DEXTROSE/WATER 1 50ML.BAG IVPB SCH ×3 (00:04→16:17)
[2018-07-06] MEDS: HYDROcodone/APAP 5-325MG 1 EACH TAB PO PRN ×3 (05:27→20:40)
[2018-07-06 06:55] LABS: Basophils # (A) 0.1 k/uL (0-0.2); Basophils % (A) 1 %; Eosinophils # (A) 0.2 k/uL (0-0.7); Eosinophils % (A) 2 %; HCT 37.2 % (39.0-53.0); HGB 11.7 gm/dL (13.0-17.5); Hypochromasia Slight; Lymphocytes # (A) 0.9 k/uL (1.0-4.8); Lymphocytes % (A) 9 %; MCH 30.8 pg (25.0-35.0); MCHC 31.5 g/dL (31.0-37.0); MCV 97.9 fL (80.0-100.0); Monocytes # (A) 0.4 k/uL (0-1.0); Monocytes % (A) 4 %; Neutrophils # (A) 7.7 k/uL (1.3-7.7); Neutrophils % (A) 82 %; Platelet Count 301 k/uL (150-450); RDW 14.6 % (11.5-15.5); WBC 9.4 k/uL (3.8-10.6)
[2018-07-06 07:09] LABS: Albumin 2.4 g/dL (3.5-5.0); Calcium 8.6 mg/dL (8.4-10.2); Potassium 3.8 mmol/L (3.5-5.1); Total Bilirubin 0.8 mg/dL (0.2-1.3)
[2018-07-06] MEDS: IPRATROPIUM-ALBUTEROL 3 ML NEB INHALATION SCH ×4 (07:19→19:24)
[2018-07-06 07:51] LABS: Glucose,Whole Blood 116 mg/dL (75-99)
[2018-07-06] MEDS: INSULIN ASPART 100 UNIT/ML 1 ML 10 ML VIAL SQ SCH ×4 (09:01→21:52)
[2018-07-06] MEDS: APIXABAN 5 MG TAB PO SCH ×2 (09:06→20:41)
[2018-07-06] MEDS: AMIODARONE 200 MG TAB PO SCH ×2 (09:07→20:41)
[2018-07-06] MEDS: METOPROLOL TARTRATE 25 MG TAB PO SCH ×3 (09:07→21:51)
[2018-07-06] MEDS: PANTOPRAZOLE 40 MG TABLET PO SCH (09:07)
--- NOTE | 2018-07-06 09:58 | P.PN ---
Subjective Progress Note Date: 07/04/18 Progress note being dictated for Dr. Brown. Interval history:Patient is a 83-year-old male with a known history of COPD, diabetes type 2 [id number], peripheral vascular disease with bilateral femoropopliteal bypass surgery, previous history of smoking came to ER with complaints of abdominal pain along with nausea and vomiting. Patient was recently admitted to hospital on 06/26/2018 with similar complaints when he had CT of abdomen pelvis showed gallstones and mild pancreatitis. Patient also found have fat stranding around gallbladder and was recommended surgery at the time. Patient wants to proceed with the surgery as outpatient and patient was discharged eventually. Patient came back to the hospital with similar complaints. Patient is complaining of abdominal pain mainly left lower quadrant and right flank area as well. Denied any complaints of chest pain or shortness of breath. No fever no chills. He states the pain is moving from one side to the other with no specific aggravating factors. EKG sinus rhythm with no acute ST-T wave changes Chest x-ray showed mild cardiomegaly with no heart failure and no cardiomegaly pulmonary process. WBC 22.1 Lactic acid 3.0 Magnesium 1.8 Troponin 0.082, 0.059 and 0.061 Patient is tachycardic with heart rate 116 now. 2-D echocardiogram was done. Echocardiogram obtained reveals preserved left ventricular systolic function with ejection fraction 60-65%, mildly enlarged right ventricle, mild aortic valve sclerosis with no stenosis, mild TR and severe pulmonary hypertension with an RVSP 64.93 mmHg. Abdominal x-ray showed small bowel distention compared to last exam could be due to partial mechanical obstruction or ileus. No free air. Ultrasound abdomen showed no gallstones or dilated ducts. Mild right renal outcome atrophy. CT abdomen and pelvis showed gallstones. There is some fat stranding around the gallbladder. And a small amount of fluid at the nat hepatis as well as the anterior pararenal space this is new compared to recent computed tomography scan and related inflammatory process and cholecystitis. Sigmoid diverticulosis Review of Systems Constitutional: Patient denies any fever or chills . No generalized weakness or weight loss. Abdomen: Patient does have abdominal pain with nausea and vomiting. No diarrhea. Cardiovascular: Patient denies any chest pain or short of breath no palpitations. Respiratory: patient denied any cough is from production. No shortness of breath Neurologic: Patient denied any numbness or tingling headache. Musculoskeletal: Patient denies any complaints of joint swelling or deformity. Skin: Negative Psychiatric: Negative Endocrine: No heat or cold intolerance. No recent weight gain. Genitourinary: No dysuria or hematuria. All other 14 point ROS negative except the above 06/29/18 required reintubation yesterday in the recovery room , hypotensive, A. fib with RVR.chest x-ray reported mild CHF, small pleural effusions .received 3 L of IV fluids, pressors initiated.Converted to sinus rhythm. This morning , weaned off sedation, following commands appropriately, became tachypneic, failed weaning parameters. Acidotic ABGs, bicarb drip initiated. CO2 15. Maintained on mechanical ventilation, FiO2 of 40%/+5 of PEEP. Levophed weaned off early this morning. Creatinine 1.3, low urine output Anticoagulation remains on hold for another 24 hours as per cardiology. Maintained on IV antibiotics as per infectious disease. 07/02/18 extubated over the weekend, maintaining O2 sats in high 90s on 4 L nasal cannula O2. Pain better controlled. Tolerating full liquids, passing flatus and bowel movement. Converted back to sinus rhythm, Cardizem drip discontinued, converted to oral. 07/03/18 transferred out of ICU yesterday afternoon , currently on MedSurg unit. reports passing flatus, positive bowel movement. Tolerating diet with no nausea or vomiting. Yesterday stood at bedside with physical therapy. Pain control improved. Maintained on Zosyn, nebulized bronchodilators. Maintaining O2 sats of high 90s on 4 L nasal cannula. Received a dose of Lasix for increased scrotal edema. Afebrile, normal WBC. Developed atrial fibrillation with RVR this afternoon. Evaluated by cardiology received additional dose of beta obey, Cardizem administered early. Review of systems: CONSTITUTIONAL: Positive fatigue. HEENT: No recent visual problems or hearing problems. Denied any sore throat. CARDIOVASCULAR: No chest pain, positive palpitations. Reports no prior history of arrhythmias, A. fib. PULMONARY: No shortness of breath, no cough, no hemoptysis. GASTROINTESTINAL: Passing flatus, positive bowel movement. No nausea or vomiting. NEUROLOGICAL: No headaches, generalized weakness, no numbness. HEMATOLOGICAL: Denies any bleeding or petechiae. GENITOURINARY: Denies any burning micturition, frequency, or urgency. ENDOCRINE: Denies any polyuria or polydipsia. PSYCHIATRIC: No anxiety, no depression The rest of the 14 point review of systems is negative Active Medications Albuterol/Ipratropium (Duoneb 0.5 Mg-3 Mg/3 Ml Soln) 3 ml INHALATION RT-Q2H PRN PRN Reason: Shortness Of Breath Or Wheezing Last Admin: 07/02/18 23:03 Dose: 3 ml Albuterol/Ipratropium (Duoneb 0.5 Mg-3 Mg/3 Ml Soln) 3 ml INHALATION RT-QID [facility] Last Admin: 07/03/18 12:14 Dose: Not Given Apixaban (Eliquis) 5 mg PO BID [facility] Last Admin: 07/03/18 07:51 Dose: 5 mg Diltiazem HCl (Cardizem Oral) 60 mg PO TID [facility] Last Admin: 07/03/18 10:05 Dose: 60 mg Hydromorphone HCl (Dilaudid) 1 mg IVP Q3HR PRN PRN Reason: Severe Pain Last Admin: 07/03/18 10:05 Dose: 1 mg Hydromorphone HCl (Dilaudid) 0.5 mg IVP Q3HR PRN PRN Reason: Moderate Pain Last Admin: 06/30/18 20:28 Dose: 0.5 mg Piperacillin/Tazobactam/ (Dextrose 3.375 gm/ IV Solution) 50 mls @ 12.5 mls/hr IVPB Q8HR [facility] Last Admin: 07/03/18 08:00 Dose: 12.5 mls/hr Sodium Chloride (Saline 0.9%) 1,000 mls @ 50 mls/hr IV .Q20H [facility] Last Admin: 07/03/18 05:50 Dose: Not Given Insulin Aspart (Novolog) 0 unit SQ ACHS [facility]; Protocol Last Admin: 07/03/18 12:42 Dose: 3 unit Metoprolol Tartrate (Lopressor) 25 mg PO BID [facility] Last Admin: 07/03/18 07:51 Dose: 25 mg Metoprolol Tartrate (Lopressor) 2.5 mg IVP Q6HR PRN PRN Reason: Heart Rate - HIGH Last Admin: 07/01/18 07:43 Dose: 2.5 mg Metoprolol Tartrate (Lopressor) 50 mg PO ONCE STA Stop: 07/03/18 14:20 Naloxone HCl (Narcan) 0.2 mg IV Q2M PRN PRN Reason: Opioid Reversal Ondansetron HCl (Zofran) 4 mg IVP Q8HR PRN PRN Reason: Nausea And Vomiting Last Admin: 06/28/18 04:25 Dose: 4 mg Pantoprazole Sodium (Protonix) 40 mg IV DAILY [facility] Last Admin: 07/03/18 07:51 Dose: 40 mg 07/04/2018 Maintained on IV antibiotics, afebrile. Continues on amiodarone drip, converted to sinus rhythm. Pain controlled. Denies chest pain, palpitations or increased shortness of breath. Tolerating low fat diet, passing flatus. No nausea or vomiting. Objective - Vital Signs Vital signs: Vital Signs Temp 97.0 F L 07/04/18 17:02 Pulse 69 07/04/18 17:02 Resp 20 07/04/18 17:02 BP 127/60 07/04/18 17:02 Pulse Ox 93 L 07/04/18 17:02 Intake & Output 07/03/18 07/04/18 07/04/18 18:59 06:59 18:59 Intake Total 290 606.925 4183.975 Output Total 3560 575 2512 Balance -3270 -236.333 -722.025 Weight 128 kg 128 kg Intake: IV 50 310 680 Invasive Line 5 10 30 Piperacillin-Tazobactam 3 50 50 50 .375 gm In Dextrose/Water 1 50ml.bag @ 12.5 mls/hr IVPB Q8HR [facility] Rx#: [id number] Sodium Chloride 0.9% 1, 250 600 000 ml @ 50 mls/hr IV . Q20H [facility] Rx#:[id number] Intake, IV Titration 28.667 639.975 Amount Amiodarone 450 mg In 489.975 Dextrose 5% in Water 250 ml @ 1 MG/MIN 34.53 mls/ hr IV .Q7H31M [facility] Rx#: [id number] Dextrose 5% in Water 100 100 ml @ 618 mls/hr IV .Q10M ONE with Amiodarone 150 mg Rx#:[id number] Diltiazem 50 mg In Sodium 28.667 50 Chloride 0.9% 40 ml @ 10 MG/HR 10 mls/hr IV .Q5H [facility] Rx#:[id number] Oral 240 470 Output: Drainage 360 75 87 Right Lower Abdomen 360 75 87 Urine 3200 500 2425 Uretheral (Mae) 2500 500 Other: Voiding Method Indwelling Catheter Indwelling Catheter Urinal # Voids 2 - Exam General:Patient is sitting up in bed, no acute distress HEENT: Normocephalic. Neck is supple. Pupils reactive. Oral mucosa moist Neck reveals no JVD, carotid bruits, or thyromegaly. CHEST EXAMINATION: Bilateral bases diminished, occasional scattered fine expiratory wheezes CARDIAC: Normal S1, S2 with no gallops. Regular, Positive systolic murmur ABDOMEN: Soft, nondistended, Status post surgery, MARY with minimal serosanguineous drainage. Extremities: trace edema. No clubbing or cyanosis. Bilateral Venodyne's present Neurologically no focal deficits. - Labs CBC & Chem 7: 07/04/18 06:30 07/04/18 06:30 Labs: Abnormal Lab Results - Last 24 Hours (Table) 07/03/18 07/04/18 07/04/18 Range/Units 20:48 06:14 06:30 RBC 3.70 L (4.30-5.90) m/uL Hgb 11.6 L (13.0-17.5) gm/dL Hct 36.8 L (39.0-53.0) % Lymphocytes # 0.9 L (1.0-4.8) k/uL Carbon Dioxide (22-30) mmol/L Glucose (74-99) mg/dL POC Glucose (mg/dL) 147 H 115 H (75-99) mg/dL Calcium (8.4-10.2) mg/dL 07/04/18 07/04/18 07/04/18 Range/Units 06:30 11:32 17:21 RBC (4.30-5.90) m/uL Hgb (13.0-17.5) gm/dL Hct (39.0-53.0) % Lymphocytes # (1.0-4.8) k/uL Carbon Dioxide 31 H (22-30) mmol/L Glucose 121 H (74-99) mg/dL POC Glucose (mg/dL) 213 H 156 H (75-99) mg/dL Calcium 8.2 L (8.4-10.2) mg/dL Microbiology - Last 24 Hours (Table) 06/27/18 20:00 Blood Culture - Final Blood No Growth after 144 hours Assessment and Plan Assessment: Acute Perforated gangrenous cholecystitis with intra-abdominal adhesions status post open cholecystectomy, laparoscopic lysis of adhesions Septic shock secondary to acute cholecystitis Leukocytosis secondary to the above, normalized Metabolic acidosis, status post bicarb drip, resolved Lactic acidosis Acute hypoxic respiratory failure post procedure, required reintubation in PACU , status post mechanical ventilator-dependent. Mild elevated troponin level could be related to infection. Possible demand ischemia without TN COPD stable Diabetes type 2 [id number]. Peripheral vascular disease with history of bilateral femoropopliteal bypass surgery Pulmonary hypertension as per 2-D echocardiogram DVT prophylaxis History of diverticulosis and diverticulitis Acute renal failure secondary to hypotension, sepsis New onset proximal atrial fibrillation with RVR. Patient reports no prior history of arrhythmias, A. fib. Chronic diastolic CHF. Plan: Continue current medication regime ,monitoring and symptomatic treatment. Maintain IV antibiotics. Antiarrhythmics as per cardiology. Aggressive pulmonary toileting with inspirometer enforced. Increase ambulation as tolerated. Subacute rehab at discharge. The impression and plan of care has been dictated as directed. : I performed a history and examination of this patient, discussed the same with the dictator. I agree with the dictator's note ,documented as a scribe. Any additional findings or plans will be noted.
--- NOTE | 2018-07-06 10:30 | P.PN ---
Subjective Progress Note Date: 07/06/18 83-year-old male seen this morning sitting up in bed tolerating diet chief complaint tired out. Currently patient is in sinus rhythm. Denies dizziness lightheadedness or chest pain. Denies any nausea vomiting tolerating a low-fat diet Surgical dressing site dry abdomen soft surgical tenderness appropriate states no stool White count 9.4 hemoglobin 11.7 electrolytes within normal limits status post open cholecystectomy, laparoscopic lysis of adhesions done on June 28 Objective - Vital Signs Vital signs: Vital Signs Temp 98.1 F 07/06/18 07:40 Pulse 94 07/06/18 07:40 Resp 16 07/06/18 07:40 BP 157/71 07/06/18 07:40 Pulse Ox 95 07/06/18 00:00 Intake & Output 07/05/18 07/06/18 07/06/18 18:59 06:59 18:59 Intake Total 1312.571 Output Total 395 2160 Balance 917.571 -2160 Weight 116.5 kg Intake: IV 650 Piperacillin-Tazobactam 3 50 .375 gm In Dextrose/Water 1 50ml.bag @ 12.5 mls/hr IVPB Q8HR [facility] Rx#: [id number] Sodium Chloride 0.9% 1, 600 000 ml @ 50 mls/hr IV . Q20H [facility] Rx#:[id number] Intake, IV Titration 252.571 Amount Amiodarone 450 mg In 252.571 Dextrose 5% in Water 250 ml @ 1 MG/MIN 34.53 mls/ hr IV .Q7H31M [facility] Rx#: [id number] Oral 410 Output: Drainage 170 35 Right Lower Abdomen 170 35 Urine 225 2125 Other: Voiding Method Urinal Urinal # Voids 1 1 # Bowel Movements 1 - Exam Physical exam Abdomen MARY drain in place serous drainage. Noted A few active bowel tones noted. States no bowel movement but belching and passing gas. Surgical tenderness appropriate. Surgical dressings dry abdominal binder in place - Labs CBC & Chem 7: 07/06/18 06:35 07/06/18 06:35 Labs: Abnormal Lab Results - Last 24 Hours (Table) 07/05/18 07/05/18 07/05/18 Range/Units 11:50 16:39 20:35 RBC (4.30-5.90) m/uL Hgb (13.0-17.5) gm/dL Hct (39.0-53.0) % Lymphocytes # (1.0-4.8) k/uL Carbon Dioxide (22-30) mmol/L Glucose (74-99) mg/dL POC Glucose (mg/dL) 128 H 170 H 126 H (75-99) mg/dL Total Protein (6.3-8.2) g/dL Albumin (3.5-5.0) g/dL 07/06/18 07/06/18 07/06/18 Range/Units 06:35 06:35 07:49 RBC 3.80 L (4.30-5.90) m/uL Hgb 11.7 L (13.0-17.5) gm/dL Hct 37.2 L (39.0-53.0) % Lymphocytes # 0.9 L (1.0-4.8) k/uL Carbon Dioxide 31 H (22-30) mmol/L Glucose 117 H (74-99) mg/dL POC Glucose (mg/dL) 116 H (75-99) mg/dL Total Protein 5.0 L (6.3-8.2) g/dL Albumin 2.4 L (3.5-5.0) g/dL Assessment and Plan Assessment: Impression Acute Perforated gangrenous cholecystitis with intra-abdominal adhesions status post open cholecystectomy, laparoscopic lysis of adhesions Septic shock secondary to acute cholecystitis Acute cholecystitis due to biliary calculus Plan Anticipate discharge to rehab on Monday from surgical perspective Increase activity Pain control PT OT Keep drain for now IV Zosyn as ordered discuss with pulmonary DVT and GI prophylaxis Dictating a progress note for on behalf of The above impression and plan of care have been discussed and directed by signing physician. Daisy Christianson nurse practitioner acting as scribe for signing physician. Time with Patient: Greater than 30
--- NOTE | 2018-07-06 11:44 | P.PN ---
Subjective Mr. Haynes is seen and examined sitting up in bed in no acute distress. He was transferred from [facility] back to surgical unit after going back into atrial fibrillation with rapid ventricular response. He was started on amiodarone and has converted back to sinus. Blood pressure 155/71 heart rate 74 afeibrile. Currently maintained on amiodarone 200 mg BID, eliquis 5 mg BID and lopressor 25 mg TID. He denies chest pain, shortness of breath, dizziness or palpitations. He does continue to feel discomfort in the right upper quadrant, worse when he takes a deep breath. Incentive spirometer is at the bedside. Laboratory data reviewed, hemoglobin 11.7, platelets 301, sodium 139, potassium 3.8, creatinine 0.94. Objective - Vital Signs Vital signs: Vital Signs Temp 98.1 F 07/06/18 07:40 Pulse 72 07/06/18 11:28 Resp 16 07/06/18 07:40 BP 157/71 07/06/18 07:40 Pulse Ox 95 07/06/18 00:00 Intake & Output 07/05/18 07/06/18 07/06/18 18:59 06:59 18:59 Intake Total 1312.571 250 Output Total 395 2160 Balance 917.571 -2160 250 Weight 116.5 kg Intake: IV 650 250 Piperacillin-Tazobactam 3 50 .375 gm In Dextrose/Water 1 50ml.bag @ 12.5 mls/hr IVPB Q8HR [facility] Rx#: [id number] Sodium Chloride 0.9% 1, 600 250 000 ml @ 50 mls/hr IV . Q20H [facility] Rx#:[id number] Intake, IV Titration 252.571 Amount Amiodarone 450 mg In 252.571 Dextrose 5% in Water 250 ml @ 1 MG/MIN 34.53 mls/ hr IV .Q7H31M [facility] Rx#: [id number] Oral 410 Output: Drainage 170 35 Right Lower Abdomen 170 35 Urine 225 2125 Other: Voiding Method Urinal Urinal # Voids 1 1 # Bowel Movements 1 - Exam GENERAL: Well-appearing, well-nourished and in no acute distress. NECK: Supple without JVD or thyromegaly. LUNGS: Breath sounds clear to auscultation bilaterally. Respiration equal and unlabored. No wheezes, rales or rhonchi. HEART: Regular rate and rhythm with systolic ejection murmur, no rubs or gallops. S1 and S2 heard. EXTREMITIES: Normal range of motion, no edema. No clubbing or cyanosis. Peripheral pulses intact. - Labs CBC & Chem 7: 07/06/18 06:35 07/06/18 06:35 Labs: Abnormal Lab Results - Last 24 Hours (Table) 07/05/18 07/05/18 07/05/18 Range/Units 11:50 16:39 20:35 RBC (4.30-5.90) m/uL Hgb (13.0-17.5) gm/dL Hct (39.0-53.0) % Lymphocytes # (1.0-4.8) k/uL Carbon Dioxide (22-30) mmol/L Glucose (74-99) mg/dL POC Glucose (mg/dL) 128 H 170 H 126 H (75-99) mg/dL Total Protein (6.3-8.2) g/dL Albumin (3.5-5.0) g/dL 07/06/18 07/06/18 07/06/18 Range/Units 06:35 06:35 07:49 RBC 3.80 L (4.30-5.90) m/uL Hgb 11.7 L (13.0-17.5) gm/dL Hct 37.2 L (39.0-53.0) % Lymphocytes # 0.9 L (1.0-4.8) k/uL Carbon Dioxide 31 H (22-30) mmol/L Glucose 117 H (74-99) mg/dL POC Glucose (mg/dL) 116 H (75-99) mg/dL Total Protein 5.0 L (6.3-8.2) g/dL Albumin 2.4 L (3.5-5.0) g/dL Assessment and Plan Assessment: ASSESSMENT Abdominal pain s/p open cholecystectomy and lysis of adhesions with perforated gangrenous cholecystitis Paroxysmal atrial fibrillation with rapid ventricular response Leukocytosis Lactic acidosis Hyponatremia Mild troponin leak, not indicative of an acute coronary event. Hypertension Diabetes mellitus Pulmonary hypertension PLAN Continue current medical regimen. Ongoing telemetry monitoring. We will continue to follow. Nurse Practitioner note has been reviewed, I agree with a documented findings and plan of care. Patient was seen and examined.
[2018-07-06] MEDS: SODIUM CHLORIDE 0.9% 1,000 ML IV SCH (12:06)
[2018-07-06 12:21] LABS: Glucose,Whole Blood 141 mg/dL (75-99)
--- NOTE | 2018-07-06 13:01 | P.PN ---
Subjective Progress Note Date: 07/06/18 Principal diagnosis: Acute perforated cholecystitis with secondary sepsis and septic shock This is a 83-year-old white male patient with past medical history of COPD, underlying FEV1 of 63% of predicted, diabetes mellitus, BPH, CHF, hypertension, presented to the emergency department on 06/27/2018 for evaluation of acute abdominal pain. Patient symptoms started in the morning on 06/27/2018, with lower abdominal pain that progressively increased, and spread to the upper quadrants. Patient was recently in the hospital similar symptoms, and there was a concern for gallstones. Gallbladder ultrasound from 06/27/2018 showed no gallstones or dilated ducts, and mild right renal cortical atrophy. Abdominal/ pelvis CT from 06/28/2018 showed gallstones, possible gallstone impacted in the gallbladder neck, small amount of fluid at the nat hepatis as well as the anterior perirenal space related to inflammatory process and cholecystitis. Lab work showed leukocytosis WBC of 22.1, hemoglobin of 16.1, INR was elevated to 1.4, patient had mild lactic acidosis of 2.1 which subsequently increased to 3.0, non-anion gap metabolic acidosis, patient was slightly prerenal. Patient had a low-grade fever, he has been tachycardic with a rate of 116 BPM. In sinus mechanism. Troponins were elevated at 0.082, 0.059, and 0.061. Patient was given a total of 4 L of 0.9 normal saline, has not required any vasopressor support. He is having significant amount of discomfort across his upper quadrant under his rib cage, he states it hurts for him to take deep breaths and cough. Is also having discomfort in his left lower quadrant, and tenderness over right upper quadrant. He has bowel sounds 4, he is receiving pain medications, however his pain continues to increase. Gen. surgery has been consulted, and exposure laparotomy was recommended. General surgery consult was placed and patient was recommended laparoscopic examination with anticipated cholecystectomy. Patient does have a history of previous aortobifem bypass, and subsequent hernia repair with mesh. In addition patient admits to passing dark tarry stools about a week ago. Work consult in regards to pulmonary clearance for the surgical procedure and this afternoon. As far as patient's history of COPD patient is not on any oxygen, his only inhaler is his rescue inhaler. Physical exam does not reveal any significant signs of wheezing, or shortness of breath, other than that related to his abdominal pain. Was also seen by cardiology, echocardiogram was completed, and over left ventricle systolic function is within normal limits with an EF between 60-65% There was severe pulmonary hypertension, right ventricular systolic pressure not provided. Moderate pulmonic regurgitation, with mild tricuspid regurgitation. Patient has a previous history of diverticulitis. On 06/29/2018, patient is being seen in the intensive care unit. The patient underwent his surgery yesterday. The patient was found to have acute perforated gangrenous cholecystitis. Initially the procedure was started laparoscopic and ultimately the patient underwent a laparotomy and open cholecystectomy with lysis of adhesions. Postop the patient was extubated in the operating room and in recovery the patient was doing poorly and he was becoming progressively more short of breath and tachypneic and tachycardic and hypotensive. At that point it was decided to reintubate the patient. The patient was intubated and was moved to the intensive care unit. Upon arrival his systolic blood pressure was in the low 50s. He was in nature fibrillation with rapid ventricular response with a heart rate in the 120 to 130 range. He was intubated on a mechanical ventilator and and a chest x-ray showed mild CHF with small bilateral pleural effusions. ET tube was in a good location was around 3 cm from the arslan. The patient is an assist-control mode of ventilation. The initial blood gas showed a pH of 7.21 with a pCO2 of 36 and pO2 of 1 and 15. As such the FiO2 was gradually weaned off. The patient was also given immediately 3 L of IV fluids in the form of normal saline. The patient was started on pressors and he was brought up to 5 mics of norepinephrine infusion overnight and currently this morning he is off pressors. Most recent blood gases from this morning showed a pH of 7.29 with a pCO2 of 31 and pO2 127. This current vent settings for now is a Tidal volume is at 550 with an FiO2 of 40% and PEEP of 5. Based on all this, I give the patient to have some bicarb was started on bicarb infusion this morning. He was quite acidotic with a bicarb level of 15 and a anion gap of 11. Currently the patient is also on a bicarb drip at the rate of 100 mL an hour. Repeat blood gases this afternoon showed a pH of 7.35 with a pCO2 of 36 and pO2 of 97. The patient was given a sedation holiday this morning. He became immediately tachypneic and uncomfortable with any sweating with parameters without poor and based on that the trial was aborted. His creatinine today is 1.3. Urine output is low in the order of 10-20 mL an hour and is improving. He is on empiric antibiotic coverage with IV Zosyn. Most recent lactic acid level venous sample was at 3.0. He is nothing by mouth for now. The surgical wound site over the anterior abdominal wall is dry clean and intact. As mentioned, she is currently off pressors. On 06/30/2018 I'm seeing this patient for a follow-up. This morning the patient is off sedation, comfortable awake and following commands and answering questions appropriately. The patient had adequate weaning parameters and the patient is in the process of getting a spontaneous breathing trial a pressure support of 5 and a PEEP of 5 and a blood gases to follow. Chest x-ray showed adequate expansion of both lungs with small bilateral pleural effusions. ET tube is in a good location. The patient is hemodynamically stable. This morning, the blood gases show a pH of 7.46 with a pCO2 of 36 and pO2 of 79 and this was on FiO2 of 40% with a PEEP of 5 and a tidal volume of 550. White cell count is down to 11.8. The patient is afebrile. Urine output is order of 30 mL an hour. Serum bicarb is up to 26 while the patient receiving a bicarb drip infusion. Abdomen is soft. MARY drain output is minimal at this point. The patient remains on IV Zosyn. 07/01/2008 Seeing this patient for a follow-up. The patient is calm and comfortable. Earlier this morning at around 7:00 he went into atrial fibrillation with rapid ventricular response. Heart rate was in the 130s. He was started on Cardizem drip. Currently is on 7.5 mg of Cardizem and his heart rate slowed done and ultimately converted to sinus rhythm at around 11:00 this morning. The patient remained hemodynamically stable. The patient is still not having any flatus or bowel movement although has decent amount of bowel sounds. Surgical wound site is clean. MARY drain has drained approximately 60 mL over the past 24 hours. No chest pain. No shortness of breath. White cell count is at 8.2. The rest of the blood work is all within normal limits. Producing approximately 30-50 mL of urine output on an hourly basis. 07/02/2018, the patient is awake and alert and following commands and answering questions. His rhythm is back to normal sinus. He is off the Cardizem drip. He has not required any further cardiac interventions knowing that his cardiac rhythm remained sinus throughout the day for yesterday and throughout the night. He is producing adequate amount of urine output. MARY drain is in place. Abdomen is nondistended. The patient had some flatness. Tolerating liquid diet. No shortness of breath. No cough or sputum production. He is a bit weak and he is laying in bed most of the time. Would like to get him out on a bedside chair. No fever. No chills. No sweats. White cell count is stable at 9.4. 07/03/2018 the patient got transferred to a medical surgical floor. He is recovering well. He is sinus rhythm. His MARY drain is in place. His abdomen is nondistended. His surgical wound site is clean. No nausea. No vomiting. No abdominal pain. No abdominal distention. He is passing flatus. He is noted to have some increased edema specially in the scrotum and the patient will be given a dose of Lasix. No respiratory distress. No altered mentation. He is on IV Zosyn still. Pain is under good control. He is using Eliquis 5 mg by mouth twice a day. He is on DuoNeb nebulized treatments around the clock. He got transferred out of the intensive care unit yesterday. He was able to stand up and sit up on a chair. He malignant is stable at 10.5. Rest of the electrodes are all within normal limits. 07/04/2018, the patient got transferred out of the intensive care unit. He was seen yesterday on the surgical floor. He was doing well. Overnight the patient went into atrial fibrillation with rapid ventricular response. Based on that, he got transferred back to [facility]. He is doing well. He was started on amiodarone protocol with mom milligram per minute infusion. His cardiac rhythm converted back to sinus. Is on long-term medical condition with Eliquis 5 mg by mouth twice a day. Abdomen is nondistended. Wound is clear. MARY drain is minimal. The patient on Dilaudid for pain control. He is also on IV Zosyn. No fever. No chills. No respiratory distress. Lower extremity edema is improved as the patient received a dose of Lasix yesterday.the white cell count of 9.3. S of the electrodes are within normal limits. 07/05/2018 patient is stable without any complaints. He is resting comfortably in bed. Overnight he has some increased shortness of breath he was given a breathing treatment and subsequently improved. He remains in a sinus rhythm. No nausea. No vomiting. No abdominal pain. Abdominal wounds remains unchanged. The patient is still on oral amiodarone 400 mg by mouth twice a day. The patient on long-term articulation with ataxia been. Metoprolol is also being used for rate control and blood pressure control. He is on IV Zosyn. Using incentive spirometer. Limited activity. Still edema lower extremities present. White cell count is at 10.3. Renal function stable. On 07/06/2018 patient seen in follow-up on the surgical floor. He sitting up in the recliner, in no acute distress. Denies any shortness of breath, also oxygen 3 L per nasal cannula is 99%, his using his incentive spirometry, and is able to achieve 1500 on it. Patient is currently on oral amiodarone, and he has been started on Eliquis for anticoagulation his heart rate is controlled. Her maintenance sinus rhythm. Remains on IV Zosyn, and ID service has been following him. Patient is afebrile, his abdominal pain lately with movement. Lung sounds Are negative for any rhonchi, wheezing or crackles. Has some bilateral lower extremity edema, patient has not ambulated very much, we will increase activity as tolerated. Objective - Vital Signs Vital signs: Vital Signs Temp 98.1 F 07/06/18 07:40 Pulse 72 07/06/18 11:28 Resp 16 07/06/18 07:40 BP 157/71 07/06/18 07:40 Pulse Ox 95 07/06/18 00:00 Intake & Output 07/05/18 07/06/18 07/06/18 18:59 06:59 18:59 Intake Total 1312.571 250 Output Total 395 2160 Balance 917.571 -2160 250 Weight 116.5 kg Intake: IV 650 250 Piperacillin-Tazobactam 3 50 .375 gm In Dextrose/Water 1 50ml.bag @ 12.5 mls/hr IVPB Q8HR [facility] Rx#: [id number] Sodium Chloride 0.9% 1, 600 250 000 ml @ 50 mls/hr IV . Q20H [facility] Rx#:[id number] Intake, IV Titration 252.571 Amount Amiodarone 450 mg In 252.571 Dextrose 5% in Water 250 ml @ 1 MG/MIN 34.53 mls/ hr IV .[id number] [facility] Rx#: [id number] Oral 410 Output: Drainage 170 35 Right Lower Abdomen 170 35 Urine 225 2125 Other: Voiding Method Urinal Urinal # Voids 1 1 # Bowel Movements 1 - Exam Awake and alert and not in acute distress. Head exam was generally normal. There was no scleral icterus or corneal arcus. Mucous membranes were moist. Neck was supple and without jugular venous distension, thyromegaly, or carotid bruits. Carotids were easily palpable bilaterally. There was no adenopathy. Lungs sounds are diminished bilaterally Cardiac exam revealed the PMI to be normally situated and sized. The rhythm was regular and no extrasystoles were noted during several minutes of auscultation. The first and second heart sounds were normal and physiologic splitting of the second heart sound was noted. There were no murmurs, rubs, clicks, or gallops. Abdomen is soft and there is a mid abdominal incision which is dry clean and intact. There is no direct tenderness rebound tensile guarding. The patient has a right upper quadrant MARY drain outputs of which is minimal at this point Extremities show trace edema and there is no cyanosis or clubbing at this point. Neurologically the patient is awake and alert and there is no focal neurological deficit. - Labs CBC & Chem 7: 07/06/18 06:35 07/06/18 06:35 Labs: Abnormal Lab Results - Last 24 Hours (Table) 07/05/18 07/05/18 07/06/18 Range/Units 16:39 20:35 06:35 RBC 3.80 L (4.30-5.90) m/uL Hgb 11.7 L (13.0-17.5) gm/dL Hct 37.2 L (39.0-53.0) % Lymphocytes # 0.9 L (1.0-4.8) k/uL Carbon Dioxide (22-30) mmol/L Glucose (74-99) mg/dL POC Glucose (mg/dL) 170 H 126 H (75-99) mg/dL Total Protein (6.3-8.2) g/dL Albumin (3.5-5.0) g/dL 07/06/18 07/06/18 07/06/18 Range/Units 06:35 07:49 12:19 RBC (4.30-5.90) m/uL Hgb (13.0-17.5) gm/dL Hct (39.0-53.0) % Lymphocytes # (1.0-4.8) k/uL Carbon Dioxide 31 H (22-30) mmol/L Glucose 117 H (74-99) mg/dL POC Glucose (mg/dL) 116 H 141 H (75-99) mg/dL Total Protein 5.0 L (6.3-8.2) g/dL Albumin 2.4 L (3.5-5.0) g/dL Assessment and Plan Plan: Assessment: 1 acute perforated cholecystitis with secondary sepsis. Patient is postcholecystectomy/exp laparotomy and open cholecystectomy and lysis of adhesions. The patient is postop day #8 2 septic shock secondary to above, recovered, still on IV Zosyn and hemodynamically stable. 3 leukocytosis secondary to above improved and recovered and normalized 4 acute hypoxic failure post cholecystectomy. Please see discussion above, recovered. Overall pulmonary status is stable and the patient is currently using incentive spirometer. 5 Paroxysmal atrial fibrillation , back to normal sinus rhythm on a combination of oral amiodarone, metoprolol and Eliquis. 6 congestive heart failure, essentially diastolic in nature 7 COPD with an FEV1 of 60% of predicted 8 peripheral vascular disease with a previous aortobifemoral bypass surgery 9 history of hypertension 10 history of secondary pulmonary hypertension 11 history of diverticulosis and previous history of diverticulitis 12 previous history of diabetes mellitus. 13 acute kidney injury, recovered 14 troponin leak secondary to sepsis Plan Continue encouraging use of incentive spirometry, deep breathing and coughing. Patient remains stable from pulmonary standpoint, no worsening shortness of breath, his pain is under good control. Increase activity as tolerated, discharge planning is in progress for discharge to subacute rehab early next week. No issues from critical care standpoint, we will sign off, and see the patient on as-needed basis. I performed a history & physical examination of the patient and discussed their management with my nurse practitioner, Valerie Vaughn. I reviewed the nurse practitioner's note and agree with the documented findings and plan of care. Lung sounds are positive for diminished breath sounds, with bibasilar crackles. The findings and the impression was discussed with the patient. I attest to the documentation by the nurse practitioner. Time with Patient: Less than 30
[2018-07-06 17:12] LABS: Glucose,Whole Blood 157 mg/dL (75-99)
--- NOTE | 2018-07-06 17:24 | P.PN ---
Subjective Progress Note Date: 07/05/18 Progress note being dictated for Dr. Brown. Interval history:Patient is a 83-year-old male with a known history of COPD, diabetes type 2 [id number]-aiooirjad, peripheral vascular disease with bilateral femoropopliteal bypass surgery, previous history of smoking came to ER with complaints of abdominal pain along with nausea and vomiting. Patient was recently admitted to hospital on 06/26/2018 with similar complaints when he had CT of abdomen pelvis showed gallstones and mild pancreatitis. Patient also found have fat stranding around gallbladder and was recommended surgery at the time. Patient wants to proceed with the surgery as outpatient and patient was discharged eventually. Patient came back to the hospital with similar complaints. Patient is complaining of abdominal pain mainly left lower quadrant and right flank area as well. Denied any complaints of chest pain or shortness of breath. No fever no chills. He states the pain is moving from one side to the other with no specific aggravating factors. EKG sinus rhythm with no acute ST-T wave changes Chest x-ray showed mild cardiomegaly with no heart failure and no cardiomegaly pulmonary process. WBC 22.1 Lactic acid 3.0 Magnesium 1.8 Troponin 0.082, 0.059 and 0.061 Patient is tachycardic with heart rate 116 now. 2-D echocardiogram was done. Echocardiogram obtained reveals preserved left ventricular systolic function with ejection fraction 60-65%, mildly enlarged right ventricle, mild aortic valve sclerosis with no stenosis, mild TR and severe pulmonary hypertension with an RVSP 64.93 mmHg. Abdominal x-ray showed small bowel distention compared to last exam could be due to partial mechanical obstruction or ileus. No free air. Ultrasound abdomen showed no gallstones or dilated ducts. Mild right renal outcome atrophy. CT abdomen and pelvis showed gallstones. There is some fat stranding around the gallbladder. And a small amount of fluid at the nat hepatis as well as the anterior pararenal space this is new compared to recent computed tomography scan and related inflammatory process and cholecystitis. Sigmoid diverticulosis Review of Systems Constitutional: Patient denies any fever or chills . No generalized weakness or weight loss. Abdomen: Patient does have abdominal pain with nausea and vomiting. No diarrhea. Cardiovascular: Patient denies any chest pain or short of breath no palpitations. Respiratory: patient denied any cough is from production. No shortness of breath Neurologic: Patient denied any numbness or tingling headache. Musculoskeletal: Patient denies any complaints of joint swelling or deformity. Skin: Negative Psychiatric: Negative Endocrine: No heat or cold intolerance. No recent weight gain. Genitourinary: No dysuria or hematuria. All other 14 point ROS negative except the above 06/29/18 required reintubation yesterday in the recovery room , hypotensive, A. fib with RVR.chest x-ray reported mild CHF, small pleural effusions .received 3 L of IV fluids, pressors initiated.Converted to sinus rhythm. This morning , weaned off sedation, following commands appropriately, became tachypneic, failed weaning parameters. Acidotic ABGs, bicarb drip initiated. CO2 15. Maintained on mechanical ventilation, FiO2 of 40%/+5 of PEEP. Levophed weaned off early this morning. Creatinine 1.3, low urine output Anticoagulation remains on hold for another 24 hours as per cardiology. Maintained on IV antibiotics as per infectious disease. 07/02/18 extubated over the weekend, maintaining O2 sats in high 90s on 4 L nasal cannula O2. Pain better controlled. Tolerating full liquids, passing flatus and bowel movement. Converted back to sinus rhythm, Cardizem drip discontinued, converted to oral. 07/03/18 transferred out of ICU yesterday afternoon , currently on MedSurg unit. reports passing flatus, positive bowel movement. Tolerating diet with no nausea or vomiting. Yesterday stood at bedside with physical therapy. Pain control improved. Maintained on Zosyn, nebulized bronchodilators. Maintaining O2 sats of high 90s on 4 L nasal cannula. Received a dose of Lasix for increased scrotal edema. Afebrile, normal WBC. Developed atrial fibrillation with RVR this afternoon. Evaluated by cardiology received additional dose of beta obey, Cardizem administered early. Review of systems: CONSTITUTIONAL: Positive fatigue. HEENT: No recent visual problems or hearing problems. Denied any sore throat. CARDIOVASCULAR: No chest pain, positive palpitations. Reports no prior history of arrhythmias, A. fib. PULMONARY: No shortness of breath, no cough, no hemoptysis. GASTROINTESTINAL: Passing flatus, positive bowel movement. No nausea or vomiting. NEUROLOGICAL: No headaches, generalized weakness, no numbness. HEMATOLOGICAL: Denies any bleeding or petechiae. GENITOURINARY: Denies any burning micturition, frequency, or urgency. ENDOCRINE: Denies any polyuria or polydipsia. PSYCHIATRIC: No anxiety, no depression The rest of the 14 point review of systems is negative Active Medications Albuterol/Ipratropium (Duoneb 0.5 Mg-3 Mg/3 Ml Soln) 3 ml INHALATION RT-Q2H PRN PRN Reason: Shortness Of Breath Or Wheezing Last Admin: 07/02/18 23:03 Dose: 3 ml Albuterol/Ipratropium (Duoneb 0.5 Mg-3 Mg/3 Ml Soln) 3 ml INHALATION RT-QID [facility] Last Admin: 07/03/18 12:14 Dose: Not Given Apixaban (Eliquis) 5 mg PO BID [facility] Last Admin: 07/03/18 07:51 Dose: 5 mg Diltiazem HCl (Cardizem Oral) 60 mg PO TID [facility] Last Admin: 07/03/18 10:05 Dose: 60 mg Hydromorphone HCl (Dilaudid) 1 mg IVP Q3HR PRN PRN Reason: Severe Pain Last Admin: 07/03/18 10:05 Dose: 1 mg Hydromorphone HCl (Dilaudid) 0.5 mg IVP Q3HR PRN PRN Reason: Moderate Pain Last Admin: 06/30/18 20:28 Dose: 0.5 mg Piperacillin/Tazobactam/ (Dextrose 3.375 gm/ IV Solution) 50 mls @ 12.5 mls/hr IVPB Q8HR [facility] Last Admin: 07/03/18 08:00 Dose: 12.5 mls/hr Sodium Chloride (Saline 0.9%) 1,000 mls @ 50 mls/hr IV .Q20H [facility] Last Admin: 07/03/18 05:50 Dose: Not Given Insulin Aspart (Novolog) 0 unit SQ ACHS [facility]; Protocol Last Admin: 07/03/18 12:42 Dose: 3 unit Metoprolol Tartrate (Lopressor) 25 mg PO BID [facility] Last Admin: 07/03/18 07:51 Dose: 25 mg Metoprolol Tartrate (Lopressor) 2.5 mg IVP Q6HR PRN PRN Reason: Heart Rate - HIGH Last Admin: 07/01/18 07:43 Dose: 2.5 mg Metoprolol Tartrate (Lopressor) 50 mg PO ONCE STA Stop: 07/03/18 14:20 Naloxone HCl (Narcan) 0.2 mg IV Q2M PRN PRN Reason: Opioid Reversal Ondansetron HCl (Zofran) 4 mg IVP Q8HR PRN PRN Reason: Nausea And Vomiting Last Admin: 06/28/18 04:25 Dose: 4 mg Pantoprazole Sodium (Protonix) 40 mg IV DAILY [facility] Last Admin: 07/03/18 07:51 Dose: 40 mg 07/04/2018 Maintained on IV antibiotics, afebrile. Continues on amiodarone drip, converted to sinus rhythm. Pain controlled. Denies chest pain, palpitations or increased shortness of breath. Tolerating low fat diet, passing flatus. No nausea or vomiting. 2017 stood bedside, took a few steps with PT this morning. Incentive spirometer up to 1000 to 1250. Reports fatigue. Pain controlled. Passing flatus, no bowel movement. Telemetry sinus rhythm. Afebrile.Denies chest pain , palpitations or increased shortness of breath. Denies lightheadedness dizziness or focal deficits. Objective - Vital Signs Vital signs: Vital Signs Temp 96.8 F L 07/05/18 15:53 Pulse 80 07/05/18 16:29 Resp 18 07/05/18 15:57 BP 165/75 07/05/18 15:53 Pulse Ox 93 L 07/05/18 15:53 Intake & Output 07/04/18 07/05/18 07/05/18 18:59 06:59 18:59 Intake Total 9641.081 7403 1062.571 Output Total 2512 675 395 Balance -722.025 605 667.571 Weight 128 kg 126 kg Intake: IV 680 440 650 Invasive Line 5 30 Piperacillin-Tazobactam 3 50 50 .375 gm In Dextrose/Water 1 50ml.bag @ 12.5 mls/hr IVPB Q8HR [facility] Rx#: [id number] Sodium Chloride 0.9% 1, 600 440 600 000 ml @ 50 mls/hr IV . Q20H [facility] Rx#:[id number] Intake, IV Titration 639.975 50 252.571 Amount Amiodarone 450 mg In 489.975 252.571 Dextrose 5% in Water 250 ml @ 1 MG/MIN 34.53 mls/ hr IV .Q7H31M [facility] Rx#: [id number] Dextrose 5% in Water 100 100 ml @ 618 mls/hr IV .Q10M ONE with Amiodarone 150 mg Rx#:[id number] Diltiazem 50 mg In Sodium 50 Chloride 0.9% 40 ml @ 10 MG/HR 10 mls/hr IV .Q5H [facility] Rx#:[id number] Piperacillin-Tazobactam 3 50 .375 gm In Dextrose/Water 1 50ml.bag @ 12.5 mls/hr IVPB Q8HR [facility] Rx#: [id number] Oral 470 790 160 Output: Drainage 87 25 170 Right Lower Abdomen 87 25 170 Urine 2425 650 225 Other: Voiding Method Urinal Urinal Urinal # Voids 2 1 # Bowel Movements 1 - Exam General:Patient is sitting up in bed, no acute distress HEENT: Normocephalic. Neck is supple. Pupils reactive. Oral mucosa moist Neck reveals no JVD, carotid bruits, or thyromegaly. CHEST EXAMINATION: Bilateral bases diminished, no rhonchi, no crackles. CARDIAC: Normal S1, S2 with no gallops. Regular, Positive systolic murmur ABDOMEN: Soft, nondistended, Status post surgery, MARY with minimal serosanguineous drainage. Abdominal binder. Hypoactive bowel sounds. Extremities: trace edema. No clubbing or cyanosis. Bilateral Venodyne's present Neurologically no focal deficits. - Labs CBC & Chem 7: 07/06/18 06:35 07/06/18 06:35 Labs: Abnormal Lab Results - Last 24 Hours (Table) 07/04/18 07/05/18 07/05/18 Range/Units 20:48 05:44 05:44 RBC 3.80 L (4.30-5.90) m/uL Hgb 11.6 L (13.0-17.5) gm/dL Hct 37.7 L (39.0-53.0) % MCHC 30.9 L (31.0-37.0) g/dL Neutrophils # 8.4 H (1.3-7.7) k/uL Lymphocytes # 0.9 L (1.0-4.8) k/uL Glucose 141 H (74-99) mg/dL POC Glucose (mg/dL) 132 H (75-99) mg/dL 07/05/18 07/05/18 07/05/18 Range/Units 06:29 11:50 16:39 RBC (4.30-5.90) m/uL Hgb (13.0-17.5) gm/dL Hct (39.0-53.0) % MCHC (31.0-37.0) g/dL Neutrophils # (1.3-7.7) k/uL Lymphocytes # (1.0-4.8) k/uL Glucose (74-99) mg/dL POC Glucose (mg/dL) 141 H 128 H 170 H (75-99) mg/dL Assessment and Plan Assessment: Acute Perforated gangrenous cholecystitis with intra-abdominal adhesions status post open cholecystectomy, laparoscopic lysis of adhesions Septic shock secondary to acute cholecystitis Leukocytosis secondary to the above, normalized Metabolic acidosis, status post bicarb drip, resolved Lactic acidosis Acute hypoxic respiratory failure post procedure, required reintubation in PACU , status post mechanical ventilator-dependent. Mild elevated troponin level could be related to infection. Possible demand ischemia without [place] COPD stable Diabetes type 2 [id number]. Peripheral vascular disease with history of bilateral femoropopliteal bypass surgery Pulmonary hypertension as per 2-D echocardiogram DVT prophylaxis History of diverticulosis and diverticulitis Acute renal failure secondary to hypotension, sepsis New onset proximal atrial fibrillation with RVR. Patient reports no prior history of arrhythmias, A. fib. Chronic diastolic CHF. Plan: Continue current medication regime ,monitoring and symptomatic treatment. Maintain IV antibiotics. Pain management. PT/OT, increase ambulation. Aggressive pulmonary toileting with inspirometer enforced. Subacute rehab at discharge. The impression and plan of care has been dictated as directed. : I performed a history and examination of this patient, discussed the same with the dictator. I agree with the dictator's note ,documented as a scribe. Any additional findings or plans will be noted.
--- NOTE | 2018-07-06 17:39 | P.PN ---
Subjective Progress Note Date: 07/06/18 Progress note being dictated for Dr. Brown. Interval history:Patient is a 83-year-old male with a known history of COPD, diabetes type 2 [id number], peripheral vascular disease with bilateral femoropopliteal bypass surgery, previous history of smoking came to ER with complaints of abdominal pain along with nausea and vomiting. Patient was recently admitted to hospital on 06/26/2018 with similar complaints when he had CT of abdomen pelvis showed gallstones and mild pancreatitis. Patient also found have fat stranding around gallbladder and was recommended surgery at the time. Patient wants to proceed with the surgery as outpatient and patient was discharged eventually. Patient came back to the hospital with similar complaints. Patient is complaining of abdominal pain mainly left lower quadrant and right flank area as well. Denied any complaints of chest pain or shortness of breath. No fever no chills. He states the pain is moving from one side to the other with no specific aggravating factors. EKG sinus rhythm with no acute ST-T wave changes Chest x-ray showed mild cardiomegaly with no heart failure and no cardiomegaly pulmonary process. WBC 22.1 Lactic acid 3.0 Magnesium 1.8 Troponin 0.082, 0.059 and 0.061 Patient is tachycardic with heart rate 116 now. 2-D echocardiogram was done. Echocardiogram obtained reveals preserved left ventricular systolic function with ejection fraction 60-65%, mildly enlarged right ventricle, mild aortic valve sclerosis with no stenosis, mild TR and severe pulmonary hypertension with an RVSP 64.93 mmHg. Abdominal x-ray showed small bowel distention compared to last exam could be due to partial mechanical obstruction or ileus. No free air. Ultrasound abdomen showed no gallstones or dilated ducts. Mild right renal outcome atrophy. CT abdomen and pelvis showed gallstones. There is some fat stranding around the gallbladder. And a small amount of fluid at the nat hepatis as well as the anterior pararenal space this is new compared to recent computed tomography scan and related inflammatory process and cholecystitis. Sigmoid diverticulosis Review of Systems Constitutional: Patient denies any fever or chills . No generalized weakness or weight loss. Abdomen: Patient does have abdominal pain with nausea and vomiting. No diarrhea. Cardiovascular: Patient denies any chest pain or short of breath no palpitations. Respiratory: patient denied any cough is from production. No shortness of breath Neurologic: Patient denied any numbness or tingling headache. Musculoskeletal: Patient denies any complaints of joint swelling or deformity. Skin: Negative Psychiatric: Negative Endocrine: No heat or cold intolerance. No recent weight gain. Genitourinary: No dysuria or hematuria. All other 14 point ROS negative except the above 06/29/18 required reintubation yesterday in the recovery room , hypotensive, A. fib with RVR.chest x-ray reported mild CHF, small pleural effusions .received 3 L of IV fluids, pressors initiated.Converted to sinus rhythm. This morning , weaned off sedation, following commands appropriately, became tachypneic, failed weaning parameters. Acidotic ABGs, bicarb drip initiated. CO2 15. Maintained on mechanical ventilation, FiO2 of 40%/+5 of PEEP. Levophed weaned off early this morning. Creatinine 1.3, low urine output Anticoagulation remains on hold for another 24 hours as per cardiology. Maintained on IV antibiotics as per infectious disease. 07/02/18 extubated over the weekend, maintaining O2 sats in high 90s on 4 L nasal cannula O2. Pain better controlled. Tolerating full liquids, passing flatus and bowel movement. Converted back to sinus rhythm, Cardizem drip discontinued, converted to oral. 07/03/18 transferred out of ICU yesterday afternoon , currently on MedSurg unit. reports passing flatus, positive bowel movement. Tolerating diet with no nausea or vomiting. Yesterday stood at bedside with physical therapy. Pain control improved. Maintained on Zosyn, nebulized bronchodilators. Maintaining O2 sats of high 90s on 4 L nasal cannula. Received a dose of Lasix for increased scrotal edema. Afebrile, normal WBC. Developed atrial fibrillation with RVR this afternoon. Evaluated by cardiology received additional dose of beta obey, Cardizem administered early. Review of systems: CONSTITUTIONAL: Positive fatigue. HEENT: No recent visual problems or hearing problems. Denied any sore throat. CARDIOVASCULAR: No chest pain, positive palpitations. Reports no prior history of arrhythmias, A. fib. PULMONARY: No shortness of breath, no cough, no hemoptysis. GASTROINTESTINAL: Passing flatus, positive bowel movement. No nausea or vomiting. NEUROLOGICAL: No headaches, generalized weakness, no numbness. HEMATOLOGICAL: Denies any bleeding or petechiae. GENITOURINARY: Denies any burning micturition, frequency, or urgency. ENDOCRINE: Denies any polyuria or polydipsia. PSYCHIATRIC: No anxiety, no depression The rest of the 14 point review of systems is negative Active Medications Albuterol/Ipratropium (Duoneb 0.5 Mg-3 Mg/3 Ml Soln) 3 ml INHALATION RT-Q2H PRN PRN Reason: Shortness Of Breath Or Wheezing Last Admin: 07/02/18 23:03 Dose: 3 ml Albuterol/Ipratropium (Duoneb 0.5 Mg-3 Mg/3 Ml Soln) 3 ml INHALATION RT-QID [facility] Last Admin: 07/03/18 12:14 Dose: Not Given Apixaban (Eliquis) 5 mg PO BID [facility] Last Admin: 07/03/18 07:51 Dose: 5 mg Diltiazem HCl (Cardizem Oral) 60 mg PO TID [facility] Last Admin: 07/03/18 10:05 Dose: 60 mg Hydromorphone HCl (Dilaudid) 1 mg IVP Q3HR PRN PRN Reason: Severe Pain Last Admin: 07/03/18 10:05 Dose: 1 mg Hydromorphone HCl (Dilaudid) 0.5 mg IVP Q3HR PRN PRN Reason: Moderate Pain Last Admin: 06/30/18 20:28 Dose: 0.5 mg Piperacillin/Tazobactam/ (Dextrose 3.375 gm/ IV Solution) 50 mls @ 12.5 mls/hr IVPB Q8HR [facility] Last Admin: 07/03/18 08:00 Dose: 12.5 mls/hr Sodium Chloride (Saline 0.9%) 1,000 mls @ 50 mls/hr IV .Q20H [facility] Last Admin: 07/03/18 05:50 Dose: Not Given Insulin Aspart (Novolog) 0 unit SQ ACHS [facility]; Protocol Last Admin: 07/03/18 12:42 Dose: 3 unit Metoprolol Tartrate (Lopressor) 25 mg PO BID [facility] Last Admin: 07/03/18 07:51 Dose: 25 mg Metoprolol Tartrate (Lopressor) 2.5 mg IVP Q6HR PRN PRN Reason: Heart Rate - HIGH Last Admin: 07/01/18 07:43 Dose: 2.5 mg Metoprolol Tartrate (Lopressor) 50 mg PO ONCE STA Stop: 07/03/18 14:20 Naloxone HCl (Narcan) 0.2 mg IV Q2M PRN PRN Reason: Opioid Reversal Ondansetron HCl (Zofran) 4 mg IVP Q8HR PRN PRN Reason: Nausea And Vomiting Last Admin: 06/28/18 04:25 Dose: 4 mg Pantoprazole Sodium (Protonix) 40 mg IV DAILY [facility] Last Admin: 07/03/18 07:51 Dose: 40 mg 07/04/2018 Maintained on IV antibiotics, afebrile. Continues on amiodarone drip, converted to sinus rhythm. Pain controlled. Denies chest pain, palpitations or increased shortness of breath. Tolerating low fat diet, passing flatus. No nausea or vomiting. 2017 stood bedside, took a few steps with PT this morning. Incentive spirometer up to 1000 to 1250. Reports fatigue. Pain controlled. Passing flatus, no bowel movement. Telemetry sinus rhythm. Afebrile.Denies chest pain , palpitations or increased shortness of breath. Denies lightheadedness dizziness or focal deficits. 07/06/18 Currently on MedSurg unit. tolerating low fat diet, no nausea vomiting. Improving abdominal pain. Remains in sinus rhythm, on beta obey and oral amiodarone. Anticoagulated on Eliquis. Passing flatus. Afebrile, maintaining O2 sats in the mid 90s on 3 L nasal cannula. Incentive spirometer up to 1500. Objective - Vital Signs Vital signs: Vital Signs Temp 98.6 F 07/06/18 16:00 Pulse 67 07/06/18 16:00 Resp 12 07/06/18 16:00 BP 115/68 07/06/18 16:00 Pulse Ox 94 L 07/06/18 16:00 Intake & Output 07/05/18 07/06/18 07/06/18 18:59 06:59 18:59 Intake Total 1312.571 250 Output Total 395 2160 15 Balance 917.571 -2160 235 Weight 116.5 kg Intake: IV 650 250 Piperacillin-Tazobactam 3 50 .375 gm In Dextrose/Water 1 50ml.bag @ 12.5 mls/hr IVPB Q8HR [facility] Rx#: [id number] Sodium Chloride 0.9% 1, 600 250 000 ml @ 50 mls/hr IV . Q20H [facility] Rx#:[id number] Intake, IV Titration 252.571 Amount Amiodarone 450 mg In 252.571 Dextrose 5% in Water 250 ml @ 1 MG/MIN 34.53 mls/ hr IV .Q7H31M [facility] Rx#: [id number] Oral 410 Output: Drainage 170 35 15 Right Lower Abdomen 170 35 15 Urine 225 2125 Other: Voiding Method Urinal Urinal # Voids 1 1 # Bowel Movements 1 - Exam General:Patient is sitting up in bed, no acute distress HEENT: Normocephalic. Neck is supple. Pupils reactive. Oral mucosa moist Neck reveals no JVD, carotid bruits, or thyromegaly. CHEST EXAMINATION: Bilateral bases diminished, no rhonchi, no crackles. CARDIAC: Normal S1, S2 with no gallops. Regular, Positive systolic murmur ABDOMEN: Soft, nondistended, Status post surgery, MARY with minimal serosanguineous drainage. Abdominal binder. Hypoactive bowel sounds. Extremities: trace edema. No clubbing or cyanosis. Bilateral Venodyne's present Neurologically no focal deficits. - Labs CBC & Chem 7: 07/06/18 06:35 07/06/18 06:35 Labs: Abnormal Lab Results - Last 24 Hours (Table) 07/05/18 07/06/18 07/06/18 Range/Units 20:35 06:35 06:35 RBC 3.80 L (4.30-5.90) m/uL Hgb 11.7 L (13.0-17.5) gm/dL Hct 37.2 L (39.0-53.0) % Lymphocytes # 0.9 L (1.0-4.8) k/uL Carbon Dioxide 31 H (22-30) mmol/L Glucose 117 H (74-99) mg/dL POC Glucose (mg/dL) 126 H (75-99) mg/dL Total Protein 5.0 L (6.3-8.2) g/dL Albumin 2.4 L (3.5-5.0) g/dL 07/06/18 07/06/18 07/06/18 Range/Units 07:49 12:19 17:08 RBC (4.30-5.90) m/uL Hgb (13.0-17.5) gm/dL Hct (39.0-53.0) % Lymphocytes # (1.0-4.8) k/uL Carbon Dioxide (22-30) mmol/L Glucose (74-99) mg/dL POC Glucose (mg/dL) 116 H 141 H 157 H (75-99) mg/dL Total Protein (6.3-8.2) g/dL Albumin (3.5-5.0) g/dL Assessment and Plan Assessment: Acute Perforated gangrenous cholecystitis with intra-abdominal adhesions status post open cholecystectomy, laparoscopic lysis of adhesions Septic shock secondary to acute cholecystitis Leukocytosis secondary to the above, normalized Metabolic acidosis, status post bicarb drip, resolved Lactic acidosis Acute hypoxic respiratory failure post procedure, required reintubation in PACU , status post mechanical ventilator-dependent. Mild elevated troponin level could be related to infection. Possible demand ischemia without [place] COPD stable Diabetes type 2 [id number]. Peripheral vascular disease with history of bilateral femoropopliteal bypass surgery Pulmonary hypertension as per 2-D echocardiogram DVT prophylaxis History of diverticulosis and diverticulitis Acute renal failure secondary to hypotension, sepsis New onset proximal atrial fibrillation with RVR. Patient reports no prior history of arrhythmias, A. fib. Chronic diastolic CHF. Plan: Continue current medication regime ,monitoring and symptomatic treatment. Continue IV antibiotics. PT/OT, increase ambulation. Aggressive pulmonary toileting with inspirometer enforced. Subacute rehab at discharge at the beginning of the week pending surgeries clearance. The impression and plan of care has been dictated as directed. : I performed a history and examination of this patient, discussed the same with the dictator. I agree with the dictator's note ,documented as a scribe. Any additional findings or plans will be noted.
[2018-07-06 20:34] LABS: Glucose,Whole Blood 173 mg/dL (75-99)
[2018-07-07] MEDS: PIPERACILLIN-TAZOBACTAM 3.375 GM in DEXTROSE/WATER 1 50ML.BAG IVPB SCH ×4 (00:29→23:42)
[2018-07-07 07:01] LABS: Glucose,Whole Blood 121 mg/dL (75-99)
[2018-07-07] MEDS: INSULIN ASPART 100 UNIT/ML 1 ML 10 ML VIAL SQ SCH ×4 (08:14→20:25)
[2018-07-07] MEDS: IPRATROPIUM-ALBUTEROL 3 ML NEB INHALATION SCH ×4 (08:15→19:02)
[2018-07-07] MEDS: SODIUM CHLORIDE 0.9% 1,000 ML IV SCH (08:15)
[2018-07-07] MEDS: PANTOPRAZOLE 40 MG TABLET PO SCH (08:17)
[2018-07-07] MEDS: AMIODARONE 200 MG TAB PO SCH ×2 (08:17→20:26)
[2018-07-07] MEDS: APIXABAN 5 MG TAB PO SCH ×2 (08:17→20:26)
[2018-07-07] MEDS: METOPROLOL TARTRATE 25 MG TAB PO SCH ×3 (08:17→21:53)
[2018-07-07] MEDS: HYDROcodone/APAP 5-325MG 1 EACH TAB PO PRN ×3 (08:40→20:25)
[2018-07-07 11:43] LABS: Glucose,Whole Blood 172 mg/dL (75-99)
--- NOTE | 2018-07-07 12:22 | P.PN ---
Subjective Progress Note Date: 07/07/18 Principal diagnosis: Acute perforated cholecystitis with secondary sepsis and shock This is a 83-year-old white male patient with past medical history of COPD, underlying FEV1 of 63% of predicted, diabetes mellitus, BPH, CHF, hypertension, presented to the emergency department on 06/27/2018 for evaluation of acute abdominal pain. Patient symptoms started in the morning on 06/27/2018, with lower abdominal pain that progressively increased, and spread to the upper quadrants. Patient was recently in the hospital similar symptoms, and there was a concern for gallstones. Gallbladder ultrasound from 06/27/2018 showed no gallstones or dilated ducts, and mild right renal cortical atrophy. Abdominal/ pelvis CT from 06/28/2018 showed gallstones, possible gallstone impacted in the gallbladder neck, small amount of fluid at the nat hepatis as well as the anterior perirenal space related to inflammatory process and cholecystitis. Lab work showed leukocytosis WBC of 22.1, hemoglobin of 16.1, INR was elevated to 1.4, patient had mild lactic acidosis of 2.1 which subsequently increased to 3.0, non-anion gap metabolic acidosis, patient was slightly prerenal. Patient had a low-grade fever, he has been tachycardic with a rate of 116 BPM. In sinus mechanism. Troponins were elevated at 0.082, 0.059, and 0.061. Patient was given a total of 4 L of 0.9 normal saline, has not required any vasopressor support. He is having significant amount of discomfort across his upper quadrant under his rib cage, he states it hurts for him to take deep breaths and cough. Is also having discomfort in his left lower quadrant, and tenderness over right upper quadrant. He has bowel sounds 4, he is receiving pain medications, however his pain continues to increase. Gen. surgery has been consulted, and exposure laparotomy was recommended. General surgery consult was placed and patient was recommended laparoscopic examination with anticipated cholecystectomy. Patient does have a history of previous aortobifem bypass, and subsequent hernia repair with mesh. In addition patient admits to passing dark tarry stools about a week ago. Work consult in regards to pulmonary clearance for the surgical procedure and this afternoon. As far as patient's history of COPD patient is not on any oxygen, his only inhaler is his rescue inhaler. Physical exam does not reveal any significant signs of wheezing, or shortness of breath, other than that related to his abdominal pain. Was also seen by cardiology, echocardiogram was completed, and over left ventricle systolic function is within normal limits with an EF between 60-65% There was severe pulmonary hypertension, right ventricular systolic pressure not provided. Moderate pulmonic regurgitation, with mild tricuspid regurgitation. Patient has a previous history of diverticulitis. On 06/29/2018, patient is being seen in the intensive care unit. The patient underwent his surgery yesterday. The patient was found to have acute perforated gangrenous cholecystitis. Initially the procedure was started laparoscopic and ultimately the patient underwent a laparotomy and open cholecystectomy with lysis of adhesions. Postop the patient was extubated in the operating room and in recovery the patient was doing poorly and he was becoming progressively more short of breath and tachypneic and tachycardic and hypotensive. At that point it was decided to reintubate the patient. The patient was intubated and was moved to the intensive care unit. Upon arrival his systolic blood pressure was in the low 50s. He was in nature fibrillation with rapid ventricular response with a heart rate in the 120 to 130 range. He was intubated on a mechanical ventilator and and a chest x-ray showed mild CHF with small bilateral pleural effusions. ET tube was in a good location was around 3 cm from the arslan. The patient is an assist-control mode of ventilation. The initial blood gas showed a pH of 7.21 with a pCO2 of 36 and pO2 of 1 and 15. As such the FiO2 was gradually weaned off. The patient was also given immediately 3 L of IV fluids in the form of normal saline. The patient was started on pressors and he was brought up to 5 mics of norepinephrine infusion overnight and currently this morning he is off pressors. Most recent blood gases from this morning showed a pH of 7.29 with a pCO2 of 31 and pO2 127. This current vent settings for now is a Tidal volume is at 550 with an FiO2 of 40% and PEEP of 5. Based on all this, I give the patient to have some bicarb was started on bicarb infusion this morning. He was quite acidotic with a bicarb level of 15 and a anion gap of 11. Currently the patient is also on a bicarb drip at the rate of 100 mL an hour. Repeat blood gases this afternoon showed a pH of 7.35 with a pCO2 of 36 and pO2 of 97. The patient was given a sedation holiday this morning. He became immediately tachypneic and uncomfortable with any sweating with parameters without poor and based on that the trial was aborted. His creatinine today is 1.3. Urine output is low in the order of 10-20 mL an hour and is improving. He is on empiric antibiotic coverage with IV Zosyn. Most recent lactic acid level venous sample was at 3.0. He is nothing by mouth for now. The surgical wound site over the anterior abdominal wall is dry clean and intact. As mentioned, she is currently off pressors. On 06/30/2018 I'm seeing this patient for a follow-up. This morning the patient is off sedation, comfortable awake and following commands and answering questions appropriately. The patient had adequate weaning parameters and the patient is in the process of getting a spontaneous breathing trial a pressure support of 5 and a PEEP of 5 and a blood gases to follow. Chest x-ray showed adequate expansion of both lungs with small bilateral pleural effusions. ET tube is in a good location. The patient is hemodynamically stable. This morning, the blood gases show a pH of 7.46 with a pCO2 of 36 and pO2 of 79 and this was on FiO2 of 40% with a PEEP of 5 and a tidal volume of 550. White cell count is down to 11.8. The patient is afebrile. Urine output is order of 30 mL an hour. Serum bicarb is up to 26 while the patient receiving a bicarb drip infusion. Abdomen is soft. MARY drain output is minimal at this point. The patient remains on IV Zosyn. 07/01/2008 Seeing this patient for a follow-up. The patient is calm and comfortable. Earlier this morning at around 7:00 he went into atrial fibrillation with rapid ventricular response. Heart rate was in the 130s. He was started on Cardizem drip. Currently is on 7.5 mg of Cardizem and his heart rate slowed done and ultimately converted to sinus rhythm at around 11:00 this morning. The patient remained hemodynamically stable. The patient is still not having any flatus or bowel movement although has decent amount of bowel sounds. Surgical wound site is clean. MARY drain has drained approximately 60 mL over the past 24 hours. No chest pain. No shortness of breath. White cell count is at 8.2. The rest of the blood work is all within normal limits. Producing approximately 30-50 mL of urine output on an hourly basis. 07/02/2018, the patient is awake and alert and following commands and answering questions. His rhythm is back to normal sinus. He is off the Cardizem drip. He has not required any further cardiac interventions knowing that his cardiac rhythm remained sinus throughout the day for yesterday and throughout the night. He is producing adequate amount of urine output. MARY drain is in place. Abdomen is nondistended. The patient had some flatness. Tolerating liquid diet. No shortness of breath. No cough or sputum production. He is a bit weak and he is laying in bed most of the time. Would like to get him out on a bedside chair. No fever. No chills. No sweats. White cell count is stable at 9.4. 07/03/2018 the patient got transferred to a medical surgical floor. He is recovering well. He is sinus rhythm. His MARY drain is in place. His abdomen is nondistended. His surgical wound site is clean. No nausea. No vomiting. No abdominal pain. No abdominal distention. He is passing flatus. He is noted to have some increased edema specially in the scrotum and the patient will be given a dose of Lasix. No respiratory distress. No altered mentation. He is on IV Zosyn still. Pain is under good control. He is using Eliquis 5 mg by mouth twice a day. He is on DuoNeb nebulized treatments around the clock. He got transferred out of the intensive care unit yesterday. He was able to stand up and sit up on a chair. He malignant is stable at 10.5. Rest of the electrodes are all within normal limits. 07/04/2018, the patient got transferred out of the intensive care unit. He was seen yesterday on the surgical floor. He was doing well. Overnight the patient went into atrial fibrillation with rapid ventricular response. Based on that, he got transferred back to [facility]. He is doing well. He was started on amiodarone protocol with mom milligram per minute infusion. His cardiac rhythm converted back to sinus. Is on long-term medical condition with Eliquis 5 mg by mouth twice a day. Abdomen is nondistended. Wound is clear. MARY drain is minimal. The patient on Dilaudid for pain control. He is also on IV Zosyn. No fever. No chills. No respiratory distress. Lower extremity edema is improved as the patient received a dose of Lasix yesterday.the white cell count of 9.3. S of the electrodes are within normal limits. 07/05/2018 patient is stable without any complaints. He is resting comfortably in bed. Overnight he has some increased shortness of breath he was given a breathing treatment and subsequently improved. He remains in a sinus rhythm. No nausea. No vomiting. No abdominal pain. Abdominal wounds remains unchanged. The patient is still on oral amiodarone 400 mg by mouth twice a day. The patient on long-term articulation with ataxia been. Metoprolol is also being used for rate control and blood pressure control. He is on IV Zosyn. Using incentive spirometer. Limited activity. Still edema lower extremities present. White cell count is at 10.3. Renal function stable. On 07/06/2018 patient seen in follow-up on the surgical floor. He sitting up in the recliner, in no acute distress. Denies any shortness of breath, also oxygen 3 L per nasal cannula is 99%, his using his incentive spirometry, and is able to achieve 1500 on it. Patient is currently on oral amiodarone, and he has been started on Eliquis for anticoagulation his heart rate is controlled. Her maintenance sinus rhythm. Remains on IV Zosyn, and ID service has been following him. Patient is afebrile, his abdominal pain lately with movement. Lung sounds Are negative for any rhonchi, wheezing or crackles. Has some bilateral lower extremity edema, patient has not ambulated very much, we will increase activity as tolerated. The patient is seen again today 07/07/2018 in follow-up on the surgical floor. He is currently resting quite comfortably in bed. He is awake and alert in no acute distress. His pain is well controlled. He is working well with the incentive spirometer. No pulmonary complaints. He remains afebrile. Maintaining good O2 saturations in the high 90s on 3 L/m per nasal cannula. Objective - Vital Signs Vital signs: Vital Signs Temp 97.8 F 07/07/18 07:30 Pulse 75 07/07/18 11:46 Resp 18 07/07/18 07:30 BP 156/72 07/07/18 07:30 Pulse Ox 97 07/07/18 07:30 Intake & Output 07/06/18 07/07/18 07/07/18 18:59 06:59 18:59 Intake Total 250 340 540 Output Total 15 285 60 Balance 235 55 480 Weight 118.3 kg Intake: IV 250 50 Piperacillin-Tazobactam 3 50 .375 gm In Dextrose/Water 1 50ml.bag @ 12.5 mls/hr IVPB Q8HR [facility] Rx#: [id number] Sodium Chloride 0.9% 1, 250 000 ml @ 50 mls/hr IV . Q20H [facility] Rx#:[id number] Intake, IV Titration 50 Amount Piperacillin-Tazobactam 3 50 .375 gm In Dextrose/Water 1 50ml.bag @ 12.5 mls/hr IVPB Q8HR [facility] Rx#: [id number] Oral 240 540 Output: Drainage 15 35 60 Right Lower Abdomen 15 35 60 Urine 250 Other: Voiding Method Urinal # Voids 1 2 # Bowel Movements 1 - Exam Awake and alert and not in acute distress. Head exam was generally normal. There was no scleral icterus or corneal arcus. Mucous membranes were moist. Neck was supple and without jugular venous distension, thyromegaly, or carotid bruits. Carotids were easily palpable bilaterally. There was no adenopathy. Lungs sounds are diminished bilaterally Cardiac exam revealed the PMI to be normally situated and sized. The rhythm was regular and no extrasystoles were noted during several minutes of auscultation. The first and second heart sounds were normal and physiologic splitting of the second heart sound was noted. There were no murmurs, rubs, clicks, or gallops. Abdomen is soft and there is a mid abdominal incision which is dry clean and intact. There is no direct tenderness rebound tensile guarding. The patient has a right upper quadrant MARY drain outputs of which is minimal at this point Extremities show trace edema and there is no cyanosis or clubbing at this point. Neurologically the patient is awake and alert and there is no focal neurological deficit. - Labs CBC & Chem 7: 07/06/18 06:35 07/06/18 06:35 Labs: Abnormal Lab Results - Last 24 Hours (Table) 07/06/18 07/06/18 07/06/18 Range/Units 12:19 17:08 20:33 POC Glucose (mg/dL) 141 H 157 H 173 H (75-99) mg/dL 07/07/18 07/07/18 Range/Units 06:58 11:37 POC Glucose (mg/dL) 121 H 172 H (75-99) mg/dL Assessment and Plan Assessment: Assessment: 1 acute perforated cholecystitis with secondary sepsis. Patient is postcholecystectomy/exp laparotomy and open cholecystectomy and lysis of adhesions. The patient is postop day #8 2 septic shock secondary to above, recovered, still on IV Zosyn and hemodynamically stable. 3 leukocytosis secondary to above improved and recovered and normalized 4 acute hypoxic failure post cholecystectomy. Please see discussion above, recovered. Overall pulmonary status is stable and the patient is currently using incentive spirometer. 5 Paroxysmal atrial fibrillation , back to normal sinus rhythm on a combination of oral amiodarone, metoprolol and Eliquis. 6 congestive heart failure, essentially diastolic in nature 7 COPD with an FEV1 of 60% of predicted 8 peripheral vascular disease with a previous aortobifemoral bypass surgery 9 history of hypertension 10 history of secondary pulmonary hypertension 11 history of diverticulosis and previous history of diverticulitis 12 previous history of diabetes mellitus. 13 acute kidney injury, recovered 14 troponin leak secondary to sepsis Plan The patient was seen and evaluated by Dr. Montes. He is stable from the pulmonary and critical care standpoint. Continues to work well with the incentive spirometer. Increase his activity as tolerated. The plan is for subacute rehabilitation post discharge. We will follow him on as-needed basis. I, the cosigning physician, performed a history & physical examination of the patient. Lungs sounds with crackles in the posterior bases. Maintaining good O2 saturations in the 90s on 3 L/m per nasal cannula. I discussed the assessment and plan of care with my nurse practitioner, Helen Puga. I attest to the above note as dictated by her.
--- NOTE | 2018-07-07 16:18 | P.PN ---
Subjective Progress Note Date: 07/07/18 HISTORY OF PRESENT ILLNESS: The patient is a 83-year-old gentleman status post cholecystectomy. He tolerated his regular diet. "My lunch was excellent.". He is sitting up in a chair resting comfortably. Pain is well-controlled. PHYSICAL EXAM: GENERAL: Well-developed in no distress. HEENT: No scleral icterus. Extraocular movements grossly intact. Hears conversational speech. No nasal drainage. NECK: Supple without lymphadenopathy. CHEST: Nonlabored respirations with equal bilateral excursions. CARDIOVASCULAR: Irregular rate and rhythm. Distal 2+ pulses. ABDOMEN: Soft, nontender, nondistended MUSCULOSKELETAL: No clubbing, cyanosis. NEURO: No focal or lateralizing signs. Cranial nerves 2 through 12 grossly within normal limits. PSYCH: Appropriate affect. Alert and oriented to person, place and time. SKIN: Good skin turgor. Well perfused. ASSESSMENT: 1. Gangrenous cholecystitis status post cholecystectomy PLAN: 1. Continue antibiotics 2. Continue hospitalization Objective - Vital Signs Vital signs: Vital Signs Temp 97.8 F 07/07/18 07:30 Pulse 64 07/07/18 07:30 Resp 18 07/07/18 07:30 BP 156/72 07/07/18 07:30 Pulse Ox 97 07/07/18 07:30 Intake & Output 07/06/18 07/07/18 07/07/18 18:59 06:59 18:59 Intake Total 250 340 Output Total 15 285 30 Balance 235 55 -30 Weight 118.3 kg Intake: IV 250 50 Piperacillin-Tazobactam 3 50 .375 gm In Dextrose/Water 1 50ml.bag @ 12.5 mls/hr IVPB Q8HR [facility] Rx#: [id number] Sodium Chloride 0.9% 1, 250 000 ml @ 50 mls/hr IV . Q20H [facility]PH Rx#:[id number] Intake, IV Titration 50 Amount Piperacillin-Tazobactam 3 50 .375 gm In Dextrose/Water 1 50ml.bag @ 12.5 mls/hr IVPB Q8HR [facility]PH Rx#: [id number] Oral 240 Output: Drainage 15 35 30 Right Lower Abdomen 15 35 30 Urine 250 Other: Voiding Method Urinal # Voids 1 - Labs CBC & Chem 7: 07/06/18 06:35 07/06/18 06:35 Labs: Abnormal Lab Results - Last 24 Hours (Table) 07/06/18 07/06/18 07/06/18 Range/Units 12:19 17:08 20:33 POC Glucose (mg/dL) 141 H 157 H 173 H (75-99) mg/dL 07/07/18 Range/Units 06:58 POC Glucose (mg/dL) 121 H (75-99) mg/dL Assessment and Plan (1) Acute cholecystitis due to biliary calculus Current Visit: Yes Status: Acute Code(s): K80.00 - CALCULUS OF GALLBLADDER W ACUTE CHOLECYST W/O OBSTRUCTION SNOMED Code(s): 51402911082334 (2) Bile peritonitis Current Visit: Yes Status: Acute Code(s): K65.3 - CHOLEPERITONITIS SNOMED Code(s): 27772904 (3) Cholecystitis Current Visit: Yes Status: Acute Code(s): K81.9 - CHOLECYSTITIS, UNSPECIFIED SNOMED Code(s): 67265540 (4) Lactic acidosis Current Visit: Yes Status: Acute Code(s): E87.2 - ACIDOSIS SNOMED Code(s) : 32870547
--- NOTE | 2018-07-07 16:28 | PN ---
PROGRESS NOTE DATE OF SERVICE: 07/07/2018 This 83-year-old gentleman admitted with acute perforated gangrenous cholecystitis also had intraabdominal adhesions. The patient is being closely monitored. Patient has multiple complex medical issues, also. PT/OT is evaluating the patient also. Patient is complaining of tiredness. On exam, alert and oriented x3. The pulse is 72, blood pressure 156/72, respiration 18, temperature 97.8, pulse ox 97% on 3 L. HEENT: Conjunctivae normal. Oral mucosa moist. NECK: No jugular venous distention. No carotid bruit. No lymph node enlargement. CARDIOVASCULAR SYSTEM: S1, S2 muffled. RESPIRATORY SYSTEM: Breath sounds diminished at the bases. A few rhonchi. No crackles. ABDOMEN: Soft obese, status post surgery. LEGS: No edema. No swelling. NERVOUS SYSTEM: No focal deficit. LABS: Accu-Cheks 121, 172. WBC 9.4, hemoglobin 11.7. ASSESSMENT: 1. Acute perforated gangrenous cholecystitis with intraabdominal adhesions, status post open cholecystectomy, laparoscopic lysis of adhesions. 2. Severe sepsis and shock secondary to acute cholecystitis with septic shock. 3. Bibasilar atelectasis. 4. Leukocytosis, secondary .. 5. Metabolic acidosis, acute, possible secondary to sepsis. 6. Lactic acidosis. 7. Acute hypoxic respiratory failure, status post ventilator-dependent respiratory failure. 8. Mildly elevated troponins; could be related to infection. 9. Chronic obstructive pulmonary disease. 10.Diabetes mellitus, type 2. 11.Peripheral vascular disease with bilateral femoropopliteal bypass surgery. 12.Pulmonary hypertension. 13.History of deep venous thrombosis prophylaxis. 14.History of diverticulosis and diverticulitis. 15.Acute renal failure secondary to hypotension, sepsis. RECOMMENDATIONS AND DISCUSSION: I recommend to continue current medication, continue symptomatic treatment. Continue the broad-spectrum IV antibiotics. PT/OT evaluation. Possible ECF rehab. Continue the rest of the medications. DVT prophylaxis. Guarded prognosis. Further recommendations to follow. MMODL / IJN: [id number] /
[2018-07-07 16:47] LABS: Glucose,Whole Blood 164 mg/dL (75-99)
[2018-07-07 20:31] LABS: Glucose,Whole Blood 152 mg/dL (75-99)
[2018-07-08] MEDS: SODIUM CHLORIDE 0.9% 1,000 ML IV SCH (05:55)
[2018-07-08 06:54] LABS: Glucose,Whole Blood 112 mg/dL (75-99)
[2018-07-08] MEDS: IPRATROPIUM-ALBUTEROL 3 ML NEB INHALATION SCH ×4 (07:14→19:30)
[2018-07-08] MEDS: AMIODARONE 200 MG TAB PO SCH ×2 (10:40→21:18)
[2018-07-08] MEDS: METOPROLOL TARTRATE 25 MG TAB PO SCH ×3 (10:40→21:44)
[2018-07-08] MEDS: APIXABAN 5 MG TAB PO SCH ×2 (10:40→21:18)
[2018-07-08] MEDS: PANTOPRAZOLE 40 MG TABLET PO SCH (10:40)
[2018-07-08] MEDS: PIPERACILLIN-TAZOBACTAM 3.375 GM in DEXTROSE/WATER 1 50ML.BAG IVPB SCH ×3 (10:40→23:29)
[2018-07-08] MEDS: INSULIN ASPART 100 UNIT/ML 1 ML 10 ML VIAL SQ SCH ×4 (11:07→21:19)
[2018-07-08] MEDS: HYDROcodone/APAP 5-325MG 1 EACH TAB PO PRN ×2 (11:36→23:29)
[2018-07-08 11:43] LABS: Glucose,Whole Blood 141 mg/dL (75-99)
--- NOTE | 2018-07-08 11:50 | XR ---
EXAMINATION TYPE: XR chest 1V DATE OF EXAM: 07/08/2018 HISTORY: SOB. REFERENCE: Previous study dated 07/01/2018. FINDINGS: The heart remains enlarged. There is bibasilar airspace disease, worse in the left than the right. There is blunting of both CP angles and I cannot exclude small effusions the overall appearan ce has worsened. IMPRESSION: 1. CARDIOMEGALY. 2. WORSENING BIBASILAR ATELECTASIS. 3. I CANNOT EXCLUDE SMALL, BILATERAL EFFUSIONS.
--- NOTE | 2018-07-08 12:12 | P.PN ---
Subjective Progress Note Date: 07/08/18 Principal diagnosis: Acute perforated cholecystitis with secondary sepsis and septic shock This is a 83-year-old white male patient with past medical history of COPD, underlying FEV1 of 63% of predicted, diabetes mellitus, BPH, CHF, hypertension, presented to the emergency department on 06/27/2018 for evaluation of acute abdominal pain. Patient symptoms started in the morning on 06/27/2018, with lower abdominal pain that progressively increased, and spread to the upper quadrants. Patient was recently in the hospital similar symptoms, and there was a concern for gallstones. Gallbladder ultrasound from 06/27/2018 showed no gallstones or dilated ducts, and mild right renal cortical atrophy. Abdominal/ pelvis CT from 06/28/2018 showed gallstones, possible gallstone impacted in the gallbladder neck, small amount of fluid at the nat hepatis as well as the anterior perirenal space related to inflammatory process and cholecystitis. Lab work showed leukocytosis WBC of 22.1, hemoglobin of 16.1, INR was elevated to 1.4, patient had mild lactic acidosis of 2.1 which subsequently increased to 3.0, non-anion gap metabolic acidosis, patient was slightly prerenal. Patient had a low-grade fever, he has been tachycardic with a rate of 116 BPM. In sinus mechanism. Troponins were elevated at 0.082, 0.059, and 0.061. Patient was given a total of 4 L of 0.9 normal saline, has not required any vasopressor support. He is having significant amount of discomfort across his upper quadrant under his rib cage, he states it hurts for him to take deep breaths and cough. Is also having discomfort in his left lower quadrant, and tenderness over right upper quadrant. He has bowel sounds 4, he is receiving pain medications, however his pain continues to increase. Gen. surgery has been consulted, and exposure laparotomy was recommended. General surgery consult was placed and patient was recommended laparoscopic examination with anticipated cholecystectomy. Patient does have a history of previous aortobifem bypass, and subsequent hernia repair with mesh. In addition patient admits to passing dark tarry stools about a week ago. Work consult in regards to pulmonary clearance for the surgical procedure and this afternoon. As far as patient's history of COPD patient is not on any oxygen, his only inhaler is his rescue inhaler. Physical exam does not reveal any significant signs of wheezing, or shortness of breath, other than that related to his abdominal pain. Was also seen by cardiology, echocardiogram was completed, and over left ventricle systolic function is within normal limits with an EF between 60-65% There was severe pulmonary hypertension, right ventricular systolic pressure not provided. Moderate pulmonic regurgitation, with mild tricuspid regurgitation. Patient has a previous history of diverticulitis. On 06/29/2018, patient is being seen in the intensive care unit. The patient underwent his surgery yesterday. The patient was found to have acute perforated gangrenous cholecystitis. Initially the procedure was started laparoscopic and ultimately the patient underwent a laparotomy and open cholecystectomy with lysis of adhesions. Postop the patient was extubated in the operating room and in recovery the patient was doing poorly and he was becoming progressively more short of breath and tachypneic and tachycardic and hypotensive. At that point it was decided to reintubate the patient. The patient was intubated and was moved to the intensive care unit. Upon arrival his systolic blood pressure was in the low 50s. He was in nature fibrillation with rapid ventricular response with a heart rate in the 120 to 130 range. He was intubated on a mechanical ventilator and and a chest x-ray showed mild CHF with small bilateral pleural effusions. ET tube was in a good location was around 3 cm from the arslan. The patient is an assist-control mode of ventilation. The initial blood gas showed a pH of 7.21 with a pCO2 of 36 and pO2 of 1 and 15. As such the FiO2 was gradually weaned off. The patient was also given immediately 3 L of IV fluids in the form of normal saline. The patient was started on pressors and he was brought up to 5 mics of norepinephrine infusion overnight and currently this morning he is off pressors. Most recent blood gases from this morning showed a pH of 7.29 with a pCO2 of 31 and pO2 127. This current vent settings for now is a Tidal volume is at 550 with an FiO2 of 40% and PEEP of 5. Based on all this, I give the patient to have some bicarb was started on bicarb infusion this morning. He was quite acidotic with a bicarb level of 15 and a anion gap of 11. Currently the patient is also on a bicarb drip at the rate of 100 mL an hour. Repeat blood gases this afternoon showed a pH of 7.35 with a pCO2 of 36 and pO2 of 97. The patient was given a sedation holiday this morning. He became immediately tachypneic and uncomfortable with any sweating with parameters without poor and based on that the trial was aborted. His creatinine today is 1.3. Urine output is low in the order of 10-20 mL an hour and is improving. He is on empiric antibiotic coverage with IV Zosyn. Most recent lactic acid level venous sample was at 3.0. He is nothing by mouth for now. The surgical wound site over the anterior abdominal wall is dry clean and intact. As mentioned, she is currently off pressors. On 06/30/2018 I'm seeing this patient for a follow-up. This morning the patient is off sedation, comfortable awake and following commands and answering questions appropriately. The patient had adequate weaning parameters and the patient is in the process of getting a spontaneous breathing trial a pressure support of 5 and a PEEP of 5 and a blood gases to follow. Chest x-ray showed adequate expansion of both lungs with small bilateral pleural effusions. ET tube is in a good location. The patient is hemodynamically stable. This morning, the blood gases show a pH of 7.46 with a pCO2 of 36 and pO2 of 79 and this was on FiO2 of 40% with a PEEP of 5 and a tidal volume of 550. White cell count is down to 11.8. The patient is afebrile. Urine output is order of 30 mL an hour. Serum bicarb is up to 26 while the patient receiving a bicarb drip infusion. Abdomen is soft. MARY drain output is minimal at this point. The patient remains on IV Zosyn. 07/01/2008 Seeing this patient for a follow-up. The patient is calm and comfortable. Earlier this morning at around 7:00 he went into atrial fibrillation with rapid ventricular response. Heart rate was in the 130s. He was started on Cardizem drip. Currently is on 7.5 mg of Cardizem and his heart rate slowed done and ultimately converted to sinus rhythm at around 11:00 this morning. The patient remained hemodynamically stable. The patient is still not having any flatus or bowel movement although has decent amount of bowel sounds. Surgical wound site is clean. MARY drain has drained approximately 60 mL over the past 24 hours. No chest pain. No shortness of breath. White cell count is at 8.2. The rest of the blood work is all within normal limits. Producing approximately 30-50 mL of urine output on an hourly basis. 07/02/2018, the patient is awake and alert and following commands and answering questions. His rhythm is back to normal sinus. He is off the Cardizem drip. He has not required any further cardiac interventions knowing that his cardiac rhythm remained sinus throughout the day for yesterday and throughout the night. He is producing adequate amount of urine output. MARY drain is in place. Abdomen is nondistended. The patient had some flatness. Tolerating liquid diet. No shortness of breath. No cough or sputum production. He is a bit weak and he is laying in bed most of the time. Would like to get him out on a bedside chair. No fever. No chills. No sweats. White cell count is stable at 9.4. 07/03/2018 the patient got transferred to a medical surgical floor. He is recovering well. He is sinus rhythm. His MARY drain is in place. His abdomen is nondistended. His surgical wound site is clean. No nausea. No vomiting. No abdominal pain. No abdominal distention. He is passing flatus. He is noted to have some increased edema specially in the scrotum and the patient will be given a dose of Lasix. No respiratory distress. No altered mentation. He is on IV Zosyn still. Pain is under good control. He is using Eliquis 5 mg by mouth twice a day. He is on DuoNeb nebulized treatments around the clock. He got transferred out of the intensive care unit yesterday. He was able to stand up and sit up on a chair. He malignant is stable at 10.5. Rest of the electrodes are all within normal limits. 07/04/2018, the patient got transferred out of the intensive care unit. He was seen yesterday on the surgical floor. He was doing well. Overnight the patient went into atrial fibrillation with rapid ventricular response. Based on that, he got transferred back to [facility]. He is doing well. He was started on amiodarone protocol with mom milligram per minute infusion. His cardiac rhythm converted back to sinus. Is on long-term medical condition with Eliquis 5 mg by mouth twice a day. Abdomen is nondistended. Wound is clear. MARY drain is minimal. The patient on Dilaudid for pain control. He is also on IV Zosyn. No fever. No chills. No respiratory distress. Lower extremity edema is improved as the patient received a dose of Lasix yesterday.the white cell count of 9.3. S of the electrodes are within normal limits. 07/05/2018 patient is stable without any complaints. He is resting comfortably in bed. Overnight he has some increased shortness of breath he was given a breathing treatment and subsequently improved. He remains in a sinus rhythm. No nausea. No vomiting. No abdominal pain. Abdominal wounds remains unchanged. The patient is still on oral amiodarone 400 mg by mouth twice a day. The patient on long-term articulation with ataxia been. Metoprolol is also being used for rate control and blood pressure control. He is on IV Zosyn. Using incentive spirometer. Limited activity. Still edema lower extremities present. White cell count is at 10.3. Renal function stable. On 07/06/2018 patient seen in follow-up on the surgical floor. He sitting up in the recliner, in no acute distress. Denies any shortness of breath, also oxygen 3 L per nasal cannula is 99%, his using his incentive spirometry, and is able to achieve 1500 on it. Patient is currently on oral amiodarone, and he has been started on Eliquis for anticoagulation his heart rate is controlled. Her maintenance sinus rhythm. Remains on IV Zosyn, and ID service has been following him. Patient is afebrile, his abdominal pain lately with movement. Lung sounds Are negative for any rhonchi, wheezing or crackles. Has some bilateral lower extremity edema, patient has not ambulated very much, we will increase activity as tolerated. On 07/08/2018 patient seen in follow-up surgical floor. No worsening shortness of breath, surgical pain is under control. No fever or chills. Patient has been ambulating, tolerated it well, however his mobility remains low. And discharge planning is in progress for transfer to subacute rehab possibly on Monday or Monday. He is working on his incentive spirometry, and he is able to achieve 1500 on the today. Bryant on 3 L per nasal cannula his pulse ox is 95%, afebrile. Cultures remain negative. Remains on Zosyn. ID service is following. Tolerating oral intake, no nausea, no vomiting or diarrhea. Objective - Vital Signs Vital signs: Vital Signs Temp 96 F L 07/08/18 11:33 Pulse 76 07/08/18 11:33 Resp 18 07/08/18 11:33 BP 164/76 07/08/18 11:33 Pulse Ox 95 07/08/18 11:33 Intake & Output 07/07/18 07/08/18 07/08/18 18:59 06:59 18:59 Intake Total 540 Output Total 60 60 Balance 480 -60 Weight 124.5 kg Intake: Oral 540 Output: Drainage 60 60 Right Lower Abdomen 60 60 Other: # Voids 2 2 # Bowel Movements 1 1 - Exam Awake and alert and not in acute distress. Head exam was generally normal. There was no scleral icterus or corneal arcus. Mucous membranes were moist. Neck was supple and without jugular venous distension, thyromegaly, or carotid bruits. Carotids were easily palpable bilaterally. There was no adenopathy. Lungs sounds are diminished bilaterally Cardiac exam revealed the PMI to be normally situated and sized. The rhythm was regular and no extrasystoles were noted during several minutes of auscultation. The first and second heart sounds were normal and physiologic splitting of the second heart sound was noted. There were no murmurs, rubs, clicks, or gallops. Abdomen is soft and there is a mid abdominal incision which is dry clean and intact. There is no direct tenderness rebound tensile guarding. The patient has a right upper quadrant MARY drain outputs of which is minimal at this point Extremities show trace edema and there is no cyanosis or clubbing at this point. Neurologically the patient is awake and alert and there is no focal neurological deficit. - Labs CBC & Chem 7: 07/06/18 06:35 07/06/18 06:35 Labs: Abnormal Lab Results - Last 24 Hours (Table) 07/07/18 07/07/18 07/08/18 Range/Units 16:34 20:17 06:45 POC Glucose (mg/dL) 164 H 152 H 112 H (75-99) mg/dL 07/08/18 Range/Units 11:37 POC Glucose (mg/dL) 141 H (75-99) mg/dL Assessment and Plan Plan: Assessment: 1 acute perforated cholecystitis with secondary sepsis. Patient is postcholecystectomy/exp laparotomy and open cholecystectomy and lysis of adhesions. The patient is postop day #10 2 septic shock secondary to above, recovered, still on IV Zosyn and hemodynamically stable. 3 leukocytosis secondary to above improved and recovered and normalized 4 acute hypoxic failure post cholecystectomy. Please see discussion above, recovered. Overall pulmonary status is stable and the patient is currently using incentive spirometer. 5 Paroxysmal atrial fibrillation , back to normal sinus rhythm on a combination of oral amiodarone, metoprolol and Eliquis. 6 congestive heart failure, essentially diastolic in nature 7 COPD with an FEV1 of 60% of predicted 8 peripheral vascular disease with a previous aortobifemoral bypass surgery 9 history of hypertension 10 history of secondary pulmonary hypertension 11 history of diverticulosis and previous history of diverticulitis 12 previous history of diabetes mellitus. 13 acute kidney injury, recovered 14 troponin leak secondary to sepsis Plan Patient remains stable from pulmonary standpoint, continue encouraging deep breathing and coughing, ambulation. No acute events overnight, increase mobility as tolerated. Continue nebulized bronchodilators. Pain control. Anticipate discharge to subacute rehab on Monday or Monday. I performed a history & physical examination of the patient and discussed their management with my nurse practitioner, Valerie Vaughn. I reviewed the nurse practitioner's note and agree with the documented findings and plan of care. Lung sounds are positive for diminished breath sounds. The findings and the impression was discussed with the patient. I attest to the documentation by the nurse practitioner. Time with Patient: Less than 30
--- NOTE | 2018-07-08 12:39 | P.PN ---
Subjective Progress Note Date: 07/08/18 HISTORY OF PRESENT ILLNESS: The patient is a 83-year-old gentleman status post open cholecystectomy. He tolerated his regular diet. He reports mild abdominal distention. No fevers or chills. PHYSICAL EXAM: GENERAL: Well-developed in no distress. HEENT: No scleral icterus. Extraocular movements grossly intact. Hears conversational speech. No nasal drainage. NECK: Supple without lymphadenopathy. CHEST: Nonlabored respirations with equal bilateral excursions. CARDIOVASCULAR: Irregular rate and rhythm. Distal 2+ pulses. ABDOMEN: Soft, nontender, mild distention. Dressings clean dry and intact. MARY serosanguineous. MUSCULOSKELETAL: No clubbing, cyanosis. NEURO: No focal or lateralizing signs. Cranial nerves 2 through 12 grossly within normal limits. PSYCH: Appropriate affect. Alert and oriented to person, place and time. SKIN: Good skin turgor. Well perfused. ASSESSMENT: 1. Gangrenous cholecystitis status post cholecystectomy PLAN: 1. Continue antibiotics 2. Continue MARY Objective - Vital Signs Vital signs: Vital Signs Temp 96 F L 07/08/18 11:33 Pulse 76 07/08/18 11:33 Resp 18 07/08/18 11:33 BP 164/76 07/08/18 11:33 Pulse Ox 95 07/08/18 11:33 Intake & Output 07/07/18 07/08/18 07/08/18 18:59 06:59 18:59 Intake Total 540 Output Total 60 60 Balance 480 -60 Weight 124.5 kg Intake: Oral 540 Output: Drainage 60 60 Right Lower Abdomen 60 60 Other: # Voids 2 2 # Bowel Movements 1 1 - Labs CBC & Chem 7: 07/06/18 06:35 07/06/18 06:35 Labs: Abnormal Lab Results - Last 24 Hours (Table) 07/07/18 07/07/18 07/08/18 Range/Units 16:34 20:17 06:45 POC Glucose (mg/dL) 164 H 152 H 112 H (75-99) mg/dL 07/08/18 Range/Units 11:37 POC Glucose (mg/dL) 141 H (75-99) mg/dL Assessment and Plan (1) Acute cholecystitis due to biliary calculus Current Visit: Yes Status: Acute Code(s): K80.00 - CALCULUS OF GALLBLADDER W ACUTE CHOLECYST W/O OBSTRUCTION SNOMED Code(s): 58162147694179 (2) Bile peritonitis Current Visit: Yes Status: Acute Code(s): K65.3 - CHOLEPERITONITIS SNOMED Code(s): 96324461 (3) Cholecystitis Current Visit: Yes Status: Acute Code(s): K81.9 - CHOLECYSTITIS, UNSPECIFIED SNOMED Code(s): 63887378 (4) Lactic acidosis Current Visit: Yes Status: Acute Code(s): E87.2 - ACIDOSIS SNOMED Code(s) : 95201066
[2018-07-08] MEDS ORDERED: FUROSEMIDE 10 MG/ML 2 ML VIAL IV ONE (13:55)
[2018-07-08 14:28] LABS: Basophils # (A) 0.1 k/uL (0-0.2); Basophils % (A) 1 %; Eosinophils # (A) 0.2 k/uL (0-0.7); Eosinophils % (A) 2 %; HCT 35.9 % (39.0-53.0); HGB 11.5 gm/dL (13.0-17.5); Hypochromasia Slight; Lymphocytes # (A) 0.7 k/uL (1.0-4.8); Lymphocytes % (A) 8 %; MCH 31.7 pg (25.0-35.0); Macrocytosis Slight; Monocytes # (A) 0.3 k/uL (0-1.0); Monocytes % (A) 3 %; Neutrophils # (A) 7.3 k/uL (1.3-7.7); Neutrophils % (A) 85 %; Platelet Count 301 k/uL (150-450); RBC 3.63 m/uL (4.30-5.90); RDW 14.8 % (11.5-15.5); WBC 8.6 k/uL (3.8-10.6)
--- NOTE | 2018-07-08 14:35 | PN ---
PROGRESS NOTE DATE OF SERVICE: 07/08/2018 This 83-year-old gentleman admitted with perforated acute gangrenous cholecystitis and abdomen adhesions had an open cholecystectomy. Patient had sepsis and septic shock and multiple complex medical issues. Patient had bibasilar atelectasis. Patient had increasing shortness of breath and also wheezing also. PT, OT evaluated the patient, possible ECF rehab is being considered. Multiple consultants are following the patient closely. A chest x-ray done today which I reviewed personally showed some increased bronchovascular markings on the right side, atelectasis noted. Small bilateral effusion was also noted. No chest pain. No palpitations. PAST MEDICAL HISTORY: Reviewed. REVIEW OF SYSTEMS: CARDIOVASCULAR: No angina. RESPIRATORY: As mentioned earlier. GI: As mentioned earlier. : No dysuria. NERVOUS SYSTEM: As mentioned earlier. CURRENT MEDICATIONS: 1. Tylenol 650 q.4h p.r.n. 2. [place] 5 mg q.6h p.r.n. 3. DuoNeb q.i.d. and p.r.n. 4. Cordarone 200 mg p.o. b.i.d. 5. Eliquis 5 mg p.o. b.i.d. 6. NovoLog a.c. and at bedtime. 7. Lopressor 2.5 mg p.r.n. 8. Lopressor 25 mg p.o. t.i.d. 9. Narcan 0.2 q.2h p.r.n. 10.Zofran 4 mg q.8h p.r.n. 11.Protonix 40 mg p.o. daily. 12.Zosyn 3.375 IV q.8h. PHYSICAL EXAM: Patient is alert, oriented x3. Pulse 76, blood pressure 160/76, respiration 18, temp 96 degrees, pulse ox 94% on 3 L. HEENT: Conjunctivae normal. Oral mucosa moist. Neck is no jugular venous distention. No carotid bruit. No lymph node enlargement. CARDIOVASCULAR: S1, S2 muffled. RESPIRATORY: Breath sounds diminished in the bases. A few scattered rhonchi and crackles. ABDOMEN: Soft, status post surgery. LEGS: No edema. NERVOUS SYSTEM: No focal deficits. LABS: WBC 9, hemoglobin 11.7, glucose 141. ASSESSMENT: 1. Acute perforated gangrenous cholecystitis, intraabdominal adhesions, status post open cholecystectomy, laparoscopic lysis of adhesions. 2. Coronary artery disease with sepsis, septic shock secondary to acute cholecystitis. 3. Bibasilar atelectasis, right more the left. 4. Leukocytosis secondary to metabolic acidosis secondary to sepsis, present on admission. 5. Lactic acidosis. 6. Acute hypoxic respiratory failure status ventilator dependent respiratory failure. 7. Mildly elevated troponin, could be related to infection. 8. Chronic obstructive pulmonary disease. 9. Diabetes mellitus type 2. 10.Peripheral vascular disease with bilateral femoropopliteal bypass surgery. 11.Pulmonary hypertension. 12.History of DVT. 13.History of diverticulosis and diverticulitis. 14.Acute renal failure secondary to hypotension, sepsis. 15.FULL CODE. RECOMMENDATIONS AND DISCUSSION: In this 83-year-old gentleman who presented with multiple complex medical issues, we will monitor the patient closely. Continue the current management and symptomatic treatment. Will optimize the bronchodilator treatment. Continue with broad-spectrum IV antibiotics. The patient is on a diet right now. I would recommend to stop the IV fluids and one dose of 20 mg IV Lasix was also recommended. Monitor fluid electrolyte balance closely. Otherwise, continue the rest of medications and also add Symbicort to the current regimen. The patient is on apixaban. The prognosis is guarded because of multiple complex medical issues as mentioned. PT, OT evaluation. Further recommendations to follow. MMODL / YOLYN: [id number] /
[2018-07-08 15:04] LABS: Albumin 2.5 g/dL (3.5-5.0); Calcium 8.6 mg/dL (8.4-10.2); Potassium 4.3 mmol/L (3.5-5.1); Total Bilirubin 0.5 mg/dL (0.2-1.3); Total Protein 5.2 g/dL (6.3-8.2)
[2018-07-08 16:43] LABS: Glucose,Whole Blood 113 mg/dL (75-99)
[2018-07-08 19:19] VITALS: RESP 16
[2018-07-08] MEDS: SYMBICORT 160-4.5 MCG INHALER INHALATION SCH (19:49)
[2018-07-08 20:21] LABS: Glucose,Whole Blood 152 mg/dL (75-99)
[2018-07-09 07:02] LABS: Glucose,Whole Blood 122 mg/dL (75-99)
[2018-07-09] MEDS: INSULIN ASPART 100 UNIT/ML 1 ML 10 ML VIAL SQ SCH ×2 (07:46→11:59)
[2018-07-09] MEDS: PIPERACILLIN-TAZOBACTAM 3.375 GM in DEXTROSE/WATER 1 50ML.BAG IVPB SCH ×2 (07:49→15:56)
[2018-07-09] MEDS: APIXABAN 5 MG TAB PO SCH (07:49)
[2018-07-09] MEDS: PANTOPRAZOLE 40 MG TABLET PO SCH (07:49)
[2018-07-09] MEDS: AMIODARONE 200 MG TAB PO SCH (07:49)
[2018-07-09] MEDS: METOPROLOL TARTRATE 25 MG TAB PO SCH ×2 (07:49→15:56)
[2018-07-09 08:04] LABS: Basophils # (A) 0.1 k/uL (0-0.2); Basophils % (A) 1 %; Eosinophils # (A) 0.2 k/uL (0-0.7); Eosinophils % (A) 3 %; HGB 11.3 gm/dL (13.0-17.5); Hypochromasia Slight; Lymphocytes % (A) 13 %; MCH 30.7 pg (25.0-35.0); MCHC 31.3 g/dL (31.0-37.0); MCV 97.9 fL (80.0-100.0); Monocytes # (A) 0.4 k/uL (0-1.0); Monocytes % (A) 5 %; Neutrophils # (A) 5.7 k/uL (1.3-7.7); Neutrophils % (A) 77 %; Platelet Count 319 k/uL (150-450); RBC 3.67 m/uL (4.30-5.90); WBC 7.4 k/uL (3.8-10.6)
[2018-07-09 08:21] LABS: Calcium 8.7 mg/dL (8.4-10.2); Potassium 4.1 mmol/L (3.5-5.1)
[2018-07-09] MEDS: SYMBICORT 160-4.5 MCG INHALER INHALATION SCH (08:44)
[2018-07-09] MEDS: IPRATROPIUM-ALBUTEROL 3 ML NEB INHALATION SCH ×3 (08:44→15:42)
[2018-07-09 11:47] LABS: Glucose,Whole Blood 121 mg/dL (75-99)
--- NOTE | 2018-07-09 14:27 | P.PN ---
Subjective Mr. Haynes is seen and examined sitting up in bed in no acute distress. He continues to complain of pain in the right upper quadrant. He denies pain in the chest, shortness of breath, dizziness or palpitations. He has been maintaining sinus mechanism. Blood pressure 120/71 heart rate 58 afebrile maintaining oxygen saturation on nasal cannula. Laboratory data reviewed, hemoglobin 11.3, platelets 319, sodium 140, potassium 4.1, creatinine 1.04. Objective - Vital Signs Vital signs: Vital Signs Temp 97.8 F 07/09/18 07:14 Pulse 68 07/09/18 12:16 Resp 16 07/09/18 07:14 BP 128/71 07/09/18 07:14 Pulse Ox 94 L 07/09/18 07:14 Intake & Output 07/08/18 07/09/18 07/09/18 18:59 06:59 18:59 Intake Total 530 500 Output Total 910 320 Balance -380 180 Weight 119 kg Intake: IV 50 Piperacillin-Tazobactam 3 50 .375 gm In Dextrose/Water 1 50ml.bag @ 12.5 mls/hr IVPB Q8HR [facility] Rx#: [id number] Oral 480 500 Output: Drainage 110 20 Right Lower Abdomen 110 20 Urine 800 300 Other: Voiding Method Urinal Urinal # Voids 2 # Bowel Movements 1 - Exam GENERAL: Well-appearing, well-nourished and in no acute distress. NECK: Supple without JVD or thyromegaly. LUNGS: Breath sounds clear to auscultation bilaterally. Respiration equal and unlabored. No wheezes, rales or rhonchi. HEART: Regular rate and rhythm with systolic ejection murmur, no rubs or gallops. S1 and S2 heard. EXTREMITIES: Normal range of motion, no edema. No clubbing or cyanosis. Peripheral pulses intact. - Labs CBC & Chem 7: 07/09/18 07:18 07/09/18 07:18 Labs: Abnormal Lab Results - Last 24 Hours (Table) 07/08/18 07/08/18 07/08/18 Range/Units 14:13 14:13 16:39 RBC 3.63 L (4.30-5.90) m/uL Hgb 11.5 L (13.0-17.5) gm/dL Hct 35.9 L (39.0-53.0) % Lymphocytes # 0.7 L (1.0-4.8) k/uL Glucose 157 H (74-99) mg/dL POC Glucose (mg/dL) 113 H (75-99) mg/dL Total Protein 5.2 L (6.3-8.2) g/dL Albumin 2.5 L (3.5-5.0) g/dL 07/08/18 07/09/18 07/09/18 Range/Units 20:19 07:00 07:18 RBC 3.67 L (4.30-5.90) m/uL Hgb 11.3 L (13.0-17.5) gm/dL Hct 36.0 L (39.0-53.0) % Lymphocytes # (1.0-4.8) k/uL Glucose (74-99) mg/dL POC Glucose (mg/dL) 152 H 122 H (75-99) mg/dL Total Protein (6.3-8.2) g/dL Albumin (3.5-5.0) g/dL 07/09/18 07/09/18 Range/Units 07:18 11:45 RBC (4.30-5.90) m/uL Hgb (13.0-17.5) gm/dL Hct (39.0-53.0) % Lymphocytes # (1.0-4.8) k/uL Glucose 128 H (74-99) mg/dL POC Glucose (mg/dL) 121 H (75-99) mg/dL Total Protein (6.3-8.2) g/dL Albumin (3.5-5.0) g/dL Assessment and Plan Assessment: ASSESSMENT Abdominal pain s/p open cholecystectomy and lysis of adhesions with perforated gangrenous cholecystitis Paroxysmal atrial fibrillation with rapid ventricular response Leukocytosis Lactic acidosis Hyponatremia Mild troponin leak, not indicative of an acute coronary event. Hypertension Diabetes mellitus Pulmonary hypertension PLAN Amiodarone titration has been placed in his discharge instructions. This has also been communicated to the patient. Follow-up with Dr. Zuleta in the office in 2-3 weeks. Stable from a cardiac perspective for discharge to rehab facility. Nurse Practitioner note has been reviewed, I agree with a documented findings and plan of care. Patient was seen and examined.
[2018-07-09 14:30] VITALS: BP 125/71; TEMP 98.7
[2018-07-09 15:53] VITALS: PULSE 67
[2018-07-09] MEDS: HYDROcodone/APAP 5-325MG 1 EACH TAB PO PRN (16:05)
--- NOTE | 2018-07-09 16:06 | P.DS ---
Providers Date of admission: 06/28/18 01:16 Expected date of discharge: 07/09/18 Attending physician: Dasha Brown Consults: 06/28/18 01:17 Consult Physician Routine Consulting Provider: Taurus Arriola Consult Reason/Comments: Cardiac evaluation Do you want consulting provider notified?: Yes Consult Physician Routine Consulting Provider: Ray Perkins Consult Reason/Comments: Pulmonary evaluation Do you want consulting provider notified?: Yes Consult Physician Urgent Consulting Provider: Dean Oconnor Consult Reason/Comments: Cholecystitis Do you want consulting provider notified?: Yes 06/28/18 22:52 Consult Physician Routine Consulting Provider: Sourav Hdz Consult Reason/Comments: Abdominal sepsis perforated gallbladder Do you want consulting provider notified?: Yes, Notify in am Primary care physician: Ray Perkins Hospital Course: Final Diagnoses: Acute Perforated gangrenous cholecystitis with intra-abdominal adhesions status post open cholecystectomy, laparoscopic lysis of adhesions CAD with Septic shock secondary to acute cholecystitis Leukocytosis secondary to the above, normalized Metabolic acidosis, status post bicarb drip, resolved Lactic acidosis Acute hypoxic respiratory failure post procedure, required reintubation in PACU , status post mechanical ventilator-dependent. Mild elevated troponin level could be related to infection. Possible demand ischemia without SD COPD stable Diabetes type 2 [id number]. Peripheral vascular disease with history of bilateral femoropopliteal bypass surgery Pulmonary hypertension as per 2-D echocardiogram DVT prophylaxis History of diverticulosis and diverticulitis Acute renal failure secondary to hypotension, sepsis New onset proximal atrial fibrillation with RVR. Patient reports no prior history of arrhythmias, A. fib. Chronic diastolic CHF. Hospital course:Patient is a 83-year-old male admitted with perforated acute gangrenous cholecystitis, abdominal adhesions, sepsis and septic shock status post open cholecystectomy. Evaluated by multiple consults, PT/OT. Maintained on nebulized bronchodilators, broad-spectrum IV antibiotics, and initially IV fluids. Significant clinical improvement. Patient has been cleared by all consults for discharge. Patient is being discharged to [facility] subacute rehab in stable condition with guarded prognosis. Exam General:Patient is alert and oriented 3, no acute distress CHEST EXAMINATION: Bilateral bases diminished. CARDIAC: Normal S1, S2 with no gallops. Regular, Positive systolic murmur ABDOMEN: Soft, nondistended, Status post surgery, MARY with minimal serosanguineous drainage. Abdominal binder. positive bowel sounds. Neurologically no focal deficits. The impression and plan of care has been dictated as directed. : I performed a history and examination of this patient, discussed the same with the dictator. I agree with the dictator's note ,documented as a scribe. Any additional findings or plans will be noted. Time taken: 35 minutes Patient Condition at Discharge: Stable Plan - Discharge Summary Discharge Rx Participant: Yes New Discharge Prescriptions: New Amiodarone [Cordarone] 200 mg PO BID tab Acetaminophen Tab [Tylenol] 650 mg PO Q4HR PRN tab PRN Reason: Fever And/ Or Pain Apixaban [Eliquis] 5 mg PO BID tab Budesonide-Formot 160-4.5 Mcg [Symbicort 160-4.5 Mcg Inhaler] 2 puff INHALATION RT-BID puff Ipratropium-Albuterol Nebulize [Duoneb 0.5 mg-3 mg/3 ml Soln] 3 ml INHALATION RT-QID ampul.neb Ipratropium-Albuterol Nebulize [Duoneb 0.5 mg-3 mg/3 ml Soln] 3 ml INHALATION Q4H PRN ampul.neb PRN Reason: Shortness Of Breath Or Wheezing Metoprolol Tartrate [Lopressor] 25 mg PO TID tab Pantoprazole [Protonix] 40 mg PO AC-BRKFST tablet. HYDROcodone/APAP 5-325MG [[place] 5-325] 1 each PO Q6HR PRN #12 tab PRN Reason: Pain Multivitamins, Thera Liquid [Theragran Liquid (formulary)] 5 ml PO DAILY #1 ml Folic Acid 1 mg PO DAILY #1 tablet Thiamine [Vitamin B-1] 100 mg PO DAILY #1 tablet Discontinued metFORMIN HCL [Glucophage] 500 mg PO BID-W/MEALS #60 tab Aspirin 81 mg PO DAILY chew Lisinopril [Zestril] 5 mg PO BID #60 tab Metoprolol Tartrate [Lopressor] 25 mg PO BID #60 tab Discharge Medication List Acetaminophen Tab [Tylenol] 650 mg PO Q4HR PRN tab 07/09/18 [Rx] Amiodarone [Cordarone] 200 mg PO BID tab 07/09/18 [Rx] Apixaban [Eliquis] 5 mg PO BID tab 07/09/18 [Rx] Budesonide-Formot 160-4.5 Mcg [Symbicort 160-4.5 Mcg Inhaler] 2 puff INHALATION RT-BID puff 07/09/18 [Rx] Folic Acid 1 mg PO DAILY #1 tablet 07/09/18 [Rx] HYDROcodone/APAP 5-325MG [[place] 5-325] 1 each PO Q6HR PRN #12 tab 07/09/18 [Rx] Ipratropium-Albuterol Nebulize [Duoneb 0.5 mg-3 mg/3 ml Soln] 3 ml INHALATION Q4H PRN ampul.neb 07/09/18 [Rx] Ipratropium-Albuterol Nebulize [Duoneb 0.5 mg-3 mg/3 ml Soln] 3 ml INHALATION RT -QID ampul.neb 07/09/18 [Rx] Metoprolol Tartrate [Lopressor] 25 mg PO TID tab 07/09/18 [Rx] Multivitamins, Thera Liquid [Theragran Liquid (formulary)] 5 ml PO DAILY #1 ml 07/09/18 [Rx] Pantoprazole [Protonix] 40 mg PO AC-BRKFST tablet. 07/09/18 [Rx] Thiamine [Vitamin B-1] 100 mg PO DAILY #1 tablet 07/09/18 [Rx] Follow up Appointment(s)/Referral(s): Bryan Romano MD [STAFF PHYSICIAN] - 3 Days (While at subacute rehab) Ray Perkins DO [Primary Care Provider] - 1 Week (After discharge from subacute rehab) Gurwinder Zuleta MD [STAFF PHYSICIAN] - 2 Weeks Activity/Diet/Wound Care/Special Instructions: Antbiotics as per [facility] Diet: Low fiber CBC, BMP in 3 days
--- NOTE | 2018-07-09 16:07 | P.PN ---
Subjective Progress Note Date: 07/09/18 Principal diagnosis: Perforated cholecystitis Patient doing well today. Tolerating diet. MARY drain serosanguineous and decreased in volume. Objective - Vital Signs Vital signs: Vital Signs Temp 98.7 F 07/09/18 14:29 Pulse 67 07/09/18 15:53 Resp 16 07/09/18 14:29 BP 125/71 07/09/18 14:29 Pulse Ox 95 07/09/18 14:29 Intake & Output 07/08/18 07/09/18 07/09/18 18:59 06:59 18:59 Intake Total 530 500 540 Output Total 910 320 Balance -380 180 540 Weight 119 kg Intake: IV 50 Piperacillin-Tazobactam 3 50 .375 gm In Dextrose/Water 1 50ml.bag @ 12.5 mls/hr IVPB Q8HR [facility] Rx#: [id number] Oral 480 500 540 Output: Drainage 110 20 Right Lower Abdomen 110 20 Urine 800 300 Other: Voiding Method Urinal Urinal # Voids 2 1 # Bowel Movements 1 - Exam Abdomen: Soft, nondistended, incision clean and dry - Labs CBC & Chem 7: 07/09/18 07:18 07/09/18 07:18 Labs: Abnormal Lab Results - Last 24 Hours (Table) 07/08/18 07/08/18 07/09/18 Range/Units 16:39 20:19 07:00 RBC (4.30-5.90) m/uL Hgb (13.0-17.5) gm/dL Hct (39.0-53.0) % Glucose (74-99) mg/dL POC Glucose (mg/dL) 113 H 152 H 122 H (75-99) mg/dL 07/09/18 07/09/18 07/09/18 Range/Units 07:18 07:18 11:45 RBC 3.67 L (4.30-5.90) m/uL Hgb 11.3 L (13.0-17.5) gm/dL Hct 36.0 L (39.0-53.0) % Glucose 128 H (74-99) mg/dL POC Glucose (mg/dL) 121 H (75-99) mg/dL Assessment and Plan (1) Acute cholecystitis due to biliary calculus Narrative/Plan: Remove MARY drain today. May discharge. Follow-up one week. Current Visit: Yes Status: Acute Code(s): K80.00 - CALCULUS OF GALLBLADDER W ACUTE CHOLECYST W/O OBSTRUCTION SNOMED Code(s): 89925238845807
[2018-07-09] MEDS ORDERED: AMOXIC-POT CLAV 875-125MG 1 EACH TAB PO SCH (21:00)
== END 2018-07-09 17:35 | DRG 853 ==
LOC: EC 18:43 → 3SUR 06-28 01:16 → 6ICU 06-28 21:50 → 3SUR 07-02 22:19 → 6SEL 07-03 16:46 → 3SUR 07-05 21:18
PROVIDERS: ADMIT Internal Medicine; ATTEND Internal Medicine
PROC: 0FJ44ZZ Inspection of Gallbladder, Percutaneous Endoscopic Approach (ICD-10-PCS; 2018-06-28)
PROC: 0BH17EZ Insertion of Endotracheal Airway into Trachea, Via Natural or Artificial Opening (ICD-10-PCS; 2018-06-28)
PROC: 5A1945Z Respiratory Ventilation, 24-96 Consecutive Hours (ICD-10-PCS; 2018-06-28)
PROC: 0FT40ZZ Resection of Gallbladder, Open Approach (ICD-10-PCS; principal; 2018-06-28 07:30)
PROC: 0DNU4ZZ Release Omentum, Percutaneous Endoscopic Approach (ICD-10-PCS; 2018-06-28 07:30)
DX: A41.9 Sepsis, unspecified organism (principal); R65.21 Severe sepsis with septic shock; K82.2 Perforation of gallbladder; K65.3 Choleperitonitis; J96.01 Acute respiratory failure with hypoxia; K80.00 Calculus of gallbladder with acute cholecystitis without obstruction; I48.3 Typical atrial flutter; E87.1 Hypo-osmolality and hyponatremia; E87.2 Acidosis; N17.9 Acute kidney failure, unspecified; I50.32 Chronic diastolic (congestive) heart failure; J98.11 Atelectasis; E11.51 Type 2 diabetes mellitus with diabetic peripheral angiopathy without gangrene; I27.29 Other secondary pulmonary hypertension; E11.65 Type 2 diabetes mellitus with hyperglycemia; I48.0 Paroxysmal atrial fibrillation; I11.0 Hypertensive heart disease with heart failure; J44.9 Chronic obstructive pulmonary disease, unspecified; I08.2 Rheumatic disorders of both aortic and tricuspid valves; I37.1 Nonrheumatic pulmonary valve insufficiency; I44.4 Left anterior fascicular block; K66.0 Peritoneal adhesions (postprocedural) (postinfection); I25.10 Atherosclerotic heart disease of native coronary artery without angina pectoris; K57.30 Diverticulosis of large intestine without perforation or abscess without bleeding; N40.0 Benign prostatic hyperplasia without lower urinary tract symptoms; I87.8 Other specified disorders of veins; R27.0 Ataxia, unspecified; K42.9 Umbilical hernia without obstruction or gangrene; R79.1 Abnormal coagulation profile; R77.9 Abnormality of plasma protein, unspecified; E66.9 Obesity, unspecified; Z68.35 Body mass index [BMI] 35.0-35.9, adult; Z53.31 Laparoscopic surgical procedure converted to open procedure; Z79.82 Long term (current) use of aspirin; Z79.84 Long term (current) use of oral hypoglycemic drugs; Z79.899 Other long term (current) drug therapy; Z87.19 Personal history of other diseases of the digestive system; Z87.891 Personal history of nicotine dependence; Z87.81 Personal history of (healed) traumatic fracture; Z86.718 Personal history of other venous thrombosis and embolism; Z88.8 Allergy status to other drugs, medicaments and biological substances; Z82.49 Family history of ischemic heart disease and other diseases of the circulatory system
CPT/HCPCS: 36415; 36600; 71045; 71046; 74018; 74177; 76705; 80048; 80053; 81001; 82150; 82550; 82553; 82805; 83036; 83605; 83690; 83735; 83880; 84100; 84132; 84484; 85025; 85610; 85730; 87040; 87070; 87086; 87205; 88304; 93005; 93306; 94002; 94003; 94640; 96361; 96365; 96366; 96375; 99291

== ENCOUNTER → 2018-07-20 | Outpatient (CLI) | payer MEDICARE ==
[2018-07-20 16:33] LABS: Anisocytosis Slight; Basophils # (A) 0.1 k/uL (0-0.2); Basophils % (A) 1 %; Eosinophils # (A) 0.2 k/uL (0-0.7); Eosinophils % (A) 2 %; HCT 43.6 % (39.0-53.0); HGB 13.5 gm/dL (13.0-17.5); Hypochromasia Slight; Lymphocytes % (A) 14 %; MCH 30.2 pg (25.0-35.0); MCHC 30.9 g/dL (31.0-37.0); MCV 97.7 fL (80.0-100.0); Macrocytosis Slight; Mean Platelet Volume 7.8; Monocytes # (A) 0.4 k/uL (0-1.0); Monocytes % (A) 5 %; Neutrophils # (A) 5.8 k/uL (1.3-7.7); Neutrophils % (A) 77 %; Platelet Count 249 k/uL (150-450); RBC 4.46 m/uL (4.30-5.90); RDW 16.1 % (11.5-15.5); WBC 7.5 k/uL (3.8-10.6)
[2018-07-20 16:46] LABS: Albumin 3.7 g/dL (3.5-5.0); Calcium 9.5 mg/dL (8.4-10.2); Potassium 4.4 mmol/L (3.5-5.1); Total Bilirubin 0.9 mg/dL (0.2-1.3); Total Protein 6.8 g/dL (6.3-8.2)
== END ==
LOC: LABWHC1 15:41
PROVIDERS: ATTEND Nurse Practitioner
DX: I10 Essential (primary) hypertension (principal); K80.20 Calculus of gallbladder without cholecystitis without obstruction
CPT/HCPCS: 36415; 80053; 85025